=== PATIENT | female | born 1955 | race Caucasian/White ===

== ENCOUNTER 2016-12-29 18:03 | Emergency (ER) | payer OTHER ==
[~2016-12-29] VITALS: Ht 154.9 cm; Wt 70.0 kg
[~2016-12-29 18:03] MED LIST: ATV1 PO; DICL-201 PO; DPKSR500 PO; ENBER15 PO; LAMO100T16 PO; LEVE500T26 PO
[2016-12-29 18:17] VITALS: TEMP 37.2; Ht 154.9 cm; Wt 70.0 kg
--- NOTE | 2016-12-29 18:31 | EMERGENCY ROOM VISIT NOTE ---
History First contact with patient: 18:04 Chief Complaint: FOOT PAIN Stated Complaint: R FOOT PAIN History of Present Illness The patient is a 61 year old female who presents to the Emergency Room via BLS with complaints of right foot pain. The patient reports she was walking up a hill to her house when she developed pain in the right foot. She states she heard a cracking sound in the foot. The pain is worse with weightbearing. She rates the discomfort a 10/10. She does report a history of a foot surgery as a child. She denies any falls. She denies any numbness or weakness. Review of Systems A 6 point review of systems was reviewed with the patient with pertinent positives and negatives as per history of present illness. All else were negative. Social History Smoking Status: Never Smoker Occupation Status: disabled Current/Historical Medications Scheduled Alendronate Sodium (Fosamax), 70 MG PO WK Calcium/Vitamin D (Os-Selwyn 500 Plus D), 1 TAB PO BID Diclofenac (Voltaren), 75 MG PO BID W/FOOD. Divalproex Sodium (Divalproex Sodium ER), 500 MG PO BID Lamotrigine (Lamictal), 100 MG PO BID Levetiracetam (Keppra), 1,500 MG PO BID Lisinopril (Lisinopril), 10 MG PO DAILY Lorazepam (Ativan), 1 MG PO DAILY Metoprolol Succ (Toprol Xl) (Toprol-Xl), 25 MG PO DAILY Oxybutynin Chloride Er (Ditropan Xl), 10 MG PO DAILY Physical Exam Vital Signs Date Time Temp Pulse Resp B/P (MAP) Pulse Ox O2 Delivery O2 Flow Rate FiO2 12/29/16 19:05 57 16 172/98 96 Room Air 12/29/16 18:17 37.2 88 16 160/100 98 Room Air Physical Exam VITALS: Vitals are noted on the nurse's note and reviewed by myself. Vital signs stable. GENERAL: This is a 61-year-old female, pleasant, in no acute distress, well- developed well-nourished. HEART: Regular rate and rhythm without murmurs gallops or rubs. LUNGS: Clear to auscultation bilaterally without wheezes, rales or rhonchi. MUSCULOSKELETAL: Chronic appearing deformity of the right foot. There is mild soft tissue swelling and tenderness to palpation along the lateral aspect of the foot in the area of the fifth metatarsal. Full range of motion of the foot and ankle. Strong dorsalis pedis pulse. NEURO: Patient was alert and oriented to person place and time. Normal sensation to light and sharp touch. Medical Decision & Procedures ER Provider Diagnostic Interpretation: R FOOT MIN 3 VIEWS ROUTINE FINDINGS: Bones are moderately demineralized. Moderate metatarsophalangeal and interphalangeal degenerative changes are redemonstrated. Ill-defined transversely oriented lucency with associated surrounding cortical thickening involves the mid diaphyseal fifth metatarsal. Healing callus formation surrounds a nondisplaced fracture involving the proximal diaphyseal fourth metatarsal. Hallux valgus deformity noted. Mild dorsal forefoot soft tissue swelling. Mild spurring about the calcaneus. Likely dystrophic calcification within the region of the plantar fascia. IMPRESSION: 1. Subacute appearing nondisplaced stress fracture of the fifth metatarsal. 2. Chronic appearing nondisplaced stress fracture of the fourth metatarsal. 3. Mild forefoot soft tissue swelling with hallux valgus deformity. 4. Osteopenia. Medical Decision Differential diagnosis includes fracture, contusion, plantar fasciitis, cellulitis, stress fracture, among others. The patient was evaluated as above. X-ray of the foot was obtained and read by radiology and does show a chronic stress fracture of the fourth metatarsal as well as a subacute fracture of the fifth metatarsal. Patient was informed of these findings. She was placed in a postoperative shoe. She has a walker at home. Conservative measures were discussed. She was given information for orthopedic follow-up. She verbalized understanding was discharged home in good condition. The patient was independently evaluated by Dr. Raymundo, ED attending physician, who agreed with my assessment and treatment plan. Medication Reconcilliation Current Medication List: was personally reviewed by mi Blood Pressure Screening Patient's blood pressure: Elevated blood pressure Blood pressure disposition: Referred to PCP Impression Primary Impression: Stress fracture of foot Departure Information Dispostion Home / Self-Care Condition GOOD Referrals Naresh Fu M.D. (PCP) Fred Giordano D.O. Patient Instructions [facility] Additional Instructions You have been treated in the Emergency Department for a stress fracture of your foot. For pain control, you can use the following [id number] medicines (if >12 yo): - Regular strength (325mg/tab) Tylenol (acetaminophen) 2 tabs every 4-6 hours as needed. Do not exceed 12 tablets in a 24 hour period. Avoid taking more than 4 grams (4000 mg) of Tylenol per day. This includes any other sources of acetaminophen you may take on a regular basis. - Regular strength (200 mg/tab) Advil (ibuprofen) 1-2 tabs every 4-6 hours as needed. Do not exceed a dose of 3200 mg per day. If this is a recent injury (<24 hrs), ice can be applied to the area of pain for the first 3 days to help decrease pain and inflammation. You have been provided the number for an Orthopaedic Surgeon. You should call this number as soon as possible to establish a follow-up visit from today's Emergency Department visit. Wear the boot provided to you and use the walker to aid with walking until follow-up with orthopedics. Return to the Emergency Department if your current symptoms worsen despite treatment course outlined above, or if you develop any of the following symptoms : intractable pain despite aforementioned treatment course or new onset of numbness or tingling of the foot. Problem Qualifiers Primary Impression: Stress fracture of foot Encounter type: initial encounter Laterality: right Qualified Codes: M84.374A - Stress fracture, right foot, initial encounter for fracture
--- NOTE | 2016-12-29 18:45 | DIAGNOSTIC IMAGING REPORT ---
R FOOT MIN 3 VIEWS ROUTINE HISTORY: 61 years-old Female right foot lateral pain, cracking acute lateral right foot pain COMPARISON: Right foot radiographs 07/20/2009 TECHNIQUE: 3 views of the right foot FINDINGS: Bones are moderately demineralized. Moderate metatarsophalangeal and interphalangeal degenerative changes are redemonstrated. Ill-defined transversely oriented lucency with associated surrounding cortical thickening involves the mid diaphyseal fifth metatarsal. Healing callus formation surrounds a nondisplaced fracture involving the proximal diaphyseal fourth metatarsal. Hallux valgus deformity noted. Mild dorsal forefoot soft tissue swelling. Mild spurring about the calcaneus. Likely dystrophic calcification within the region of the plantar fascia. IMPRESSION: 1. Subacute appearing nondisplaced stress fracture of the fifth metatarsal. 2. Chronic appearing nondisplaced stress fracture of the fourth metatarsal. 3. Mild forefoot soft tissue swelling with hallux valgus deformity. 4. Osteopenia. The above report was generated using voice recognition software. It may contain grammatical, syntax or spelling errors. Electronically signed by: Jose Luis Osborne M.D. 12/29/2016 6:44 PM Dictated Date/Time: 12/29/2016 6:42 PM
[2016-12-29] MEDS ORDERED: ALEN70TA4 PO (18:57)
[2016-12-29] MEDS ORDERED: ATV/1 PO (18:57)
[2016-12-29] MEDS ORDERED: LEVE500T13 PO (18:57)
[2016-12-29] MEDS ORDERED: METO25TA3 PO (18:57)
[2016-12-29] MEDS ORDERED: OXYB10TA13 PO (18:57)
[2016-12-29] MEDS ORDERED: DPKSR500 PO (18:57)
[2016-12-29] MEDS ORDERED: LISI-461 PO (18:57)
[2016-12-29] MEDS ORDERED: CALC500C70 PO (18:57)
--- NOTE | 2016-12-29 18:57 | EMERGENCY ROOM VISIT NOTE ---
ED Visit Note First contact with patient: 18:04 HPI: Right foot pain after walking up hill. Plan: Subacute 5th metatarsal stress fx. Post op shoe. ortho f/u. I reviewed the patient's past medical history, medications, and visit nursing notes. I discussed the case with the physician insurance account assistant, examined the patient, and agree with the findings and plan as documented in the physician assistants note.
[2016-12-29 19:05] VITALS: BP 172/98; PULSE 57; O2SAT 96
== END 2016-12-29 19:15 | disposition home or self-care (01) ==
LOC: EDBD 18:03 → C.EDC 18:05
DX: M84.374A Stress fracture, right foot, initial encounter for fracture (principal); X58.XXXA Exposure to other specified factors, initial encounter; Y93.01 Activity, walking, marching and hiking; Y99.8 Other external cause status; Z98.890 Other specified postprocedural states

== ENCOUNTER 2019-06-04 09:07 | Inpatient (IN) ==
--- NOTE | 2019-06-04 10:06 | Emergency Department Note ---
History of Present Illness General Chief complaint: Diarrhea Time Seen by Provider: 06/04/19 09:24 History of Present Illness Maximum Pain Intensity: 0 Patient is a 64-year-old female with past medical history significant for cerebral palsy, seizure disorder, hypertension, among other chronic medical problems who presents to the emergency department via ambulance for evaluation of diarrhea. The patient has had chronic diarrhea for 4 to 5 months, and is currently under the care of her PCP and gastroenterology for this. She has undergone multiple tests including stool studies which were negative, CT of the abdomen and pelvis, and colonoscopy and EGD. Patient continues to note ongoing loose stools. She states that she is moving her bowels "every minute" and is unable to quantify the number of times per day. She states that they are loose and watery. She denies any blood in her stools. She denies any nausea or vomiting and reports that she has a good appetite and is eating normally. She denies any abdominal pain associated with this. No fevers. She denies urinary symptoms. She denies any chest pain or shortness of breath. She states that anything she eats "goes right through me." She is wearing adult diapers. She is complaining of "tailbone pain." She falls frequently at home and thinks that she may have hurt it when she fell. She reports having a power wheelchair and a walker at home. Patient's recent or [facility] medical records were reviewed, specifically her GI note from 04/29/2019. 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 Recommendations were made to the patient including discontinuing her diclofenac, which the patient relates that she is currently unable and unwilling to do. She was taking Imodium, recommendation was for twice daily, she is only been taking it once daily and states that it is not helping. She has not started a probiotic or a FODMAP diet as instructed. Potential other treatments included Lomotil or budesonide. Home Medications Home Medications Medication Instructions Recorded Confirmed Type diclofenac sodium 75 mg PO BID 01/26/18 06/04/19 History divalproex 500 mg PO BID 01/26/18 06/04/19 History lamotrigine 100 mg PO BID 01/26/18 06/04/19 History levetiracetam 1,500 mg PO BID 01/26/18 06/04/19 History lisinopril 20 mg PO DAILY 01/26/18 06/04/19 History aspirin 81 mg PO QAM 05/23/19 06/04/19 History oxybutynin chloride 10 mg PO QPM 05/23/19 06/04/19 History lorazepam 1 mg PO DAILY 06/04/19 06/04/19 History Allergies Allergy/AdvReac Type Severity Reaction Status Date / Time adhesive Allergy Unknown Unknown Verified 06/04/19 09:53 Past Med/Surg History Medical History Anxiety (Chronic) Bowel habit changes (Chronic) Chronic back pain (Chronic) CKD (chronic kidney disease) (Chronic) 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) History of colon polyps Hypertension (Chronic) Incontinence Infantile cerebral palsy (Chronic) Obstructive hydrocephalus (Chronic) has shunt Osteoporosis (Chronic) Weight loss lost 17 lb since august, 61 lb since 01/2018 Surgical History History of brain shunt History of colonoscopy Social History 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 Required: No Current Living Situation Comment: pt is a resident at [facility] Feels Safe at Home: Yes Smoking Status: Never smoker Review of Systems A total of 10 systems reviewed and were otherwise negative Physical Exam Vital Signs Vital Signs - 24 hr 06/04/19 09:21 06/04/19 10:32 06/04/19 11:30 Temperature 36.9 C Temperature Source Oral Pulse Rate 66 Pulse Rate [Apical] 59 L 63 Respiratory Rate 16 16 16 Blood Pressure 110/61 Blood Pressure [Right Arm] 98/69 L 104/75 Blood Pressure Mean 77 Blood Pressure Mean [Right Arm] 78 84 Pulse Oximetry 95 Oxygen Delivery Method Room Air Sepsis Recent Fever Within 48 Hours No Sepsis New/Unexplained Change in Mental Status No Sepsis Action Taken by Nursing No Action Required CONSTITUTIONAL: Patient is a petite, chronically ill-appearing 64-year-old female who is awake and alert and in no acute distress. Vital signs are stable. EYES: Pupils equal, round, reactive to light and accommodation. EOMs intact without nystagmus. Sclera are anicteric. ENT: Tympanic membranes intact, with normal landmarks. External canals are c lear. Oral and nasopharynx are clear. Mucous membranes are moist, no lesions, tongue and gums appear normal. CARDIOVASCULAR: Regular rate and rhythm, with normal S1 and S2, no murmur or gallop or rub is heard. No carotid bruits auscultated. No JVD. Peripheral pulses easily palpable. RESPIRATORY: Breath sounds equal and clear to auscultation without wheezes, rales, or rhonchi heard. Full and equal chest expansion without accessory muscle use or retractions. ABDOMEN: Bowel sounds are present. Abdomen is soft, nondistended, nontender to percussion and palpation throughout. No guarding or rebound. There is no pain in the right lower quadrant over McBurney's point. No pain in the right upper quadrant. Negative Price sign. RECTAL EXAM: Examination of the perirectal area note some generalized erythema. No external hemorrhoids or masses noted. No rectal tenderness. Good rectal tone. There is only scant stool in the rectal vault, which is Hemoccult negative. INTEGUMENTARY: The patient has some erythema of the presacral area, with very minimal superficial breakdown. LYMPH: No lymphadenopathy. MUSCULOSKELETAL: Chronic contractures noted in the right upper extremity. She has several areas of scabbed over abrasions on her arms and her legs. Multiple bruises in various stages of healing noted on the lower extremities. Full range of motion otherwise without pain. Course Course The patient was seen and assessed as above. Old records were reviewed including her recent ED visit from 2 weeks ago, and her last GI visit from 04/29/2019. She presents the emergency department for ongoing diarrhea. She is currently under the care of GI for this. On exam, she is noted to be frail, with dry mucous membranes. She is hypotensive upon presentation to the emergency department. Her abdominal exam is benign. IV lock was initiated and repeat laboratory studies were collected today. She was given a 500 cc bolus of normal saline solution, then 250 cc/h. CBC with differential, CMP, urinalysis were run. Patient history and presentation were reviewed with attending physician, who concurred with the ED work-up. Rectal exam was performed in the emergency department and was Hemoccult negative. Laboratory studies today noted a white count of 15,800, left shift and bandemia noted. Hemoglobin 8.3, hematocrit 27.0. She has dropped her hemoglobin roughly 1 point in the last 2 weeks. Electrolytes are without significant abnormality which require correction. BUN 42, creatinine 1.83, up from 1.5 2 weeks ago. Urine microscopy is without signs of infection. I did discuss the patient with MAYANK Su with GI. She felt that admission/observation was warranted given the ongoing diarrhea, concern for dehydration. There was discussion of starting budesonide. This was discussed with the patient, and she was agreeable. [facility] MAY[facility] Kinney for further care and management. Administered Medications Discontinued Medications Sodium Chloride (Nss) 500 mls @ 999 mls/hr IV .Q31M ANASTASIIA Stop: 07/04/19 09:59 Last Admin: 06/04/19 12:42 Dose: Not Given Documented by: [id number] Admin: 06/04/19 12:42 Dose: Not Given Documented by: [id number] Admin: 06/04/19 12:40 Dose: Not Given Documented by: [id number] Admin: 06/04/19 12:40 Dose: Not Given Documented by: [id number] Admin: 06/04/19 12:37 Dose: Not Given Documented by: [id number] Infusion: 06/04/19 10:35 Dose: 0 mls/hr Documented by: [id number] Admin: 06/04/19 10:09 Dose: 999 mls/hr Documented by: [id number] Sodium Chloride (Nss 1000ml) 1,000 mls @ 250 mls/hr IV .Q4H ANASTASIIA Stop: 07/04/19 11:14 Last Infusion: 06/04/19 12:37 Dose: 0 mls/hr Documented by: [id number] Admin: 06/04/19 11:47 Dose: 250 mls/hr Documented by: [id number] Medical Decision Making Differential Diagnosis Differential diagnoses entertained included infectious colitis/enteritis, inflammatory bowel disease, foodborne illness, dehydration, electrolyte or metabolic abnormality, acute renal failure, acute kidney injury, medication side effect, among others. Medical Records Attestation: I reviewed the patient's medical records. Home Medications Current Medication List: was personally reviewed by me Laboratory Data Attestation: I reviewed the patient's lab results. Result diagrams: 06/04/19 10:00 06/04/19 10:00 Lab Results 06/04/19 06/04/19 06/04/19 Range/Units 09:47 10:00 10:00 WBC 15.82 H (4.8-10.8) K/uL RBC 3.18 L (4.2-5.4) M/uL Hgb 8.3 L (12.0-16.0) g/dL Hct 27.0 L (37-47) % MCV 84.9 (80-100) fL MCH 26.1 (25-34) pg MCHC 30.7 L (32-36) g/dL RDW Std Deviation 47.7 H (36.4-46.3) fL RDW Coeff of Ofelia 15.2 H (11.5-14.5) % Plt Count 435 H (130-400) K/uL MPV 9.0 (7.4-10.4) fL Immature Gran % (Auto) 2.6 % Neut % (Auto) 77.9 % Lymph % (Auto) 10.9 % Wells % (Auto) 7.4 % Eos % (Auto) 1.1 % Baso % (Auto) 0.1 % Immature Gran # (Auto) 0.41 H (0.00-0.02) K/uL Neut # (Auto) 12.31 H (1.4-6.5) K/uL Lymph # (Auto) 1.73 (1.2-3.4) K/uL Wells # (Auto) 1.17 H (0.11-0.59) K/uL Eos # (Auto) 0.18 (0-0.5) K/uL Baso # (Auto) 0.02 (0-0.2) K/uL Sodium 133 L (136-145) mmol/L Potassium 4.3 (3.5-5.1) mmol/L Chloride 101 (98-107) mmol/L Carbon Dioxide 26 (21-32) mmol/L Anion Gap 6.0 (3-11) BUN 42 H (7-18) mg/dl Creatinine 1.83 H (0.6-1.2) mg/dl Est Cr Clr Drug Dosing 25.4 ml/min Est GFR ( Amer) 33.0 Est GFR (Non-Af Amer) 28.5 BUN/Creatinine Ratio 22.8 H (10-20) Glucose 90 (70-99) mg/dl Calcium 8.3 L (8.5-10.1) mg/dl Phosphorus (2.5-4.9) mg/dl Magnesium (1.8-2.4) mg/dl Total Bilirubin 0.3 (0.2-1) mg/dl AST 12 L (15-37) U/L ALT 15 (12-78) U/L Alkaline Phosphatase 111 (45-117) U/L Total Protein 6.3 L (6.4-8.2) gm/dl Albumin 2.6 L (3.4-5.0) gm/dl Globulin 3.7 (2.5-4.0) gm/dl Albumin/Globulin Ratio 0.7 L (0.9-2) Urine Color Urine Appearance (Clear) Urine pH (4.5-7.5) Ur Specific [place] (1.000-1.030) Urine Protein (Negative) Urine Glucose (UA) (Negative) Urine Ketones (Negative) Urine Blood (Negative) Urine Nitrite (Negative) Urine Bilirubin (Negative) Urine Urobilinogen (Negative) Ur Leukocyte Esterase (Negative) Urine WBC (Auto) (0-5) /hpf Urine RBC (Auto) (0-4) /hpf U Hyaline Cast (Auto) (0-5) /lpf U Epithel Cells (Auto) (0-5) /lpf Urine Bacteria (Auto) (Negative) POC Stool Occult Blood Negative (Negative) 06/04/19 06/04/19 Range/Units 10:00 10:25 WBC (4.8-10.8) K/uL RBC (4.2-5.4) M/uL Hgb (12.0-16.0) g/dL Hct (37-47) % MCV (80-100) fL MCH (25-34) pg MCHC (32-36) g/dL RDW Std Deviation (36.4-46.3) fL RDW Coeff of Ofelia (11.5-14.5) % Plt Count (130-400) K/uL MPV (7.4-10.4) fL Immature Gran % (Auto) % Neut % (Auto) % Lymph % (Auto) % Wells % (Auto) % Eos % (Auto) % Baso % (Auto) % Immature Gran # (Auto) (0.00-0.02) K/uL Neut # (Auto) (1.4-6.5) K/uL Lymph # (Auto) (1.2-3.4) K/uL Wells # (Auto) (0.11-0.59) K/uL Eos # (Auto) (0-0.5) K/uL Baso # (Auto) (0-0.2) K/uL Sodium (136-145) mmol/L Potassium (3.5-5.1) mmol/L Chloride (98-107) mmol/L Carbon Dioxide (21-32) mmol/L Anion Gap (3-11) BUN (7-18) mg/dl Creatinine (0.6-1.2) mg/dl Est Cr Clr Drug Dosing ml/min Est GFR ( Amer) Est GFR (Non-Af Amer) BUN/Creatinine Ratio (10-20) Glucose (70-99) mg/dl Calcium (8.5-10.1) mg/dl Phosphorus 3.4 (2.5-4.9) mg/dl Magnesium 3.1 H (1.8-2.4) mg/dl Total Bilirubin (0.2-1) mg/dl AST (15-37) U/L ALT (12-78) U/L Alkaline Phosphatase (45-117) U/L Total Protein (6.4-8.2) gm/dl Albumin (3.4-5.0) gm/dl Globulin (2.5-4.0) gm/dl Albumin/Globulin Ratio (0.9-2) Urine Color Yellow Urine Appearance Clear (Clear) Urine pH 5.0 (4.5-7.5) Ur Specific [place] 1.021 (1.000-1.030) Urine Protein Trace H (Negative) Urine Glucose (UA) Negative (Negative) Urine Ketones Trace H (Negative) Urine Blood Negative (Negative) Urine Nitrite Negative (Negative) Urine Bilirubin Negative (Negative) Urine Urobilinogen Negative (Negative) Ur Leukocyte Esterase Trace H (Negative) Urine WBC (Auto) 1-5 (0-5) /hpf Urine RBC (Auto) 0-4 (0-4) /hpf U Hyaline Cast (Auto) 1-5 (0-5) /lpf U Epithel Cells (Auto) 10-20 H (0-5) /lpf Urine Bacteria (Auto) Negative (Negative) POC Stool Occult Blood (Negative) Blood Pressure Blood Pressure Findings: Low blood pressure Blood Pressure Disposition: further management by hospitalist MDM Narrative See ED Course. Impression & Plan Dehydration, Diarrhea, Hypotension Discharge Plan Visit Data *Final* Discharge Date/Time: 06/04/19 11:52 Chief Complaint: Diarrhea ED Provider: Darshana Sanchez ED Midlevel Provider: Soila Anderson Discharge Problem: Dehydration, Diarrhea, Hypotension Patient Disposition: Admitted As Inpatient Discharge Instructions Interventions: ED Discharge Assessment Last Done: 06/04/19 11:52
[2019-06-04 10:07] LABS: Basophils # (auto) 0.02 K/uL (0-0.2); Basophils % (auto) 0.1 %; Eosinophils # (auto) 0.18 K/uL (0-0.5); Eosinophils % (auto) 1.1 %; Hemoglobin 8.3 g/dL (12.0-16.0); Immature Granulocytes # (auto) 0.41 K/uL (0.00-0.02); Immature Granulocytes % (auto) 2.6 %; Lymphocytes # (auto) 1.73 K/uL (1.2-3.4); Lymphocytes % (auto) 10.9 %; Mean Corpuscular Hemoglobin 26.1 pg (25-34); Mean Corpuscular Hgb Conc 30.7 g/dL (32-36); Mean Corpuscular Volume 84.9 fL (80-100); Monocytes # (auto) 1.17 K/uL (0.11-0.59); Monocytes % (auto) 7.4 %; Neutrophils # (auto) 12.31 K/uL (1.4-6.5); Neutrophils % (auto) 77.9 %; Platelet Count 435 K/uL (130-400); RDW Coefficient of Variation 15.2 % (11.5-14.5); RDW Standard Deviation 47.7 fL (36.4-46.3); Red Blood Count 3.18 M/uL (4.2-5.4); White Blood Count 15.82 K/uL (4.8-10.8)
[2019-06-04] MEDS: SODIUM CHLORIDE 0.9% 500 ML IV SCH ×4 (10:09→12:42)
[2019-06-04 10:27] LABS: Albumin Level 2.6 gm/dl (3.4-5.0); BUN Creatinine Ratio 22.8 (10-20); Calcium 8.3 mg/dl (8.5-10.1); Creatinine Clr Calc Pharmacy 25.4 ml/min; Est GFR (Non-African American) 28.5; Potassium 4.3 mmol/L (3.5-5.1)
[2019-06-04 10:30] LABS: Albumin Globulin Ratio 0.7 (0.9-2); Bilirubin,Total 0.3 mg/dl (0.2-1); Globulin 3.7 gm/dl (2.5-4.0); Total Protein 6.3 gm/dl (6.4-8.2)
[2019-06-04 10:48] LABS: Appearance Urine Clear (Clear); Bacteria Urine Automated Negative (Negative); Bilirubin Urine Negative (Negative); Blood Urine Negative (Negative); Color Urine Yellow; Glucose Urine UA Negative (Negative); Ketones Urine Trace (Negative); Leukocyte Esterase Urine Trace (Negative); Nitrite Urine Negative (Negative); Protein Urine Trace (Negative); RBC Urine Automated 0-4 /hpf (0-4); Specific Gravity Urine 1.021 (1.000-1.030); Urobilinogen Urine Negative (Negative)
[2019-06-04] MEDS ORDERED: SODIUM CHLORIDE 0.9% 1000ML 1,000 ML IV SCH (11:15)
[2019-06-04 11:44] LABS: Magnesium 3.1 mg/dl (1.8-2.4); Phosphorus 3.4 mg/dl (2.5-4.9)
[2019-06-04] MEDS ORDERED: ACETAMINOPHEN 325 MG TAB PO PRN (12:35)
[2019-06-04] MEDS: SODIUM CHLORIDE 0.9% 1000ML 1,000 ML IV SCH (13:21)
[2019-06-04 13:23] LABS: Iron 25 mcg/dl (35-150); Total Iron Binding Capacity 188 mcg/dl (250-450); Transferrin 148 mg/dl (200-360)
--- NOTE | 2019-06-04 13:26 | Gastrointestinal Consultation ---
Date of Consultation June 04, 2019 Assessment & Plan (1) Diarrhea: (2) Lymphocytic colitis: Pt is a 64 y/o who presented w continued diarrhea, stool incontinence, progressive weight loss; labs notable for QUYNH, increased WBC and worsening anemia. Stool occult negative. Last EGD/Colonoscopy 03/24/2019 w duodenum bx negative for sprue, random colon bx showed lymphocytic colitis. She continues to take Diclofenac at home. Previously prescribed Questran, Lomotil - unsure if pt taking these. She may be taking Imodium from OTC prn diarrhea at home. - Anemia workup - iron studies, FA, B12 - Check stool cx, Cdiff, ESR, CRP - If stools negative for infections, start Budesonide 9mg daily to be tapered off over 6 weeks - Avoid NSAIDs - IVF hydration Supervising Physician Co-Signing Physician Notes I performed a history and physical examination of the patient today, including specifically on physical exam - soft abdomen. I have discussed the patient's management with the advanced practitioner. Please refer to the nurse practitioner's note for the documented findings and plan of care. Patient with Lymphocytic colitis. Recommend: Stool studies. Start Budesonide 9mg for 4 weeks then 6 mg for 2 weeks then 3 mg for 2 weeks. PRN Imodium. Stop NSAIDs. Recall GI if needed. History of Present Illness Reason for Consultation: Diarrhea Requesting Physician: Dr. Malena Skinner Attending Physician: Dr. Preeti Fagan History of Present Illness Pt is a 64 y/o female who presented to ED w persistent diarrhea for months and progressive weight loss. She denies any fever, chills, CP, SOB, abd pain, n/v. Bowels move close to 10x a day w stool/urine incontinence at times. She denies dark tarry stools or rectal bleeding, nocturnal awakening. Almost every time she eats, she has to defecate. She had previously been followed by GI (MAYANK Murcia) for lymphocytic colitis dx via random colon bx from EGD/Colonoscopy done 03/24/2019. Duodenum bx then negative for sprue. She had Questran, Lomotil prescribed in the past however she's a poor historian and unsure of name of her meds. She is possibly taking Imodium for the diarrhea. She continues to take Diclofenac at home. Labs reviewed - WBC up 15K, worsening anemia Hgb 9 ->8, Cr up from basline 1.3 - >1.8. Stool occult negative. Allergies Allergy/AdvReac Type Severity Reaction Status Date / Time adhesive Allergy Unknown Unknown Verified 06/04/19 09:53 Home Medications Home Medications Medication Instructions Recorded Confirmed Type diclofenac sodium 75 mg PO BID 01/26/18 06/04/19 History divalproex 500 mg PO BID 01/26/18 06/04/19 History lamotrigine 100 mg PO BID 01/26/18 06/04/19 History levetiracetam 1,500 mg PO BID 01/26/18 06/04/19 History lisinopril 20 mg PO DAILY 01/26/18 06/04/19 History aspirin 81 mg PO QAM 05/23/19 06/04/19 History oxybutynin chloride 10 mg PO QPM 05/23/19 06/04/19 History lorazepam 1 mg PO DAILY 06/04/19 06/04/19 History Patient History Medical History (Updated 06/04/19 @ 13:52 by MAYANK Kinney) Anxiety (Chronic) Chronic kidney disease (CKD), stage III (moderate) 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) History of colon polyps History of CVA (cerebrovascular accident) Hypertension (Chronic) Incontinence Infantile cerebral palsy (Chronic) Obstructive hydrocephalus (Chronic) has shunt Osteoporosis (Chronic) Surgical History H/O tubal ligation History of brain shunt Family History Father Cancer Mother Cancer Social History Preferred Language: French Communication Ability: Effective Assistant To The Vice President Required: No Beliefs That Will Affect Care: None Current Living Situation: Alone Current Living Situation Comment: has caregivers that help Other Information That Helps Us Care for You: No Feels Safe at Home: Yes Safety Concerns: Feels Safe At This Time Smoking Status: Never smoker Hx Alcohol Use: No Hx Substance Use: No Review of Systems Review of Systems: All systems reviewed & are unremarkable except as noted in HPI & below Physical Exam Constitutional: + thin, well groomed, cooperative and comfortable Eyes: PERRL, conjunctivae normal, anicteric sclerae ENMT: external ear and nose normal, oropharynx normal Respiratory: normal respiratory effort, lungs clear to auscultation Cardiovascular: RRR, no murmur, no edema Gastrointestinal (Abdomen): normal bowel sounds, soft, nontender, no hepatosplenomegaly Skin: no rashes, warm and dry no jaundice Psychiatric: A+Ox3, euthymic affect Lymphatic: no lymphedema Results & Data ([facility]) Vital Signs (Past 12 Hours) Vital Signs Temp Pulse Pulse Resp BP BP Pulse Ox 06/04/19 12:42 36.3 C L 65 18 109/74 97 06/04/19 11:30 63 16 104/75 06/04/19 10:32 59 L 16 98/69 L 95 06/04/19 09:21 36.9 C 66 16 110/61 (1) Diarrhea Diarrhea type: unspecified type Qualified Code(s): R19.7 - Diarrhea, unspecified
--- NOTE | 2019-06-04 13:38 | History & Physical Report ---
Date of Service June 04, 2019 Assessment & Plan (1) Diarrhea: (2) Lymphocytic colitis: -Admit to [facility] -Patient presenting from home with reports of persistent diarrhea -Has been ongoing for the past several weeks and has been evaluated by GI as an outpatient. Underwent stool studies, CT ABD/pelvis, EGD, colonoscopy. Biopsy from colonoscopy showed lymphocytic colitis. Patient was advised to stop diclofenac, start probiotic, adhere to a FODMAPs diet. Patient has made note of these changes at this time. -Patient is unwilling to stop her diclofenac -WBC 15 K, continue to monitor -Recheck stool studies -GI consult -start budesonide if stool is negative for infection (3) Anemia: -Downtrending anemia noted, Hgb 8.3 today -No obvious signs of bleeding -Stool negative for Hemoccult -Likely anemia of chronic disease -Check iron studies (4) Acute kidney injury superimposed on CKD: (5) Chronic kidney disease (CKD), stage III (moderate): -Baseline creatinine runs in the low ones, noted to be 1.8 today -Likely prerenal in nature secondary to dehydration from GI losses -Hold lisinopril for now, start IVF -Monitor renal functions (6) Generalized convulsive epilepsy without intractable epilepsy: -Stable, no recent seizures -Continue Depakote and Keppra (7) Hypertension: -BP borderline low at times, holding lisinopril (8) History of CVA (cerebrovascular accident): -Hold aspirin for now due to anemia (9) Ambulatory dysfunction: -Patient has had several falls over the past 1 week -PT/OT evaluations -Patient may benefit from rehab placement (10) DVT prophylaxis: -SCDs due to anemia Admission and Anticipated Discharge Date Admission Date: June 04, 2019 History of Present Illness Chief Complaint: Diarrhea Primary Care Provider: Naresh Fu MD 64-year-old female who presents the ED for evaluation of diarrhea. Patient has been having ongoing diarrhea for the past several weeks. She has been evaluated by GI as an outpatient and has had stool studies, CT ABD/pelvis, colonoscopy, EGD. Work-up has demonstrated microscopic colitis. Patient is on chronic NSAIDs, diclofenac and is unwilling to start the medication at this time. Patient was also advised to start a probiotic which she has not done yet. She was also recommended to start a FODMAPs diet and she has not made any dietary changes at this time. She reports taking an [id number] antidiarrheal which is been ineffective. Patient reports multiple diarrhea episodes per day. She is incontinent at times. She denies bright red bleeding per rectum or dark tarry stools. She reports a poor appetite however denies nausea, vomiting, abdominal pain. She has had multiple falls which she attributes to " losing her balance". Denies any lightheadedness, dizziness, syncopal event. No other recent illnesses, fevers, chills. She denies any urinary symptoms. In the ED, labs show WBC 15 K, Hgb 8.3, creatinine 1.8. Patient was given IVF. Allergies Allergy/AdvReac Type Severity Reaction Status Date / Time adhesive Allergy Unknown Unknown Verified 06/04/19 09:53 Home Medications Home Medications Medication Instructions Recorded Confirmed Type diclofenac sodium 75 mg PO BID 01/26/18 06/04/19 History divalproex 500 mg PO BID 01/26/18 06/04/19 History lamotrigine 100 mg PO BID 01/26/18 06/04/19 History levetiracetam 1,500 mg PO BID 01/26/18 06/04/19 History lisinopril 20 mg PO DAILY 01/26/18 06/04/19 History aspirin 81 mg PO QAM 05/23/19 06/04/19 History oxybutynin chloride 10 mg PO QPM 05/23/19 06/04/19 History lorazepam 1 mg PO DAILY 06/04/19 06/04/19 History Past Med/Surg History Medical History (Updated 06/04/19 @ 13:52 by MAYANK Kinney) Anxiety (Chronic) Chronic kidney disease (CKD), stage III (moderate) 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) History of colon polyps History of CVA (cerebrovascular accident) Hypertension (Chronic) Incontinence Infantile cerebral palsy (Chronic) Obstructive hydrocephalus (Chronic) has shunt Osteoporosis (Chronic) Surgical History H/O tubal ligation History of brain shunt Family History Father Cancer Mother Cancer Social History Preferred Language: Nigerian Communication Ability: Effective Slagger Required: No Beliefs That Will Affect Care: None Current Living Situation: Alone Current Living Situation Comment: has caregivers that help Other Information That Helps Us Care for You: No Feels Safe at Home: Yes Safety Concerns: Feels Safe At This Time Smoking Status: Never smoker Hx Alcohol Use: No Hx Substance Use: No Review of Systems Review of Systems: ROS per HPI, all other systems reviewed and negative Physical Exam Constitutional: WD/WN, vitals as above Eyes: PERRL, conjunctivae normal, anicteric sclerae ENMT: external ear and nose normal, oropharynx normal Respiratory: normal respiratory effort, lungs clear to auscultation Cardiovascular: Rate/Rhythm: regular rate and regular rhythm Vessels: normal peripheral pulses Extremities: no edema Gastrointestinal (Abdomen): normal bowel sounds, soft, nontender, no hepatosplenomegaly Musculoskeletal: no cyanosis or clubbing, extremities motor strength 5/5 Contractures noted Skin: no rashes, warm and dry Scattered ecchymosis in various stages of healing noted over body Neurologic: PERRL, EOMI, accommodation nl, no face palsy, no dysarthria Psychiatric: A+Ox3, euthymic affect Results & Data Results & Data ([facility]) Vital Signs (Past 12 Hours) Vital Signs Temp Pulse Pulse Resp BP BP Pulse Ox 06/04/19 12:42 36.3 C L 65 18 109/74 97 06/04/19 11:30 63 16 104/75 06/04/19 10:32 59 L 16 98/69 L 95 06/04/19 09:21 36.9 C 66 16 110/61 Laboratory Results Short CBC 06/04/19 Range/Units 10:00 WBC 15.82 H (4.8-10.8) K/uL Hgb 8.3 L (12.0-16.0) g/dL Hct 27.0 L (37-47) % Plt Count 435 H (130-400) K/uL BMP 06/04/19 10:00 Sodium 133 L Potassium 4.3 Chloride 101 Carbon Dioxide 26 BUN 42 H Creatinine 1.83 H Glucose 90 Calcium 8.3 L Liver Function 06/04/19 Range/Units 10:00 Total Bilirubin 0.3 (0.2-1) mg/dl AST 12 L (15-37) U/L ALT 15 (12-78) U/L Alkaline Phosphatase 111 (45-117) U/L Albumin 2.6 L (3.4-5.0) gm/dl Urine 06/04/19 Range/Units 10:25 Urine Color Yellow Urine Appearance Clear (Clear) Urine pH 5.0 (4.5-7.5) Ur Specific [place] 1.021 (1.000-1.030) Urine Protein Trace H (Negative) Urine Glucose (UA) Negative (Negative) Code Status & VTE Plan Code Status Patient is a full code as per my discussion with her. VTE Prophylaxis Plan VTE Prophylaxis will be ordered: Yes Supervising Physician Co-Signing Physician Notes I have seen and examined the patient and have discussed the case with the provider above. I agree with the assessment and plan as stated. 64 yo F with CP and h/o epilepsy presents with an uptick in chronic diarrhea output. She reports falls and weakness, and is overall a poor historian who doesn't appear t o have good insight into her disease process, but was reporting going every minute over the last couple of weeks. Obtaining a solid timeline from her is difficult. I focused on her arthritis issues in an attempt to understand her dependence on the Diclofenac, clearly a contributor to this issue. She states that she "hurts all over" and when asked to speak more specifically, reports her neck, back and legs hurt and she requires taking "a medication" for this issue. She was actually open to stopping the diclofenac for a period of time to see if this would help her diarrhea. This apparent change of heart came after explaining multiple times over in simple terms the connection between the Diclofenac and her diarrhea. Additionally, controlling the bowel inflammation may also help her arthritis pain as these may likely be connected. Will plan to give her scheduled APAP in the meantime to offset any new or unbearable pain that may arise as a result of the NSAID discontinuation. For breakthrough would consider stronger agent, even a mild narcotic temporarily to keep her off the NSAIDs so the inflammation can have a chance to improve. Would avoid Tramadol with her h/o seizures. Physical exam reveals a dehydrated appearing female who appears older than her stated age, but not acutely ill. Heart and lung exam was within normal limits. Abdomen was soft and nontender without distension. Appreciate GI intervention and recs here, and will stand by for plans to start a budesonide trial. Leukocytosis may be related to a flare. Agree with stool studies as differential still includes but is not limited to c-diff and other causes of infectious diarrhea. Additionally, of note, her multiple falls at home and reported dysequilibrium may be related to her daily lorazepam and ox ybutinin. This was too much to introduce during this conversation but may be important for PCP to address after discharge. DO Brody (1) Diarrhea Diarrhea type: unspecified type Qualified Code(s): R19.7 - Diarrhea, unspecified
[2019-06-04] MEDS: ACETAMINOPHEN 500 MG TAB PO SCH ×2 (14:41→21:31)
[2019-06-04] MEDS ORDERED: Nursing to Pharmacy Communication ONE (15:20)
[2019-06-04] MEDS: DIVALPROEX EXTENDED RELEASE 500 MG TAB PO SCH (15:32)
[2019-06-04] MEDS: lamoTRIgine 100 MG TAB PO SCH (15:33)
[2019-06-04] MEDS: levETIRAcetam 500 MG TAB PO SCH (15:33)
[2019-06-04] MEDS: BUDESONIDE EC 3 MG CAP PO SCH (15:40)
[2019-06-04] MEDS ORDERED: LOPERAMIDE HCL 2 MG CAP PO STA (18:19)
[2019-06-04] MEDS ORDERED: levETIRAcetam 500 MG TAB PO SCH (21:00)
[2019-06-04] MEDS ORDERED: DIVALPROEX EXTENDED RELEASE 500 MG TAB PO SCH (21:00)
[2019-06-04] MEDS ORDERED: lamoTRIgine 100 MG TAB PO SCH (21:00)
[2019-06-04] MEDS ORDERED: DICLOFENAC SODIUM 75 MG TABCR PO SCH (21:00)
[2019-06-04] MEDS: OXYBUTYNIN CHLORIDE XL 5 MG TABCR PO SCH (21:31)
[2019-06-05] MEDS: SODIUM CHLORIDE 0.9% 1000ML 1,000 ML IV SCH ×2 (00:35→14:45)
[2019-06-05] MEDS: LOPERAMIDE HCL 2 MG CAP PO PRN (00:36)
[2019-06-05] MEDS: ACETAMINOPHEN 500 MG TAB PO SCH ×3 (05:43→21:42)
[2019-06-05 07:45] LABS: Hematocrit (blood only) 23.5 % (37-47); Hemoglobin 7.3 g/dL (12.0-16.0); Mean Corpuscular Hemoglobin 26.7 pg (25-34); Mean Corpuscular Hgb Conc 31.1 g/dL (32-36); Mean Corpuscular Volume 86.1 fL (80-100); Mean Platelet Volume 8.6 fL (7.4-10.4); Platelet Count 444 K/uL (130-400); RDW Coefficient of Variation 15.4 % (11.5-14.5); RDW Standard Deviation 48.8 fL (36.4-46.3); Red Blood Count 2.73 M/uL (4.2-5.4); White Blood Count 12.57 K/uL (4.8-10.8)
[2019-06-05] MEDS: LORazepam 1 MG TAB PO SCH (08:07)
[2019-06-05] MEDS: levETIRAcetam 500 MG TAB PO SCH ×2 (08:08→14:46)
[2019-06-05] MEDS: BUDESONIDE EC 3 MG CAP PO SCH (08:09)
[2019-06-05] MEDS: DIVALPROEX EXTENDED RELEASE 500 MG TAB PO SCH ×2 (08:09→14:46)
[2019-06-05] MEDS: lamoTRIgine 100 MG TAB PO SCH ×2 (08:10→14:47)
[2019-06-05 08:32] LABS: BUN Creatinine Ratio 23.1 (10-20); Calcium 7.7 mg/dl (8.5-10.1); Creatinine Clr Calc Pharmacy 39.3 ml/min; Est GFR (African American) 59.1; Potassium 4.3 mmol/L (3.5-5.1)
--- NOTE | 2019-06-05 08:48 | Gastroenterology Progress Note ---
Date of Service June 05, 2019 Assessment & Plan Admission and Anticipated Discharge Date Admission Date: June 04, 2019 Patient admitted with renal failure and persistent diarrhea as result of lymphocytic colitis. I would recommend discontinuation of all nonsteroidals and retesting the patient for evidence of C. difficile infection. Recommendations Continue with you Budesonide 9 mg/day Discontinue use of all nonsteroidals Test for C. difficile Subjective Patient is somewhat of a difficult historian. She notes that she continues to have diarrhea and is not certain if it is improved from baseline. Review of Systems Constitutional: no sweats and no malaise Eyes: no diplopia Respiratory: no change in sputum and no hemoptysis Cardiovascular: no chest pain with activity Physical Exam Constitutional: well developed; no acute distress and not ill appearing Eyes: PERRL, conjunctivae normal, anicteric sclerae Respiratory: normal respiratory effort; no respiratory distress Cardiovascular: Rate/Rhythm: regular rate Gastrointestinal (Abdomen): normal bowel sounds, soft, nontender, no hepatosplenomegaly Inspection/Auscultation: abdomen not distended and no scaphoid Results & Data ([facility]) Vital Signs (Past 12 Hours) Vital Signs Temp Pulse Resp BP Pulse Ox 06/05/19 07:20 36.8 C 57 L 18 94/63 L 94 06/05/19 03:00 68 21 107/62 97 06/04/19 23:38 62 20 111/66 98 06/04/19 22:54 36.5 C 65 17 96/51 L 94 Laboratory Results Laboratory Results - last 24 hr 06/04/19 06/04/19 06/04/19 09:47 10:00 10:00 WBC 15.82 H RBC 3.18 L Hgb 8.3 L Hct 27.0 L MCV 84.9 MCH 26.1 MCHC 30.7 L RDW Std Deviation 47.7 H RDW Coeff of [place] 15.2 H Plt Count 435 H MPV 9.0 Immature Gran % (Auto) 2.6 Neut % (Auto) 77.9 Lymph % (Auto) 10.9 [place] % (Auto) 7.4 Eos % (Auto) 1.1 Baso % (Auto) 0.1 Immature Gran # (Auto) 0.41 H Neut # (Auto) 12.31 H Lymph # (Auto) 1.73 [place] # (Auto) 1.17 H Eos # (Auto) 0.18 Baso # (Auto) 0.02 ESR Sodium 133 L Potassium 4.3 Chloride 101 Carbon Dioxide 26 Anion Gap 6.0 BUN 42 H Creatinine 1.83 H Est Cr Clr Drug Dosing 25.4 Est GFR ( Amer) 33.0 Est GFR (Non-Af Amer) 28.5 BUN/Creatinine Ratio 22.8 H Glucose 90 Calcium 8.3 L Phosphorus Magnesium Iron TIBC Transferrin Total Bilirubin 0.3 AST 12 L ALT 15 Alkaline Phosphatase 111 C-Reactive Protein Total Protein 6.3 L Albumin 2.6 L Globulin 3.7 Albumin/Globulin Ratio 0.7 L Vitamin B12 Folate Urine Color Urine Appearance Urine pH Ur Specific [place] Urine Protein Urine Glucose (UA) Urine Ketones Urine Blood Urine Nitrite Urine Bilirubin Urine Urobilinogen Ur Leukocyte Esterase Urine WBC (Auto) Urine RBC (Auto) U Hyaline Cast (Auto) U Epithel Cells (Auto) Urine Bacteria (Auto) POC Stool Occult Blood Negative Stl C. diff Tox B Gene 06/04/19 06/04/19 06/04/19 10:00 10:25 12:54 WBC RBC Hgb Hct MCV MCH MCHC RDW Std Deviation RDW Coeff of [place] Plt Count MPV Immature Gran % (Auto) Neut % (Auto) Lymph % (Auto) [place] % (Auto) Eos % (Auto) Baso % (Auto) Immature Gran # (Auto) Neut # (Auto) Lymph # (Auto) [place] # (Auto) Eos # (Auto) Baso # (Auto) ESR Sodium Potassium Chloride Carbon Dioxide Anion Gap BUN Creatinine Est Cr Clr Drug Dosing Est GFR ( Amer) Est GFR (Non-Af Amer) BUN/Creatinine Ratio Glucose Calcium Phosphorus 3.4 Magnesium 3.1 H Iron TIBC Transferrin Total Bilirubin AST ALT Alkaline Phosphatase C-Reactive Protein Total Protein Albumin Globulin Albumin/Globulin Ratio Vitamin B12 Folate 13.86 Urine Color Yellow Urine Appearance Clear Urine pH 5.0 Ur Specific [place] 1.021 Urine Protein Trace H Urine Glucose (UA) Negative Urine Ketones Trace H Urine Blood Negative Urine Nitrite Negative Urine Bilirubin Negative Urine Urobilinogen Negative Ur Leukocyte Esterase Trace H Urine WBC (Auto) 1-5 Urine RBC (Auto) 0-4 U Hyaline Cast (Auto) 1-5 U Epithel Cells (Auto) 10-20 H Urine Bacteria (Auto) Negative POC Stool Occult Blood Stl C. diff Tox B Gene 06/04/19 06/04/19 06/04/19 12:54 12:54 14:17 WBC RBC Hgb Hct MCV MCH MCHC RDW Std Deviation RDW Coeff of [place] Plt Count MPV Immature Gran % (Auto) Neut % (Auto) Lymph % (Auto) [place] % (Auto) Eos % (Auto) Baso % (Auto) Immature Gran # (Auto) Neut # (Auto) Lymph # (Auto) [place] # (Auto) Eos # (Auto) Baso # (Auto) ESR > 90 H Sodium Potassium Chloride Carbon Dioxide Anion Gap BUN Creatinine Est Cr Clr Drug Dosing Est GFR ( Amer) Est GFR (Non-Af Amer) BUN/Creatinine Ratio Glucose Calcium Phosphorus Magnesium Iron 25 L TIBC 188 L Transferrin 148 L Total Bilirubin AST ALT Alkaline Phosphatase C-Reactive Protein Total Protein Albumin Globulin Albumin/Globulin Ratio Vitamin B12 1505 H Folate Urine Color Urine Appearance Urine pH Ur Specific [place] Urine Protein Urine Glucose (UA) Urine Ketones Urine Blood Urine Nitrite Urine Bilirubin Urine Urobilinogen Ur Leukocyte Esterase Urine WBC (Auto) Urine RBC (Auto) U Hyaline Cast (Auto) U Epithel Cells (Auto) Urine Bacteria (Auto) POC Stool Occult Blood Stl C. diff Tox B Gene 06/04/19 06/04/19 06/05/19 14:17 15:50 07:20 WBC 12.57 H RBC 2.73 L Hgb 7.3 L Hct 23.5 L MCV 86.1 MCH 26.7 MCHC 31.1 L RDW Std Deviation 48.8 H RDW Coeff of [place] 15.4 H Plt Count 444 H MPV 8.6 Immature Gran % (Auto) Neut % (Auto) Lymph % (Auto) [place] % (Auto) Eos % (Auto) Baso % (Auto) Immature Gran # (Auto) Neut # (Auto) Lymph # (Auto) [place] # (Auto) Eos # (Auto) Baso # (Auto) ESR Sodium Potassium Chloride Carbon Dioxide Anion Gap BUN Creatinine Est Cr Clr Drug Dosing Est GFR ( Amer) Est GFR (Non-Af Amer) BUN/Creatinine Ratio Glucose Calcium Phosphorus Magnesium Iron TIBC Transferrin Total Bilirubin AST ALT Alkaline Phosphatase C-Reactive Protein 11.50 H Total Protein Albumin Globulin Albumin/Globulin Ratio Vitamin B12 Folate Urine Color Urine Appearance Urine pH Ur Specific [place] Urine Protein Urine Glucose (UA) Urine Ketones Urine Blood Urine Nitrite Urine Bilirubin Urine Urobilinogen Ur Leukocyte Esterase Urine WBC (Auto) Urine RBC (Auto) U Hyaline Cast (Auto) U Epithel Cells (Auto) Urine Bacteria (Auto) POC Stool Occult Blood Stl C. diff Tox B Gene Negative Cdiff Gene 06/05/19 07:20 WBC RBC Hgb Hct MCV MCH MCHC RDW Std Deviation RDW Coeff of [place] Plt Count MPV Immature Gran % (Auto) Neut % (Auto) Lymph % (Auto) [place] % (Auto) Eos % (Auto) Baso % (Auto) Immature Gran # (Auto) Neut # (Auto) Lymph # (Auto) [place] # (Auto) Eos # (Auto) Baso # (Auto) ESR Sodium 136 Potassium 4.3 Chloride 107 Carbon Dioxide 25 Anion Gap 4.0 BUN 26 H Creatinine 1.13 D Est Cr Clr Drug Dosing 39.3 Est GFR ( Amer) 59.1 Est GFR (Non-Af Amer) 51.0 BUN/Creatinine Ratio 23.1 H Glucose 86 Calcium 7.7 L Phosphorus Magnesium Iron TIBC Transferrin Total Bilirubin AST ALT Alkaline Phosphatase C-Reactive Protein Total Protein Albumin Globulin Albumin/Globulin Ratio Vitamin B12 Folate Urine Color Urine Appearance Urine pH Ur Specific [place] Urine Protein Urine Glucose (UA) Urine Ketones Urine Blood Urine Nitrite Urine Bilirubin Urine Urobilinogen Ur Leukocyte Esterase Urine WBC (Auto) Urine RBC (Auto) U Hyaline Cast (Auto) U Epithel Cells (Auto) Urine Bacteria (Auto) POC Stool Occult Blood Stl C. diff Tox B Gene
--- NOTE | 2019-06-05 09:51 | Hospitalist Progress Note ---
Date of Service June 05, 2019 Assessment & Plan (1) Diarrhea: Has been going on for several weeks seems to be inflammatory Stool was negative for any blood Stool for C. difficile was negative and cultures are pending (2) Lymphocytic colitis: Patient presenting from home with reports of persistent diarrhea Has been ongoing for the past several weeks and has been evaluated by GI as an outpatient. Underwent stool studies, CT ABD/pelvis, EGD, colonoscopy. Biopsy from colonoscopy showed lymphocytic colitis. Patient was advised to stop diclofenac, start probiotic, adhere to a FODMAPs diet. Patient has made note of these changes at this time. WBC 15 K, continue to monitor Recheck stool studies Appreciate GI consult and recommendation Has been put on oral budesonide (3) Anemia: Downtrending anemia noted, Hgb 8.3 today No obvious signs of bleeding Stool negative for Hemoccult Likely anemia of chronic disease Iron studies shows low iron and low iron binding capacities and low for a ferritin B12 and folate have been normal Will start iron supplement Hemoglobin went down to 7.3 as of 06/05/2019 Will recheck in the morning and if it is below 7 we will get blood transfusion (4) Acute kidney injury superimposed on CKD: (5) Chronic kidney disease (CKD), stage III (moderate): -Baseline creatinine runs in the low ones, noted to be 1.8 today -Likely prerenal in nature secondary to dehydration from GI losses -Hold lisinopril for now, start IVF -Renal function has been improving (6) Generalized convulsive epilepsy without intractable epilepsy: -Stable, no recent seizures -Continue Depakote and Keppra (7) Hypertension: -BP borderline low at times, holding lisinopril (8) History of CVA (cerebrovascular accident): -Hold aspirin for now due to anemia -We will hold NSAID use as well (9) Ambulatory dysfunction: -Patient has had several falls over the past 1 week -PT/OT evaluations -Patient may benefit from rehab placement (10) DVT prophylaxis: -SCDs due to anemia CODE STATUS Full No family members in chart to update Admission and Anticipated Discharge Date Admission Date: June 04, 2019 Subjective 06/05/2019 Patient was seen and examined in medical floor She complains to have ambulatory dysfunction with frequent falls but denies any significant diarrhea Denies any chest pain, palpitation or shortness of breath Review of Systems Review of Systems: All systems reviewed and are unremarkable except as noted below Gastrointestinal: + diarrhea/loose stools; no blood in stools Physical Exam Physical Exam: Lying in bed comfortably Constitutional: + thin; no acute distress and not ill appearing Eyes: PERRL, conjunctivae normal, anicteric sclerae ENMT: external ear and nose normal, oropharynx normal Neck: trachea midline, no thyromegaly Respiratory: normal respiratory effort; no respiratory distress Auscultation: lungs clear to auscultation bilaterally Cardiovascular: Rate/Rhythm: regular rate and regular rhythm Heart Sounds: no murmur Gastrointestinal (Abdomen): Inspection/Auscultation: abdomen normal to inspection and normal bowel sounds Percussion/Palpation: abdomen soft; abdomen nontender Musculoskeletal: No acute arthritis in any joints Neurologic: moves all extremities; no focal motor deficits Pleasantly confused Results & Data Results & Data ([facility]) Vital Signs (Past 12 Hours) Vital Signs Temp Pulse Resp BP Pulse Ox 06/05/19 07:20 36.8 C 57 L 18 94/63 L 94 06/05/19 03:00 68 21 107/62 97 06/04/19 23:38 62 20 111/66 98 06/04/19 22:54 36.5 C 65 17 96/51 L 94 Laboratory Results Short CBC 06/04/19 06/05/19 Range/Units 10:00 07:20 WBC 15.82 H 12.57 H (4.8-10.8) K/uL Hgb 8.3 L 7.3 L (12.0-16.0) g/dL Hct 27.0 L 23.5 L (37-47) % Plt Count 435 H 444 H (130-400) K/uL BMP 06/04/19 06/05/19 10:00 07:20 Sodium 133 L 136 Potassium 4.3 4.3 Chloride 101 107 Carbon Dioxide 26 25 BUN 42 H 26 H Creatinine 1.83 H 1.13 D Glucose 90 86 Calcium 8.3 L 7.7 L Liver Function 06/04/19 Range/Units 10:00 Total Bilirubin 0.3 (0.2-1) mg/dl AST 12 L (15-37) U/L ALT 15 (12-78) U/L Alkaline Phosphatase 111 (45-117) U/L Albumin 2.6 L (3.4-5.0) gm/dl Urine 06/04/19 Range/Units 10:25 Urine Color Yellow Urine Appearance Clear (Clear) Urine pH 5.0 (4.5-7.5) Ur Specific [place] 1.021 (1.000-1.030) Urine Protein Trace H (Negative) Urine Glucose (UA) Negative (Negative) Medications Administered Current Inpatient Medications Acetaminophen (Tylenol) 1,000 mg PO Q8H [facility] Stop: 07/04/19 13:59 Last Admin: 06/05/19 05:43 Dose: 1,000 mg Documented by: Budesonide (Entocort Ec) 9 mg PO QAM [facility] Stop: 07/04/19 14:59 Last Admin: 06/05/19 08:09 Dose: 9 mg Documented by: Divalproex Sodium (Depakote Extended Release) 500 mg PO 0730,1500 [facility] Stop: 07/04/19 15:29 Last Admin: 06/05/19 08:09 Dose: 500 mg Documented by: Sodium Chloride (Nss 1000ml) 1,000 mls @ 80 mls/hr IV .[id number] [facility] Stop: 07/04/19 12:44 Last Admin: 06/05/19 00:35 Dose: 80 mls/hr Documented by: Lamotrigine (Lamictal) 100 mg PO 0730,1500 [facility] Stop: 07/04/19 14:59 Last Admin: 06/05/19 08:10 Dose: 100 mg Documented by: Levetiracetam (Keppra) 1,500 mg PO 0730,1500 [facility] Stop: 07/04/19 15:29 Last Admin: 06/05/19 08:08 Dose: 1,500 mg Documented by: Loperamide HCl (Imodium) 2 mg PO Q4 PRN PRN Reason: Diarrhea Stop: 07/04/19 14:58 Last Admin: 06/05/19 00:36 Dose: 2 mg Documented by: Lorazepam (Ativan) 1 mg PO DAILY [facility] Stop: 07/05/19 08:59 Last Admin: 06/05/19 08:07 Dose: 1 mg Documented by: Oxybutynin Chloride (Ditropan Xl) 10 mg PO QPM [facility] Stop: 07/04/19 20:59 Last Admin: 06/04/19 21:31 Dose: 10 mg Documented by: (1) Diarrhea Diarrhea type: unspecified type Qualified Code(s): R19.7 - Diarrhea, unspecified
[2019-06-05] MEDS: FERROUS SULFATE 325 MG TAB PO SCH ×2 (12:27→17:00)
[2019-06-05] MEDS: OXYBUTYNIN CHLORIDE XL 5 MG TABCR PO SCH (21:41)
[2019-06-06] MEDS: SODIUM CHLORIDE 0.9% 1000ML 1,000 ML IV SCH ×2 (02:12→14:11)
[2019-06-06] MEDS: ACETAMINOPHEN 500 MG TAB PO SCH ×3 (05:28→20:20)
[2019-06-06 06:06] LABS: Basophils # (auto) 0.02 K/uL (0-0.2); Basophils % (auto) 0.1 %; Eosinophils # (auto) 0.21 K/uL (0-0.5); Eosinophils % (auto) 1.3 %; Hematocrit (blood only) 23.6 % (37-47); Hemoglobin 7.1 g/dL (12.0-16.0); Immature Granulocytes # (auto) 0.32 K/uL (0.00-0.02); Lymphocytes # (auto) 2.57 K/uL (1.2-3.4); Lymphocytes % (auto) 15.7 %; Mean Corpuscular Hgb Conc 30.1 g/dL (32-36); Mean Corpuscular Volume 86.4 fL (80-100); Mean Platelet Volume 8.6 fL (7.4-10.4); Monocytes # (auto) 1.17 K/uL (0.11-0.59); Monocytes % (auto) 7.1 %; Neutrophils % (auto) 73.8 %; Platelet Count 430 K/uL (130-400); RDW Coefficient of Variation 15.6 % (11.5-14.5); RDW Standard Deviation 49.4 fL (36.4-46.3); Red Blood Count 2.73 M/uL (4.2-5.4); White Blood Count 16.39 K/uL (4.8-10.8)
[2019-06-06 06:29] LABS: Basophilic Stippling Occasional
[2019-06-06 06:30] LABS: Polychromasia 1+
[2019-06-06] MEDS: LOPERAMIDE HCL 2 MG CAP PO PRN ×3 (06:32→20:20)
[2019-06-06 06:38] LABS: BUN Creatinine Ratio 17.9 (10-20); Calcium 7.3 mg/dl (8.5-10.1); Creatinine Clr Calc Pharmacy 51.6 ml/min; Est GFR (African American) 82.2; Est GFR (Non-African American) 70.9; Magnesium 2.5 mg/dl (1.8-2.4); Potassium 4.5 mmol/L (3.5-5.1)
[2019-06-06] MEDS: BUDESONIDE EC 3 MG CAP PO SCH (08:34)
[2019-06-06] MEDS: FERROUS SULFATE 325 MG TAB PO SCH ×3 (08:34→16:14)
[2019-06-06] MEDS: lamoTRIgine 100 MG TAB PO SCH ×2 (08:34→14:11)
[2019-06-06] MEDS: LORazepam 1 MG TAB PO SCH (08:34)
[2019-06-06] MEDS: DIVALPROEX EXTENDED RELEASE 500 MG TAB PO SCH ×2 (08:34→14:11)
[2019-06-06] MEDS: levETIRAcetam 500 MG TAB PO SCH ×2 (08:34→14:11)
--- NOTE | 2019-06-06 10:43 | Hospitalist Progress Note ---
Date of Service June 06, 2019 Assessment & Plan (1) Diarrhea: Has been going on for several weeks seems to be inflammatory Stool was negative for any blood Stool for C. difficile was negative and cultures are negative so far No more diarrhea and no more blood in the stool (2) Lymphocytic colitis: Patient presenting from home with reports of persistent diarrhea Has been ongoing for the past several weeks and has been evaluated by GI as an outpatient. Underwent stool studies, CT ABD/pelvis, EGD, colonoscopy. Biopsy from colonoscopy showed lymphocytic colitis. Patient was advised to stop diclofenac, start probiotic, adhere to a FODMAPs diet. Patient has made note of these changes at this time. WBC 15 K, continue to monitor Recheck stool studies Appreciate GI consult and recommendation Has been put on oral budesonide (3) Anemia: Downtrending anemia noted, Hgb 8.3 today No obvious signs of bleeding Stool negative for Hemoccult Likely anemia of chronic disease Iron studies shows low iron and low iron binding capacities and low for a ferritin B12 and folate have been normal Will start iron supplement Hemoglobin went down to 7.3 as of 06/05/2019 Hemoglobin is 7.1 on 06/06/2019 We will recheck in the morning (4) Acute kidney injury superimposed on CKD: (5) Chronic kidney disease (CKD), stage III (moderate): -Baseline creatinine runs in the low ones, noted to be 1.8 today -Likely prerenal in nature secondary to dehydration from GI losses -Hold lisinopril for now, start IVF -Renal function has been improving (6) Generalized convulsive epilepsy without intractable epilepsy: -Stable, no recent seizures -Continue Depakote and Keppra (7) Hypertension: -BP borderline low at times, holding lisinopril (8) History of CVA (cerebrovascular accident): -Hold aspirin for now due to anemia -We will hold NSAID use as well (9) Ambulatory dysfunction: -Patient has had several falls over the past 1 week -PT/OT evaluations -Patient may benefit from rehab placement (10) DVT prophylaxis: -SCDs due to anemia CODE STATUS Full No family members in chart to update Admission and Anticipated Discharge Date Admission Date: June 04, 2019 Subjective 06/05/2019 Patient was seen and examined in medical floor She complains to have ambulatory dysfunction with frequent falls but denies any significant diarrhea Denies any chest pain, palpitation or shortness of breath 06/07/2019 Patient was seen and examined in medical floor She remains stable and denies any symptoms Did not have any more bloody stool Review of Systems Review of Systems: All systems reviewed and are unremarkable except as noted below Gastrointestinal: no abdominal pain, no bloating, no nausea, no vomiting, no diarrhea/loose stools and no blood in stools Physical Exam Physical Exam: Lying in bed comfortably Constitutional: + thin; no acute distress and not ill appearing Eyes: PERRL, conjunctivae normal, anicteric sclerae ENMT: external ear and nose normal, oropharynx normal Neck: trachea midline, no thyromegaly Respiratory: normal respiratory effort; no respiratory distress Auscultation: lungs clear to auscultation bilaterally Cardiovascular: Rate/Rhythm: regular rate and regular rhythm Heart Sounds: no murmur Gastrointestinal (Abdomen): Inspection/Auscultation: abdomen normal to inspection and normal bowel sounds Percussion/Palpation: abdomen soft; abdomen nontender Neurologic: moves all extremities; no focal motor deficits Psychiatric: A+Ox3, euthymic affect Results & Data Results & Data ([facility]) Vital Signs (Past 12 Hours) Vital Signs Temp Pulse Resp BP BP Pulse Ox 06/06/19 07:09 36.8 C 67 18 114/70 97 06/05/19 23:35 36.8 C 59 L 17 131/75 93 Laboratory Results Short CBC 06/06/19 Range/Units 05:35 WBC 16.39 H (4.8-10.8) K/uL Hgb 7.1 L (12.0-16.0) g/dL Hct 23.6 L (37-47) % Plt Count 430 H (130-400) K/uL [facility] 06/06/19 05:35 Sodium 136 Potassium 4.5 Chloride 109 H Carbon Dioxide 23 BUN 16 Creatinine 0.86 Glucose 90 Calcium 7.3 L Medications Administered Current Inpatient Medications Acetaminophen (Tylenol) 1,000 mg PO Q8H [facility] Stop: 07/04/19 13:59 Last Admin: 06/06/19 05:28 Dose: 1,000 mg Documented by: Budesonide (Entocort Ec) 9 mg PO QAM [facility] Stop: 07/04/19 14:59 Last Admin: 06/06/19 08:34 Dose: 9 mg Documented by: Divalproex Sodium (Depakote Extended Release) 500 mg PO 0730,1500 [facility] Stop: 07/04/19 15:29 Last Admin: 06/06/19 08:34 Dose: 500 mg Documented by: Ferrous Sulfate (Feosol) 325 mg PO TIDM [facility] Stop: 07/05/19 11:59 Last Admin: 06/06/19 08:34 Dose: 325 mg Documented by: Sodium Chloride (Nss 1000ml) 1,000 mls @ 80 mls/hr IV .[id number] [facility] Stop: 07/04/19 12:44 Last Admin: 06/06/19 02:12 Dose: 80 mls/hr Documented by: Lamotrigine (Lamictal) 100 mg PO 0730,1500 [facility] Stop: 07/04/19 14:59 Last Admin: 06/06/19 08:34 Dose: 100 mg Documented by: Levetiracetam (Keppra) 1,500 mg PO 0730,1500 [facility] Stop: 07/04/19 15:29 Last Admin: 06/06/19 08:34 Dose: 1,500 mg Documented by: Loperamide HCl (Imodium) 2 mg PO Q4 PRN PRN Reason: Diarrhea Stop: 07/04/19 14:58 Last Admin: 06/06/19 06:32 Dose: 2 mg Documented by: Lorazepam (Ativan) 1 mg PO DAILY [facility] Stop: 07/05/19 08:59 Last Admin: 06/06/19 08:34 Dose: 1 mg Documented by: Oxybutynin Chloride (Ditropan Xl) 10 mg PO QPM [facility] Stop: 07/04/19 20:59 Last Admin: 06/05/19 21:41 Dose: 10 mg Documented by: (1) Diarrhea Diarrhea type: unspecified type Qualified Code(s): R19.7 - Diarrhea, unspecified
[2019-06-06] MEDS ORDERED: CALCIUM CARBONATE 500 MG CHEWABLE TAB PO PRN (17:18)
[2019-06-06] MEDS: OXYBUTYNIN CHLORIDE XL 5 MG TABCR PO SCH (20:20)
[2019-06-07] MEDS: SODIUM CHLORIDE 0.9% 1000ML 1,000 ML IV SCH ×2 (03:00→18:42)
[2019-06-07 05:05] LABS: Basophils # (auto) 0.02 K/uL (0-0.2); Basophils % (auto) 0.2 %; Eosinophils # (auto) 0.21 K/uL (0-0.5); Eosinophils % (auto) 2.2 %; Hematocrit (blood only) 23.3 % (37-47); Immature Granulocytes # (auto) 0.38 K/uL (0.00-0.02); Immature Granulocytes % (auto) 4.1 %; Lymphocytes # (auto) 2.59 K/uL (1.2-3.4); Lymphocytes % (auto) 27.6 %; Mean Corpuscular Hemoglobin 25.9 pg (25-34); Mean Corpuscular Volume 86.3 fL (80-100); Mean Platelet Volume 8.5 fL (7.4-10.4); Monocytes # (auto) 0.64 K/uL (0.11-0.59); Monocytes % (auto) 6.8 %; Neutrophils # (auto) 5.53 K/uL (1.4-6.5); Neutrophils % (auto) 59.1 %; Platelet Count 390 K/uL (130-400); RDW Coefficient of Variation 15.4 % (11.5-14.5); RDW Standard Deviation 48.5 fL (36.4-46.3); White Blood Count 9.37 K/uL (4.8-10.8)
[2019-06-07 05:33] LABS: Hypochromasia Present
[2019-06-07 05:43] LABS: Calcium 7.3 mg/dl (8.5-10.1); Creatinine Clr Calc Pharmacy 67.2 ml/min; Est GFR (African American) 107.4; Est GFR (Non-African American) 92.7; Magnesium 2.1 mg/dl (1.8-2.4); Potassium 4.2 mmol/L (3.5-5.1)
[2019-06-07 06:02] LABS: Phosphorus 1.3 mg/dl (2.5-4.9)
[2019-06-07] MEDS ORDERED: SODIUM PHOSPHATE 3 MMOL/1 ML INFUSION IV STA (06:03)
[2019-06-07] MEDS ORDERED: SODIUM PHOSPHATE 30 MMOL in SODIUM CHLORIDE 0.9% 500 ML IV ONE ×2 (06:45→11:30)
[2019-06-07] MEDS: ACETAMINOPHEN 500 MG TAB PO SCH ×3 (06:47→21:24)
[2019-06-07] MEDS: DIVALPROEX EXTENDED RELEASE 500 MG TAB PO SCH ×2 (08:06→14:26)
[2019-06-07] MEDS: BUDESONIDE EC 3 MG CAP PO SCH (08:07)
[2019-06-07] MEDS: FERROUS SULFATE 325 MG TAB PO SCH ×3 (08:07→17:13)
[2019-06-07] MEDS: lamoTRIgine 100 MG TAB PO SCH ×2 (08:07→14:27)
[2019-06-07] MEDS: LORazepam 1 MG TAB PO SCH (08:07)
[2019-06-07] MEDS: levETIRAcetam 500 MG TAB PO SCH ×2 (08:07→14:27)
[2019-06-07] MEDS ORDERED: SODIUM CHLORIDE 0.9% 250 ML IV PRN (08:36)
--- NOTE | 2019-06-07 11:16 | Hospitalist Progress Note ---
Date of Service June 07, 2019 Assessment & Plan (1) Diarrhea: Has been going on for several weeks seems to be inflammatory Stool was negative for any blood Stool for C. difficile was negative and cultures are negative so far No more diarrhea and no more blood in the stool Hemoglobin is borderline low at 7.0 today 06/07/2019 Will give 1 unit of blood transfusion Likely discharge from the hospital tomorrow (2) Lymphocytic colitis: Patient presenting from home with reports of persistent diarrhea Has been ongoing for the past several weeks and has been evaluated by GI as an outpatient. Underwent stool studies, CT ABD/pelvis, EGD, colonoscopy. Biopsy from colonoscopy showed lymphocytic colitis. Patient was advised to stop diclofenac, start probiotic, adhere to a FODMAPs diet. Patient has made note of these changes at this time. WBC 15 K, continue to monitor Recheck stool studies Appreciate GI consult and recommendation Has been put on oral budesonide Denies any abdominal pain, distention, nausea and or vomiting (3) Anemia: Downtrending anemia noted, Hgb 8.3 today No obvious signs of bleeding Stool negative for Hemoccult Likely anemia of chronic disease Iron studies shows low iron and low iron binding capacities and low for a ferritin B12 and folate have been normal Will start iron supplement Hemoglobin went down to 7.3 as of 06/05/2019 Hemoglobin is 7.1 on 06/06/2019 Hemoglobin dropped to 7.0 03/08/2019 We will give 1 unit of blood transfusion (4) Acute kidney injury superimposed on CKD: (5) Chronic kidney disease (CKD), stage III (moderate): -Baseline creatinine runs in the low ones, noted to be 1.8 today -Likely prerenal in nature secondary to dehydration from GI losses -Hold lisinopril for now, start IVF -Renal function has been improving -Phosphorus remains low at 1.3-we will supplement (6) Generalized convulsive epilepsy without intractable epilepsy: -Stable, no recent seizures -Continue Depakote and Keppra (7) Hypertension: -BP borderline low at times, holding lisinopril (8) History of CVA (cerebrovascular accident): -Hold aspirin for now due to anemia -We will hold NSAID use as well (9) Ambulatory dysfunction: -Patient has had several falls over the past 1 week -PT/OT evaluations -Patient may benefit from rehab placement (10) DVT prophylaxis: -SCDs due to anemia CODE STATUS Full No family members in chart to update Admission and Anticipated Discharge Date Admission Date: June 04, 2019 Subjective 06/05/2019 Patient was seen and examined in medical floor She complains to have ambulatory dysfunction with frequent falls but denies any significant diarrhea Denies any chest pain, palpitation or shortness of breath 06/06/2019 Patient was seen and examined in medical floor She remains stable and denies any symptoms Did not have any more bloody stool 06/07/2019 Patient was seen and examined in medical floor She denies to have any more bloody stool Denies any other symptom Review of Systems Review of Systems: All systems reviewed and are unremarkable except as noted below Physical Exam Physical Exam: Lying in bed comfortably Constitutional: + thin; no acute distress and not ill appearing Eyes: PERRL, conjunctivae normal, anicteric sclerae ENMT: external ear and nose normal, oropharynx normal Neck: trachea midline, no thyromegaly Respiratory: normal respiratory effort; no respiratory distress Auscultation: lungs clear to auscultation bilaterally Cardiovascular: Rate/Rhythm: regular rate and regular rhythm Heart Sounds: no murmur Gastrointestinal (Abdomen): Inspection/Auscultation: abdomen normal to inspection and normal bowel sounds Percussion/Palpation: abdomen soft; abdomen nontender Musculoskeletal: No acute arthritis in any joints Neurologic: moves all extremities; no focal motor deficits Psychiatric: A+Ox3, euthymic affect Lymphatic: no cervical or axillary lymphadenopathy Results & Data Results & Data ([facility]) Vital Signs (Past 12 Hours) Vital Signs Temp Pulse Pulse Resp BP BP Pulse Ox 06/07/19 11:00 36.5 C 66 18 115/71 94 06/07/19 10:45 36.7 C 65 16 101/67 06/07/19 10:35 36.7 C 66 16 106/66 06/07/19 07:03 36.9 C 66 16 133/81 98 06/06/19 23:22 37.0 C 66 16 136/67 95 Laboratory Results Short CBC 06/07/19 Range/Units 04:46 WBC 9.37 (4.8-10.8) K/uL Hgb 7.0 L (12.0-16.0) g/dL Hct 23.3 L (37-47) % Plt Count 390 (130-400) K/uL [facility] 06/07/19 04:46 Sodium 137 Potassium 4.2 Chloride 109 H Carbon Dioxide 24 BUN 6 L D Creatinine 0.66 Glucose 89 Calcium 7.3 L Medications Administered Current Inpatient Medications Acetaminophen (Tylenol) 1,000 mg PO Q8H [facility] Stop: 07/04/19 13:59 Last Admin: 06/07/19 06:47 Dose: Not Given Documented by: Budesonide (Entocort Ec) 9 mg PO QAM [facility] Stop: 07/04/19 14:59 Last Admin: 06/07/19 08:07 Dose: 9 mg Documented by: Calcium Carbonate (Tums) 500 mg PO Q6 PRN PRN Reason: Indigestion Stop: 07/06/19 17:17 Divalproex Sodium (Depakote Extended Release) 500 mg PO 0730,1500 [facility] Stop: 07/04/19 15:29 Last Admin: 06/07/19 08:06 Dose: 500 mg Documented by: Ferrous Sulfate (Feosol) 325 mg PO TIDM [facility] Stop: 07/05/19 11:59 Last Admin: 06/07/19 08:07 Dose: 325 mg Documented by: Sodium Chloride (Nss 1000ml) 1,000 mls @ 80 mls/hr IV .[id number] [facility] Stop: 07/04/19 12:44 Last Infusion: 06/07/19 10:51 Dose: 0 mls/hr Documented by: Sodium Phosphate 30 mmol/ (Sodium Chloride) 510 mls @ 88 mls/hr IV ONE ONE Stop: 06/07/19 12:32 Last Admin: 06/07/19 06:47 Dose: 88 mls/hr Documented by: Sodium Chloride (Nss) 250 mls @ 15 mls/hr IV .[id number] PRN PRN Reason: For Transfusion Stop: 06/07/19 18:37 Lamotrigine (Lamictal) 100 mg PO 0730,1500 [facility] Stop: 07/04/19 14:59 Last Admin: 06/07/19 08:07 Dose: 100 mg Documented by: Levetiracetam (Keppra) 1,500 mg PO 0730,1500 [facility] Stop: 07/04/19 15:29 Last Admin: 06/07/19 08:07 Dose: 1,500 mg Documented by: Loperamide HCl (Imodium) 2 mg PO Q4 PRN PRN Reason: Diarrhea Stop: 07/04/19 14:58 Last Admin: 06/06/19 20:20 Dose: 2 mg Documented by: Lorazepam (Ativan) 1 mg PO DAILY [facility] Stop: 07/05/19 08:59 Last Admin: 06/07/19 08:07 Dose: 1 mg Documented by: Oxybutynin Chloride (Ditropan Xl) 10 mg PO QPM [facility] Stop: 07/04/19 20:59 Last Admin: 06/06/19 20:20 Dose: 10 mg Documented by: (1) Diarrhea Diarrhea type: unspecified type Qualified Code(s): R19.7 - Diarrhea, unspecified
[2019-06-07] MEDS ORDERED: SODIUM PHOSPHATE 3 MMOL/1 ML 5 ML VIAL IV ONE (11:17)
[2019-06-07] MEDS: OXYBUTYNIN CHLORIDE XL 5 MG TABCR PO SCH (21:23)
[2019-06-08 04:58] LABS: Basophils # (auto) 0.02 K/uL (0-0.2); Basophils % (auto) 0.2 %; Eosinophils # (auto) 0.24 K/uL (0-0.5); Eosinophils % (auto) 2.6 %; Hematocrit (blood only) 26.4 % (37-47); Hemoglobin 8.5 g/dL (12.0-16.0); Immature Granulocytes # (auto) 0.27 K/uL (0.00-0.02); Immature Granulocytes % (auto) 2.9 %; Lymphocytes # (auto) 2.72 K/uL (1.2-3.4); Lymphocytes % (auto) 29.1 %; Mean Corpuscular Hemoglobin 27.3 pg (25-34); Mean Corpuscular Hgb Conc 32.2 g/dL (32-36); Mean Corpuscular Volume 84.9 fL (80-100); Mean Platelet Volume 8.3 fL (7.4-10.4); Monocytes % (auto) 6.4 %; Neutrophils # (auto) 5.51 K/uL (1.4-6.5); Neutrophils % (auto) 58.8 %; Nucleated RBC # (auto) 0.02 K/uL (0-0); Nucleated RBC % (auto) 0.2 %; Platelet Count 352 K/uL (130-400); RDW Coefficient of Variation 15.2 % (11.5-14.5); RDW Standard Deviation 47.3 fL (36.4-46.3); Red Blood Count 3.11 M/uL (4.2-5.4); White Blood Count 9.36 K/uL (4.8-10.8)
[2019-06-08] MEDS: SODIUM CHLORIDE 0.9% 1000ML 1,000 ML IV SCH (05:11)
[2019-06-08] MEDS: ACETAMINOPHEN 500 MG TAB PO SCH ×2 (05:12→13:49)
[2019-06-08 05:32] LABS: Calcium 6.9 mg/dl (8.5-10.1); Creatinine Clr Calc Pharmacy 75.2 ml/min; Est GFR (African American) 111.5; Est GFR (Non-African American) 96.2; Magnesium 1.8 mg/dl (1.8-2.4); Potassium 3.9 mmol/L (3.5-5.1)
[2019-06-08 05:58] LABS: Phosphorus 1.4 mg/dl (2.5-4.9)
[2019-06-08] MEDS ORDERED: SODIUM PHOSPHATE 3 MMOL/1 ML INFUSION IV STA (06:04)
[2019-06-08] MEDS ORDERED: SODIUM PHOSPHATE 30 MMOL in SODIUM CHLORIDE 0.9% 500 ML IV ONE (06:30)
[2019-06-08] MEDS: levETIRAcetam 500 MG TAB PO SCH (07:44)
[2019-06-08] MEDS: DIVALPROEX EXTENDED RELEASE 500 MG TAB PO SCH (07:44)
[2019-06-08] MEDS: lamoTRIgine 100 MG TAB PO SCH (07:45)
[2019-06-08] MEDS: FERROUS SULFATE 325 MG TAB PO SCH ×2 (07:45→12:34)
[2019-06-08] MEDS: BUDESONIDE EC 3 MG CAP PO SCH (08:57)
[2019-06-08] MEDS: LORazepam 1 MG TAB PO SCH (08:57)
--- NOTE | 2019-06-08 11:15 | Hospitalist Progress Note ---
Date of Service June 08, 2019 Assessment & Plan (1) Diarrhea: Has been going on for several weeks seems to be inflammatory Stool was negative for any blood Stool for C. difficile was negative and cultures are negative so far No more diarrhea and no more blood in the stool Hemoglobin is borderline low at 7.0 today 06/07/2019 No more bloody diarrhea Denies any abdominal pain, nausea and/or vomiting (2) Lymphocytic colitis: Patient presenting from home with reports of persistent diarrhea Has been ongoing for the past several weeks and has been evaluated by GI as an outpatient. Underwent stool studies, CT ABD/pelvis, EGD, colonoscopy. Biopsy f rom colonoscopy showed lymphocytic colitis. Patient was advised to stop diclofenac, start probiotic, adhere to a FODMAPs diet. Patient has made note of these changes at this time. WBC 15 K, continue to monitor Recheck stool studies Appreciate GI consult and recommendation Has been put on oral budesonide Denies any abdominal pain, distention, nausea and or vomiting Remains stable (3) Anemia: Downtrending anemia noted, Hgb 8.3 today No obvious signs of bleeding Stool negative for Hemoccult Likely anemia of chronic disease Iron studies shows low iron and low iron binding capacities and low for a ferritin B12 and folate have been normal Will start iron supplement Hemoglobin went down to 7.3 as of 06/05/2019 Hemoglobin is 7.1 on 06/06/2019 Hemoglobin dropped to 7.0 03/08/2019 We will give 1 unit of blood transfusion Hemoglobin went up to 8.5 as of 06/08/2019 (4) Acute kidney injury superimposed on CKD: (5) Chronic kidney disease (CKD), stage III (moderate): -Baseline creatinine runs in the low ones, noted to be 1.8 today -Likely prerenal in nature secondary to dehydration from GI losses -Hold lisinopril for now, start IVF -Renal function has been improving -Phosphorus remains low at 1.3-we will supplement -We will give oral phosphorus supplement on discharge (6) Generalized convulsive epilepsy without intractable epilepsy: -Stable, no recent seizures -Continue Depakote and Keppra (7) Hypertension: -BP borderline low at times, holding lisinopril (8) History of CVA (cerebrovascular accident): -Hold aspirin for now due to anemia -We will hold NSAID use as well (9) Ambulatory dysfunction: -Patient has had several falls over the past 1 week -PT/OT evaluations -Patient may benefit from rehab placement (10) DVT prophylaxis: -SCDs due to anemia CODE STATUS Full No family members in chart to update PT and OT have been requested Likely to be transferred to [facility] when accepted Admission and Anticipated Discharge Date Admission Date: June 04, 2019 Subjective 06/05/2019 Patient was seen and examined in medical floor She complains to have ambulatory dysfunction with frequent falls but denies any significant diarrhea Denies any chest pain, palpitation or shortness of breath 06/06/2019 Patient was seen and examined in medical floor She remains stable and denies any symptoms Did not have any more bloody stool 06/07/2019 Patient was seen and examined in medical floor She denies to have any more bloody stool Denies any other symptom 06/08/2019 Patient was seen and examined in medical floor She denies any symptoms today She has had blood transfusion of 1 unit yesterday and feels better this morning Review of Systems Review of Systems: All systems reviewed and are unremarkable except as noted below Physical Exam Physical Exam: Lying in bed comfortably Constitutional: + thin; no acute distress and not ill appearing Eyes: PERRL, conjunctivae normal, anicteric sclerae ENMT: external ear and nose normal, oropharynx normal Neck: trachea midline, no thyromegaly Respiratory: normal respiratory effort; no respiratory distress Auscultation: lungs clear to auscultation bilaterally Cardiovascular: Rate/Rhythm: regular rate and regular rhythm Heart Sounds: no murmur Gastrointestinal (Abdomen): Inspection/Auscultation: abdomen normal to inspection and normal bowel sounds Percussion/Palpation: abdomen soft; abdomen nontender Musculoskeletal: No acute arthritis in any joints Neurologic: moves all extremities; no focal motor deficits Psychiatric: A+Ox3, euthymic affect Lymphatic: no cervical or axillary lymphadenopathy Results & Data Results & Data ([facility]) Vital Signs (Past 12 Hours) Vital Signs Temp Pulse Resp BP Pulse Ox 06/08/19 06:52 36.7 C 50 L 16 148/75 H 96 Laboratory Results Short CBC 06/08/19 Range/Units 04:47 WBC 9.36 (4.8-10.8) K/uL Hgb 8.5 L (12.0-16.0) g/dL Hct 26.4 L (37-47) % Plt Count 352 (130-400) K/uL BMP 06/08/19 04:47 Sodium 136 Potassium 3.9 Chloride 111 H Carbon Dioxide 24 BUN 5 L Creatinine 0.59 L Glucose 90 Calcium 6.9 L Medications Administered Current Inpatient Medications Acetaminophen (Tylenol) 1,000 mg PO Q8H ON LICENSE OF [facility] Stop: 07/04/19 13:59 Last Admin: 06/08/19 05:12 Dose: 1,000 mg Documented by: Budesonide (Entocort Ec) 9 mg PO QAM ON LICENSE OF [facility] Stop: 07/04/19 14:59 Last Admin: 06/08/19 08:57 Dose: 9 mg Documented by: Calcium Carbonate (Tums) 500 mg PO Q6 PRN PRN Reason: Indigestion Stop: 07/06/19 17:17 Divalproex Sodium (Depakote Extended Release) 500 mg PO 0730,1500 ON LICENSE OF [facility] Stop: 07/04/19 15:29 Last Admin: 06/08/19 07:44 Dose: 500 mg Documented by: Ferrous Sulfate (Feosol) 325 mg PO TIDM ON LICENSE OF [facility] Stop: 07/05/19 11:59 Last Admin: 06/08/19 07:45 Dose: 325 mg Documented by: Sodium Chloride (Nss 1000ml) 1,000 mls @ 80 mls/hr IV .[id number] ON LICENSE OF [facility] Stop: 07/04/19 12:44 Last Infusion: 06/08/19 05:45 Dose: 80 mls/hr Documented by: Sodium Phosphate 30 mmol/ (Sodium Chloride) 510 mls @ 100 mls/hr IV ONE ONE Stop: 06/08/19 11:35 Last Admin: 06/08/19 06:41 Dose: 100 mls/hr Documented by: Lamotrigine (Lamictal) 100 mg PO 0730,1500 ON LICENSE OF [facility] Stop: 07/04/19 14:59 Last Admin: 06/08/19 07:45 Dose: 100 mg Documented by: Levetiracetam (Keppra) 1,500 mg PO 0730,1500 ON LICENSE OF [facility] Stop: 07/04/19 15:29 Last Admin: 06/08/19 07:44 Dose: 1,500 mg Documented by: Loperamide HCl (Imodium) 2 mg PO Q4 PRN PRN Reason: Diarrhea Stop: 07/04/19 14:58 Last Admin: 06/06/19 20:20 Dose: 2 mg Documented by: Lorazepam (Ativan) 1 mg PO DAILY ON LICENSE OF [facility] Stop: 07/05/19 08:59 Last Admin: 06/08/19 08:57 Dose: 1 mg Documented by: Oxybutynin Chloride (Ditropan Xl) 10 mg PO QPM ON LICENSE OF [facility] Stop: 07/04/19 20:59 Last Admin: 06/07/19 21:23 Dose: 10 mg Documented by: (1) Diarrhea Diarrhea type: unspecified type Qualified Code(s): R19.7 - Diarrhea, unspecified
[2019-06-08] MEDS ORDERED: POT PHOSPHATE MONOBASIC W/ SOD TAB PO SCH (11:45)
--- NOTE | 2019-06-08 17:19 | Discharge Summary ---
Date of Service June 08, 2019 Admission HPI Per Admitting Provider 64-year-old female who presents the ED for evaluation of diarrhea. Patient has been having ongoing diarrhea for the past several weeks. She has been evaluated by GI as an outpatient and has had stool studies, CT ABD/pelvis, colonoscopy, EGD. Work-up has demonstrated microscopic colitis. Patient is on chronic NSAIDs, diclofenac and is unwilling to start the medication at this time. Patient was also advised to start a probiotic which she has not done yet. She was also recommended to start a FODMAPs diet and she has not made any dietary changes at this time. She reports taking an [id number]-[id number] antidiarrheal which is been ineffective. Patient reports multiple diarrhea episodes per day. She is incontinent at times. She denies bright red bleeding per rectum or dark tarry stools. She reports a poor appetite however denies nausea, vomiting, abdominal pain. She has had multiple falls which she attributes to " losing her balance". Denies any lightheadedness, dizziness, syncopal event. No other rec ent illnesses, fevers, chills. She denies any urinary symptoms. In the ED, labs show WBC 15 K, Hgb 8.3, creatinine 1.8. Patient was given IVF. Admission Exam Per Admitting Provider Constitutional: WD/WN, vitals as above Eyes: PERRL, conjunctivae normal, anicteric sclerae ENMT: external ear and nose normal, oropharynx normal Respiratory: normal respiratory effort, lungs clear to auscultation Cardiovascular: Rate/Rhythm: regular rate and regular rhythm Vessels: normal peripheral pulses Extremities: no edema Gastrointestinal (Abdomen): normal bowel sounds, soft, nontender, no hepatosplenomegaly Musculoskeletal: no cyanosis or clubbing, extremities motor strength 5/5 Contractures noted Skin: no rashes, warm and dry Scattered ecchymosis in various stages of healing noted over body Neurologic: PERRL, EOMI, accommodation nl, no face palsy, no dysarthria Psychiatric: A+Ox3, euthymic affect Principal Diagnosis Acute lymphocytic colitis, diarrhea-controlled, anemia-DEE status post 1 unit of blood transfusion, CKD, history of obstructive hydrocephalus and infantile cerebral palsy Discharge Exam Constitutional + thin; no acute distress and not ill appearing Eyes PERRL, conjunctivae normal, anicteric sclerae ENMT external ear and nose normal, oropharynx normal Neck trachea midline, no thyromegaly Respiratory normal respiratory effort; no respiratory distress Auscultation: lungs clear to auscultation bilaterally Cardiovascular Rate/Rhythm: regular rate and regular rhythm Heart Sounds: no murmur Gastrointestinal (Abdomen) Inspection/Auscultation: abdomen normal to inspection and normal bowel sounds Percussion/Palpation: abdomen soft; abdomen nontender Neurologic moves all extremities; no focal motor deficits Psychiatric A+Ox3, euthymic affect Lymphatic no cervical or axillary lymphadenopathy Discharge Data Allergies Allergy/AdvReac Type Severity Reaction Status Date / Time adhesive Allergy Unknown Unknown Verified 06/04/19 09:53 Consultations 06/04/19 11:27 ED Decision to Admit Stat 06/04/19 12:33 Consult Case Management - Discharge Planning Routine 06/04/19 12:35 Consult Gastroenterology Routine Hospital Course (1) Diarrhea: Has been going on for several weeks seems to be inflammatory Stool was negative for any blood Stool for C. difficile was negative and cultures are negative so far No more diarrhea and no more blood in the stool Hemoglobin is borderline low at 7.0 today 06/07/2019 No more bloody diarrhea Denies any abdominal pain, nausea and/or vomiting (2) Lymphocytic colitis: Patient presenting from home with reports of persistent diarrhea Has been ongoing for the past several weeks and has been evaluated by GI as an outpatient. Underwent stool studies, CT ABD/pelvis, EGD, colonoscopy. Biopsy from colonoscopy showed lymphocytic colitis. Patient was advised to stop diclofenac, start probiotic, adhere to a FODMAPs diet. Patient has made note of these changes at this time. WBC 15 K, continue to monitor Recheck stool studies Appreciate GI consult and recommendation Has been put on oral budesonide Denies any abdominal pain, distention, nausea and or vomiting Remains stable (3) Anemia: Downtrending anemia noted, Hgb 8.3 today No obvious signs of bleeding Stool negative for Hemoccult Likely anemia of chronic disease Iron studies shows low iron and low iron binding capacities and low for a ferritin B12 and folate have been normal Will start iron supplement Hemoglobin went down to 7.3 as of 06/05/2019 Hemoglobin is 7.1 on 06/06/2019 Hemoglobin dropped to 7.0 03/08/2019 We will give 1 unit of blood transfusion Hemoglobin went up to 8.5 as of 06/08/2019 (4) Acute kidney injury superimposed on CKD: (5) Chronic kidney disease (CKD), stage III (moderate): -Baseline creatinine runs in the low ones, noted to be 1.8 today -Likely prerenal in nature secondary to dehydration from GI losses -Hold lisinopril for now, start IVF -Renal function has been improving -Phosphorus remains low at 1.3-we will supplement -We will give oral phosphorus supplement on discharge (6) Generalized convulsive epilepsy without intractable epilepsy: -Stable, no recent seizures -Continue Depakote and Keppra (7) Hypertension: -BP borderline low at times, holding lisinopril (8) History of CVA (cerebrovascular accident): -Hold aspirin for now due to anemia -We will hold NSAID use as well (9) Ambulatory dysfunction: -Patient has had several falls over the past 1 week -PT/OT evaluations -Patient may benefit from rehab placement (10) DVT prophylaxis: -SCDs due to anemia CODE STATUS Full No family members in chart to update PT and OT have been requested Likely to be transferred to [facility] when accepted Total Time Total Time Spent Total Time Spent (In Minutes): 35 minutes Total Time Includes: Examination of the Patient, Discharge Planning, Medication Reconciliation and Communication With Other Providers Discharge Plan Discharge Items Patient Disposition: Transfer Inpatient Rehab Fac Reason For Visit: DIARRHEA,DEHYDRATION Discharge Diagnosis: Acute lymphocytic colitis, diarrhea-controlled, anemia-DEE status post 1 unit of blood transfusion, CKD, history of obstructive hydrocephalus and infantile cerebral palsy Condition on Discharge: Good Activity: Resume your previous activity Non-emergency contact: Primary Care Provider Call non-emergency contact if: you have any medication questions Follow-up/Referrals: Naresh Fu MD [Primary Care Provider] - (Please make an appointment with your primary care provider within 7 days following discharge from the facility) Diet: Lactose Intolerant Addtl Attending Provider Instructions: Please take precaution to avoid falls Continue budesonide as prescribed Pending Studies at Discharge: No Stand-Alone Forms: My [facility] Skilled Items Patient informed of condition?: Yes DNR: No Discharge Level of Care: Skilled Communicable Disease: No Discharge Prognosis: Stable Lines: None Urinary Catheter: No Medications and DC Order Prescriptions: New Phospha 250 Neutral 250 mg Tablet 2 tab PO BID 30 Days Qty: 120 RF: 0 budesonide 3 mg Capsule,Delayed,Extend.Release 3 mg PO QAM Qty: 105 RF: 0 ferrous sulfate 325 mg (65 mg iron) Tablet,Delayed Release (Dr/Ec) 325 mg PO TID 30 Days Qty: 90 RF: 0 Continued levetiracetam 500 mg tablet 1,500 mg PO BID RF: 0 lisinopril 20 mg tablet 20 mg PO DAILY RF: 0 divalproex 500 mg tablet extended release 24 hr 500 mg PO BID RF: 0 lamotrigine 100 mg tablet 100 mg PO BID RF: 0 lorazepam 1 mg tablet 1 mg PO DAILY RF: 0 oxybutynin chloride 10 mg tablet extended release 24hr 10 mg PO QPM RF: 0 aspirin 81 mg Tablet,Delayed Release (Dr/Ec) 81 mg PO QAM RF: 0 Discontinued diclofenac sodium 75 mg tablet,delayed release (DR/EC) 75 mg PO BID RF: 0 Discharge Orders: Discharge Order (Routine); Ordered 06/08/19 Ordered By: Hi Vaz Admission Data Admit Date/Time: 06/04/19 11:33 Attending Provider: Hi Vaz Admit Provider: Malena Skinner Primary Care Provider: Naresh Fu Other Providers: Preeti Fagan ; Malena Skinner ; [facility] ; [facility] ; [facility] Other Interventions: Discharge Summary Assessment (RN) Last Done: 06/08/19 13:25 DC Date/Time DO NOT enter until pt leaves facility: 06/08/19 14:24
== END 2019-06-08 14:24 | DRG 391 ==
LOC: ED 09:07 → SUATTDRO 11:33 → 2N 11:33 → 3E 06-06 22:46

== ENCOUNTER 2020-09-03 22:08 | Observation (INO) ==
--- NOTE | 2020-09-03 22:26 | Emergency Department Note ---
Impression & Plan Chest pain ED Provider Note Provider: Chaitanya Merino MD DATE OF SERVICE: 09/03/2020 CHIEF COMPLAINT: Chest pain HISTORY OF PRESENT ILLNESS: Patient is a 65-year-old female history of cerebral palsy, seizure, CVA, CKD, hypertension presenting here today via ambulance with the onset 45 minutes to an hour prior to arrival of central chest tightness pain in the lower ribs bilaterally in the axilla. States she was watching TV when this started. Reports for EMS about 5-10 pain initially improved after 2 nitro and 324 of aspirin to 4 out of 10 pain. Denies any shortness of breath or diaphoresis peer denies radiation to arms back or jaw. Denies any abdominal pain or nausea or vomiting. Patient denies significant leg swelling recently or any trauma. Patient denies recent fever. States she is received Covid vaccine. Had an episode similar to several weeks ago seen here in the ER and she states she has not had recurrence since then. States her doctor knows her medical history but she has not had additional outpatient testing since that time. She states she did not want to stay in the hospital for further evaluation at that time but she is willing to stay tonight given the recurrence. Patient states she has been on a baby aspirin REVIEW OF SYSTEMS: A total of 10 review of systems was obtained and negative except as stated above in the HPI. PAST MEDICAL HISTORY: As noted above MEDICATIONS:reviewed home medications SOCIAL HISTORY: Non-smoker currently, single but has caregivers/aids PHYSICAL EXAM: GENERAL: alert and oriented in no acute distress on stretcher Head: normocephalic and atraumatic EYES: No injection, discharge or icterus. NECK: Trachea midline. Supple LUNGS: Airway patent. No retractions. Breath sounds clear with good air entry bilaterally. HEART: Regular rate and rhythm. No significant chest wall tenderness ABDOMEN: Soft and non-tender, without guarding or rebound. SKIN: Acyanotic, warm, dry, without rashes EXTREMITIES: Without swelling, tenderness or deformity NEUROLOGICAL: No focal deficits. No aphasia. No facial droop or slurred speech. EK bpm sinus rhythm with rare PVC. No acute ST segment elevation with anterior T wave inversions notable. In comparison to previous from August 02 of this year PVC was new. T wave inversions appear chronic. CONTINUOUS CARDIAC MONITORING: was ordered and showed a heart rate of 60s bpm in normal sinus rhythm 1 view chest x-ray per my interpretation: Patient's laboratory studies and imaging reviewed. Differential includes Cardiac ischemia, aortic dissection, pulmonary embolism, pneumothorax, pneumonia, pericarditis, myocarditis, esophageal rupture, GERD, cholecystitis, pancreatitis, musculoskeletal, as well as other pathologies. IMPRESSION/MEDICAL DECISION MAKING: Patient with reported family history of cardiac disease history of CVA or self believe onset of chest pain while at rest today improved slightly with some nitro earlier. Received aspirin prior to arrival. EKG without STEMI but nonspecific T wave changes. History of similar symptoms several weeks ago. Symptoms still present but diminished compared to earlier. Notes he concerns for acute aortic dissection at this time lower suspicion for PE. Chest x-ray obtained but no evidence of acute pulmonary pathology noted here. Patient not in active distress but some concern given her recurrent symptoms and with a moderate heart score feel that further observation here overnight would be reasonable. Discussed with the patient who is in agreement. The hospitalist was contacted. Evening melatonin ordered. Took her seizure medicines earlier. Do not believe she requires additional pain medicine at this time. DIAGNOSIS: Chest pain DISPOSITION: Hospitalist will evaluate Patient was agreeable with this plan. Past Med/Surg History Medical History Anxiety Chronic kidney disease (CKD), stage III (moderate) Generalized convulsive epilepsy without intractable epilepsy History of colon polyps History of CVA (cerebrovascular accident) Hypertension Incontinence Infantile cerebral palsy Obstructive hydrocephalus has shunt Osteoporosis Surgical History H/O tubal ligation History of brain shunt Family History Father Cancer Mother Cancer Social History Smoking Status: Never smoker Tobacco Type: Cigarettes Hx Alcohol Use: No Hx Substance Use: No Preferred Language: Telugu Communication Ability: Effective Baseball Glove Stuffer Required: No Beliefs That Will Affect Care: None marital status: Single Current Living Situation: Alone Current Living Situation Comment: has caregivers that help Feels Safe at Home: Yes Assistive Devices: Glasses Allergies Allergies Allergy/AdvReac Type Severity Reaction Status Date / Time adhesive Allergy Unknown Unknown Verified 09/03/20 23:56 Home Meds Home Medications Medication Instructions Recorded Confirmed divalproex 500 mg tablet,extended 500 mg PO BID 01/26/18 09/03/20 release 24 hr lamotrigine 100 mg tablet 100 mg PO BID 01/26/18 09/03/20 levetiracetam 500 mg tablet 1,500 mg PO BID 01/26/18 09/03/20 aspirin 81 mg tablet,delayed 81 mg PO QAM 05/23/19 09/03/20 release lorazepam 1 mg tablet 1 mg PO DAILY 06/04/19 09/03/20 acetaminophen 500 mg tablet 500 mg PO Q6H PRN 04/15/20 09/03/20 melatonin 10 mg tablet 20 mg PO HS 04/15/20 09/03/20 oxybutynin chloride 5 mg 5 mg PO QAM 08/02/20 09/03/20 tablet,extended release 24 hr Saccharomyces boulardii 250 mg 250 mg PO QAM 09/03/20 09/03/20 capsule (Florastor) oxybutynin chloride 5 mg 10 mg PO HS 09/03/20 09/03/20 tablet,extended release 24 hr Results & Data (ED) Vital Signs Vital Signs - 24 hr 09/03/20 22:15 Temperature 37.0 C Temperature Source Oral Pulse Rate 64 Pulse Rhythm Regular Pulse Strength Normal Respiratory Rate 18 Respiratory Effort / Characteristics Non-Labored Spontaneous Respiratory Depth Normal Blood Pressure 141/94 H Blood Pressure Mean 109 Blood Pressure Position Sitting Pulse Oximetry 94 Oxygen Delivery Method Room Air Sepsis Recent Fever Within 48 Hours No Sepsis New/Unexplained Change in Mental Status N/A Sepsis Action Taken by Nursing No Action Required Laboratory Data Result diagrams: 09/03/20 21:50 09/03/20 21:50 Lab Results 09/03/20 09/03/20 09/03/20 Range/Units 21:50 21:50 22:30 WBC 7.18 (4.8-10.8) K/uL RBC 4.29 (4.2-5.4) M/uL Hgb 12.8 (12.0-16.0) g/dL Hct 38.5 (37-47) % MCV 89.7 (80-100) fL MCH 29.8 (25-34) pg MCHC 33.2 (32-36) g/dL RDW Std Deviation 45.7 (36.4-46.3) fL RDW Coeff of Ofelia 13.8 (11.5-14.5) % Plt Count 172 (130-400) K/uL MPV 11.1 H (7.4-10.4) fL Immature Gran % (Auto) 0.1 % Neut % (Auto) 37.0 % Lymph % (Auto) 50.1 % Owen % (Auto) 7.8 % Eos % (Auto) 4.6 % Baso % (Auto) 0.4 % Neut # (Auto) 2.65 (1.4-6.5) K/uL Lymph # (Auto) 3.60 H (1.2-3.4) K/uL Owen # (Auto) 0.56 (0.11-0.59) K/uL Eos # (Auto) 0.33 (0-0.5) K/uL Baso # (Auto) 0.03 (0-0.2) K/uL Immature Gran # (Auto) 0.01 (0.00-0.02) K/uL Sodium 139 (136-145) mmol/L Potassium 4.3 (3.5-5.1) mmol/L Chloride 105 (98-107) mmol/L Carbon Dioxide 26 (21-32) mmol/L Anion Gap 8.0 (3-11) BUN 28 H (7-18) mg/dl Creatinine 0.92 (0.6-1.2) mg/dl Est Cr Clr Drug Dosing 60.7 ml/min Est GFR ( Amer) 75.2 ml/min Est GFR (Non-Af Amer) 64.9 ml/min BUN/Creatinine Ratio 30.1 H (10-20) Glucose 94 (70-99) mg/dl Calcium 8.7 (8.5-10.1) mg/dl Total Bilirubin 0.1 L (0.2-1) mg/dl AST 16 (15-37) U/L ALT 21 (12-78) U/L Alkaline Phosphatase 34 L (45-117) U/L Troponin I < 0.015 (0-0.045) ng/ml Total Protein 7.1 (6.4-8.2) gm/dl Albumin 3.8 (3.4-5.0) gm/dl Globulin 3.3 (2.5-4.0) gm/dl Albumin/Globulin Ratio 1.1 (0.9-2) Lipase 167 (73-393) U/L Specimen Hemolysis COVID-19 Eval Order Covid19 at [facility] SARS-CoV-2 (PCR) (Negative) 09/03/20 Range/Units 22:30 WBC (4.8-10.8) K/uL RBC (4.2-5.4) M/uL Hgb (12.0-16.0) g/dL Hct (37-47) % MCV (80-100) fL MCH (25-34) pg MCHC (32-36) g/dL RDW Std Deviation (36.4-46.3) fL RDW Coeff of Ofelia (11.5-14.5) % Plt Count (130-400) K/uL MPV (7.4-10.4) fL Immature Gran % (Auto) % Neut % (Auto) % Lymph % (Auto) % Owen % (Auto) % Eos % (Auto) % Baso % (Auto) % Neut # (Auto) (1.4-6.5) K/uL Lymph # (Auto) (1.2-3.4) K/uL Owen # (Auto) (0.11-0.59) K/uL Eos # (Auto) (0-0.5) K/uL Baso # (Auto) (0-0.2) K/uL Immature Gran # (Auto) (0.00-0.02) K/uL Sodium (136-145) mmol/L Potassium (3.5-5.1) mmol/L Chloride (98-107) mmol/L Carbon Dioxide (21-32) mmol/L Anion Gap (3-11) BUN (7-18) mg/dl Creatinine (0.6-1.2) mg/dl Est Cr Clr Drug Dosing ml/min Est GFR ( Amer) ml/min Est GFR (Non-Af Amer) ml/min BUN/Creatinine Ratio (10-20) Glucose (70-99) mg/dl Calcium (8.5-10.1) mg/dl Total Bilirubin (0.2-1) mg/dl AST (15-37) U/L ALT (12-78) U/L Alkaline Phosphatase (45-117) U/L Troponin I (0-0.045) ng/ml Total Protein (6.4-8.2) gm/dl Albumin (3.4-5.0) gm/dl Globulin (2.5-4.0) gm/dl Albumin/Globulin Ratio (0.9-2) Lipase (73-393) U/L Specimen Hemolysis COVID-19 Eval Order SARS-CoV-2 (PCR) NEGATIVE (Negative) Administered Medications Discontinued Medications Ketorolac Tromethamine (Ketorolac Tromethamine 15 Mg/Ml Vial) 10 mg IV NOW ONE Stop: 09/03/20 23:29 Last Admin: 09/03/20 23:39 Dose: 10 mg Documented by: [id number] Discharge Plan Visit Data Chief Complaint: Cardiac Assessment Stated Complaint: CHEST TIGHTNESS ED Provider: Chaitanya Merino Discharge Problem: Chest pain Forms Stand Alone Forms: [employer] [facility] Prescriptions Prescriptions: No Action levetiracetam 500 mg tablet 1,500 mg PO BID RF: 0 divalproex 500 mg tablet extended release 24 hr 500 mg PO BID RF: 0 lamotrigine 100 mg tablet 100 mg PO BID RF: 0 lorazepam 1 mg tablet 1 mg PO DAILY RF: 0 acetaminophen 500 mg Tablet 500 mg PO Q6H PRN (Reason: Pain) RF: 0 melatonin 10 mg Tablet 20 mg PO HS RF: 0 aspirin 81 mg Tablet,Delayed Release (Dr/Ec) 81 mg PO QAM RF: 0 oxybutynin chloride 5 mg tablet extended release 24hr 10 mg PO HS RF: 0 Saccharomyces boulardii [Florastor] 250 mg Capsule 250 mg PO QAM RF: 0 oxybutynin chloride 5 mg tablet extended release 24hr 5 mg PO QAM RF: 0 Referrals Referrals: Naresh Fu MD [Primary Care Provider] - Discharge Problem: Chest pain Qualifiers: Chest pain type: unspecified Qualified Code(s): R07.9 - Chest pain, unspecified
[2020-09-03 22:32] LABS: Hematocrit (blood only) 38.5 % (37-47); Hemoglobin 12.8 g/dL (12.0-16.0); Mean Corpuscular Hemoglobin 29.8 pg (25-34); Mean Corpuscular Hgb Conc 33.2 g/dL (32-36); Mean Corpuscular Volume 89.7 fL (80-100); Mean Platelet Volume 11.1 fL (7.4-10.4); Platelet Count 172 K/uL (130-400); RDW Coefficient of Variation 13.8 % (11.5-14.5); RDW Standard Deviation 45.7 fL (36.4-46.3); Red Blood Count 4.29 M/uL (4.2-5.4); White Blood Count 7.18 K/uL (4.8-10.8)
[2020-09-03 22:48] LABS: Basophils # (auto) 0.03 K/uL (0-0.2); Basophils % (auto) 0.4 %; Eosinophils # (auto) 0.33 K/uL (0-0.5); Eosinophils % (auto) 4.6 %; Immature Granulocytes # (auto) 0.01 K/uL (0.00-0.02); Immature Granulocytes % (auto) 0.1 %; Lymphocytes % (auto) 50.1 %; Monocytes # (auto) 0.56 K/uL (0.11-0.59); Monocytes % (auto) 7.8 %; Neutrophils # (auto) 2.65 K/uL (1.4-6.5)
[2020-09-03 22:56] LABS: Alanine Aminotransferase 21 U/L (12-78); Albumin Globulin Ratio 1.1 (0.9-2); Albumin Level 3.8 gm/dl (3.4-5.0); Alkaline Phosphatase 34 U/L (45-117); Aspartate Aminotransferase 16 U/L (15-37); BUN Creatinine Ratio 30.1 (10-20); Bilirubin,Total 0.1 mg/dl (0.2-1); Blood Urea Nitrogen 28 mg/dl (7-18); Calcium 8.7 mg/dl (8.5-10.1); Carbon Dioxide 26 mmol/L (21-32); Chloride 105 mmol/L (98-107); Creatinine Clr Calc Pharmacy 60.7 ml/min; Est GFR (African American) 75.2 ml/min; Est GFR (Non-African American) 64.9 ml/min; Globulin 3.3 gm/dl (2.5-4.0); Glucose 94 mg/dl (70-99); Lipase 167 U/L (73-393); Potassium 4.3 mmol/L (3.5-5.1); Sodium 139 mmol/L (136-145); Total Protein 7.1 gm/dl (6.4-8.2); Troponin I < 0.015 ng/ml (0-0.045)
[2020-09-03] MEDS ORDERED: MELATONIN 3 MG TAB PO ONE (23:25)
[2020-09-03] MEDS ORDERED: KETOROLAC TROMETHAMINE 15 MG/ML VIAL IV ONE (23:28)
--- NOTE | 2020-09-04 01:40 | History and Physical Report ---
DATE OF ADMISSION: 09/03/2020. CHIEF COMPLAINT: Chest pain. HISTORY OF PRESENT ILLNESS: This 65-year-old female with a past medical history significant for cerebral palsy, has some weakness and right hemiparesis, history of CVA, history of hypertension, microscopic colitis, protein calorie malnutrition, chronic kidney disease stage III, urinary incontinence, senile osteoporosis, insomnia, ambulatory dysfunction. The patient lives at a shelter. Ambulates with a roller walker.Presents with chest pain. The patient says that around 9:30 p.m., sitting in a chair she noticed central chest pain with 5/10 in severity, tightness kind of feeling, no shortness of breath, no dizziness, no nausea, no cough, no fevers, no blurred visions, no earache, no runny nose, no sore throat, no cough, no abdominal pain, no nausea. Normal bowel and bladder movements. Currently, resting comfortably. Stable after she received nitro and aspirin. Currently, pain is about 3/10 in severity, resting comfortably and hemodynamically stable. The patient was here few weeks ago in the ER for chest pain. At that time, workup was negative and she had outpatient followup with echocardiogram which was unremarkable. ALLERGIES: ADHESIVE TAPE. PAST MEDICAL HISTORY: As mentioned above. PAST SURGICAL HISTORY: Colonoscopy, brain cavity shunt, EGD, ligation of oviducts, cataract. MEDICATIONS: The patient is on Tylenol 500 mg p.o. q. 6 hours p.r.n., aspirin 81 mg p.o. a.m., divalproex 600 mg p.o. b.i.d., Lamictal 100 mg p.o. b.i.d., Keppra 1500 mg p.o. b.i.d., Ativan 1 mg p.o. daily, melatonin 20 mg p.o. at bedtime, oxybutynin 15 mg p.o. at bedtime and 5 mg p.o. a.m., Florastor 250 mg p.o. a.m. FAMILY HISTORY: Significant for mother has breast cancer; father has stroke, alcohol sister had [place] in her 50s, brother has cancer. SOCIAL HISTORY: Single, currently lives at a shelter. No smoking, no alcohol, no drug use. REVIEW OF SYSTEMS: As per HPI. Rest of review of systems is negative. PHYSICAL EXAMINATION: GENERAL: The patient is of moderate build, not in acute distress. VITAL SIGNS: Temperature 37, pulse 64, respiratory rate 18, blood pressure 141/94, oxygen 97% on room air. HEENT: Pupils equal, round and reactive to light. Oral mucosa moist. NECK: No JVD, no neck masses. HEART: S1 and S2 heard. Regular rate and rhythm. No murmur, no gallop. RESPIRATORY SYSTEM: Normal AP diameter. No accessory muscle use. No wheezing, no crackles. ABDOMEN: Soft, bowel sounds present, nontender, no distention. CENTRAL NERVOUS SYSTEM: Cranial nerves II-XII grossly intact. Mild weakness on the right side. EXTREMITIES: No edema, no erythema. LABORATORY DATA: WBC 7.1, hemoglobin 12.8, hematocrit 38.5, platelets 172. Sodium 139, potassium 4.3, chloride 105, bicarbonate 26, BUN 28, creatinine 0.9, serum glucose 94, calcium 8.7, total bilirubin 0.1, AST 16, ALT 21, alkaline phosphatase 34. Troponin I less than 0.015. SARS-CoV-2 PCR negative. IMAGING DATA: Chest x-ray, no acute findings. EKG: Sinus rhythm with occasional PVCs, Q-waves in inferior leads. No significant change from previous EKG. ASSESSMENT AND PLAN: This is a 65-year-old female presents with chest pain. 1. Chest pain, rule out ACS. Initial workup negative. We will follow serial enzymes, echocardiogram, keep n.p.o. and consult cardiology in a.m. for further recommendation. 2. History of cerebral palsy, right side hemiparesis, history of seizure. Continue her home medication of Keppra, Ativan and Lamictal and divalproex. 3. History of urinary incontinence. Continue oxybutynin. 4. History of chronic kidney disease stage III. We will follow the labs, creatinine 0.9 here today. 5. Hypertension, currently not on medication. We will monitor the blood pressure. 6. DVT prophylaxis. Sequential compression devices for now. DISPOSITION: Admit to [facility]. PT/OT prior to discharge. Social service to help with discharge planning. Level 1 full code. Job ID: [id number] [facility]
[2020-09-04] MEDS ORDERED: ONDANSETRON INJ 2 MG/ML 2 ML VIAL IV PRN (02:14)
[2020-09-04] MEDS ORDERED: NITROGLYCERIN SL 0.4 MG/TAB TAB SL PRN (02:14)
[2020-09-04] MEDS ORDERED: ACETAMINOPHEN 325 MG TAB PO PRN (02:14)
[2020-09-04 06:04] LABS: Hematocrit (blood only) 37.5 % (37-47); Hemoglobin 12.2 g/dL (12.0-16.0); Mean Corpuscular Hemoglobin 29.2 pg (25-34); Mean Corpuscular Hgb Conc 32.5 g/dL (32-36); Mean Corpuscular Volume 89.7 fL (80-100); Mean Platelet Volume 10.9 fL (7.4-10.4); Platelet Count 155 K/uL (130-400); RDW Coefficient of Variation 13.6 % (11.5-14.5); Red Blood Count 4.18 M/uL (4.2-5.4); White Blood Count 6.86 K/uL (4.8-10.8)
[2020-09-04 06:27] LABS: Basophils # (auto) 0.02 K/uL (0-0.2); Basophils % (auto) 0.3 %; Eosinophils # (auto) 0.42 K/uL (0-0.5); Eosinophils % (auto) 6.1 %; Lymphocytes # (auto) 3.67 K/uL (1.2-3.4); Lymphocytes % (auto) 53.5 %; Monocytes # (auto) 0.59 K/uL (0.11-0.59); Monocytes % (auto) 8.6 %; Neutrophils # (auto) 2.16 K/uL (1.4-6.5); Neutrophils % (auto) 31.5 %; RBC Morphology Unremarkable
[2020-09-04 06:41] LABS: BUN Creatinine Ratio 31.9 (10-20); Blood Urea Nitrogen 27 mg/dl (7-18); Calcium 8.6 mg/dl (8.5-10.1); Carbon Dioxide 30 mmol/L (21-32); Chloride 107 mmol/L (98-107); Creatinine Clr Calc Pharmacy 64.6 ml/min; Est GFR (African American) 85.2 ml/min; Est GFR (Non-African American) 73.5 ml/min; Glucose 88 mg/dl (70-99); Magnesium 2.3 mg/dl (1.8-2.4); Potassium 4.4 mmol/L (3.5-5.1); Sodium 140 mmol/L (136-145)
[2020-09-04 06:45] LABS: Chol HDL Ratio 3; Cholesterol 160 mg/dl (0-200); HDL Cholesterol 64 mg/dl; LDL Cholesterol Calculated 75 mg/dl; Triglycerides 105 mg/dl (0-150); Troponin I < 0.015 ng/ml (0-0.045); VLDL Cholesterol 21 mg/dl
--- NOTE | 2020-09-04 08:12 | XRay Report ---
XR chest 1V portable CLINICAL HISTORY: Chest Pain COMPARISON STUDY: Chest radiograph August 02, 2020. FINDINGS: Several old right rib fractures are incidentally noted. There is no pneumothorax. There is no pleural effusion. Note is made of cardiomegaly. There is no evidence for pulmonary edema. IMPRESSION: No acute cardiopulmonary findings. No change in appearance of the chest. ACT 112: Negative or not required by law. Electronically signed by: Troy Pa M.D. 09/04/2020 8:10 AM
[2020-09-04] MEDS ORDERED: OXYBUTYNIN CHLORIDE XL 5 MG TABCR PO SCH ×2 (09:00→21:00)
[2020-09-04] MEDS ORDERED: DIVALPROEX EXTENDED RELEASE 500 MG TAB PO SCH (09:00)
[2020-09-04] MEDS ORDERED: LORazepam 1 MG TAB PO SCH (09:00)
[2020-09-04] MEDS ORDERED: levETIRAcetam 500 MG TAB PO SCH (09:00)
[2020-09-04] MEDS ORDERED: lamoTRIgine 100 MG TAB PO SCH (09:00)
[2020-09-04] MEDS ORDERED: SACCHAROMYCES BOULARDII 250 MG CAP PO SCH (09:00)
[2020-09-04] MEDS ORDERED: ASPIRIN 81 MG ECTAB PO SCH (09:00)
[2020-09-04] MEDS ORDERED: MELATONIN 3 MG TAB PO PRN (09:33)
[2020-09-04] MEDS ORDERED: METOPROLOL TARTRATE 1 MG/ML VIAL IV ONE (10:18)
[2020-09-04] MEDS ORDERED: DOBUTamine HCL 12.5 MG/ML 20 ML VIAL IV ONE (10:18)
[2020-09-04] MEDS ORDERED: ATROPINE SULFATE 0.1 MG/ML 10ML SYR IV ONE (10:18)
--- NOTE | 2020-09-04 10:33 | Hospitalist Progress Note ---
Date of Service September 04, 2020 Assessment & Plan (1) Chest pain: Plan: ASSESSMENT AND PLAN: This is a 65-year-old female presents with chest pain. 1. Chest pain, rule out ACS. Initial workup negative. Cards to see, Echo done. 2. History of cerebral palsy, right side hemiparesis, history of seizure. Continue Keppra, Ativan and Lamictal and divalproex. 3. History of urinary incontinence. Continue oxybutynin. 4. History of chronic kidney disease stage III. We will follow the labs, creatinine 0.9 here today. 5. Hypertension, currently not on medication. We will monitor the blood pressure. 6. DVT prophylaxis. Sequential compression devices for now. Labs checked ROS-No Headache, No Visual Changes, No Nausea, No Vomiting, No Fever, No Chills, No Neck Pain or Stiffness, No Chest Pain, No Palpitations, No SOB, No HEMPHILL, No Cough, No Sputum, No Wheezing, No Abdominal Pain, No Diarrhea, No Hematemesis, No Hemoptysis, No Unexpected Weight Loss, No Flank pain, No Melena, No Hematochezia, No Frequency, No Urgency, No Burning, No Hematuria, No Rashes, No Diaphoresis. Appetite is Normal Physical Exam Gen-AAO x 3, NAD, Afebrile Head-NCAT, EOMI, PERRLA, Anicteric Sclera, No Posterior Pharyngeal Erythema Neck-Supple, No JVD, No Thyromegaly, No Masses, No LAD, No Bruits Lungs-Clear to Auscultation Bilaterally, No Rales, No Rhonchi, No Wheezing, No Crepitus Chest-No S4, +S1, +S2, No S3, No Murmurs, No Rubs, No Gallops, No Ectopy Abdomen-Soft, Bowel Sounds Present, Non Tender, Non Distended, No Hepatomegaly, No Splenomegaly, No Palpable Masses, No Rebound, No Rigidity, No Guarding Musculoskeletal-Full Range of Motion Bilaterally, No CVAT Extremities-No Cyanosis, No Clubbing, No Edema Nuero-Cranial Nerves II-XII grossly intact, Motor WNL, DTRs WNL, Strength WNL, Non Focal Psych-Normal Mood Admission and Anticipated Discharge Date Admission Date: September 04, 2020 Results & Data Results & Data ([facility]) Vital Signs (Past 12 Hours) Vital Signs Temp Pulse Pulse Resp BP BP BP 09/04/20 07:52 36.5 C 67 18 155/79 H 09/04/20 03:03 36.7 C 52 L 20 159/89 H 09/04/20 02:51 59 L 09/04/20 01:26 57 L 18 156/87 H 09/04/20 00:28 09/04/20 00:13 71 22 135/78 Pulse Ox 09/04/20 07:52 97 09/04/20 03:03 96 09/04/20 02:51 09/04/20 01:26 96 09/04/20 00:28 97 09/04/20 00:13 97 (1) Chest pain Chest pain type: unspecified Qualified Code(s): R07.9 - Chest pain, unspecified
--- NOTE | 2020-09-04 11:23 | Cardiology Consultation ---
Date of Consultation September 04, 2020 Assessment & Plan (1) Chest pain: Troponin I is undetectable x3 measurements. EKG reveals sinus rhythm with nonspecific repolarization changes in the anterior precordial leads, however per review of historical tracings, this is relatively unchanged. Resting echocardiogram revealed normal resting regional wall motion and normal LVEF. A trace degree of anterior pericardial effusion was present, but her symptoms are not suggestive of pericarditis as they have come and gone. The patient went on to have a dobutamine stress echocardiogram that was negative for ischemia. Her presenting symptoms were not reproduced. Would recommend further risk factor treatment with continued aspirin therapy. Her LDL cholesterol is already well controlled at 75 mg/dL without therapy. (2) Hypertension: Her blood pressure historically is not significantly high. She has had several high readings here, but she also expresses a great deal of anxiety with regards to being in the hospital and with the test she has had. Future considerations include perhaps adding amlodipine 2.5 mg daily, but I think the most prudent for step is to transfer her back to the medical [facility], advance her diet, and allow her vital signs to be reassessed. History of Present Illness Attending Physician: Cruz Bates DO History of Present Illness Cecilia Greer is a 65 year old female seen in cardiology consultation per the request of Dr Douglas for the evaluation of chest pain. The patient has a history of cerebral palsy with right-sided weakness and utilizes both a scooter as well as a wheeled walker in terms of her mobility. Patient presented to the emergency department overnight last night with onset of midline chest pressure at 9:30 PM that she described as being severe. She had some residual discomfort at the time of her assessment by the admitting hospitalist last night but it had improved from a 5/10 intensity down to a 3/10 intensity. She received nitroglycerin and aspirin. She did well overnight without ongoing chest discomfort, or recurrence. At the time my assessment this morning she was feeling well and was chest pain-free. Family History: Father with history of strokes, mother of breast carcinoma, brother of cancer, details unknown to patient. Allergies Allergy/AdvReac Type Severity Reaction Status Date / Time adhesive Allergy Unknown Unknown Verified 09/03/20 23:56 Home Medications Medication Instructions Recorded Confirmed Type divalproex 500 mg tablet,extended 500 mg PO BID 01/26/18 09/03/20 History release 24 hr lamotrigine 100 mg tablet 100 mg PO BID 01/26/18 09/03/20 History levetiracetam 500 mg tablet 1,500 mg PO BID 01/26/18 09/03/20 History aspirin 81 mg tablet,delayed 81 mg PO QAM 05/23/19 09/03/20 History release lorazepam 1 mg tablet 1 mg PO DAILY 06/04/19 09/03/20 History acetaminophen 500 mg tablet 500 mg PO Q6H PRN 04/15/20 09/03/20 History melatonin 10 mg tablet 20 mg PO HS 04/15/20 09/03/20 History oxybutynin chloride 5 mg 5 mg PO QAM 08/02/20 09/03/20 History tablet,extended release 24 hr Saccharomyces boulardii 250 mg 250 mg PO QAM 09/03/20 09/03/20 History capsule (Florastor) oxybutynin chloride 5 mg 10 mg PO HS 09/03/20 09/03/20 History tablet,extended release 24 hr Patient History Medical History Anxiety Chronic kidney disease (CKD), stage III (moderate) Generalized convulsive epilepsy without intractable epilepsy History of colon polyps History of CVA (cerebrovascular accident) Hypertension Incontinence Infantile cerebral palsy Obstructive hydrocephalus has shunt Osteoporosis Surgical History H/O tubal ligation History of brain shunt Family History Father Cancer Mother Cancer Social History Smoking Status: Never smoker Tobacco Type: Cigarettes Hx Alcohol Use: No Hx Substance Use: No Preferred Language: Slovak Communication Ability: Effective [employer] Required: No Beliefs That Will Affect Care: None marital status: Single Current Living Situation: Personal Care Facility Current Living Situation Comment: has 24 hour care Other Information That Helps Us Care for You: No Feels Safe at Home: Yes Safety Concerns: Feels Safe At This Time Assistive Devices: Glasses and Walker Review of Systems Review of Systems: All systems reviewed & are unremarkable except as noted in HPI & below Physical Exam Physical Exam: Temp Pulse Resp BP Pulse Ox 36.5 C 67 18 155/79 H 97 09/04/20 07:52 09/04/20 07:52 09/04/20 07:52 09/04/20 07:52 09/04/20 07:52 Constitutional: WD/WN, vitals as above Respiratory: normal respiratory effort, lungs clear to auscultation Cardiovascular: RRR, no murmur, no edema Neurologic: Right-sided hemiparesis Results & Data ([facility]) Vital Signs (Past 12 Hours) Vital Signs Temp Pulse Pulse Resp BP BP BP 09/04/20 07:52 36.5 C 67 18 155/79 H 09/04/20 03:03 36.7 C 52 L 20 159/89 H 09/04/20 02:51 59 L 09/04/20 01:26 57 L 18 156/87 H 09/04/20 00:28 09/04/20 00:13 71 22 135/78 Pulse Ox 09/04/20 07:52 97 09/04/20 03:03 96 09/04/20 02:51 09/04/20 01:26 96 09/04/20 00:28 97 09/04/20 00:13 97 Laboratory Results Cardiac Enzymes 09/03/20 09/04/20 09/04/20 Range/Units 21:50 05:55 09:00 AST 16 (15-37) U/L Troponin I < 0.015 < 0.015 < 0.015 (0-0.045) ng/ml Lipids 09/04/20 Range/Units 05:55 Triglycerides 105 (0-150) mg/dl Cholesterol 160 (0-200) mg/dl HDL Cholesterol 64 mg/dl Cholesterol/HDL Ratio 3 CBC 09/03/20 09/04/20 Range/Units 21:50 05:55 WBC 7.18 6.86 (4.8-10.8) K/uL RBC 4.29 4.18 L (4.2-5.4) M/uL Hgb 12.8 12.2 (12.0-16.0) g/dL Hct 38.5 37.5 (37-47) % Plt Count 172 155 (130-400) K/uL Neut # (Auto) 2.65 2.16 (1.4-6.5) K/uL Lymph # (Auto) 3.60 H 3.67 H (1.2-3.4) K/uL [place] # (Auto) 0.56 0.59 (0.11-0.59) K/uL Eos # (Auto) 0.33 0.42 (0-0.5) K/uL Baso # (Auto) 0.03 0.02 (0-0.2) K/uL Comprehensive Metabolic Panel 09/03/20 09/04/20 Range/Units 21:50 05:55 Sodium 139 140 (136-145) mmol/L Potassium 4.3 4.4 (3.5-5.1) mmol/L Chloride 105 107 (98-107) mmol/L Carbon Dioxide 26 30 (21-32) mmol/L BUN 28 H 27 H (7-18) mg/dl Creatinine 0.92 0.83 (0.6-1.2) mg/dl Glucose 94 88 (70-99) mg/dl Calcium 8.7 8.6 (8.5-10.1) mg/dl AST 16 (15-37) U/L ALT 21 (12-78) U/L Alkaline Phosphatase 34 L (45-117) U/L Total Protein 7.1 (6.4-8.2) gm/dl Albumin 3.8 (3.4-5.0) gm/dl Intake and Output 09/03/20 09/04/20 09/04/20 22:59 06:59 14:59 Intake Total 120 / 120 Balance 120 / 120 Intake: Oral 120 / 120 Other: # Unmeasured Voids 2 Weight 75.4 kg 71.271 kg Weight Measurement Method Built in Bedscale Standing Scale (1) Chest pain Chest pain type: unspecified Qualified Code(s): R07.9 - Chest pain, unspecified
--- NOTE | 2020-09-04 11:32 | Discharge Summary ---
Date of Service September 04, 2020 Admission HPI Per Admitting Provider This 65-year-old female with a past medical history significant for cerebral palsy, has some weakness and right hemiparesis, history of CVA, history of hypertension, microscopic colitis, protein calorie malnutrition, chronic kidney disease stage III, urinary incontinence, senile osteoporosis, insomnia, ambulatory dysfunction. The patient [facility] at a [facility]. Ambulates with a roller walker.Presents with chest pain. The patient says that around 9:30 p.m., sitting in a chair she noticed central chest pain with 5/10 in severity, tightness kind of feeling, no shortness of breath, no dizziness, no nausea, no cough, no fevers, no blurred visions, no earache, no runny nose, no sore throat, no cough, no abdominal pain, no nausea. Normal bowel and bladder movements. Currently, resting comfortably. Stable after she received nitro and aspirin. Currently, pain is about 3/10 in severity, resting comfortably and hemodynamically stable. The patient was here few weeks ago in the ER for chest pain. At that time, workup was negative and she had outpatient followup with echocardiogram which was unremarkable. Admission Exam Per Admitting Provider GENERAL: The patient is of moderate build, not in acute distress. VITAL SIGNS: Temperature 37, pulse 64, respiratory rate 18, blood pressure 141/94, oxygen 97% on room air. HEENT: Pupils equal, round and reactive to light. Oral mucosa moist. NECK: No JVD, no neck masses. HEART: S1 and S2 heard. Regular rate and rhythm. No murmur, no gallop. RESPIRATORY SYSTEM: Normal AP diameter. No accessory muscle use. No wheezing, no crackles. ABDOMEN: Soft, bowel sounds present, nontender, no distention. CENTRAL NERVOUS SYSTEM: Cranial nerves II-XII grossly intact. Mild weakness on the right side. EXTREMITIES: No edema, no erythema. Principal Diagnosis 1. Chest pain 2. History of infantile cerbral Palsy, right side hemiparesis, history of seizure. 3. History of urinary incontinence. 4. History of chronic kidney disease stage III. 5. Hypertension Discharge Exam ROS-No Headache, No Visual Changes, No Nausea, No Vomiting, No Fever, No Chills, No Neck Pain or Stiffness, No Chest Pain, No Palpitations, No SOB, No HEMPHILL, No Cough, No Sputum, No Wheezing, No Abdominal Pain, No Diarrhea, No Hematemesis, No Hemoptysis, No Unexpected Weight Loss, No Flank pain, No Melena, No Hematochezia, No Frequency, No Urgency, No Burning, No Hematuria, No Rashes, No Diaphoresis. Appetite is Normal Physical Exam Gen-AAO x 3, NAD, Afebrile Head-NCAT, EOMI, PERRLA, Anicteric Sclera, No Posterior Pharyngeal Erythema Neck-Supple, No JVD, No Thyromegaly, No Masses, No LAD, No Bruits Lungs-Clear to Auscultation Bilaterally, No Rales, No Rhonchi, No Wheezing, No Crepitus Chest-No S4, +S1, +S2, No S3, No Murmurs, No Rubs, No Gallops, No Ectopy Abdomen-Soft, Bowel Sounds Present, Non Tender, Non Distended, No Hepatomegaly, No Splenomegaly, No Palpable Masses, No Rebound, No Rigidity, No Guarding Musculoskeletal-Full Range of Motion Bilaterally, No CVAT Extremities-No Cyanosis, No Clubbing, No Edema Nuero-Cranial Nerves II-XII grossly intact, Motor WNL, DTRs WNL, Strength WNL, Non Focal Psych-Normal Mood Discharge Data Allergies Allergy/AdvReac Type Severity Reaction Status Date / Time adhesive Allergy Unknown Unknown Verified 09/03/20 23:56 Consultations 09/03/20 23:25 ED Decision to Admit Stat 09/04/20 08:00 Consult Cardiology Routine Current Diagnoses Essential (primary) hypertension (09/04/20) Chest pain, unspecified (09/04/20) Allergies adhesive Allergy (Unknown, Verified 09/03/20 23:56) Unknown Height/Weight/Isolation Height 5 ft 4 in Weight 71.271 kg Chemistry 09/03/20 09/04/20 21:50 05:55 Sodium 139 140 Potassium 4.3 4.4 Chloride 105 107 Carbon Dioxide 26 30 Anion Gap 8.0 3.0 BUN 28 H 27 H Creatinine 0.92 0.83 Glucose 94 88 Hospital Course (1) Chest pain: ASSESSMENT AND PLAN: This is a 65-year-old female presents with chest pain. 1. Chest pain, no ACS. Cards on case and patient states it was neg, await final result, Echo done EF 50-55%. 2. History of CVA, right side hemiparesis, history of seizure. Continue Keppra, Ativan and Lamictal and divalproex. 3. History of urinary incontinence. Continue oxybutynin. 4. History of chronic kidney disease stage III. We will follow the labs, creatinine 0.9 here today. 5. Hypertension, currently not on medication. We will monitor the blood pressure. 6. DVT prophylaxis. Sequential compression devices for now. Labs checked DC home today Total Time Total Time Spent Total Time Spent (In Minutes): 45 mins Total Time Includes: Examination of the Patient, Discharge Planning, Medication Reconciliation, Communication With Other Providers and Other Discharge Plan Discharge Items Patient Disposition: Home - Self-Care Reason For Visit: CHEST PAIN Discharge Diagnosis: 1. Chest pain 2. History of infantile CP, right side hemiparesis, history of seizure. 3. History of urinary incontinence. 4. History of chronic kidney disease stage III. 5. Hypertension Condition on Discharge: Good Health Concerns: none Activity: Resume your previous activity Lifting: None Bathing: No limitations Sexual Activity: When tolerated Exercise/Sports: None and Gradually increase as tolerated Driving/Machine Use: No limitations Weightbearing: Full weightbearing Non-emergency contact: Primary Care Provider Call non-emergency contact if: you have any medication questions Follow-up/Referrals: Naresh Fu MD [Primary Care Provider] - (Date & Time 09/11/2020 3:00 PM Provider Naresh Fu MD [facility] ) Diet: Heart Healthy Addtl Attending Provider Instructions: None Pending Studies at Discharge: No Stand-Alone Forms: My [facility] [employer], Smoking Cessation Medications and DC Order Prescriptions: New amlodipine 2.5 mg tablet 2.5 mg PO DAILY Qty: 30 RF: 0 Continued levetiracetam 500 mg tablet 1,500 mg PO BID RF: 0 divalproex 500 mg tablet extended release 24 hr 500 mg PO BID RF: 0 lamotrigine 100 mg tablet 100 mg PO BID RF: 0 lorazepam 1 mg tablet 1 mg PO DAILY RF: 0 acetaminophen 500 mg Tablet 500 mg PO Q6H PRN (Reason: Pain) RF: 0 melatonin 10 mg Tablet 20 mg PO HS RF: 0 aspirin 81 mg Tablet,Delayed Release (Dr/Ec) 81 mg PO QAM RF: 0 oxybutynin chloride 5 mg tablet extended release 24hr 10 mg PO HS RF: 0 Saccharomyces boulardii [Florastor] 250 mg Capsule 250 mg PO QAM RF: 0 oxybutynin chloride 5 mg tablet extended release 24hr 5 mg PO QAM RF: 0 Discharge Orders: Discharge Order (Routine); Ordered 09/04/20 Ordered By: Cruz Bates Admission Data Admit Date/Time: 09/04/20 00:18 Attending Provider: Cruz Bates Admit Provider: Robbi Douglas Primary Care Provider: Naresh Fu Other Providers: Robbi Douglas ; Jeovany Velasquez ; Corey Yañez ; Rajiv Gerard ; Sanjeev Bay ; Hunter Doran ; Naresh Scales ; Kirsten Jacobsen ; Annabelle Jarrell ; Chloe Whaley ; Marcos Roblero
--- NOTE | 2020-09-04 13:24 | Electrocardiogram Report ---
Test Reason : Blood Pressure : / mmHG Vent. Rate : 061 BPM Atrial Rate : 061 BPM P-R Int : 186 ms QRS Dur : 090 ms QT Int : 430 ms P-R-T Axes : 031 -14 060 degrees QTc Int : 432 ms Sinus rhythm with occasional Premature ventricular complexes Inferior infarct , age undetermined Abnormal ECG When compared with ECG of 02-AUG-2020 09:00, Premature ventricular complexes are now Present Confirmed by Karthik Sanchez ([id number]) on 09/04/2020 1:24:11 PM Referred By: REFERRED SELF Confirmed By:Karthik Sanchez
--- NOTE | 2020-09-04 13:47 | Electrocardiogram Report ---
Test Reason : Blood Pressure : / mmHG Vent. Rate : 055 BPM Atrial Rate : 055 BPM P-R Int : 206 ms QRS Dur : 092 ms QT Int : 462 ms P-R-T Axes : 058 006 072 degrees QTc Int : 441 ms Sinus bradycardia T wave abnormality, consider anterolateral ischemia Abnormal ECG When compared with ECG of 03-SEP-2020 22:14, (unconfirmed) Premature ventricular complexes are no longer Present Questionable change in initial forces of Inferior leads Inverted T waves have replaced nonspecific T wave abnormality in Lateral leads Confirmed by Karthik Sanchez ([id number]) on 09/04/2020 1:47:07 PM Referred By: REFERRED SELF Confirmed By:Karthik Sanchez
== END 2020-09-04 16:14 | disposition home or self-care (01) ==
LOC: 2N 22:08 → ED 22:08 → 2N 09-04 01:39

== ENCOUNTER 2022-07-21 10:00 | Inpatient (IN) ==
[~2022-07-21 10:00] MED LIST changes: -ATV1 PO; -DICL-201 PO; -DPKSR500 PO; -ENBER15 PO; -LAMO100T16 PO; -LEVE500T26 PO; +LIDOCAINE 5% 1 PATCH TD PRN
--- NOTE | 2022-07-21 10:16 | Emergency Department Note ---
History of Present Illness General Chief complaint: Fall Time Seen by Provider: 07/21/22 10:05 Source: patient, RN notes reviewed and old records reviewed Mode of arrival: ambulatory Limitations: no limitations History of Present Illness This patient is a 67-year-old female who comes in after and frequent falls. She was seen here the other day after falling she is following up several times recently she has a history of cerebral palsy and has baseline right-sided weakness no new numbness or weakness she fell on her left side today has a skin tear to the left mid arm. Did not hit her head no syncope no neck or back pain at present denies chest pain shortness of breath or abdominal pain or trauma she does have some chronic dyspnea on exertion. She has no urinary symptoms but does get urinary tract infections. No seizures Home Medications Medication Instructions Recorded Confirmed Type divalproex 500 mg tablet,extended 500 mg PO BID 01/26/18 07/21/22 History release 24 hr lamotrigine 100 mg tablet 100 mg PO BID 01/26/18 07/21/22 History levetiracetam 500 mg tablet 1,500 mg PO BID 01/26/18 07/21/22 History lorazepam 1 mg tablet 1 mg PO DAILY 06/04/19 07/21/22 History acetaminophen 500 mg tablet 1,000 mg PO AMHS 04/15/20 07/21/22 History Saccharomyces boulardii 250 mg 250 mg PO QAM 09/03/20 07/21/22 History capsule (Florastor) oxybutynin chloride 5 mg See Rx Instructions .Route .COMPLEX 09/03/20 07/21/22 History tablet,extended release 24 hr aspirin 81 mg chewable tablet 81 mg PO DAILY 09/11/21 07/21/22 History multivitamin (One Daily 1 tab PO DAILY 09/11/21 07/21/22 History Multivitamin tablet) lidocaine 4 % topical patch 2 patch topical DAILY PRN pain #10 02/27/22 07/21/22 Rx ea acetaminophen 500 mg tablet 1,000 mg PO DIRECTED PRN Pain 07/17/22 07/21/22 History (Tylenol Extra Strength) cholecalciferol (vitamin D3) 25 25 mcg PO DAILY 07/17/22 07/21/22 History mcg (1,000 unit) tablet (Vitamin D3) losartan 25 mg tablet 25 mg PO QAM 07/17/22 07/21/22 History omeprazole 20 mg capsule,delayed 20 mg PO DAILY 07/17/22 07/21/22 History release amlodipine 5 mg tablet 5 mg PO QAM 07/20/22 07/21/22 History loperamide 2 mg capsule 2 mg PO DIRECTED PRN Diarrhea 07/20/22 07/21/22 History Allergies Allergy/AdvReac Type Severity Reaction Status Date / Time adhesive Allergy Unknown HAPPENED Verified 07/20/22 00:20 A CHILD-"INSTRUCTED NOT TO USE ADHESIVES". Past Med/Surg History Medical History (Updated 07/22/22 @ 10:24 by Valdez Galicia MD) Anxiety Cerebral palsy Chronic kidney disease (CKD), stage III (moderate) Generalized convulsive epilepsy without intractable epilepsy Hemiparesis of right dominant side History of colon polyps History of CVA (cerebrovascular accident) Hx of chest pain Hypertension Idiopathic mild intellectual disability Incontinence Infantile cerebral palsy Major depressive disorder Obstructive hydrocephalus has shunt Osteoporosis Surgical History H/O tubal ligation History of brain shunt History of colonoscopy last 03/24/19 @ [facility] History of esophagogastroduodenoscopy (EGD) last 03/24/19 @ [facility] Family History Father Cancer Mother Cancer Social History Smoking Status: Never smoker Tobacco Type: Cigarettes Hx Alcohol Use: No Hx Substance Use: No Preferred Language: Frisian Communication Ability: Effective Communication Ability Comment: ARC stated pt is of sound mind to sign own con sents Police Patrol Officer Required: No Beliefs That Will Affect Care: None marital status: Single Current Living Situation: Personal Care Facility Current Living Situation Comment: has 24 hour care Feels Safe at Home: Yes Assistive Devices: Walker Review of Systems A total of 10 systems reviewed and were otherwise negative Physical Exam Vital Signs Vital Signs - 24 hr 07/21/22 10:23 07/21/22 10:24 07/21/22 10:24 Temperature 36.7 C Temperature Source Oral Pulse Rate 58 L 58 L Pulse Rate from SpO2 Sensor Respiratory Rate 18 Blood Pressure 118/63 Blood Pressure Mean 81 Pulse Oximetry 94 96 Oxygen Delivery Method Room Air Room Air Sepsis Recent Fever Within 48 Hours No Sepsis New/Unexplained Change in Mental Status No Sepsis Action Taken by Nursing No Action Required 07/21/22 10:30 07/21/22 11:00 07/21/22 11:01 Temperature Temperature Source Pulse Rate 60 63 66 Pulse Rate from SpO2 Sensor 60 62 61 Respiratory Rate 19 15 14 Blood Pressure 118/63 Blood Pressure Mean 81 Pulse Oximetry 97 96 94 Oxygen Delivery Method Sepsis Recent Fever Within 48 Hours Sepsis New/Unexplained Change in Mental Status Sepsis Action Taken by Nursing 07/21/22 11:01 07/21/22 11:25 07/21/22 11:25 Temperature Temperature Source Pulse Rate 69 Pulse Rate from SpO2 Sensor Respiratory Rate 19 Blood Pressure 150/91 H Blood Pressure Mean 95 128 Pulse Oximetry Oxygen Delivery Method Sepsis Recent Fever Within 48 Hours Sepsis New/Unexplained Change in Mental Status Sepsis Action Taken by Nursing 07/21/22 11:30 Temperature Temperature Source Pulse Rate 60 Pulse Rate from SpO2 Sensor Respiratory Rate 18 Blood Pressure Blood Pressure Mean Pulse Oximetry Oxygen Delivery Method Sepsis Recent Fever Within 48 Hours Sepsis New/Unexplained Change in Mental Status Sepsis Action Taken by Nursing General: Well developed well nourished middle-age female who appears in no acute distress, breathing comfortably on room air. Normal speech, at baseline HEENT: Normal cephalic atraumatic. Pupils are equal round and reactive to light. Extraocular movements are intact. Oropharynx is pink with moist mucous membranes. No swelling of the mouth lips or tongue. Neck: Supple with a midline trachea. No meningeal signs or stiffness, no JVD or bruits. No Stridor. Chest: Clear to auscultation bilaterally. No wheezes or rhonchi. No increased work of breathing. Heart: Regular rate and rhythm without murmurs or gallops. Abdomen: Soft nontender, nondistended without rebound guarding or rigidity. Extremities: No cyanosis clubbing or edema. No calf tenderness or assymetry Spine/Back. Non tender to palpation. No CVA tenderness Skin: Good turgor without rashes. Neurologic exam: Cranial nerves two through 12 are intact. Baseline weakness of right side due to CP but no definite new deficit Course Administered Medications Acetaminophen (Acetaminophen 325 Mg Tab) 650 mg PO Q4H PRN PRN Reason: Pain or Fever Stop: 08/20/22 11:37 Last Admin: 07/22/22 08:57 Dose: 650 mg Documented By: Admin: 07/21/22 17:56 Dose: 650 mg Documented By: SHAJI Amlodipine Besylate (Amlodipine Besylate 5 Mg Tab) [facility] [place] [facility] [place] Stop: 08/21/22 08:59 Last Admin: 07/22/22 08:57 Dose: 5 mg Documented By: FIDELINA Aspirin (Aspirin 81 Mg Chew) 81 mg PO DAILY [facility] Stop: 08/21/22 08:59 Last Admin: 07/22/22 08:57 Dose: 81 mg Documented By: FIDELINA Divalproex Sodium (Divalproex Extended Release 500 Mg Tab) 500 mg PO BID@0800,1500 [facility] Stop: 08/21/22 07:59 Last Admin: 07/22/22 09:31 Dose: 500 mg Documented By: FIDELINA Enoxaparin Sodium (Enoxaparin Inj 40 Mg/0.4 Ml Syr) 40 mg SQ [facility] Stop: 08/21/22 08:59 Last Admin: 07/22/22 09:31 Dose: 40 mg Documented By: FIDELINA Lamotrigine (Lamotrigine 100 Mg Tab) 100 mg PO BID@0800,1500 [facility] Stop: 08/21/22 07:59 Last Admin: 07/22/22 09:31 Dose: 100 mg Documented By: FIDELINA Levetiracetam (Levetiracetam 500 Mg Tab) 1,500 mg PO BID [facility] Stop: 08/20/22 20:59 Last Admin: 07/22/22 08:57 Dose: 1,500 mg Documented By: Admin: 07/21/22 20:47 Dose: 1,500 mg Documented By: LUKASZ Losartan Potassium (Losartan Potassium 25 Mg Tab) 25 mg PO [facility] Stop: 08/21/22 08:59 Last Admin: 07/22/22 08:57 Dose: 25 mg Documented By: FIDELINA Oxybutynin Chloride (Oxybutynin Chloride Xl 5 Mg Tabcr) [facility] [place] [facility] [place] Stop: 08/21/22 08:59 Last Admin: 07/22/22 08:57 Dose: 5 mg Documented By: FIDELINA Oxybutynin Chloride (Oxybutynin Chloride Xl 5 Mg Tabcr) [address] [facility] Stop: 08/20/22 20:59 Last Admin: 07/21/22 20:47 Dose: 10 mg Documented By: LUKASZ Pantoprazole Sodium (Pantoprazole 40 Mg Tab) 40 mg PO DAILY [facility] Stop: 08/21/22 08:59 Last Admin: 07/22/22 08:57 Dose: 40 mg Documented By: FIDELINA Saccharomyces Boulardii (Saccharomyces Boulardii 250 Mg Cap) 250 mg PO QAM [facility] Stop: 08/21/22 08:59 Last Admin: 07/22/22 08:57 Dose: 250 mg Documented By: FIDELINA Vitamin D (Cholecalciferol 1,000 Units 25 Mcg Tab) 1,000 units PO DAILY [facility] Stop: 08/21/22 08:59 Last Admin: 07/22/22 08:57 Dose: 1,000 units Documented By: FIDELINA Discontinued Medications Gadoxetate Disodium (Gadoxetate Disodium) 6.7 ml IV ONCE ONE Stop: 07/21/22 15:47 Last Admin: 07/21/22 15:47 Dose: 6.7 ml Documented By: JEFERSON Medical Decision Making Differential Diagnosis Weakness, infection, falls, traumatic injury, anemia, electrolyte or metabolic abnormality Medical Records Attestation: I reviewed the patient's medical records. Home Medications Current Medication List: was personally reviewed by me Laboratory Data Attestation: I reviewed the patient's lab results. 07/21/22 10:23 07/21/22 10:23 Lab Results 07/21/22 07/21/22 07/21/22 Range/Units 10:23 10:23 10:23 WBC 5.67 (4.8-10.8) K/ul RBC 4.21 (4.20-5.40) M/uL Hgb 12.9 (12.0-16.0) g/dl Hct 38.6 (37.0-47.0) % MCV 91.7 (80.0-100.0) fL MCH 30.6 (25.0-34.0) pg MCHC 33.4 (32.0-36.0) g/dL RDW Std Deviation 42.9 (36.4-46.3) fL RDW Coeff of Ofelia 12.9 (11.5-14.5) % Plt Count 173 (130-400) K/uL MPV 10.3 (9.4-12.4) fL Immature Gran % (Auto) 0.4 % Neut % (Auto) 43.2 % Lymph % (Auto) 42.9 % Trigg % (Auto) 10.2 % Eos % (Auto) 2.8 % Baso % (Auto) 0.5 % Neut # (Auto) 2.45 (1.40-6.50) K/uL Lymph # (Auto) 2.43 (1.2-3.4) K/uL Trigg # (Auto) 0.58 (0.11-0.59) K/uL Eos # (Auto) 0.16 (0-0.50) K/uL Baso # (Auto) 0.03 (0-0.2) K/uL Immature Gran # (Auto) 0.02 (0.01-0.20) K/uL PT 10.6 (9.0-12.0) Seconds INR 1.0 (0.9-1.1) APTT 26.5 (21.0-31.0) Seconds PTT Ratio 0.9 Sodium 140 (136-145) mmol/L Potassium 3.7 (3.5-5.1) mmol/L Chloride 106 (98-107) mmol/L Carbon Dioxide 25 (21-32) mmol/L Anion Gap 9 (3-11) BUN 19 (6-23) mg/dl Creatinine 0.81 (0.6-1.2) mg/dl Est Cr Clr Drug Dosing 55.3 ml/min Est GFR ( Amer) 86.5 ml/min Est GFR (Non-Af Amer) 74.6 ml/min BUN/Creatinine Ratio 23.5 H (10-20) Glucose 67 L (70-99(Fasting)) mg/dl Calcium 9.5 (8.6-10.3) mg/dl Magnesium 2.3 (1.7-2.4) mg/dl Total Bilirubin 0.5 (0.2-1.0) mg/dl AST 19 (13-39) U/L ALT 13 (7-52) U/L Alkaline Phosphatase 32 L (34-104) U/L Troponin I High Sens 2.7 (0-14) pg/ml Total Protein 7.6 (6.0-8.3) gm/dl Albumin 4.7 (3.4-5.0) gm/dl Globulin 2.9 (2.5-4.0) gm/dl Albumin/Globulin Ratio 1.6 (0.9-2) TSH (0.300-4.500) uIu/ml Valproic Acid (50-100) mcg/ml SARS-CoV-2, RNA, NAAT (NEGATIVE) 07/21/22 07/21/22 07/21/22 Range/Units 10:23 10:23 10:23 WBC (4.8-10.8) K/ul RBC (4.20-5.40) M/uL Hgb (12.0-16.0) g/dl Hct (37.0-47.0) % MCV (80.0-100.0) fL MCH (25.0-34.0) pg MCHC (32.0-36.0) g/dL RDW Std Deviation (36.4-46.3) fL RDW Coeff of Ofelia (11.5-14.5) % Plt Count (130-400) K/uL MPV (9.4-12.4) fL Immature Gran % (Auto) % Neut % (Auto) % Lymph % (Auto) % Trigg % (Auto) % Eos % (Auto) % Baso % (Auto) % Neut # (Auto) (1.40-6.50) K/uL Lymph # (Auto) (1.2-3.4) K/uL Trigg # (Auto) (0.11-0.59) K/uL Eos # (Auto) (0-0.50) K/uL Baso # (Auto) (0-0.2) K/uL Immature Gran # (Auto) (0.01-0.20) K/uL PT (9.0-12.0) Seconds INR (0.9-1.1) APTT (21.0-31.0) Seconds PTT Ratio Sodium (136-145) mmol/L Potassium (3.5-5.1) mmol/L Chloride (98-107) mmol/L Carbon Dioxide (21-32) mmol/L Anion Gap (3-11) BUN (6-23) mg/dl Creatinine (0.6-1.2) mg/dl Est Cr Clr Drug Dosing ml/min Est GFR ( Amer) ml/min Est GFR (Non-Af Amer) ml/min BUN/Creatinine Ratio (10-20) Glucose (70-99(Fasting)) mg/dl Calcium (8.6-10.3) mg/dl Magnesium (1.7-2.4) mg/dl Total Bilirubin (0.2-1.0) mg/dl AST (13-39) U/L ALT (7-52) U/L Alkaline Phosphatase (34-104) U/L Troponin I High Sens (0-14) pg/ml Total Protein (6.0-8.3) gm/dl Albumin (3.4-5.0) gm/dl Globulin (2.5-4.0) gm/dl Albumin/Globulin Ratio (0.9-2) TSH 1.824 (0.300-4.500) uIu/ml Valproic Acid 75 (50-100) mcg/ml SARS-CoV-2, RNA, NAAT NEGATIVE (NEGATIVE) Imaging Data Attestation: I personally reviewed and interpreted this imaging study as follows: My Impression: Chest x-rayno acute infiltrate, failure, pneumothorax seen. There are old rig ht-sided rib fractures seen Radiologist's Impression: Chest X-Ray 07/21/22 10:12 XR chest 1V portable HISTORY: 67 years-old Female weakness acute weakness COMPARISON: 07/19/2022 TECHNIQUE: AP view of the chest FINDINGS: Cardiac silhouette is enlarged. No pneumothorax, large pleural effusion or overt pulmonary edema. Minimal subsegmental bibasilar atelectasis. Degenerative changes of the shoulders and spine. Subacute to chronic appearing right-sided rib fractures. Left shoulder rotator cuff calcific tendinosis. IMPRESSION: 1. Cardiomegaly without acute process of the chest. 2. Subacute to chronic appearing right-sided rib fractures. 3. No pneumothorax. ACT 112: Negative or not required by law. The above report was generated using voice recognition software. It may contain grammatical, syntax or spelling errors. Electronically signed by: Braulio Osborne M.D. 07/21/2022 10:38 AM ECG Data Attestation: I personally reviewed and interpreted this ECG as follows: Indication: + weakness Rate (beats per minute): 63 Rhythm: + normal sinus ECG Intervals/blocks: + Normal QRS and + Normal QT ECG [place]: + Normal ECG ST segments: + Nonspecific ST abnormalities ECG Findings: + Other (There are T wave and ST abnormalities anteriorly and inferiorly) Comparison ECG Date: from (09/10/21) Change: the following changes noted (T wave abnormalities are now present inferiorly, anterior T wave abnormalities are old) MDM Narrative This patient comes in as described above she has had frequent falls she has a history of CP with baseline right-sided weakness. She denies any injury from most recent fall. I have reviewed her old records. IV access was established, m ultiple blood testing was obtained. The patient has remained stable. Her EKG does show some T wave inversions which were present laterally but now also inferiorly which may be new compared to old she has had no chest pain or syncope and her troponin is negative. The rest of her work-up was unremarkable with exception of blood sugar being low at 67 she does not feel symptomatic with this but I did give her 2 orange juices to drink. Chest x-ray does show some likely subacute rib fractures no pneumothorax. I am concerned that she is fallen several times. She has no acute neurologic deficits. Additionally she does have a seizure disorder and reports no recent seizures. I do think needs to be admitted/observed for further inpatient treatment evaluations to ensure that she is safe to go back home I have consulted and discussed this at length with the [facility] who saw her in the ER for these measures Impression & Plan Frequent falls, Generalized convulsive epilepsy without intractable epilepsy, Infantile cerebral palsy, Lab test negative for COVID-19 virus, Acute electrocardiogram changes Discharge Plan Visit Data Chief Complaint: Fall ED Provider: Valdez Galicia Discharge Problem: Frequent falls, Generalized convulsive epilepsy without intractable epilepsy, Infantile cerebral palsy, Lab test negative for COVID-19 virus, Acute electrocardiogram changes Patient Disposition: Admitted As Inpatient Discharge Instructions Interventions: ED Discharge Assessment Last Done: 07/21/22 16:11
--- NOTE | 2022-07-21 10:39 | XRay Report ---
XR chest 1V portable HISTORY: 67 years-old Female weakness acute weakness COMPARISON: 07/19/2022 TECHNIQUE: AP view of the chest FINDINGS: Cardiac silhouette is enlarged. No pneumothorax, large pleural effusion or overt pulmonary edema. Min imal subsegmental bibasilar atelectasis. Degenerative changes of the shoulders and spine. Subacute to chronic appearing right-sided rib fractures. Left shoulder rotator cuff calcific tendinosis. IMPRESSION: 1. Cardiomegaly without acute process of the chest. 2. Subacute to chronic appearing right-sided rib fractures. 3. No pneumothorax. ACT 112: Negative or not required by law. The above report was generated using voice recognition software. It may contain grammatical, syntax o r spelling errors. Electronically signed by: Braulio Osborne M.D. 07/21/2022 10:38 AM
[2022-07-21 10:43] LABS: Basophils # (auto) 0.03 K/uL (0-0.2); Basophils % (auto) 0.5 %; Eosinophils # (auto) 0.16 K/uL (0-0.50); Eosinophils % (auto) 2.8 %; Hematocrit (blood only) 38.6 % (37.0-47.0); Hemoglobin 12.9 g/dl (12.0-16.0); Immature Granulocytes # (auto) 0.02 K/uL (0.01-0.20); Immature Granulocytes % (auto) 0.4 %; Lymphocytes # (auto) 2.43 K/uL (1.2-3.4); Lymphocytes % (auto) 42.9 %; Mean Corpuscular Hemoglobin 30.6 pg (25.0-34.0); Mean Corpuscular Hgb Conc 33.4 g/dL (32.0-36.0); Mean Corpuscular Volume 91.7 fL (80.0-100.0); Mean Platelet Volume 10.3 fL (9.4-12.4); Monocytes # (auto) 0.58 K/uL (0.11-0.59); Monocytes % (auto) 10.2 %; Neutrophils # (auto) 2.45 K/uL (1.40-6.50); Neutrophils % (auto) 43.2 %; Platelet Count 173 K/uL (130-400); RDW Coefficient of Variation 12.9 % (11.5-14.5); RDW Standard Deviation 42.9 fL (36.4-46.3); Red Blood Count 4.21 M/uL (4.20-5.40); White Blood Count 5.67 K/ul (4.8-10.8)
[2022-07-21 11:01] LABS: Albumin Globulin Ratio 1.6 (0.9-2); Albumin Level 4.7 gm/dl (3.4-5.0); BUN Creatinine Ratio 23.5 (10-20); Bilirubin,Total 0.5 mg/dl (0.2-1.0); Calcium 9.5 mg/dl (8.6-10.3); Creatinine Clr Calc Pharmacy 55.3 ml/min; Est GFR (African American) 86.5 ml/min; Est GFR (Non-African American) 74.6 ml/min; Globulin 2.9 gm/dl (2.5-4.0); Magnesium 2.3 mg/dl (1.7-2.4); Potassium 3.7 mmol/L (3.5-5.1); Total Protein 7.6 gm/dl (6.0-8.3)
[2022-07-21 11:08] LABS: Troponin I High Sensitivity 2.7 pg/ml (0-14)
[2022-07-21 11:13] LABS: Partial Thromboplastin Ratio 0.9; Partial Thromboplastin Time 26.5 Seconds (21.0-31.0); Prothrombin Time 10.6 Seconds (9.0-12.0)
[2022-07-21] MEDS ORDERED: ONDANSETRON INJ 2 MG/ML 2 ML VIAL IV PRN (11:38)
[2022-07-21] MEDS ORDERED: POLYETHYLENE (MIRALAX) 17 GM PACK PO PRN (11:38)
[2022-07-21] MEDS ORDERED: MAGNESIUM HYDROXIDE SUSP 30 ML UDC PO PRN (11:38)
[2022-07-21] MEDS ORDERED: ALUMINUM/MAGNESIUM SUSP 30 ML UDC PO PRN (11:38)
--- NOTE | 2022-07-21 11:45 | History & Physical Report ---
Date of Service July 21, 2022 Assessment & Plan (1) Cerebral palsy: (2) Ambulatory dysfunction: (3) Multiple fractures of ribs of right side: (4) Hypertension: (5) History of CVA (cerebrovascular accident): (6) Anxiety: (7) Generalized convulsive epilepsy without intractable epilepsy: (8) Urinary urgency: (9) Hemiparesis of right dominant side: Plan 67 year old presents with increasing falls over past few days. Pt with H/O CP and right sided weakness. H/O TIA/CVA with residual R hemiparesis, intellect delay but quite reliable with discussion. Some T wave inversion changes on inferior leads (no chest pain and normal trop); obtain ECHO and compare. H/O seizure disorder; check seizure medication levels to r/o contribution. Check urine for UTI. Cerebral palsy: Ambulatory dysfunction: Multiple fractures of right ribs on right side: Uses a wheeled walker indoors and motorized scooter outdoors / head CT negative for acute ICH, SDH or midline shift 07/[address] done: No acute injuries / Pelvic CT: No acute findings in the right hip. If there is consistent concern for occult fracture Will get lumbar and hip MRI; creatinine 0.81 See below for cardiac contribution Check A1c; glucose was 67 on arrival. Did not eat this morning. Will rule out UTI for cause PT/OT pending results Ortho consult consideration depending on MRI results HTN: Takes Losartan and Amlodipine;continue Takes a baby ASA;continue Last ECHO: Left ventricular cavity size normal, left ventricular wall thickness mildly increased; concentric. LV wall motion is normal. EF 55 to 59%, G1DDxX, mild MR, mild TR Troponin negative EKG with T wave inversion and further progressing in inferior leads; no chest pain Check EKG in AM. Obtain ECHO History of generalized convulsive epilepsy without intractable epilepsy: Takes Keppra, Lamictal, and Depakote Check Lamictal and Depakote levels to determine if any contribution to falls Check EEG to r/o seizure activity History of CVA: Hemiparesis of right dominant side: Uses a wheeled walker indoors and motorized scooter outdoors PT/OT Depression and anxiety: Takes Lorazepam 1 mg PO daily; will hold for now to determine if contributing to falls Urinary urgency: Frequent UTIs Check UA; urine culture Takes Ditropan; continue Disposition: PCP: Dr. Fu CODE STATUS: Full code VTE prophylaxis: Lovenox SQ I spent a total of 88 minutes coordinating, documenting, and providing care for this patient excluding time spent in the performance of separately billed services. All of the aforementioned completed while collaborating with the assigned attending physician for a full treatment plan. Please see their addendum for further details. History of Present Illness Chief Complaint: syncope/hypoglycemia Primary Care Provider: Naresh Fu MD Ms. Greer is a 67-year-old female that resides at the [facility] and presents with increased falls over the past few days. Hard to say how long she has felt 'harder to get around'. She does have a tendency to have difficulty with ambulation. She uses a walker to get around the house and a motorized scooter. Has had recent urinary tract infections. CXR today shows multiple right rib fractures along with cardiomegaly without any active acute chest disease. Patient was noted to by hypoglycemic on arrival glucose level 67; without eating this morning. Patient has been to the ER 2 times preceding today status post fall. Lumbar spine CT done 07/19 with no acute injury. pelvic CT indicated no acute fracture; but suggested MRI in case symptoms progression. She has complaints of right hip discomfort without neuropathy. She also has a circumferential lateral ecchymotic area on her right femur. She does not take anticoagulation, but does take a daily baby aspirin. 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 Patient follows with Annabelle Lewis takes Keppra 1500 mg BID, Lamictal and Depakote. No recent seizures documented for more than a few years. No leukocytosis, will rule out UTI as she reports frequent UTIs. Hypoglycemia on arrival, likely incidental; will trend. No recent seizures noted. Will obtain EEG to complete neuro work up. Last ECHO: 2020: Left ventricular cavity size normal, left ventricular wall thickness mildly increased; concentric. LV wall motion is normal. EF 55 to 59%, G1DDxX, mild MR, mild TR Pt sitting upright in her hospital bed in no apparent distress. Despite her intellectual disability, able to answer questions quite appropriately. She denies VINCENT, dizziness, SOB, abdominal pain, N/V/D. She does report increased urinary frequency. Denies fever and chills. Reports medication compliance. Patient will be admitted for further evaluation and management. Please see A/P for further details. Allergies Allergy/AdvReac Type Severity Reaction Status Date / Time adhesive Allergy Unknown HAPPENED Verified 07/20/22 00:20 A CHILD-"INSTRUCTED NOT TO USE ADHESIVES". Home Medications Medication Instructions Recorded Confirmed Type divalproex 500 mg tablet,extended 500 mg PO BID 01/26/18 07/21/22 History release 24 hr lamotrigine 100 mg tablet 100 mg PO BID 01/26/18 07/21/22 History levetiracetam 500 mg tablet 1,500 mg PO BID 01/26/18 07/21/22 History lorazepam 1 mg tablet 1 mg PO DAILY 06/04/19 07/21/22 History acetaminophen 500 mg tablet 1,000 mg PO AMHS 04/15/20 07/21/22 History Saccharomyces boulardii 250 mg 250 mg PO QAM 09/03/20 07/21/22 History capsule (Florastor) oxybutynin chloride 5 mg See Rx Instructions .Route .COMPLEX 09/03/20 07/21/22 History tablet,extended release 24 hr aspirin 81 mg chewable tablet 81 mg PO DAILY 09/11/21 07/21/22 History multivitamin (One Daily 1 tab PO DAILY 09/11/21 07/21/22 History Multivitamin tablet) lidocaine 4 % topical patch 2 patch topical DAILY PRN pain #10 02/27/22 07/21/22 Rx ea acetaminophen 500 mg tablet 1,000 mg PO DIRECTED PRN Pain 07/17/22 07/21/22 History (Tylenol Extra Strength) cholecalciferol (vitamin D3) 25 25 mcg PO DAILY 07/17/22 07/21/22 History mcg (1,000 unit) tablet (Vitamin D3) losartan 25 mg tablet 25 mg PO QAM 07/17/22 07/21/22 History omeprazole 20 mg capsule,delayed 20 mg PO DAILY 07/17/22 07/21/22 History release amlodipine 5 mg tablet 5 mg PO QAM 07/20/22 07/21/22 History loperamide 2 mg capsule 2 mg PO DIRECTED PRN Diarrhea 07/20/22 07/21/22 History Past Med/Surg History Medical History (Updated 07/22/22 @ 00:04 by Ebonie Boyce) Anxiety Cerebral palsy Chronic kidney disease (CKD), stage III (moderate) Generalized convulsive epilepsy without intractable epilepsy Hemiparesis of right dominant side History of colon polyps History of CVA (cerebrovascular accident) Hx of chest pain Hypertension Idiopathic mild intellectual disability Incontinence Infantile cerebral palsy Major depressive disorder Obstructive hydrocephalus has shunt Osteoporosis Surgical History H/O tubal ligation History of brain shunt History of colonoscopy last 03/24/19 @ [facility] History of esophagogastroduodenoscopy (EGD) last 03/24/19 @ [facility] Family History Father Cancer Mother Cancer Social History Smoking Status: Never smoker Tobacco Type: Cigarettes Hx Alcohol Use: No Hx Substance Use: No Preferred Language: Urdu Communication Ability: Effective Communication Ability Comment: ARC stated pt is of sound mind to sign own consents Public Accountant Required: No Beliefs That Will Affect Care: None marital status: Single Current Living Situation: Personal Care Facility Current Living Situation Comment: has 24 hour care Feels Safe at Home: Yes Assistive Devices: Walker Review of Systems Review of Systems: Neuro: (+) Falls, trauma, slurred speech HEENT: (-) VINCENT, dizziness, dysphagia, visual or auditory changes CV: (-) CP, palpitations, swelling Resp: (-) SOB GI: (-) appetite changes, N/V/D, bowel changes : (-) urinary changes; has frequent UTIs Skin: (-) rashes (+) ecchymosis on right femur Psych: (-) anxiety, depression Physical Exam Physical Exam: Neuro: AAOx4, PERRLA, no aphagia, memory changes, CNII-XII grossly intact HEENT: head normocephalic, moist mucus membranes CV: S1/S2, (-) M/G/R, (-) edema, cap refill < 3 seconds Resp: Lungs CTA in all [place]. On RA GI: Abdomen S/NT/ND, Ax4 bowel sounds, (-) CVA tenderness Musculoskeletal: 5/5 B/L UE strength, 5/5 B/L LE strength. No gait disturbance Skin: (-) rashes , (-) erythema. (+) ecchymosis r lateral femur Psych: euthymic mood Results & Data Results & Data Vital Signs (Past 12 Hours) Vital Signs Temp Pulse Resp BP Pulse Ox O2 Del Method 07/21/22 10:30 60 19 118/63 97 07/21/22 10:13 64 16 95 07/21/22 10:24 96 Room Air 07/21/22 10:24 36.7 C 58 L 18 118/63 94 Room Air 07/21/22 10:23 58 L Laboratory Results Short CBC 07/21/22 Range/Units 10:23 WBC 5.67 (4.8-10.8) K/ul Hgb 12.9 (12.0-16.0) g/dl Hct 38.6 (37.0-47.0) % Plt Count 173 (130-400) K/uL BMP 07/21/22 10:23 Sodium 140 Potassium 3.7 Chloride 106 Carbon Dioxide 25 BUN 19 Creatinine 0.81 Glucose 67 L Calcium 9.5 Liver Function 07/21/22 Range/Units 10:23 Total Bilirubin 0.5 (0.2-1.0) mg/dl AST 19 (13-39) U/L ALT 13 (7-52) U/L Alkaline Phosphatase 32 L (34-104) U/L Albumin 4.7 (3.4-5.0) gm/dl Diagnostic Findings Chest X-Ray 07/21/22 10:12 XR chest 1V portable HISTORY: 67 years-old Female weakness acute weakness COMPARISON: 07/19/2022 TECHNIQUE: AP view of the chest FINDINGS: Cardiac silhouette is enlarged. No pneumothorax, large pleural effusion or overt pulmonary edema. Minimal subsegmental bibasilar atelectasis. Degenerative changes of the shoulders and spine. Subacute to chronic appearing right-sided rib fractures. Left shoulder rotator cuff calcific tendinosis. IMPRESSION: 1. Cardiomegaly without acute process of the chest. 2. Subacute to chronic appearing right-sided rib fractures. 3. No pneumothorax. ACT 112: Negative or not required by law. The above report was generated using voice recognition software. It may contain grammatical, syntax or spelling errors. Electronically signed by: Braulio Osborne M.D. 07/21/2022 10:38 AM Code Status & VTE Plan Code Status Full code in the event of cardiac or respiratory arrest VTE Prophylaxis Plan VTE Prophylaxis will be ordered: Yes Supervising Physician Co-Signing Physician Notes Pt seen and examined by myself, Kellie Mooney MD on the day of service. Care was coordinated with MAYANK Zavaleta. Please refer to her note for additional information. 67yo with Hx significant for CP with frequent falls. MRI brain, UA, EEG. PT/OT Otherwise as above (3) Multiple fractures of ribs of right side Encounter type: initial encounter Fracture type: closed Qualified Code(s): S22.41XA - Multiple fractures of ribs, right side, initial encounter for closed fracture
[2022-07-21] MEDS ORDERED: GADOXETATE DISODIUM IV ONE (15:46)
--- NOTE | 2022-07-21 17:19 | Magnetic Resonance Report ---
MR hip RT wo con CLINICAL HISTORY: 67 years-old Female with fall. Acute right hip pain with recent fall COMPARISON: CT right hip and CT pelvis study 07/19/2022, radiographs of the right femur 07/17/2022 TECHNIQUE: Multiplanar, multi sequence MRI of the right hip was performed without intravenous contras t. FINDINGS: Motion degraded exam. No acute intrapelvic abnormality identified. Mild distention of the urinary memo dder. Unremarkable appearance of the musculature. LABRUM: To the extent that it is visualized, no acute labral tear identified. There is irregularity of the labrum with degeneration and probable chronic tearing. No paralabral cyst. BONE MARROW: No acute displaced fracture, dislocation, avascular necrosis or large joint effusion. T here is moderate endosteal, medullary and periosteal edema of the proximal right femoral diaphysis, m ost pronounced laterally. There is associated cortical thickening with mildly increased T2 signal the posterior cortex. No discrete fracture line identified. Findings are partially imaged on the axial s eries. Lower lumbar spine vertebral body hemangiomata. BURSAE: There is no evidence for iliopsoas or trochanteric bursitis. HIP JOINT: Moderate osteoarthritis of the hips. There is no evidence for femoral-acetabular or ischi ofemoral impingement syndrome. There is no joint effusion. No intraarticular loose body is evident. MUSCLES: Muscular signal and morphology is within normal limits. SCIATIC NERVE: The morphology and signal characteristics of the sciatic nerve appear normal. IMPRESSION: 1. Grade III versus grade IV stress response without discrete fracture line identified involving the right proximal femoral diaphysis. 2. Moderate osteoarthritis of the hips. ACT 112: Negative or not required by law. The above report was generated using voice recognition software. It may contain grammatical, syntax o r spelling errors. Electronically signed by: Braulio Osborne M.D. 07/21/2022 5:16 PM
[2022-07-21] MEDS: ACETAMINOPHEN 325 MG TAB PO PRN (17:56)
--- NOTE | 2022-07-21 18:16 | Magnetic Resonance Report ---
MR brain wo/w con HISTORY: 67 years-old Female falls and CP acute head trauma COMPARISON: Head CT 07/19/2022 TECHNIQUE: Multiplanar multisequence MRI of the brain was obtained both with and without the use of I V contrast FINDINGS: Midline structures are unremarkable with degenerative changes of the cervical spine. Encephalomalacia in gliosis related to large chronic MCA infarct. No acute or subacute infarct. No acute intracranial hemorrhage, midline shift, abnormal extra axial collection, hydrocephalus or intracranial mass. No p athologic blooming artifact. Involutional changes with mild to moderate FLAIR hyperintense foci throu ghout the white matter. Mesial temporal lobes are within normal limits. Motion degraded exam. Cerebral venous sinuses and major arterial flow voids are patent. Prior bilateral lens are clear. [place] air cells and middle ear cavities are clear. No abnormal enhancement. IMPRESSION: 1. No acute intracranial abnormality. No acute or subacute infarct. 2. Involutional changes with chronic microvascular ischemic disease. 3. Chronic left MCA infarct. 4. No abnormal enhancement. ACT 112: Negative or not required by law. The above report was generated using voice recognition software. It may contain grammatical, syntax o r spelling errors. Electronically signed by: Braulio Osborne M.D. 07/21/2022 6:14 PM
[2022-07-21 18:41] LABS: Appearance Urine Clear (Clear); Bilirubin Urine Negative (Negative); Blood Urine Negative (Negative); Color Urine Yellow; Glucose Urine UA Negative (Negative); Ketones Urine Trace (Negative); Leukocyte Esterase Urine Negative (Negative); Nitrite Urine Negative (Negative); Protein Urine Negative (Negative); Specific Gravity Urine 1.013 (1.000-1.030); Urobilinogen Urine Negative (Negative)
[2022-07-21] MEDS: OXYBUTYNIN CHLORIDE XL 5 MG TABCR PO SCH (20:47)
[2022-07-21] MEDS: levETIRAcetam 500 MG TAB PO SCH (20:47)
[2022-07-21] MEDS ORDERED: lamoTRIgine 100 MG TAB PO SCH (21:00)
[2022-07-21] MEDS ORDERED: DIVALPROEX EXTENDED RELEASE 500 MG TAB PO SCH (21:00)
[2022-07-22 07:34] LABS: Hematocrit (blood only) 37.8 % (37.0-47.0); Hemoglobin 12.6 g/dl (12.0-16.0); Mean Corpuscular Hemoglobin 30.2 pg (25.0-34.0); Mean Corpuscular Hgb Conc 33.3 g/dL (32.0-36.0); Mean Corpuscular Volume 90.6 fL (80.0-100.0); Mean Platelet Volume 10.5 fL (9.4-12.4); Platelet Count 178 K/uL (130-400); RDW Coefficient of Variation 12.6 % (11.5-14.5); RDW Standard Deviation 41.4 fL (36.4-46.3); Red Blood Count 4.17 M/uL (4.20-5.40); White Blood Count 6.98 K/ul (4.8-10.8)
[2022-07-22 07:52] LABS: Albumin Globulin Ratio 1.9 (0.9-2); Albumin Level 4.3 gm/dl (3.4-5.0); BUN Creatinine Ratio 27.1 (10-20); Bilirubin,Total 0.5 mg/dl (0.2-1.0); Calcium 9.3 mg/dl (8.6-10.3); Creatinine Clr Calc Pharmacy 72.4 ml/min; Est GFR (African American) 103.2 ml/min; Globulin 2.3 gm/dl (2.5-4.0); Magnesium 2.2 mg/dl (1.7-2.4); Potassium 4.3 mmol/L (3.5-5.1); Total Protein 6.6 gm/dl (6.0-8.3)
[2022-07-22] MEDS: CHOLECALCIFEROL 1,000 UNITS 25 MCG TAB PO SCH (08:57)
[2022-07-22] MEDS: ACETAMINOPHEN 325 MG TAB PO PRN (08:57)
[2022-07-22] MEDS: SACCHAROMYCES BOULARDII 250 MG CAP PO SCH (08:57)
[2022-07-22] MEDS: PANTOprazole 40 MG TAB PO SCH (08:57)
[2022-07-22] MEDS: levETIRAcetam 500 MG TAB PO SCH ×2 (08:57→21:51)
[2022-07-22] MEDS: ASPIRIN 81 MG CHEW PO SCH (08:57)
[2022-07-22] MEDS: OXYBUTYNIN CHLORIDE XL 5 MG TABCR PO SCH ×3 (08:57→21:53)
[2022-07-22] MEDS: amLODIPine BESYLATE 5 MG TAB PO SCH (08:57)
[2022-07-22] MEDS: LOSARTAN POTASSIUM 25 MG TAB PO SCH (08:57)
[2022-07-22] MEDS: ENOXAPARIN INJ 40 MG/0.4 ML SYR SQ SCH (09:31)
[2022-07-22] MEDS: DIVALPROEX EXTENDED RELEASE 500 MG TAB PO SCH ×2 (09:31→15:27)
[2022-07-22] MEDS: lamoTRIgine 100 MG TAB PO SCH ×2 (09:31→15:27)
--- NOTE | 2022-07-22 11:07 | Electroencephalogram ---
EEG Procedure Note Date of Service July 22, 2022 Start / End Times Start Time: 634 End Time: 654 Referring Physician MAYANK Zavaleta History 67-year-old with history of seizures and increased falling Home Medication List Medication Instructions Recorded Confirmed Type divalproex 500 mg tablet,extended 500 mg PO BID 01/26/18 07/21/22 History release 24 hr lamotrigine 100 mg tablet 100 mg PO BID 01/26/18 07/21/22 History levetiracetam 500 mg tablet 1,500 mg PO BID 01/26/18 07/21/22 History lorazepam 1 mg tablet 1 mg PO DAILY 06/04/19 07/21/22 History acetaminophen 500 mg tablet 1,000 mg PO AMHS 04/15/20 07/21/22 History Saccharomyces boulardii 250 mg 250 mg PO QAM 09/03/20 07/21/22 History capsule (Florastor) oxybutynin chloride 5 mg See Rx Instructions .Route .COMPLEX 09/03/20 07/21/22 History tablet,extended release 24 hr aspirin 81 mg chewable tablet 81 mg PO DAILY 09/11/21 07/21/22 History multivitamin (One Daily 1 tab PO DAILY 09/11/21 07/21/22 History Multivitamin tablet) lidocaine 4 % topical patch 2 patch topical DAILY PRN pain #10 02/27/22 07/21/22 Rx ea acetaminophen 500 mg tablet 1,000 mg PO DIRECTED PRN Pain 07/17/22 07/21/22 History (Tylenol Extra Strength) cholecalciferol (vitamin D3) 25 25 mcg PO DAILY 07/17/22 07/21/22 History mcg (1,000 unit) tablet (Vitamin D3) losartan 25 mg tablet 25 mg PO QAM 07/17/22 07/21/22 History omeprazole 20 mg capsule,delayed 20 mg PO DAILY 07/17/22 07/21/22 History release amlodipine 5 mg tablet 5 mg PO QAM 07/20/22 07/21/22 History loperamide 2 mg capsule 2 mg PO DIRECTED PRN Diarrhea 07/20/22 07/21/22 History Inpatient Medication List Acetaminophen (Acetaminophen 325 Mg Tab) 650 mg PO Q4H PRN PRN Reason: Pain or Fever Stop: 08/20/22 11:37 Last Admin: 07/22/22 08:57 Dose: 650 mg Documented By: Admin: 07/21/22 17:56 Dose: 650 mg Documented By: SHAJI Amlodipine Besylate (Amlodipine Besylate 5 Mg Tab) [facility] Stop: 08/21/22 08:59 Last Admin: 07/22/22 08:57 Dose: 5 mg Documented By: FIDELINA Aspirin (Aspirin 81 Mg Chew) 81 mg PO DAILY [facility] Stop: 08/21/22 08:59 Last Admin: 07/22/22 08:57 Dose: 81 mg Documented By: FIDELINA Divalproex Sodium (Divalproex Extended Release 500 Mg Tab) 500 mg PO BID@0800,1500 [facility] Stop: 08/21/22 07:59 Last Admin: 07/22/22 09:31 Dose: 500 mg Documented By: FIDELINA Enoxaparin Sodium (Enoxaparin Inj 40 Mg/0.4 Ml Syr) 40 mg SQ [facility] Stop: 08/21/22 08:59 Last Admin: 07/22/22 09:31 Dose: 40 mg Documented By: FIDELINA Lamotrigine (Lamotrigine 100 Mg Tab) 100 mg PO BID@0800,1500 [facility] Stop: 08/21/22 07:59 Last Admin: 07/22/22 09:31 Dose: 100 mg Documented By: FIDELINA Levetiracetam (Levetiracetam 500 Mg Tab) 1,500 mg PO BID [facility] Stop: 08/20/22 20:59 Last Admin: 07/22/22 08:57 Dose: 1,500 mg Documented By: Admin: 07/21/22 20:47 Dose: 1,500 mg Documented By: LUKASZ Losartan Potassium (Losartan Potassium 25 Mg Tab) 25 mg PO [facility] Stop: 08/21/22 08:59 Last Admin: 07/22/22 08:57 Dose: 25 mg Documented By: FIDELINA Oxybutynin Chloride (Oxybutynin Chloride Xl 5 Mg Tabcr) [facility] [place] Stop: 08/21/22 08:59 Last Admin: 07/22/22 08:57 Dose: 5 mg Documented By: FIDELINA Oxybutynin Chloride (Oxybutynin Chloride Xl 5 Mg Tabcr) 10 mg PO [facility] Stop: 08/20/22 20:59 Last Admin: 07/21/22 20:47 Dose: 10 mg Documented By: LUKASZ Pantoprazole Sodium (Pantoprazole 40 Mg Tab) 40 mg PO DAILY [facility] Stop: 08/21/22 08:59 Last Admin: 07/22/22 08:57 Dose: 40 mg Documented By: FIDELINA Saccharomyces Boulardii (Saccharomyces Boulardii 250 Mg Cap) 250 mg PO QAM [facility] Stop: 08/21/22 08:59 Last Admin: 07/22/22 08:57 Dose: 250 mg Documented By: FIDELINA Vitamin D (Cholecalciferol 1,000 Units 25 Mcg Tab) 1,000 units PO DAILY [facility] Stop: 08/21/22 08:59 Last Admin: 07/22/22 08:57 Dose: 1,000 units Documented By: FIDELINA Discontinued Medications Gadoxetate Disodium (Gadoxetate Disodium) 6.7 ml IV ONCE ONE Stop: 07/21/22 15:47 Last Admin: 07/21/22 15:47 Dose: 6.7 ml Documented By: JEFERSON Description This is a 21 electrode EEG with a single channel dedicated to limited EKG. The electrodes were placed in accordance with the International 10-20 system. Interpretation The predominant background activity consists of a very well modulated 8-9 Hz activity, of up to 40 mV in amplitude,seen symmetrically distributed over the posterior head regions bilaterally. This activity attenuates some with eye- opening and other alerting procedures. Photic stimulation was performed and elicited no change in the background activity and no abnormal responses were seen. Hyperventilation was not performed. A mild amount of muscle and movement artifact activity contaminated the recording, including some occasional A1 electrode artifact, yet did not hinder interpretation to any significant degree. Throughout the waking portion of the recording, no focal abnormalities, abnormal slow activity, or potentially epileptogenic discharges are seen. The patient entered the drowsy state with no further activation. In summary, this EEG was normal during wakefulness and drowsiness. No focal abnormalities, potentially epileptogenic discharges, or abnormal slow activity was seen. Clinical Correlation The abscence of potentially epileptogenic activity does not exclude a seizure disorder, since interictally, EEGs can be normal. Clinical correlation is required. [facility] EEG Procedure Codes Indication for Procedure (1) Seizure disorder: Neurology Neurology: 62577 EEG include record awake & drowsy
--- NOTE | 2022-07-22 13:42 | Hospitalist Progress Note ---
Date of Service July 22, 2022 Assessment & Plan (1) Cerebral palsy: (2) Ambulatory dysfunction: (3) Multiple fractures of ribs of right side: (4) Hypertension: (5) History of CVA (cerebrovascular accident): (6) Anxiety: (7) Generalized convulsive epilepsy without intractable epilepsy: (8) Urinary urgency: (9) Hemiparesis of right dominant side: Plan 67 year old presents with increasing falls over past few days. Pt with H/O cerebral palsy and right sided weakness. H/O TIA/CVA with residual R hemiparesis , intellect delay but quite reliable with discussion. Some T wave inversion changes on inferior leads (no chest pain and normal trop). H/O seizure disorder; valproic acid level and EEG normal, lamotrigine level pending. UA negative for UTI. She is being managed for the following: History of cerebral palsy: Ambulatory dysfunction: Recurrent falls Residual right hemiparesis Multiple fractures of right ribs on right side: Uses a wheeled walker indoors and motorized scooter outdoors Comes in with fall. Ortho vitals negative. Reports getting tripped on the "stuff" at floor and falling. Recent and admitting imagings: 07/[address] negative for acute ICH, SDH or midline shift 07/[address] done: No acute injuries 07/[address]: No acute findings in the right hip. 07/21 CXR: Cardiomegaly, no acute process, subacute to chronic appearing right- sided rib fractures. No pneumothorax. 07/21 MRI hip: Stress response without discrete fracture line identified involving the right proximal femoral diaphysis. Moderate osteoarthritis of the hips. 07/21 MRI brain: No acute findings. Chronic left MCA infarct. Ortho vitals negative, patient reports feeling fine. Labs and electrolytes fairly WNL. I will get vitamin D level, modify vitamin D supplementation based on the result. Continue with PT/OT, will likely need rehab initially. Ortho consult for hip pain and abn mri hip HTN: Continue home losartan/amlodipine/baby aspirin. Last ECHO: Left ventricular cavity size normal, left ventricular wall thickness mildly increased; concentric. LV wall motion is normal. EF 55 to 59%, [id number], mild MR, mild TR. Echo this admissionEF 50 to 55%, grade 1 diastolic dysfunction. Not suggestive of pulmonary hypertension. History of generalized convulsive epilepsy without intractable epilepsy: Continue with home Keppra, Lamictal, Depakote. Depakote level WNL, EEG WNL, antitrypsin level pending. Patient reports compliance with medication. History of CVA/Hemiparesis of right dominant side: Uses a wheeled walker indoors and motorized scooter outdoors . PT/OT Depression and anxiety: Takes Lorazepam 1 mg PO daily; can hold this, rather use hydroxyzine as needed. Urinary urgency: UA negative for UTI. Takes Ditropan, continue. Disposition: PCP: Dr. Fu CODE STATUS: Full code VTE prophylaxis: Lovenox SQ Given phone call to at [phone] [upon medical case manager's request] who is caregiver/group teacher for the patient. I left a voicemail to call us back. Admission and Anticipated Discharge Date Admission Date: July 21, 2022 Subjective Patient seen and examined at bedside as a follow-up of ambulatory dysfunction and multiple falls. Of note patient has history of cerebral palsy. Patient was lying in bed, oriented, NAD, reports pain under control, denies any new acute event overnight, reports eating okay and moving bowels okay, denies any fever/chills/cough/sore throat/chest pain/palpitation/headache or dizziness. Physical Exam Physical Exam: GENERAL: Alert and oriented x3. NAD, on RA. HEENT: No pallor, no icterus. Pupils equal, round and reactive to light. Oral mucosa moist. NECK: No JVD, no neck masses. HEART: S1 and S2 heard. Regular rate and rhythm. No murmur, no gallop. RESPIRATORY SYSTEM: Normal AP diameter. No accessory muscle use. No wheezing, no crackles. ABDOMEN: Soft, bowel sounds present, nontender, no distention. CENTRAL NERVOUS SYSTEM: No facial droop. Speech is clear. Obeys simple commands. Moves extremities. EXTREMITIES: No ble edema. Rt arm and Rt knee bruise noted. Left lower lat chest and left hip bruise noted. Results & Data Results & Data Vital Signs (Past 12 Hours) Vital Signs Temp Pulse Pulse Resp BP Pulse Ox O2 Del Method 07/22/22 11:09 36.8 C 64 18 135/84 95 Room Air 07/22/22 07:10 36.7 C 68 18 130/88 93 Room Air 07/22/22 05:59 70 07/22/22 03:39 36.5 C 60 18 105/60 94 Room Air (3) Multiple fractures of ribs of right side Encounter type: initial encounter Fracture type: closed Qualified Code(s): S22.41XA - Multiple fractures of ribs, right side, initial encounter for closed fracture
[2022-07-22] MEDS ORDERED: hydrOXYzine HCl 10 MG TAB PO PRN (14:06)
--- NOTE | 2022-07-22 22:38 | Electrocardiogram Report ---
Test Reason : Blood Pressure : / mmHG Vent. Rate : 063 BPM Atrial Rate : 063 BPM P-R Int : 198 ms QRS Dur : 088 ms QT Int : 422 ms P-R-T Axes : 020 046 -25 degrees QTc Int : 431 ms Normal sinus rhythm Abnormal ECG When compared with ECG of 10-SEP-2021 23:36, Criteria for Inferior infarct are no longer Present T wave inversion now evident in Inferior leads Confirmed by Thierno Luis ([id number]) on 07/22/2022 10:37:52 PM Referred By: Confirmed By:Thierno Luis
[2022-07-23] MEDS: ACETAMINOPHEN 325 MG TAB PO PRN ×2 (04:19→20:31)
[2022-07-23] MEDS: OXYBUTYNIN CHLORIDE XL 5 MG TABCR PO SCH ×3 (08:02→20:31)
[2022-07-23] MEDS: levETIRAcetam 500 MG TAB PO SCH ×2 (08:02→20:31)
[2022-07-23] MEDS: PANTOprazole 40 MG TAB PO SCH (08:03)
[2022-07-23] MEDS: amLODIPine BESYLATE 5 MG TAB PO SCH (08:03)
[2022-07-23] MEDS: lamoTRIgine 100 MG TAB PO SCH ×2 (08:03→13:54)
[2022-07-23] MEDS: LOSARTAN POTASSIUM 25 MG TAB PO SCH (08:03)
[2022-07-23] MEDS: DIVALPROEX EXTENDED RELEASE 500 MG TAB PO SCH ×2 (08:03→13:53)
[2022-07-23] MEDS: ENOXAPARIN INJ 40 MG/0.4 ML SYR SQ SCH (08:04)
[2022-07-23] MEDS: CHOLECALCIFEROL 1,000 UNITS 25 MCG TAB PO SCH (08:04)
[2022-07-23] MEDS: ASPIRIN 81 MG CHEW PO SCH (08:04)
[2022-07-23] MEDS: SACCHAROMYCES BOULARDII 250 MG CAP PO SCH (08:04)
--- NOTE | 2022-07-23 10:32 | Orthopedic Consultation ---
Date of Consultation July 23, 2022 Assessment & Plan (1) Contusion of right hip: Right hip pain. X-rays reviewed by myself and Dr. Braulio Rich. Patient appears to have had a stress reaction ( grade 3/4 on MRI per radiology) status post multiple falls in the recent past. No obvious fractures are identified through plain films, CT scan, MRI scan. No lytic lesions identified. At this time, we will keep the patient with partial weightbearing. We will start her on PT/OT protocols with a walker. Patient states that she needs a certain type of walker of hopefully that can be arranged to help with her ambulation. If it is found that she is having moderate to severe pain with weightbearing status or unable to manage with her walker, Dr. Rich feels that a intramedullary rodding would be reasonable for prophylaxis. We will see how the patient tolerates her PT. If she is ambulating well, we will have her plan to follow-up in the office in 2 weeks for further films. However if her physical therapy is going poorly and having increasing pain with her weightbearing status, we would likely recommend intramedullary nailing of the right femur. History of Present Illness Reason for Consultation: Right hip pain Attending Physician: Breann Lopez MD History of Present Illness Patient is a 67-year-old female who resides at the [facility] living [place]. Patient has a history of multiple falls recently. She had been in the ER for s/p fall several times prior to admission. Patient has a Past medical hi story includes cerebral palsy with right-sided weakness, history of CVA with right hemiparesis, intellectual delay related to CP, MDD plus anxiety, history of seizures (on Keppra, Lamictal and Depakote), CKD stage III, and hypertension. Patient states that she uses a certain type of walker at home when ambulating indoors. She does have a motorized scooter whenever she goes outside. With her recent falls, she was admitted for ambulation dysfunction. She was noted to be hypoglycemic upon admission. Plain films of the right hip were showing no fractures or dislocations. A CT scan was also performed which again showed no fractures or dislocations. These were done on 07/19/22. An MRI scan was then performed as noted below and showed a stress reaction that was in the proximal femur in the subtrochanteric region. Patient states that she does have some pain with weightbearing but is not overtly excruciating. Currently she is comfortable and having no pain at rest. We have been asked to see her for her Right hip pain. Allergies Allergy/AdvReac Type Severity Reaction Status Date / Time adhesive Allergy Unknown HAPPENED Verified 07/20/22 00:20 A CHILD-"INSTRUCTED NOT TO USE ADHESIVES". Home Medications Medication Instructions Recorded Confirmed Type divalproex 500 mg tablet,extended 500 mg PO BID 01/26/18 07/21/22 History release 24 hr lamotrigine 100 mg tablet 100 mg PO BID 01/26/18 07/21/22 History levetiracetam 500 mg tablet 1,500 mg PO BID 01/26/18 07/21/22 History lorazepam 1 mg tablet 1 mg PO DAILY 06/04/19 07/21/22 History acetaminophen 500 mg tablet 1,000 mg PO AMHS 04/15/20 07/21/22 History Saccharomyces boulardii 250 mg 250 mg PO QAM 09/03/20 07/21/22 History capsule (Florastor) oxybutynin chloride 5 mg See Rx Instructions .Route .COMPLEX 09/03/20 07/21/22 History tablet,extended release 24 hr aspirin 81 mg chewable tablet 81 mg PO DAILY 09/11/21 07/21/22 History multivitamin (One Daily 1 tab PO DAILY 09/11/21 07/21/22 History Multivitamin tablet) lidocaine 4 % topical patch 2 patch topical DAILY PRN pain #10 02/27/22 07/21/22 Rx ea acetaminophen 500 mg tablet 1,000 mg PO DIRECTED PRN Pain 07/17/22 07/21/22 History (Tylenol Extra Strength) cholecalciferol (vitamin D3) 25 25 mcg PO DAILY 07/17/22 07/21/22 History mcg (1,000 unit) tablet (Vitamin D3) losartan 25 mg tablet 25 mg PO QAM 07/17/22 07/21/22 History omeprazole 20 mg capsule,delayed 20 mg PO DAILY 07/17/22 07/21/22 History release amlodipine 5 mg tablet 5 mg PO QAM 07/20/22 07/21/22 History loperamide 2 mg capsule 2 mg PO DIRECTED PRN Diarrhea 07/20/22 07/21/22 History Patient History Medical History Anxiety Cerebral palsy Chronic kidney disease (CKD), stage III (moderate) Generalized convulsive epilepsy without intractable epilepsy Hemiparesis of right dominant side History of colon polyps History of CVA (cerebrovascular accident) Hx of chest pain Hypertension Idiopathic mild intellectual disability Incontinence Infantile cerebral palsy Major depressive disorder Obstructive hydrocephalus has shunt Osteoporosis Surgical History H/O tubal ligation History of brain shunt History of colonoscopy last 03/24/[address] [facility] History of esophagogastroduodenoscopy (EGD) last 03/24/[address] [facility] Family History Father Cancer Mother Cancer Social History Smoking Status: Never smoker Tobacco Type: Cigarettes Hx Alcohol Use: No Hx Substance Use: No Preferred Language: Occitan Communication Ability: Effective Communication Ability Comment: ARC stated pt is of sound mind to sign own consents Commercial Cleaner Required: No Beliefs That Will Affect Care: None marital status: Single Current Living Situation: Personal Care Facility Current Living Situation Comment: has 24 hour care Feels Safe at Home: Yes Assistive Devices: Scooter/Electric Scooter and Walker Review of Systems Review of Systems: Patient is a 67-year-old white female who appears her stated age. She is pleasant and cooperative. She is alert and oriented to person and place. She is in no acute distress. On examination of her right lower extremity, she has a fairly large area of ecchymosis over the posterior lateral hip. She has some mild tenderness that is close to the ecchymosis near the greater trochanter however as I continue to palpate the femur anteriorly and laterally, she has not much in the way of discomfort. Patient is currently able to do straight leg raise on her own. She is able to go through active and passive range of motion of the right hip and knee without discomfort at this time. She has no pain with flexion, extension, internal or external rotation. Abduction or adduction. She has good range of motion of her right ankle however states that she has had limited range of motion of her toes for quite some time related to previous CVA/TIA. She does have a noted right hemiparesis. Results & Data Vital Signs (Past 12 Hours) Vital Signs Temp Pulse Pulse Resp BP Pulse Ox O2 Del Method 07/23/22 10:19 Room Air 07/23/22 10:18 63 07/23/22 07:17 36.9 C 64 18 108/67 95 Room Air 07/23/22 04:00 36.8 C 69 18 120/60 93 Room Air 07/22/22 23:00 36.6 C 55 L 18 163/82 H 96 Room Air Laboratory Results Laboratory Results WBC 6.98 K/ul (4.8-10.8) 07/22/22 07:12 RBC 4.17 M/uL (4.20-5.40) L 07/22/22 07:12 Hgb 12.6 g/dl (12.0-16.0) 07/22/22 07:12 Hct 37.8 % (37.0-47.0) 07/22/22 07:12 MCV 90.6 fL (80.0-100.0) 07/22/22 07:12 MCH 30.2 pg (25.0-34.0) 07/22/22 07:12 MCHC 33.3 g/dL (32.0-36.0) 07/22/22 07:12 RDW Std Deviation 41.4 fL (36.4-46.3) 07/22/22 07:12 RDW Coeff of Ofelia 12.6 % (11.5-14.5) 07/22/22 07:12 Plt Count 178 K/uL (130-400) 07/22/22 07:12 MPV 10.5 fL (9.4-12.4) 07/22/22 07:12 Immature Gran % (Auto) 0.4 % 07/21/22 10:23 Neut % (Auto) 43.2 % 07/21/22 10:23 Lymph % (Auto) 42.9 % 07/21/22 10:23 [place] % (Auto) 10.2 % 07/21/22 10:23 Eos % (Auto) 2.8 % 07/21/22 10:23 Baso % (Auto) 0.5 % 07/21/22 10:23 Neut # (Auto) 2.45 K/uL (1.40-6.50) 07/21/22 10:23 Lymph # (Auto) 2.43 K/uL (1.2-3.4) 07/21/22 10:23 [place] # (Auto) 0.58 K/uL (0.11-0.59) 07/21/22 10:23 Eos # (Auto) 0.16 K/uL (0-0.50) 07/21/22 10:23 Baso # (Auto) 0.03 K/uL (0-0.2) 07/21/22 10:23 Immature Gran # (Auto) 0.02 K/uL (0.01-0.20) 07/21/22 10: PT 10.6 Seconds (9.0-12.0) 07/21/22 10: INR 1.0 (0.9-1.1) 07/21/22 10: APTT 26.5 Seconds (21.0-31.0) 07/21/22 10: PTT Ratio 0.9 07/21/22 10:23 Sodium 138 mmol/L (136-145) 07/22/22 07:12 Potassium 4.3 mmol/L (3.5-5.1) 07/22/22 07:12 Chloride 106 mmol/L (98-107) 07/22/22 07:12 Carbon Dioxide 25 mmol/L (21-32) 07/22/22 07:12 Anion Gap 7 (3-11) 07/22/22 07:12 BUN 19 mg/dl (6-23) 07/22/22 07:12 Creatinine 0.70 mg/dl (0.6-1.2) 07/22/22 07:12 Est Cr Clr Drug Dosing 72.4 ml/min 07/22/22 07:12 Est GFR ( Amer) 103.2 ml/min 07/22/22 07:12 Est GFR (Non-Af Amer) 89.0 ml/min 07/22/22 07:12 BUN/Creatinine Ratio 27.1 (10-20) H 07/22/22 07:12 Glucose 87 mg/dl (70-99(Fasting)) 07/22/22 07:12 Calcium 9.3 mg/dl (8.6-10.3) 07/22/22 07:12 Magnesium 2.2 mg/dl (1.7-2.4) 07/22/22 07:12 Total Bilirubin 0.5 mg/dl (0.2-1.0) 07/22/22 07:12 AST 16 U/L (13-39) 07/22/22 07:12 ALT 11 U/L (7-52) 07/22/22 07:12 Alkaline Phosphatase 28 U/L (34-104) L 07/22/22 07:12 Troponin I High Sens 2.7 pg/ml (0-14) 07/21/22 10:23 Total Protein 6.6 gm/dl (6.0-8.3) 07/22/22 07:12 Albumin 4.3 gm/dl (3.4-5.0) 07/22/22 07:12 Globulin 2.3 gm/dl (2.5-4.0) L 07/22/22 07:12 Albumin/Globulin Ratio 1.9 (0.9-2) 07/22/22 07:12 25-OH Vitamin D Total 30.0 ng/ml (30-100) 07/22/22 12:32 TSH 1.824 uIu/ml (0.300-4.500) 07/21/22 10:23 Urine Color Yellow 07/21/22 16:32 Urine Appearance Clear (Clear) 07/21/22 16:32 Urine pH 8.0 (4.5-7.5) H 07/21/22 16:32 Ur Specific [place] 1.013 (1.000-1.030) 07/21/22 16:32 Urine Protein Negative (Negative) 07/21/22 16:32 Urine Glucose (UA) Negative (Negative) 07/21/22 16:32 Urine Ketones Trace (Negative) H 07/21/22 16:32 Urine Blood Negative (Negative) 07/21/22 16:32 Urine Nitrite Negative (Negative) 07/21/22 16:32 Urine Bilirubin Negative (Negative) 07/21/22 16:32 Urine Urobilinogen Negative (Negative) 07/21/22 16:32 Ur Leukocyte Esterase Negative (Negative) 07/21/22 16:32 Nasal Screen MRSA (PCR) Negative (Negative) 07/22/22 01:40 Valproic Acid 75 mcg/ml (50-100) 07/21/22 10:23 SARS-CoV-2, RNA, NAAT NEGATIVE (NEGATIVE) 07/21/22 10:23 Impressions 07/19/22 Films EXAM: CT Right Lower Extremity Without Intravenous Contrast, Hip CLINICAL HISTORY: Reason for exam: fall, right hip pain. TECHNIQUE: Axial computed tomography images of the right hip without intravenous contrast. CTDI is 35.51 mGy and DLP is 624.41 mGy-cm. Automated exposure control was utilized for the study. A dose lowering technique was utilized adhering to the principles of ALARA. COMPARISON: No relevant prior studies available. FINDINGS: Bones/joints: There are degenerative changes of the right hip including joint space narrowing and subchondral cystic change. No acute fracture. No dislocation. Soft tissues: Unremarkable. IMPRESSION: No acute findings in the right hip. If there is consistent concern for occult fracture, MRI would be more sensitive. Electronically signed by: Zeke Seymour MD 07/19/22 23:53 PM RIGHT HIP 2 VIEWS; RIGHT FEMUR 3 VIEWS CLINICAL HISTORY: Atraumatic right leg pain. FINDINGS: AP and frog-leg views of the right hip with AP, frog-leg, and crosstable lateral views of the right femur are obtained. Correlation is made to pelvic x-ray dated 12/31/2020. The skeletal structures are osteopenic. There is no radiographic evidence of acute fracture involving the right hip or the visualized right hemipelvis. There is no radiographic evidence of right femoral fracture. Moderate osteoarthritic change and joint space narrowing seen at the right hip. There is degenerative sclerosis of the right sacroiliac joint. The right knee joint is grossly preserved. The overlying soft tissues are within normal limits. IMPRESSION: 1. There is no radiographic evidence of acute fracture involving the right hip. 2. There is no radiographic evidence of right femoral fracture. Chest X-Ray 07/21/22 10:12 XR chest 1V portable HISTORY: 67 years-old Female weakness acute weakness COMPARISON: 07/19/2022 TECHNIQUE: AP view of the chest FINDINGS: Cardiac silhouette is enlarged. No pneumothorax, large pleural effusion or overt pulmonary edema. Minimal subsegmental bibasilar atelectasis. Degenerative changes of the shoulders and spine. Subacute to chronic appearing right-sided rib fractures. Left shoulder rotator cuff calcific tendinosis. IMPRESSION: 1. Cardiomegaly without acute process of the chest. 2. Subacute to chronic appearing right-sided rib fractures. 3. No pneumothorax. ACT 112: Negative or not required by law. The above report was generated using voice recognition software. It may contain grammatical, syntax or spelling errors. Electronically signed by: Braulio Osborne M.D. 07/21/2022 10:38 AM Hip MRI 07/21/22 12:07 MR hip RT wo con CLINICAL HISTORY: 67 years-old Female with fall. Acute right hip pain with recent fall COMPARISON: CT right hip and CT pelvis study 07/19/2022, radiographs of the right femur 07/17/2022 TECHNIQUE: Multiplanar, multi sequence MRI of the right hip was performed without intravenous contrast. FINDINGS: Motion degraded exam. No acute intrapelvic abnormality identified. Mild distention of the urinary bladder. Unremarkable appearance of the musculature. LABRUM: To the extent that it is visualized, no acute labral tear identified. There is irregularity of the labrum with degeneration and probable chronic tearing. No paralabral cyst. BONE MARROW: No acute displaced fracture, dislocation, avascular necrosis or large joint effusion. There is moderate endosteal, medullary and periosteal edema of the proximal right femoral diaphysis, most pronounced laterally. There is associated cortical thickening with mildly increased T2 signal the posterior cortex. No discrete fracture line identified. Findings are partially imaged on the axial series. Lower lumbar spine vertebral body hemangiomata. BURSAE: There is no evidence for iliopsoas or trochanteric bursitis. HIP JOINT: Moderate osteoarthritis of the hips. There is no evidence for femoral-acetabular or ischiofemoral impingement syndrome. There is no joint e ffusion. No intraarticular loose body is evident. MUSCLES: Muscular signal and morphology is within normal limits. SCIATIC NERVE: The morphology and signal characteristics of the sciatic nerve appear normal. IMPRESSION: 1. Grade III versus grade IV stress response without discrete fracture line identified involving the right proximal femoral diaphysis. 2. Moderate osteoarthritis of the hips. ACT 112: Negative or not required by law. The above report was generated using voice recognition software. It may contain grammatical, syntax or spelling errors. Electronically signed by: Braulio Osborne M.D. 07/21/2022 5:16 PM Brain MRI 07/21/22 13:47 MR brain wo/w con HISTORY: 67 years-old Female falls and CP acute head trauma COMPARISON: Head CT 07/19/2022 TECHNIQUE: Multiplanar multisequence MRI of the brain was obtained both with and without the use of IV contrast FINDINGS: Midline structures are unremarkable with degenerative changes of the cervical spine. Encephalomalacia in gliosis related to large chronic MCA infarct. No acute or subacute infarct. No acute intracranial hemorrhage, midline shift, abnormal extra axial collection, hydrocephalus or intracranial mass. No pathologic blooming artifact. Involutional changes with mild to moderate FLAIR hyperintense foci throughout the white matter. Mesial temporal lobes are within normal limits. Motion degraded exam. Cerebral venous sinuses and major arterial flow voids are patent. Prior bilateral lens are clear. [place] air cells and middle ear cavities are clear. No abnormal enhancement. IMPRESSION: 1. No acute intracranial abnormality. No acute or subacute infarct. 2. Involutional changes with chronic microvascular ischemic disease. 3. Chronic left MCA infarct. 4. No abnormal enhancement. ACT 112: Negative or not required by law. The above report was generated using voice recognition software. It may contain grammatical, syntax or spelling errors. Electronically signed by: Braulio Osborne M.D. 07/21/2022 6:14 PM (1) Contusion of right hip Encounter type: initial encounter Qualified Code(s): S70.01XA - Contusion of right hip, initial encounter
[2022-07-23 13:19] LABS: Hematocrit (blood only) 37.3 % (37.0-47.0); Hemoglobin 12.7 g/dl (12.0-16.0); Mean Corpuscular Hemoglobin 31.3 pg (25.0-34.0); Mean Corpuscular Volume 91.9 fL (80.0-100.0); Mean Platelet Volume 10.6 fL (9.4-12.4); Platelet Count 184 K/uL (130-400); RDW Coefficient of Variation 12.7 % (11.5-14.5); RDW Standard Deviation 42.4 fL (36.4-46.3); Red Blood Count 4.06 M/uL (4.20-5.40); White Blood Count 6.14 K/ul (4.8-10.8)
[2022-07-23 13:37] LABS: BUN Creatinine Ratio 28.9 (10-20); Calcium 9.2 mg/dl (8.6-10.3); Creatinine Clr Calc Pharmacy 66.7 ml/min; Est GFR (African American) 93.4 ml/min; Est GFR (Non-African American) 80.6 ml/min; Magnesium 2.1 mg/dl (1.7-2.4); Phosphorus 3.9 mg/dl (2.5-4.9)
--- NOTE | 2022-07-23 15:01 | Hospitalist Progress Note ---
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 Pt with H/O cerebral palsy and right sided weakness. H/O TIA/CVA with residual R hemiparesis , intellect delay but quite reliable with discussion. Some T wave inversion changes on inferior leads (no chest pain and normal trop). H/O seizure disorder; valproic acid level and EEG normal, lamotrigine level pending. UA negative for UTI. She is being managed for the following: History of cerebral palsy: Ambulatory dysfunction: Recurrent falls Residual right hemiparesis Multiple fractures of right ribs on right side: Uses a wheeled walker indoors and motorized scooter outdoors Comes in with fall. Ortho vitals negative. Reports getting tripped on the "stuff" at floor and falling. Recent and admitting imagings: 07/[address] negative for acute ICH, SDH or midline shift 07/[address] done: No acute injuries 07/[address]: No acute findings in the right hip. 07/21 CXR: Cardiomegaly, no acute process, subacute to chronic appearing right- sided rib fractures. No pneumothorax. 07/21 MRI hip: Stress response without discrete fracture line identified involving the right proximal femoral diaphysis. Moderate osteoarthritis of the hips. 07/21 MRI brain: No acute findings. Chronic left MCA infarct. Ortho vitals negative, patient reports feeling fine. Labs and electrolytes fairly WNL. Vit D level nl. Continue with PT/OT, will likely need rehab initially. Ortho consult for hip pain and abn mri hip, likely prophylactic nailing, under consideration, will follow. HTN: Continue home losartan/amlodipine/baby aspirin. Last ECHO: Left ventricular cavity size normal, left ventricular wall thickness mildly increased; concentric. LV wall motion is normal. EF 55 to 59%, G1DDxX, mild MR, mild TR. Echo this admissionEF 50 to 55%, grade 1 diastolic dysfunction. Not suggestive of pulmonary hypertension. History of generalized convulsive epilepsy without intractable epilepsy: Continue with home Keppra, Lamictal, Depakote. Depakote level WNL, EEG WNL, antitrypsin level pending. Patient reports compliance with medication. History of CVA/Hemiparesis of right dominant side: Uses a wheeled walker indoors and motorized scooter outdoors . PT/OT Depression and anxiety: Takes Lorazepam 1 mg PO daily; can hold this, rather use hydroxyzine as needed. Urinary urgency: UA negative for UTI. Takes Ditropan, continue. Disposition: PCP: Dr. Fu CODE STATUS: Full code VTE prophylaxis: Lovenox SQ Given phone call to at [phone] [upon supportive employment case manager's request] who is caregiver/senior insight manager for the patient. I left a voicemail to call us back. Called on dates 07/22 and 07/23. Admission and Anticipated Discharge Date Admission Date: July 21, 2022 Subjective Patient seen and examined at bedside as a follow-up of ambulatory dysfunction and multiple falls. Of note patient has history of cerebral palsy. Patient was lying in bed, oriented, NAD, reports pain under control, denies any new acute event overnight, reports eating okay and moving bowels okay, denies any fever/chills/cough/sore throat/chest pain/palpitation/headache or dizziness. d/w ortho, they are inclining towards prophylactic nailing for her abn mri rt hip. Will follow. Physical Exam Physical Exam: GENERAL: Alert and oriented x3. NAD, on RA. HEENT: No pallor, no icterus. Pupils equal, round and reactive to light. Oral mucosa moist. NECK: No JVD, no neck masses. HEART: S1 and S2 heard. Regular rate and rhythm. No murmur, no gallop. RESPIRATORY SYSTEM: Normal AP diameter. No accessory muscle use. No wheezing, no crackles. ABDOMEN: Soft, bowel sounds present, nontender, no distention. CENTRAL NERVOUS SYSTEM: No facial droop. Speech is clear. Obeys simple commands. Moves extremities. EXTREMITIES: No ble edema. Rt arm and Rt knee bruise noted. Left lower lat chest and left hip bruise noted. Results & Data Results & Data Vital Signs (Past 12 Hours) Vital Signs Temp Pulse Pulse Resp BP Pulse Ox O2 Del Method 06/06/23 14:43 36.6 C 66 18 117/73 93 Room Air 07/23/22 11:41 36.6 C 64 20 127/78 96 Room Air 07/23/22 10:19 Room Air 07/23/22 10:18 63 07/23/22 07:17 36.9 C 64 18 108/67 95 Room Air 07/23/22 04:00 36.8 C 69 18 120/60 93 Room Air (3) Multiple fractures of ribs of right side Encounter type: initial encounter Fracture type: closed Qualified Code(s): S22.41XA - Multiple fractures of ribs, right side, initial encounter for closed fracture
--- NOTE | 2022-07-24 05:15 | Electrocardiogram Report ---
Test Reason : Blood Pressure : / mmHG Vent. Rate : 064 BPM Atrial Rate : 064 BPM P-R Int : 204 ms QRS Dur : 092 ms QT Int : 466 ms P-R-T Axes : 064 069 071 degrees QTc Int : 480 ms Normal sinus rhythm Prolonged QT Abnormal ECG When compared with ECG of 21-JUL-2022 10:13, T wave inversion no longer evident in Inferior leads Confirmed by Thierno Luis ([id number]) on 07/24/2022 5:14:39 AM Referred By: REFERRED SELF Confirmed By:Thierno Luis
[2022-07-24 08:05] LABS: Hematocrit (blood only) 37.9 % (37.0-47.0); Hemoglobin 12.7 g/dl (12.0-16.0); Mean Corpuscular Hemoglobin 30.4 pg (25.0-34.0); Mean Corpuscular Hgb Conc 33.5 g/dL (32.0-36.0); Mean Corpuscular Volume 90.7 fL (80.0-100.0); Mean Platelet Volume 10.3 fL (9.4-12.4); Platelet Count 193 K/uL (130-400); RDW Coefficient of Variation 12.6 % (11.5-14.5); RDW Standard Deviation 41.6 fL (36.4-46.3); Red Blood Count 4.18 M/uL (4.20-5.40); White Blood Count 5.24 K/ul (4.8-10.8)
[2022-07-24] MEDS: SACCHAROMYCES BOULARDII 250 MG CAP PO SCH (08:32)
[2022-07-24] MEDS: lamoTRIgine 100 MG TAB PO SCH ×2 (08:32→15:00)
[2022-07-24] MEDS: amLODIPine BESYLATE 5 MG TAB PO SCH (08:32)
[2022-07-24] MEDS: OXYBUTYNIN CHLORIDE XL 5 MG TABCR PO SCH ×2 (08:32→20:31)
[2022-07-24] MEDS: LOSARTAN POTASSIUM 25 MG TAB PO SCH (08:32)
[2022-07-24] MEDS: CHOLECALCIFEROL 1,000 UNITS 25 MCG TAB PO SCH (08:32)
[2022-07-24] MEDS: ASPIRIN 81 MG CHEW PO SCH (08:32)
[2022-07-24 08:33] LABS: BUN Creatinine Ratio 28.8 (10-20); Calcium 9.1 mg/dl (8.6-10.3); Creatinine Clr Calc Pharmacy 65.4 ml/min; Est GFR (African American) 98.1 ml/min; Est GFR (Non-African American) 84.6 ml/min
[2022-07-24] MEDS: PANTOprazole 40 MG TAB PO SCH (08:33)
[2022-07-24] MEDS: DIVALPROEX EXTENDED RELEASE 500 MG TAB PO SCH ×2 (08:33→15:00)
[2022-07-24] MEDS: levETIRAcetam 500 MG TAB PO SCH ×2 (08:33→20:31)
[2022-07-24] MEDS: ENOXAPARIN INJ 40 MG/0.4 ML SYR SQ SCH (08:33)
[2022-07-24] MEDS: ACETAMINOPHEN 325 MG TAB PO PRN ×2 (08:35→15:25)
--- NOTE | 2022-07-24 10:09 | Hospitalist Progress Note ---
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 Pt with H/O cerebral palsy and right sided weakness. H/O TIA/CVA with residual R hemiparesis, intellect delay but quite reliable with discussion. Some T wave inversion changes on inferior leads (no chest pain and normal trop). H/O seizure disorder; valproic acid level and EEG normal, lamotrigine level pending. UA negative for UTI. She is being managed for the following: History of cerebral palsy: Ambulatory dysfunction: Recurrent falls Residual right hemiparesis Multiple fractures of right ribs on right side: Uses a wheeled walker indoors and motorized scooter outdoors Comes in with fall. Ortho vitals negative. Reported getting tripped on the "stuff" at floor and falling. Recent and admitting imagin/[address] negative for acute ICH, SDH or midline shift 07/[address] done: No acute injuries 07/[address]: No acute findings in the right hip. 07/21 CXR: Cardiomegaly, no acute process, subacute to chronic appearing right- sided rib fractures. No pneumothorax. 07/21 MRI hip: Stress response without discrete fracture line identified involving the right proximal femoral diaphysis. Moderate osteoarthritis of the hips. 07/21 MRI brain: No acute findings. Chronic left MCA infarct. Ortho vitals negative Labs and electrolytes fairly WNL. Vit D level nl. Ortho consult for hip pain and had a stress reaction on mri hip per radiology Ortho recommending seeing how patient does with PT to determine if she needs nailing now or not. Patient reported she is not able to use the walker but able to use hers with 4 wheels. Communicated this to RN who is working on getting patient's walker from facility Will follow up PT/OT eval Partial weight bearing per ortho Hypertension: Continue home losartan/amlodipine/baby aspirin. Last ECHO: Left ventricular cavity size normal, left ventricular wall thickness mildly increased; concentric. LV wall motion is normal. EF 55 to 59%, G1DDxX, mild MR, mild TR. Echo this admissionEF 50 to 55%, grade 1 diastolic dysfunction. Not suggestive of pulmonary hypertension. History of generalized convulsive epilepsy without intractable epilepsy: Continue with home Keppra, Lamictal, Depakote. Depakote level WNL, EEG WNL, lamotrigine pending. Patient reports compliance with medication. History of CVA/Hemiparesis of right dominant side: Uses a wheeled walker indoors and motorized scooter outdoors . PT/OT Depression and anxiety: Takes Lorazepam 1 mg PO which is currently on hold per previous Provider Continue hydroxyzine as needed. Urinary urgency: UA negative for UTI. Continue Ditropan Disposition: PCP: Dr. Fu CODE STATUS: Full code VTE prophylaxis: Lovenox SQ at [phone] who is caregiver/engineering group manager for the patient. Admission and Anticipated Discharge Date Admission Date: July 21, 2022 Subjective Patient seen and examined Reports left hip soreness Reports some bruise on right leg. Reports chronic intermittent bruising. Reports chronic mild right sided weakness Denied any chest pain, cough, SOB at rest Reports chronic HEMPHILL Denied nausea,vomiting, abd pain, diarrhea Reports pain on trying to walk. Physical Exam Constitutional: + well hydrated; no acute distress Eyes: PERRL, conjunctivae normal, anicteric sclerae ENMT: external ear and nose normal, oropharynx normal Respiratory: normal respiratory effort, lungs clear to auscultation Cardiovascular: Rate/Rhythm: regular rate and regular rhythm S1 S2 Gastrointestinal (Abdomen): normal bowel sounds, soft, nontender, no hepatosplenomegaly Musculoskeletal: Ecchymoses on right thigh. Moves extremities No pedal edema Neurologic: PERRL, EOMI, accommodation nl, no face palsy, no dysarthria Psychiatric: A+Ox3, euthymic affect Results & Data Results & Data Vital Signs (Past 12 Hours) Vital Signs Temp Pulse Pulse Resp BP Pulse Ox O2 Del Method 07/24/22 08:57 Room Air 07/24/22 07:48 65 07/24/22 07:20 36.7 C 66 20 146/82 H 93 Room Air 07/24/22 03:17 36.8 C 65 16 115/69 95 Room Air 07/23/22 23:00 58 L 07/23/22 23:07 36.5 C 60 16 135/68 95 Room Air Laboratory Results Abnormal lab results 07/23/22 07/23/22 07/24/22 Range/Units 12:57 12:57 07:47 RBC 4.06 L 4.18 L (4.20-5.40) M/uL BUN/Creatinine Ratio 28.9 H (10-20) 07/24/22 Range/Units 07:47 RBC (4.20-5.40) M/uL BUN/Creatinine Ratio 28.8 H (10-20) (3) Multiple fractures of ribs of right side Encounter type: initial encounter Fracture type: closed Qualified Code(s): S22.41XA - Multiple fractures of ribs, right side, initial encounter for closed fracture
--- NOTE | 2022-07-25 05:46 | Electrocardiogram Report ---
Test Reason : Blood Pressure : / mmHG Vent. Rate : 064 BPM Atrial Rate : 064 BPM P-R Int : 202 ms QRS Dur : 084 ms QT Int : 418 ms P-R-T Axes : 036 -10 089 degrees QTc Int : 431 ms Normal sinus rhythm Low voltage QRS Inferior infarct , age undetermined Abnormal ECG When compared with ECG of 22-JUL-2022 05:15, Inferior infarct is now Present T wave inversion more evident in Lateral leads Confirmed by Thierno Luis ([id number]) on 07/25/2022 5:45:37 AM Referred By: REFERRED SELF Confirmed By:Thierno Luis
[2022-07-25 08:00] LABS: Hematocrit (blood only) 38.6 % (37.0-47.0); Hemoglobin 12.9 g/dl (12.0-16.0); Mean Corpuscular Hemoglobin 30.5 pg (25.0-34.0); Mean Corpuscular Hgb Conc 33.4 g/dL (32.0-36.0); Mean Corpuscular Volume 91.3 fL (80.0-100.0); Mean Platelet Volume 10.3 fL (9.4-12.4); Platelet Count 193 K/uL (130-400); RDW Coefficient of Variation 12.7 % (11.5-14.5); RDW Standard Deviation 42.2 fL (36.4-46.3); Red Blood Count 4.23 M/uL (4.20-5.40); White Blood Count 5.97 K/ul (4.8-10.8)
[2022-07-25] MEDS: LOSARTAN POTASSIUM 25 MG TAB PO SCH (08:39)
[2022-07-25] MEDS: levETIRAcetam 500 MG TAB PO SCH (08:39)
[2022-07-25] MEDS: lamoTRIgine 100 MG TAB PO SCH ×2 (08:40→15:16)
[2022-07-25] MEDS: DIVALPROEX EXTENDED RELEASE 500 MG TAB PO SCH ×2 (08:42→15:15)
[2022-07-25] MEDS: SACCHAROMYCES BOULARDII 250 MG CAP PO SCH (08:43)
[2022-07-25] MEDS: ASPIRIN 81 MG CHEW PO SCH (08:43)
[2022-07-25] MEDS: CHOLECALCIFEROL 1,000 UNITS 25 MCG TAB PO SCH (08:43)
[2022-07-25] MEDS: amLODIPine BESYLATE 5 MG TAB PO SCH (08:43)
[2022-07-25] MEDS: PANTOprazole 40 MG TAB PO SCH (08:44)
[2022-07-25 09:15] LABS: Calcium 9.2 mg/dl (8.6-10.3)
[2022-07-25 09:21] LABS: BUN Creatinine Ratio 33.8 (10-20); Creatinine Clr Calc Pharmacy 70.6 ml/min; Est GFR (African American) 101.4 ml/min; Est GFR (Non-African American) 87.5 ml/min
--- NOTE | 2022-07-25 09:38 | Anesthesiology Consultation ---
Date of Service July 25, 2022 Assessment & Plan (1) Encounter for pre-operative examination: Chart Review Chart Review: Acceptable Risk for Surgery History Surgery Operation Date: 07/25/22 09:20 Proposed Procedures p Right Trochanteric Femoral Nail - Braulio Rich DO Height/Weight Height: 5 ft 2 in Weight: 72.2 kg Allergies Allergy/AdvReac Type Severity Reaction Status Date / Time adhesive Allergy Unknown HAPPENED Verified 07/20/22 00:20 A CHILD-"INSTRUCTED NOT TO USE ADHESIVES". Medications Home Medications Medication Instructions Recorded Confirmed Last Taken divalproex 500 mg tablet,extended 500 mg PO BID 01/26/18 07/21/22 09/10/21 release 24 hr lamotrigine 100 mg tablet 100 mg PO BID 01/26/18 07/21/22 09/10/21 levetiracetam 500 mg tablet 1,500 mg PO BID 01/26/18 07/21/22 09/10/21 lorazepam 1 mg tablet 1 mg PO DAILY 06/04/19 07/21/22 09/10/21 acetaminophen 500 mg tablet 1,000 mg PO AMHS 04/15/20 07/21/22 04/04/21 Saccharomyces boulardii 250 mg 250 mg PO QAM 09/03/20 07/21/22 09/10/21 capsule (Florastor) oxybutynin chloride 5 mg See Rx Instructions .Route .COMPLEX 09/03/20 07/21/22 09/10/21 tablet,extended release 24 hr aspirin 81 mg chewable tablet 81 mg PO DAILY 09/11/21 07/21/22 09/10/21 multivitamin (One Daily 1 tab PO DAILY 09/11/21 07/21/22 09/10/21 Multivitamin tablet) lidocaine 4 % topical patch 2 patch topical DAILY PRN pain #10 02/27/22 07/21/22 Unknown ea acetaminophen 500 mg tablet 1,000 mg PO DIRECTED PRN Pain 07/17/22 07/21/22 Unknown (Tylenol Extra Strength) cholecalciferol (vitamin D3) 25 25 mcg PO DAILY 07/17/22 07/21/22 Unknown mcg (1,000 unit) tablet (Vitamin D3) losartan 25 mg tablet 25 mg PO QAM 07/17/22 07/21/22 Unknown omeprazole 20 mg capsule,delayed 20 mg PO DAILY 07/17/22 07/21/22 Unknown release amlodipine 5 mg tablet 5 mg PO QAM 07/20/22 07/21/22 Unknown loperamide 2 mg capsule 2 mg PO DIRECTED PRN Diarrhea 07/20/22 07/21/22 Unknown Active Medications Generic Name Dose Route Start Last Admin Trade Name Saulq PRN Reason Stop Dose Admin Acetaminophen 650 mg 07/21/22 11:38 07/24/22 15:25 Acetaminophen 325 Mg Tab PO 08/20/22 11:37 650 mg Q4H PRN Administration Pain or Fever Amlodipine Besylate 5 mg 07/22/22 09:00 07/25/22 08:43 Amlodipine Besylate 5 Mg Tab PO 08/21/22 08:59 5 mg QAM ANASTASIIA Administration Aspirin 81 mg 07/22/22 09:00 07/25/22 08:43 Aspirin 81 Mg Chew PO 08/21/22 08:59 81 mg DAILY ANASTASIIA Administration Divalproex Sodium 500 mg 07/22/22 08:00 07/25/22 08:42 Divalproex Extended Release 500 Mg Tab PO 08/21/22 07:59 500 mg BID@0800,1500 ANASTASIIA Administration Enoxaparin Sodium 40 mg 07/22/22 09:00 07/24/22 08:33 Enoxaparin Inj 40 Mg/0.4 Ml Syr SQ 08/21/22 08:59 40 mg QAM ANASTASIIA Administration Hydroxyzine HCl 10 mg 07/22/22 14:06 07/24/22 08:33 Hydroxyzine Hcl 10 Mg Tab PO 08/21/22 14:05 10 mg BID PRN Administration Anxiety Lamotrigine 100 mg 07/22/22 08:00 07/25/22 08:40 Lamotrigine 100 Mg Tab PO 08/21/22 07:59 100 mg BID@0800,1500 ANASTASIIA Administration Levetiracetam 1,500 mg 07/21/22 21:00 07/25/22 08:39 Levetiracetam 500 Mg Tab PO 08/20/22 20:59 1,500 mg BID ANASTASIIA Administration Losartan Potassium 25 mg 07/22/22 09:00 07/25/22 08:39 Losartan Potassium 25 Mg Tab PO 08/21/22 08:59 25 mg QAM ANASTASIIA Administration Oxybutynin Chloride 5 mg 07/22/22 09:00 07/24/22 08:32 Oxybutynin Chloride Xl 5 Mg Tabcr PO 08/21/22 08:59 5 mg QAM ANASTASIIA Administration Oxybutynin Chloride 10 mg 07/21/22 21:00 07/24/22 20:31 Oxybutynin Chloride Xl 5 Mg Tabcr PO 08/20/22 20:59 10 mg HS ANASTASIIA Administration Pantoprazole Sodium 40 mg 07/22/22 09:00 07/25/22 08:44 Pantoprazole 40 Mg Tab PO 08/21/22 08:59 40 mg DAILY ANASTASIIA Administration Saccharomyces Boulardii 250 mg 07/22/22 09:00 07/25/22 08:43 Saccharomyces Boulardii 250 Mg Cap PO 08/21/22 08:59 250 mg QAM ANASTASIIA Administration Vitamin D 1,000 units 07/22/22 09:00 07/25/22 08:43 Cholecalciferol 1,000 Units 25 Mcg Tab PO 08/21/22 08:59 1,000 units DAILY ANASTASIIA Administration Past Medical History Medical History Anxiety Cerebral palsy Chronic kidney disease (CKD), stage III (moderate) Generalized convulsive epilepsy without intractable epilepsy Hemiparesis of right dominant side History of colon polyps History of CVA (cerebrovascular accident) Hx of chest pain Hypertension Idiopathic mild intellectual disability Incontinence Infantile cerebral palsy Major depressive disorder Obstructive hydrocephalus has shunt Osteoporosis Past Family History Family History Father Cancer Mother Cancer Past Surgical History Surgical History H/O tubal ligation History of brain shunt History of colonoscopy last 03/24/19 @ [facility] History of esophagogastroduodenoscopy (EGD) last 03/24/19 @ [facility] Social History Smoking Status: Never smoker Hx Alcohol Use: No Hx Substance Use: No substance use type: does not use Physical Exam Vital Signs Last Vital Signs Temp 36.6 C 07/25/22 08:24 Pulse 62 07/25/22 08:24 Resp 16 07/25/22 08:24 BP 150/83 H 07/25/22 08:24 Pulse Ox 91 07/25/22 08:24 O2 Del Method Room Air 07/25/22 08:24 O2 Flow Rate 2 07/21/22 23:00 Testing Laboratory Results 07/25/22 07:43 07/25/22 07:43 PT 10.6 Seconds (9.0-12.0) 07/21/22 10:23 INR 1.0 (0.9-1.1) 07/21/22 10:23 APTT 26.5 Seconds (21.0-31.0) 07/21/22 10:23 Urine Color Yellow 07/21/22 16:32 Urine Appearance Clear (Clear) 07/21/22 16:32 Urine pH 8.0 (4.5-7.5) H 07/21/22 16:32 Ur Specific [place] 1.013 (1.000-1.030) 07/21/22 16:32 Urine Protein Negative (Negative) 07/21/22 16:32 Urine Glucose (UA) Negative (Negative) 07/21/22 16:32 Urine Ketones Trace (Negative) H 07/21/22 16:32 Urine Nitrite Negative (Negative) 07/21/22 16:32 Ur Leukocyte Esterase Negative (Negative) 07/21/22 16:32 Electrocardiogram Date: 07/23/22 Findings: + NSR @ (64), + NSST changes and + NC (inferior) Echocardiogram Date: 07/22/22 EF: 50-55% LV Function: normal Other Findings: + LVH and + diastolic dysfunction
--- NOTE | 2022-07-25 10:20 | Discharge Summary ---
Date of Service July 25, 2022 Admission HPI Per Admitting Provider Ms. Greer is a 67-year-old female that resides at the [facility] independent living and presents with increased falls over the past few days. Hard to say how long she has felt 'harder to get around'. She does have a tendency to have difficulty with ambulation. She uses a walker to get around the house and a motorized scooter. Has had recent urinary tract infections. CXR today shows multiple right rib fractures along with cardiomegaly without any active acute chest disease. Patient was noted to by hypoglycemic on arrival glucose level 67; without eating this morning. Patient has been to the ER 2 times preceding today status post fall. Lumbar spine CT done 07/19 with no acute injury. pelvic CT indicated no acute fracture; but suggested MRI in case symptoms progression. She has complaints of right hip discomfort without neuropathy. She also has a circumferential lateral ecchymotic area on her right femur. She does not take anticoagulation, but does take a daily baby aspirin. 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 Patient follows with Annabelle Lewis takes Keppra 1500 mg BID, Lamictal and Depakote. No recent seizures documented for more than a few years. No leukocytosis, will rule out UTI as she reports frequent UTIs. Hypoglycemia on arrival, likely incidental; will trend. No recent seizures noted. Will obtain EEG to complete neuro work up. Last ECHO: 2020: Left ventricular cavity size normal, left ventricular wall thickness mildly increased; concentric. LV wall motion is normal. EF 55 to 59%, G1DDxX, mild MR, mild TR Pt sitting upright in her hospital bed in no apparent distress. Despite her intellectual disability, able to answer questions quite appropriately. She denies VINCENT, dizziness, SOB, abdominal pain, N/V/D. She does report increased urinary frequency. Denies fever and chills. Reports medication compliance. Patient will be admitted for further evaluation and management. Please see A/P for further details. Admission Exam Per Admitting Provider Neuro: AAOx4, PERRLA, no aphagia, memory changes, CNII-XII grossly intact HEENT: head normocephalic, moist mucus membranes CV: S1/S2, (-) M/G/R, (-) edema, cap refill < 3 seconds Resp: Lungs CTA in all pollock. On RA GI: Abdomen S/NT/ND, Ax4 bowel sounds, (-) CVA tenderness Musculoskeletal: 5/5 B/L UE strength, 5/5 B/L LE strength. No gait disturbance Skin: (-) rashes , (-) erythema. (+) ecchymosis r lateral femur Psych: euthymic mood Principal Diagnosis Ambulatory dysfunction Falls Right rib fractures Discharge Exam Constitutional + well hydrated; no acute distress Eyes PERRL, conjunctivae normal, anicteric sclerae ENMT external ear and nose normal, oropharynx normal Respiratory normal respiratory effort, lungs clear to auscultation Cardiovascular Rate/Rhythm: regular rate and regular rhythm S1 S2 Gastrointestinal (Abdomen) normal bowel sounds, soft, nontender, no hepatosplenomegaly Musculoskeletal Ecchymoses on right thigh. No pedal edema Neurologic PERRL, EOMI, accommodation nl, no face palsy, no dysarthria Psychiatric A+Ox3, euthymic affect Discharge Data Allergies Allergy/AdvReac Type Severity Reaction Status Date / Time adhesive Allergy Unknown HAPPENED Verified 07/20/22 00:20 A CHILD-"INSTRUCTED NOT TO USE ADHESIVES". Consultations 07/21/22 11:33 ED Decision to Admit Stat 07/22/22 15:12 Consult Orthopedic Surgery Routine Procedures Performed Operation Date: 07/25/22 09:20 <No data on this case meets the specified criteria> Ordered Studies 07/21/22 12:07 MR hip RT wo con Routine 07/21/22 13:47 MRI Brain [MR brain wo/w con] Routine 07/25/22 16:00 FL hip RT 2-3V Routine Hospital Course (1) Cerebral palsy: (2) Ambulatory dysfunction: (3) Multiple fractures of ribs of right side: (4) Hypertension: (5) History of CVA (cerebrovascular accident): (6) Anxiety: (7) Generalized convulsive epilepsy without intractable epilepsy: (8) Urinary urgency: (9) Hemiparesis of right dominant side: Plan 67 year old presented with increasing falls over past few days. Pt with H/O cerebral palsy and right sided weakness. H/O TIA/CVA with residual R hemiparesis, intellect delay but quite reliable with discussion. Some T wave inversion changes on inferior leads (no chest pain and normal trop). H/O seizure disorder; valproic acid level and EEG normal, lamotrigine level pending. UA neg ative for UTI. She is being managed for the following: History of cerebral palsy: Ambulatory dysfunction: Recurrent falls Residual right hemiparesis Multiple fractures of right ribs on right side: Uses a wheeled walker indoors and motorized scooter outdoors Comes in with fall. Orthostatic vitals negative. Reported getting tripped on the "stuff" at floor and falling. Recent and admitting imagin/[address] negative for acute ICH, SDH or midline shift 07/[address] done: No acute injuries 07/[address]: No acute findings in the right hip. 07/21 CXR: Cardiomegaly, no acute process, subacute to chronic appearing right- sided rib fractures. No pneumothorax. 07/21 MRI hip: Stress response without discrete fracture line identified involving the right proximal femoral diaphysis. Moderate osteoarthritis of the hips. 07/21 MRI brain: No acute findings. Chronic left MCA infarct. Labs and electrolytes fairly within normal limits Vit D level nl. Ortho consult for hip pain and had a stress reaction on mri hip per radiology Patient was evaluated by PT/OT Partial weight bearing RLE and to follow up with Ortho in 2 weeks Continue PT at facility Hypertension: Continue home losartan/amlodipine/baby aspirin. Last ECHO fro 08/2020: Left ventricular cavity size normal, left ventricular wall thickness mildly increased; concentric. LV wall motion is normal. EF 55 to 59%, G1DDxX, mild MR, mild TR. Echo this admissionEF 50 to 55%, grade 1 diastolic dysfunction. Not suggestive of pulmonary hypertension. History of generalized convulsive epilepsy without intractable epilepsy: Continue with home Keppra, Lamictal, Depakote. Depakote level WNL, EEG WNL, lamotrigine pending. Patient reports compliance with medication. History of CVA/Hemiparesis of right dominant side: Uses a wheeled walker indoors and motorized scooter outdoors . Depression and anxiety: Takes Lorazepam 1 mg PO which is currently on hold per previous Provider Continue hydroxyzine as needed. Urinary urgency: UA negative for UTI. Continue Ditropan Discharged back to facility Total Time Total Time Spent Total Time Spent (In Minutes): 45 Total Time Includes: Examination of the Patient, Discharge Planning and Medication Reconciliation Discharge Plan Discharge Items Patient Disposition: Personal Shelter Reason For Visit: FALLS/HYPOGLYCEMIA Discharge Diagnosis: Ambulatory dysfunction Falls Right rib fractures Activity: As commented below Activity Comment: As recommended by PT Weightbearing: Right partial Weightbearing Comment: Partial Weight bearing on the right lower extremity with walker Non-emergency contact: Primary Care Provider Call non-emergency contact if: you have any medication questions Follow-up/Referrals: Naresh Fu MD [Primary Care Provider] - (Date & Time 07/31/2022 3:00 PM Provider Naresh Fu MD [facility] ) Braulio Rich DO [Surgeon] - (follow up in [address] Rich to recheck your right lower leg.) Diet: Heart Healthy Addtl Attending Provider Instructions: Mrs Greer. You were brought to the hospital after fall and was extensively evaluated.You were found to have subactue to chronic right rib fractures. MRI of your hip did not show fracture but did show stress response and moderate osteoarthritis. You were evaluated by Orthopedic surgeon. You were also evaluated by physical therapist. You are being discharged back to facility. Please follow instructions provided by the therapist. Continue therapy at your facility with partial weight bearing of Right lower extremity which can be advanced as you improve. Please use the assistive aide/walker for ambulation to mitigate falls. Please follow up with Orthopedic surgeon in the office in 2 weeks. Please follow up with your Primary Doctor. It was a pleasure taking care of you. Pending Studies at Discharge: No Stand-Alone Forms: My [employer], Smoking Cessation Skilled Items Patient informed of condition?: Yes DNR: No Discharge Level of Care: Other Communicable Disease: No Discharge Prognosis: Stable Lines: None Urinary Catheter: No Medications and DC Order Prescriptions: Continued levetiracetam 500 mg tablet 1,500 mg PO BID divalproex 500 mg tablet extended release 24 hr 500 mg PO BID lamotrigine 100 mg tablet 100 mg PO BID lorazepam 1 mg tablet 1 mg PO DAILY acetaminophen 500 mg Tablet 1,000 mg PO AMHS oxybutynin chloride 5 mg tablet extended release 24hr See Rx Instructions .ROUTE .COMPLEX Rx Instructions: 5 mg orally; TAKES 5 MG QAM, THEN 10 MG QHS. Saccharomyces boulardii [Florastor] 250 mg Capsule 250 mg PO QAM multivitamin [One Daily Multivitamin] Tablet 1 tab PO DAILY aspirin 81 mg Tablet,Chewable 81 mg PO DAILY loperamide 2 mg Capsule 2 mg PO DIRECTED PRN (Reason: Diarrhea) Rx Instructions: administer after each loose stool until symptoms controlled; do not exceed 8 mg per 24 hrs amlodipine 5 mg tablet 5 mg PO QAM lidocaine 4 % adhesive patch,medicated 2 patch topical DAILY PRN (Reason: pain) Qty: 10 0RF Rx Instructions: May leave on for 12 hours in a 24 hour window losartan 25 mg tablet 25 mg PO QAM omeprazole 20 mg capsule,delayed release(DR/EC) 20 mg PO DAILY acetaminophen [Tylenol Extra Strength] 500 mg Tablet 1,000 mg PO DIRECTED PRN (Reason: Pain) Rx Instructions: has to be atleast 4 hrs after prior dosing and 4 hrs before next dosing PRN cholecalciferol (vitamin D3) [Vitamin D3] 25 mcg (1,000 unit) Tablet 25 mcg PO DAILY Discharge Orders: Discharge Order (Routine); Ordered 07/25/22 Ordered By: Zee Gay Admission Data Admit Date/Time: 07/21/22 11:38 Attending Provider: Zee Gay I. Admit Provider: Kellie Mooney Primary Care Provider: Naresh Fu Other Providers: Kellie Mooney ; [facility] ; Eliud Gray ; Breann Lopez Other Interventions: Discharge Summary Assessment (RN) Last Done: 07/25/22 10:52
== END 2022-07-25 16:00 | disposition home health service (06) | DRG 92 ==
LOC: ED 10:00 → 2N 11:38 → SUATTDRO 11:38 → 2N 16:11

== ENCOUNTER 2023-03-10 21:40 | Inpatient (IN) ==
[2023-03-10] MEDS ORDERED: fentaNYL citrate PF 100 MCG/2 ML VIAL IV STA (22:20)
[2023-03-10 22:37] LABS: Hematocrit (blood only) 40.1 % (37.0-47.0); Mean Corpuscular Hemoglobin 30.2 pg (25.0-34.0); Mean Corpuscular Hgb Conc 32.4 g/dL (32.0-36.0); Mean Platelet Volume 10.9 fL (9.4-12.4); Platelet Count 214 K/uL (130-400); RDW Coefficient of Variation 12.9 % (11.5-14.5); RDW Standard Deviation 44.5 fL (36.4-46.3); Red Blood Count 4.31 M/uL (4.20-5.40); White Blood Count 9.42 K/ul (4.8-10.8)
[2023-03-10 22:54] LABS: Albumin Globulin Ratio 1.9 (0.9-2); Albumin Level 4.7 gm/dl (3.4-5.0); BUN Creatinine Ratio 34.2 (10-20); Bilirubin,Total 0.2 mg/dl (0.2-1.0); Calcium 9.4 mg/dl (8.6-10.3); Creatinine Clr Calc Pharmacy 59.6 ml/min; Est GFR (African American) 88.5 ml/min; Est GFR (Non-African American) 76.4 ml/min; Globulin 2.5 gm/dl (2.5-4.0); Potassium 3.4 mmol/L (3.5-5.1); Total Protein 7.2 gm/dl (6.0-8.3)
--- NOTE | 2023-03-10 23:00 | Emergency Department Note ---
Impression & Plan Fall from standing, Closed fracture of proximal end of right femur ED Provider Note HISTORY OF PRESENT ILLNESS: Patient is a 58-year-old female presenting with a right hip pain. Patient reportedly was putting a glass in her sink when her walker with wheels rolled away and she lost her footing, falling directly onto her right hip. Denies striking her head or loss of consciousness. She denies any chest pain, shortness of breath or lightheadedness prior to the fall. She is on a baby aspirin daily. She is currently complaining of significant pain in her right hip. Currently complaining of right foot numbness. ROS: as above PHYSICAL EXAM: Constitutional: Patient appears in no acute distress. HENT: Head: Normocephalic and atraumatic. Eyes: EOMI, PERRL Mouth/Throat: Mucous membranes moist. Neck: Trachea midline. Neck supple. Cardiovascular: RRR, No murmurs, rubs or gallops. Intact distal pulses. Pulmonary/Chest: No respiratory distress. Breath sounds clear and equal bilaterally. No wheezes or rales. No chest wall tenderness to palpation. Abdominal: Abdomen soft, no tenderness, rebound or guarding. Musculoskeletal: - RLE: Obvious deformity at the proximal femur. No obvious open wounds. Leg is internally rotated and shortened. Patient has diffuse tenderness overlying the proximal femur. Able to dorsiflex and plantarflex at the ankle and wiggle toes. Sensation intact to light touch about the nerve distributions of the leg. Intact DP and PT pulses. Skin: Warm and dry. No rash, erythema, pallor or cyanosis Psychiatric: Appropriate mood and affect for situation. Neurological: Alert and keenly responsive. CN II-XII grossly intact MDM: - Vitals signs stable. - History obtained via patient. Patient presents with right hip pain. Patient had a mechanical fall from standing earlier this evening and fell directly onto her right hip. Denies striking her head or loss of consciousness. She is on aspirin daily. - Chronic conditions affecting care: cerebral palsy; CVA; CKD - Differential diagnoses include, but are not limited to: Pelvic fracture; femur fracture; hip dislocation; dysrhythmia - Order placed for continuous cardiac monitoring. At this time, monitor showed rate of 83 bpm with normal sinus rhythm, per my interpretation. - External medical records reviewed. EMS run sheet was reviewed. No medications were given prehospital. - EKG interpreted by myself showed normal sinus rhythm. Rate 75 bpm. QT 496. No acute ischemic changes. However, noted to have some PVCs. - Laboratory workup interpreted by myself showed normal WBC; slight hypokalemia (K 3.4) - Femur xray showed a proximal right femur fracture with significant angulation, displacement and rotation of distal femur piece. - Patient initially given 50 mcg IV fentanyl in ER for pain control. Given 4 mg IV morphine for continued pain management. - Discussed case with orthopedist pole frame construction worker, Dr. Kim. Requested patient be placed in a Benites's traction splint and kept n.p.o. Requested admission to hospitalist service with plan for operative interventions potentially later this morning or tomorrow. - Benites's traction order placed. - Discussion was had with direct care supervisor about patient's case and need for admission - Hospitalist consulted for admission - Patient admitted to [facility] hospitalist service for further evaluation and management. ASSESSMENT AND PLAN: Diagnosis: Fall from standing; right proximal femur fracture Plan: Admit Past Med/Surg History Medical History Anxiety Cerebral palsy Chronic kidney disease (CKD), stage III (moderate) Generalized convulsive epilepsy without intractable epilepsy Hemiparesis of right dominant side History of colon polyps History of CVA (cerebrovascular accident) Hx of chest pain Hypertension Idiopathic mild intellectual disability Incontinence Infantile cerebral palsy Major depressive disorder Obstructive hydrocephalus has shunt Osteoporosis Surgical History H/O tubal ligation History of brain shunt History of colonoscopy last 03/24/[address] [facility] History of esophagogastroduodenoscopy (EGD) last 03/24/[address] [facility] Family History Father Cancer Mother Cancer Social History Smoking Status: Never smoker Tobacco Type: Cigarettes Hx Alcohol Use: No Hx Substance Use: No Preferred Language: Egyptian Communication Ability: Effective Communication Ability Comment: ARC stated pt is of sound mind to sign own consents Lighting Equipment Operator Required: No Beliefs That Will Affect Care: None marital status: Single Current Living Situation: Personal Care Facility Current Living Situation Comment: has 24 hour care Feels Safe at Home: Yes Assistive Devices: Scooter/Electric Scooter and Walker Allergies Allergies Allergy/AdvReac Type Severity Reaction Status Date / Time adhesive Allergy Unknown HAPPENED Verified 03/10/23 23:00 A CHILD-"INSTRUCTED NOT TO USE ADHESIVES". Home Meds Home Medications Medication Instructions Recorded Confirmed divalproex 500 mg tablet,extended 500 mg PO BID 01/26/18 03/10/23 release 24 hr lamotrigine 100 mg tablet 100 mg PO BID 01/26/18 03/10/23 levetiracetam 500 mg tablet 1,500 mg PO BID 01/26/18 03/10/23 Saccharomyces boulardii 250 mg 250 mg PO QAM 09/03/20 03/10/23 capsule (Florastor) oxybutynin chloride 5 mg See Rx Instructions .Route .COMPLEX 09/03/20 03/10/23 tablet,extended release 24 hr aspirin 81 mg chewable tablet 81 mg PO DAILY 09/11/21 03/10/23 multivitamin (One Daily 1 tab PO DAILY 09/11/21 03/10/23 Multivitamin tablet) acetaminophen 500 mg tablet 1,000 mg PO AMHS Pain 07/17/22 03/10/23 (Tylenol Extra Strength) cholecalciferol (vitamin D3) 25 25 mcg PO DAILY 07/17/22 03/10/23 mcg (1,000 unit) tablet (Vitamin D3) losartan 25 mg tablet 25 mg PO QAM 07/17/22 03/10/23 omeprazole 20 mg capsule,delayed 20 mg PO DAILY 07/17/22 03/10/23 release amlodipine 5 mg tablet 5 mg PO QAM 07/20/22 03/10/23 sennosides 8.6 mg tablet (Senokot) 8.6 mg PO HS 01/19/23 03/10/23 trazodone 50 mg tablet 50 mg PO HS 01/19/23 03/10/23 acetaminophen 500 mg tablet 1,000 mg PO DIRECTED PRN Pain 03/10/23 03/10/23 (Tylenol Extra Strength) famotidine 20 mg tablet 20 mg PO DAILY PRN Heartburn 03/10/23 03/10/23 omeprazole 20 mg capsule,delayed 20 mg PO .TAPER DIRECTED 03/10/23 03/10/23 release Results & Data (ED) Vital Signs Vital Signs - 24 hr 03/10/23 21:34 03/10/23 21:34 03/10/23 21:48 Temperature 36.6 C 36.6 C Temperature Source Oral Oral Pulse Rate 75 68 Pulse Rate [Apical] 75 Pulse Rhythm Regular Pulse Rhythm [Apical] Regular Pulse Strength Normal Pulse Strength [Apical] Normal Respiratory Rate 16 16 Respiratory Effort / Characteristics Non-Labored Spontaneous Non-Labored Spontaneous Respiratory Depth Normal Normal Respiratory Pattern Regular Regular Blood Pressure 113/60 Blood Pressure [Right Arm] 113/60 Blood Pressure Mean 77 Blood Pressure Mean [Right Arm] 77 Blood Pressure Position Lying Blood Pressure Position [Right Arm] Lying Pulse Oximetry 96 96 Oxygen Delivery Method Room Air Room Air Sepsis Recent Fever Within 48 Hours No Sepsis New/Unexplained Change in Mental Status N/A Sepsis Action Taken by Nursing No Action Required 03/10/23 23:34 Temperature Temperature Source Pulse Rate Pulse Rate [Apical] 83 Pulse Rhythm Pulse Rhythm [Apical] Regular Pulse Strength Pulse Strength [Apical] Normal Respiratory Rate 18 Respiratory Effort / Characteristics Non-Labored Spontaneous Respiratory Depth Normal Respiratory Pattern Regular Blood Pressure Blood Pressure [Right Arm] 115/63 Blood Pressure Mean Blood Pressure Mean [Right Arm] 80 Blood Pressure Position Blood Pressure Position [Right Arm] Lying Pulse Oximetry 96 Oxygen Delivery Method Room Air Sepsis Recent Fever Within 48 Hours Sepsis New/Unexplained Change in Mental Status Sepsis Action Taken by Nursing Laboratory Data 03/10/23 22:04 03/10/23 22:04 Lab Results 03/10/23 Range/Units 22:04 WBC 9.42 (4.8-10.8) K/ul RBC 4.31 (4.20-5.40) M/uL Hgb 13.0 (12.0-16.0) g/dl Hct 40.1 (37.0-47.0) % MCV 93.0 (80.0-100.0) fL MCH 30.2 (25.0-34.0) pg MCHC 32.4 (32.0-36.0) g/dL RDW Std Deviation 44.5 (36.4-46.3) fL RDW Coeff of [place] 12.9 (11.5-14.5) % Plt Count 214 (130-400) K/uL MPV 10.9 (9.4-12.4) fL Immature Gran % (Auto) 0.2 % Neut % (Auto) 33.6 % Lymph % (Auto) 56.6 % [place] % (Auto) 6.8 % Eos % (Auto) 2.4 % Baso % (Auto) 0.4 % Neut # (Auto) 3.16 (1.40-6.50) K/uL Lymph # (Auto) 5.33 H (1.20-3.40) K/uL [place] # (Auto) 0.64 H (0.11-0.59) K/uL Eos # (Auto) 0.23 (0.00-0.50) K/uL Baso # (Auto) 0.04 (0.00-0.20) K/uL Immature Gran # (Auto) 0.02 (0.01-0.20) K/uL Sodium 137 (136-145) mmol/L Potassium 3.4 L (3.5-5.1) mmol/L Chloride 102 (98-107) mmol/L Carbon Dioxide 23 (21-32) mmol/L Anion Gap 12 H (3-11) BUN 27 H (6-23) mg/dl Creatinine 0.79 (0.6-1.2) mg/dl Est Cr Clr Drug Dosing 59.6 ml/min Est GFR ( Amer) 88.5 ml/min Est GFR (Non-Af Amer) 76.4 ml/min BUN/Creatinine Ratio 34.2 H (10-20) Glucose 107 H (70-99(Fasting)) mg/dl Calcium 9.4 (8.6-10.3) mg/dl Total Bilirubin 0.2 (0.2-1.0) mg/dl AST 17 (13-39) U/L ALT 11 (7-52) U/L Alkaline Phosphatase 28 L (34-104) U/L Total Protein 7.2 (6.0-8.3) gm/dl Albumin 4.7 (3.4-5.0) gm/dl Globulin 2.5 (2.5-4.0) gm/dl Albumin/Globulin Ratio 1.9 (0.9-2) Administered Medications Discontinued Medications Fentanyl Citrate (Fentanyl Citrate Pf 100 Mcg/2 Ml Vial) 50 mcg IV NOW STA Stop: 03/10/23 22:21 Last Admin: 03/10/23 22:34 Dose: 50 mcg Documented By: IDD Morphine Sulfate (Morphine Sulfate 4 Mg/Ml 1 Ml Carp\\Vial) 4 mg IV NOW STA Stop: 03/10/23 23:32 Last Admin: 03/10/23 23:53 Dose: 4 mg Documented By: ROMERO Discharge Plan Visit Data Chief Complaint: Hip Pain Stated Complaint: R HIP INJURY ED Provider: Lakia Polanco Discharge Problem: Fall from standing, Closed fracture of proximal end of right femur Forms Stand Alone Forms: My [facility] Prescriptions Prescriptions: No Action levetiracetam 500 mg tablet 1,500 mg PO BID divalproex 500 mg tablet extended release 24 hr 500 mg PO BID lamotrigine 100 mg tablet 100 mg PO BID oxybutynin chloride 5 mg tablet extended release 24hr See Rx Instructions .ROUTE .COMPLEX Rx Instructions: 5 mg orally; TAKES 5 MG QAM, THEN 10 MG QHS. Saccharomyces boulardii [Florastor] 250 mg Capsule 250 mg PO QAM multivitamin [One Daily Multivitamin] Tablet 1 tab PO DAILY aspirin 81 mg Tablet,Chewable 81 mg PO DAILY amlodipine 5 mg tablet 5 mg PO QAM losartan 25 mg tablet 25 mg PO QAM omeprazole 20 mg capsule,delayed release(DR/EC) 20 mg PO DAILY acetaminophen [Tylenol Extra Strength] 500 mg Tablet 1,000 mg PO AMHS Rx Instructions: has to be atleast 4 hrs after prior dosing and 4 hrs before next dosing PRN cholecalciferol (vitamin D3) [Vitamin D3] 25 mcg (1,000 unit) Tablet 25 mcg PO DAILY trazodone 50 mg tablet 50 mg PO HS sennosides [Senokot] 8.6 mg Tablet 8.6 mg PO HS famotidine 20 mg tablet 20 mg PO DAILY PRN (Reason: Heartburn) omeprazole 20 mg capsule,delayed release(DR/EC) 20 mg PO .TAPER DIRECTED Rx Instructions: Just started 1 cap 2 days a [id number] (take on & fri), then stop. acetaminophen [Tylenol Extra Strength] 500 mg Tablet 1,000 mg PO DIRECTED PRN (Reason: Pain) Rx Instructions: Take atleast 4 hrs after prior dosing & 4 hours before next dosing PRN. max 3 grams per day. Referrals Referrals: Naresh Fu MD [Primary Care Provider] -
[2023-03-10 23:25] LABS: Basophils # (auto) 0.04 K/uL (0.00-0.20); Basophils % (auto) 0.4 %; Eosinophils # (auto) 0.23 K/uL (0.00-0.50); Eosinophils % (auto) 2.4 %; Immature Granulocytes # (auto) 0.02 K/uL (0.01-0.20); Immature Granulocytes % (auto) 0.2 %; Lymphocytes # (auto) 5.33 K/uL (1.20-3.40); Lymphocytes % (auto) 56.6 %; Monocytes # (auto) 0.64 K/uL (0.11-0.59); Monocytes % (auto) 6.8 %; Neutrophils # (auto) 3.16 K/uL (1.40-6.50); Neutrophils % (auto) 33.6 %
[2023-03-10] MEDS ORDERED: MoRPHine SULFATE 4 MG/ML 1 ML CARP\\VIAL IV STA (23:31)
[2023-03-11] MEDS ORDERED: fentaNYL citrate PF 100 MCG/2 ML VIAL IV STA (01:22)
[2023-03-11 01:55] LABS: Troponin I High Sensitivity 3.8 pg/ml (0-14)
[2023-03-11] MEDS ORDERED: NITROGLYCERIN SL 0.4 MG/TAB TAB SL PRN (02:42)
[2023-03-11] MEDS ORDERED: POLYETHYLENE (MIRALAX) 17 GM PACK PO PRN (02:42)
[2023-03-11] MEDS ORDERED: FAMOTIDINE 20 MG TAB PO PRN (02:42)
--- NOTE | 2023-03-11 02:42 | History & Physical Report ---
Date of Service March 11, 2023 Assessment & Plan (1) Closed right femoral fracture: Plan: 68-year-old female with past med history significant for hypertension, ascending aorta dilatation, vitamin D deficiency, microscopic colitis, urinary incontinence, osteoporosis, history of generalized convulsive epilepsy, cerebral palsy, learning disorder, history of stroke, ambulatory dysfunction ambulates with a walker at home and when she is outside uses the scooter currently living at halfway was brought in because of fall and found to have right hip fracture. Patient was trying to put glass in the sink when the walker wheels rolled away and and fell onto her right hip. Did not strike her head. No loss of consciousness. Denies any chest pain. States lately she is get short of breath on exertion. Denies any headache. No runny nose. No sore throat. No cough. No fever. Appetite is okay. No difficulty swallowing. Currently no abdominal pain. Currently normal bowel and bladder movements. Caregiver in the room. As per caregiver she is falling frequently. She was in the ER on First Week of February with a Fall and and Hit Her Head but Imaging Studies Were Okay. She Also Had Compression Fracture Right Hip. Caregiver States Yesterday When She Checked Her Pulse Rate Was in 30s and Blood Pressure Was 100s and 90s but by the Evening It Recovered. S/p fall Seems mechanical Close right femoral fracture N.p.o. IV fluids IV Dilaudid as needed Ortho consult Questionable bradycardia as per caregiver pulse was in 30s yesterday EKG showing bigeminy Follow repeat EKG and echo Will consult cardiology Prolonged QTc Avoid QT prolonging drugs Follow repeat EKG Hypertension On amlodipine and losartan Will monitor History of epilepsy On Keppra and Lamictal History of cerebral palsy Learning difficulty Ambulatory dysfunction Ambulates with walker at home and uses scooter when outside DVT prophylaxis Will place on SCDs on the left leg Further anticoagulants per orthopedics Disposition Med/telemetry Full code History of Present Illness Chief Complaint: Right hip fracture Primary Care Provider: Naresh Fu MD 68-year-old female with past med history significant for hypertension, ascending aorta dilatation, vitamin D deficiency, microscopic colitis, urinary inc ontinence, osteoporosis, history of generalized convulsive epilepsy, cerebral palsy, learning disorder, history of stroke, ambulatory dysfunction ambulates with a walker at home and when she is outside uses the scooter currently living at halfway was brought in because of fall and found to have right hip fracture. Patient was trying to put glass in the sink when the walker wheels rolled away and and fell onto her right hip. Did not strike her head. No loss of consciousness. Denies any chest pain. States lately she is get short of breath on exertion. Denies any headache. No runny nose. No sore throat. No cough. No fever. Appetite is okay. No difficulty swallowing. Currently no abdominal pain. Currently normal bowel and bladder movements. Caregiver in the room. As per caregiver she is falling frequently. She was in the ER on First Week of February with a Fall and and Hit Her Head but Imaging Studies Were Okay. She Also Had Compression Fracture Right Hip. Caregiver States Yesterday When She Checked Her Pulse Rate Was in 30s and Blood Pressure Was 100s and 90s but by the Evening It Recovered. Past medical history. As mentioned above Past surgical history. Colonoscopy. EGD. Brain cavity shunt. Ligation of oviducts. Bilateral cataract Social history. No smoking. No alcohol use. No drug use. Currently living at halfway. Family history. Father alcohol abuse, stroke, cancer. Mother had breast cancer. Brother had cancer. Sister had NM. Allergies Allergy/AdvReac Type Severity Reaction Status Date / Time adhesive Allergy Unknown HAPPENED Verified 03/10/23 23:00 A CHILD-"INSTRUCTED NOT TO USE ADHESIVES". Home Medications Medication Instructions Recorded Confirmed Type divalproex 500 mg tablet,extended 500 mg PO BID 01/26/18 03/10/23 History release 24 hr lamotrigine 100 mg tablet 100 mg PO BID 01/26/18 03/10/23 History levetiracetam 500 mg tablet 1,500 mg PO BID 01/26/18 03/10/23 History Saccharomyces boulardii 250 mg 250 mg PO QAM 09/03/20 03/10/23 History capsule (Florastor) oxybutynin chloride 5 mg See Rx Instructions .Route .COMPLEX 09/03/20 03/10/23 History tablet,extended release 24 hr aspirin 81 mg chewable tablet 81 mg PO DAILY 09/11/21 03/10/23 History multivitamin (One Daily 1 tab PO DAILY 09/11/21 03/10/23 History Multivitamin tablet) acetaminophen 500 mg tablet 1,000 mg PO AMHS Pain 07/17/22 03/10/23 History (Tylenol Extra Strength) cholecalciferol (vitamin D3) 25 25 mcg PO DAILY 07/17/22 03/10/23 History mcg (1,000 unit) tablet (Vitamin D3) losartan 25 mg tablet 25 mg PO QAM 07/17/22 03/10/23 History omeprazole 20 mg capsule,delayed 20 mg PO DAILY 07/17/22 03/10/23 History release amlodipine 5 mg tablet 5 mg PO QAM 07/20/22 03/10/23 History sennosides 8.6 mg tablet (Senokot) 8.6 mg PO HS 01/19/23 03/10/23 History trazodone 50 mg tablet 50 mg PO HS 01/19/23 03/10/23 History acetaminophen 500 mg tablet 1,000 mg PO DIRECTED PRN Pain 03/10/23 03/10/23 History (Tylenol Extra Strength) famotidine 20 mg tablet 20 mg PO DAILY PRN Heartburn 03/10/23 03/10/23 History omeprazole 20 mg capsule,delayed 20 mg PO .TAPER DIRECTED 03/10/23 03/10/23 History release Past Med/Surg History Medical History Anxiety Cerebral palsy Chronic kidney disease (CKD), stage III (moderate) Generalized convulsive epilepsy without intractable epilepsy Hemiparesis of right dominant side History of colon polyps History of CVA (cerebrovascular accident) Hx of chest pain Hypertension Idiopathic mild intellectual disability Incontinence Infantile cerebral palsy Major depressive disorder Obstructive hydrocephalus has shunt Osteoporosis Surgical History H/O tubal ligation History of brain shunt History of colonoscopy last 03/24/19 @ [facility] History of esophagogastroduodenoscopy (EGD) last 03/24/19 @ [facility] Family History Father Cancer Mother Cancer Social History Smoking Status: Never smoker Tobacco Type: Cigarettes Hx Alcohol Use: No Hx Substance Use: No Preferred Language: Maltese Communication Ability: Effective Communication Ability Comment: [facility] stated pt is of sound mind to sign own consents Professor Of Special 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 ENT- oropharynx clear Neck- supple, no JVD. Lungs- clear to auscultation no wheezing or crackles. Heart- regular rate and rhythm; no murmur, no gallop. Abdomen- normal bowel sounds, soft, nontender, no distension. Extremities- right lower extremity in bucks traction. Neuro- alert, oriented x 3; PERRL, no facial palsy; no dysarthria; obeys simple commands Skin- warm & dry Results & Data Results & Data Vital Signs (Past 12 Hours) Vital Signs Temp Pulse Pulse Resp BP BP Pulse Ox 03/11/23 01:30 77 03/11/23 01:00 79 13 106/81 95 03/10/23 23:34 83 18 115/63 96 03/10/23 21:48 68 03/10/23 21:34 36.6 C 75 16 113/60 96 03/10/23 21:34 36.6 C 75 16 113/60 96 O2 Del Method 03/11/23 01:30 03/11/23 01:00 Room Air 03/10/23 23:34 Room Air 03/10/23 21:48 03/10/23 21:34 Room Air 03/10/23 21:34 Room Air Diagnostic Findings Laboratory Results WBC 9.42 K/ul (4.8-10.8) 03/10/23 22:04 RBC 4.31 M/uL (4.20-5.40) 03/10/23 22:04 Hgb 13.0 g/dl (12.0-16.0) 03/10/23 22:04 Hct 40.1 % (37.0-47.0) 03/10/23 22:04 MCV 93.0 fL (80.0-100.0) 03/10/23 22:04 MCH 30.2 pg (25.0-34.0) 03/10/23 22:04 MCHC 32.4 g/dL (32.0-36.0) 03/10/23 22:04 RDW Std Deviation 44.5 fL (36.4-46.3) 03/10/23 22:04 RDW Coeff of Ofelia 12.9 % (11.5-14.5) 03/10/23 22:04 Plt Count 214 K/uL (130-400) 03/10/23 22:04 MPV 10.9 fL (9.4-12.4) 03/10/23 22:04 Immature Gran % (Auto) 0.2 % 03/10/23 22:04 Neut % (Auto) 33.6 % 03/10/23 22:04 Lymph % (Auto) 56.6 % 03/10/23 22:04 Summers % (Auto) 6.8 % 03/10/23 22:04 Eos % (Auto) 2.4 % 03/10/23 22:04 Baso % (Auto) 0.4 % 03/10/23 22:04 Neut # (Auto) 3.16 K/uL (1.40-6.50) 03/10/23 22:04 Lymph # (Auto) 5.33 K/uL (1.20-3.40) H 03/10/23 22:04 Summers # (Auto) 0.64 K/uL (0.11-0.59) H 03/10/23 22:04 Eos # (Auto) 0.23 K/uL (0.00-0.50) 03/10/23 22:04 Baso # (Auto) 0.04 K/uL (0.00-0.20) 03/10/23 22:04 Immature Gran # (Auto) 0.02 K/uL (0.01-0.20) 03/10/23 22:04 Sodium 137 mmol/L (136-145) 03/10/23 22:04 Potassium 3.4 mmol/L (3.5-5.1) L 03/10/23 22:04 Chloride 102 mmol/L (98-107) 03/10/23 22:04 Carbon Dioxide 23 mmol/L (21-32) 03/10/23 22:04 Anion Gap 12 (3-11) H 03/10/23 22:04 BUN 27 mg/dl (6-23) H 03/10/23 22:04 Creatinine 0.79 mg/dl (0.6-1.2) 03/10/23 22:04 Est Cr Clr Drug Dosing 59.6 ml/min 03/10/23 22:04 Est GFR ( Amer) 88.5 ml/min 03/10/23 22:04 Est GFR (Non-Af Amer) 76.4 ml/min 03/10/23 22:04 BUN/Creatinine Ratio 34.2 (10-20) H 03/10/23 22:04 Glucose 107 mg/dl (70-99(Fasting)) H 03/10/23 22:04 Calcium 9.4 mg/dl (8.6-10.3) 03/10/23 22:04 Total Bilirubin 0.2 mg/dl (0.2-1.0) 03/10/23 22:04 AST 17 U/L (13-39) 03/10/23 22:04 ALT 11 U/L (7-52) 03/10/23 22:04 Alkaline Phosphatase 28 U/L (34-104) L 03/10/23 22:04 Troponin I High Sens 3.8 pg/ml (0-14) 03/10/23 22:04 Total Protein 7.2 gm/dl (6.0-8.3) 03/10/23 22:04 Albumin 4.7 gm/dl (3.4-5.0) 03/10/23 22:04 Globulin 2.5 gm/dl (2.5-4.0) 03/10/23 22:04 Albumin/Globulin Ratio 1.9 (0.9-2) 03/10/23 22:04 ECG Additional Comments: ECG. Sinus rhythm with frequent PVCs in the pattern of bigeminy rate of 75. Nonspecific T waves. QTc 553. Code Status & VTE Plan VTE Prophylaxis Plan VTE Prophylaxis will be ordered: Yes
[2023-03-11] MEDS ORDERED: POTASSIUM CHLORIDE CRTAB 20 MEQ TABCR PO STA ×2 (02:52→08:35)
[2023-03-11] MEDS ORDERED: MoRPHine SULFATE 4 MG/ML 1 ML CARP\\VIAL IV PRN (02:52)
[2023-03-11] MEDS: SODIUM CHLORIDE 0.9% 1,000 ML IV SCH ×3 (03:04→23:35)
[2023-03-11] MEDS: ACETAMINOPHEN 325 MG TAB PO PRN ×2 (06:18→14:25)
--- NOTE | 2023-03-11 06:36 | XRay Report ---
XR chest 1V portable CLINICAL HISTORY: Preoperative evaluation. COMPARISON STUDY: Chest radiograph February 22, 2023. FINDINGS: Patient is rotated. No pneumothorax or pleural effusion is present. No evidence for pulmona ry edema. Mild cardiomegaly is unchanged. There is no consolidation to suggest pneumonia. There has b een no significant change in appearance of the chest. IMPRESSION: No acute cardiopulmonary findings. ACT 112: Negative or not required by law. Electronically signed by: Troy Pa M.D. 03/11/2023 6:35 AM
--- NOTE | 2023-03-11 06:47 | XRay Report ---
XR hip RT 2V w pelvis CLINICAL HISTORY: right hip pain s/p fall COMPARISON: Pelvis and right femur radiographs February 22, 2023. FINDINGS: Sacroiliac joints and symphysis pubis are intact. No proximal left femoral fracture is pre sent. There are no pelvic fractures. Note is made of an acute angulated displaced fracture within the proximal shaft of the right femur. IMPRESSION: Acute displaced angulated fracture within the proximal shaft of the right femur. ACT 112: Negative or not required by law. Electronically signed by: Troy Pa M.D. 03/11/2023 6:45 AM
--- NOTE | 2023-03-11 06:48 | XRay Report ---
XR femur RT 2V routine CLINICAL HISTORY: right hip pain s/p fall COMPARISON: Right femur radiographs February 22, 2023. FINDINGS: Note is made of an acute displaced angulated fracture within the proximal shaft of the rig ht femur. Fracture is at site of stress fracture shown on radiographs of February 22, 2023. No distal r ight femoral fracture is noted. There is moderate right hip osteoarthritis. IMPRESSION: Acute displaced angulated fracture within the proximal shaft of the right femur. ACT 112: Negative or not required by law. Electronically signed by: Troy Pa M.D. 03/11/2023 6:46 AM
--- OUTSIDE RECORDS SUMMARY | 2023-03-11 06:57 | External Medical Summary | Summary of Care ---
Author Name Unknown Organization [facility] Address [address] [place] [address] Phone [phone] Care Team Providers Care Flux Plant Operator Name Role Phone Tequila Fu MD Primary Care Provider [phone] Reason for Visit * Reason Comments eRx-Medication Refill Encounter Details Date Type Department Care Team (Late st Contact Info) Description 02/26/2023 Refill [facility] [address] [place] [address] Tequila Fu MD [address] [place] [address] Other insomnia Allergies Active Allergy Reactions Criticality Noted Date Comments Adhesive Tape Rash 03/16/2004 documented as of this encounter (statuses as of 02/26/2023) Medications Medication Sig Dispensed Refills Start Date End Date Status Diapers & Supplies MISCIndications:Mi xed incontinence Use when out of the home for bladder leakage 60 Each 5 05/21/2016 Active Losartan Potassium 25 MG Oral Tablet (Cozaar)Indication s:HTN, goal below 130/80 Take 1 Tablet by mouth in the morning. 90 Tablet 3 06/12/2022 Active Divalproex Sodium ER 500 MG Oral Tablet Extended Release 24 Hour (Depakote ER) Take 1 tab in the morning and 1 tab at 3 pm 60 Tablet 4 07/02/2022 Active Loperamide HCl 2 MG Oral Capsule (Imodium) Take 1 Capsule by mouth 4 times a day as needed for Diarrhea. Administer after each loose stool until symptoms controlled; do not exceed 8 mg per 24 hours. 0 Active One Daily Essential Oral Tablet TAKE 1 TABLET BY MOUTH EVERY DAY 31 Tablet 4 10/28/2022 Active Aspirin 81 MG Oral Tablet Chewable (Aspirin Low Dose)Indications:S troke, small vessel (HCC) Chew 1 tablet by mouth daily With food. 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 MAXIMUM DAILY DOSE OF 3 GRAMS 124 Tablet 5 11/26/2022 Active Florastor 250 MG Oral Capsule (Saccharomyces boulardii) TAKE 1 CAPSULE BY MOUTH ONCE DAILY 31 Capsule 5 11/26/2022 Active Vitamin D3 25 MCG (1000 UT) Oral Tablet (Vitamin D3) TALE 1 CAPSULE BY MOUTH ONCE DAILY IN THE MORNING 31 Tablet 5 11/26/2022 Active MEDICAL INSTRUCTIONSIndica tions:Need for COVID-19 vaccine Okay for pt to receive Covid vaccine 1 Each 1 11/27/2022 Active Carbamide Peroxide 6.5 % Otic Solution (Debrox)Indication s:Bilateral impacted cerumen Instill 5 Drops into both ears as needed (ear wax). 15 mL 1 01/17/2023 Active Omeprazole 20 MG Oral Capsule Delayed Release (PriLOSEC)Indicati ons:Gastroesophage al reflux disease, unspecified whether esophagitis present Take 1 Capsule by mouth in the morning. 1 cap 5 days per week x 3 weeks (do not take Mon and Fri) then 1 cap 4 days per week x 3 weeks(do not take Mon, Wed, Fri) then 1 cap 3 days per week x 3 weeks (take on Mon, Wed, Fri) then 1 cap 2 days per week x 3 weeks (Take on Mon, Fri) then stop. 90 Capsule 1 01/24/2023 Active Famotidine 20 MG Oral Tablet (Pepcid)Indication s:Gastroesophageal reflux disease, unspecified whether esophagitis present Take 1 Tablet by mouth daily as needed for Heartburn. 30 Tablet 11 01/24/2023 Active amLODIPine Besylate 5 MG Oral Tablet (Norvasc) Take 1 Tablet by mouth in the morning. 93 Tablet 3 02/26/2023 Active COVID-19 mRNA Vaccine 12 years and above Projjix 30 MCG/0.3 ML IM SUSPIndications:Im munization due Inject 0.3 mL into a large muscle once for 1 dose. 0.3 mL 0 02/26/2023 02/26/19 24 Active traZODone HCl 50 MG Oral Tablet (Desyrel)Indicatio ns:Other insomnia TAKE 1 TABLET BY MOUTH AT BEDTIME 93 Tablet 3 02/26/2023 Active amLODIPine Besylate 5 MG Oral Tablet (Norvasc) Take 1 Tablet by mouth in the morning. 90 Tablet 2 06/13/2022 02/26/19 24 Discontinued traZODone HCl 50 MG Oral Tablet (Desyrel)Indicatio ns:Other insomnia 1 tab by mouth every other day at bedtime x 30 days (this should be taken on opposite day of Lorazepam). After 30 days, increase to one at bedtime every evening 30 Tablet 5 08/22/2022 02/26/19 24 Discontinued documented as of this encounter (statuses as of 02/26/2023) Active Problems Problem Noted Date Diagnosed Date Ascending aorta dilatation 02/26/2023 Osteoporosis 12/13/2021 Ambulatory dysfunction 11/30/2019 Gait disturbance 07/07/2019 Microscopic colitis 07/07/2019 Senile osteoporosis 12/22/2018 History of stroke 05/13/2018 HTN, goal below 130/80 08/01/2017 Vitamin D deficiency 03/25/2013 Insomnia 03/18/2012 Urinary incontinence 06/08/2009 Overview: ICD-10 update of inactive term BRUIT, ABDOMINAL 04/14/2003 Learning disorder 10/29/2001 GENERALIZED CONVULSIVE EPILE PSY; WITHOUT MENTION OF INTRACTABLE EPILEPSY Cerebral palsy documented as of this encounter (statuses as of 02/26/2023) Resolved Problems Problem Noted Date Diagnosed Date Resolved Date Severe protein-calorie malnutrition 09/01/2020 01/02/2023 Stroke, small vessel 09/20/2019 023 Obstructive hydrocephalus 10/22/2018 Kidney disease, chronic, sta ge III (GFR 30-59 ml/min) 04/27/2018 01/02/2023 Overview: Per CKD protocol #1 Bronchitis, complicated 05/03/201510/18 Viral URI with cough 05/03/2015 017 Acute costochondritis 05/03/20152016 Elevated blood pressure, situational 05/03/2015 08/01/2017 METATARSALGIA, RIGHT 5TH 06/11/201006/2016 Bunion 06/11/2010 11/21/2016 Special screening for malign ant neoplasms, colon 06/11/2010 05/03/2015 Lump or mass in breast 04/09/200605/02 ADVANCE DIRECTIVE INFORMATION 03/19/2005 05/03/2015 Overview: No, Advance Directive brochure given to patient. 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 Urge incontinence 01/26/2002 05/03/2015 Rosacea 11/21/2016 documented as of this encounter (statuses as of 02/26/2023) Immunizations Name Administration Dates Next Due COVID-19 mRNA, LNP-s, No Pre serve, 2-Dose Series (Moderna) 04/14/2020,03/10/2020 COVID-19, mRNA, LNP-s, PF, B ooster, 100mcg/0.5mg (Moderna) 12/15/2020 Covid-19, Mrna, Lnp-s, Pf, B ivalent, 50 Mcg, IM, 12 yrs and above (Moderna) 11/23/2021 Hepatitis B, 20+ yrs 09/11/2021,04/17/2021,03/14 PPD 07/10/2015, 4,06/26/2011,05/19,05/10/2009,04/15/2007,03/19/19 06 Pneumococcal Conjugate Vacc, 13 Valent (Prevnar) 09/02/2019 Pneumococcal Polysaccharide PPV23 (Pneumovax) 09/01/2020,03/18/2013 Season Influenza, Quad, PF, Adjuvanted, 65+ Yrs, IM (FLUAD) 11/27/2021,11/30/2019 Seasonal Influenza, PF, 6 M & above, IM , (FluLaval or Fluzone) 10/22/2018,11/04/2017,11/28/2016 Seasonal Influenza, Quadriva lent Hd (Fluzone Hd) 11/06/2022 Seasonal Influenza, Quadriva lent, No Preserve, IM 11/04/2020,12/12/2015,11/14/2014 Seasonal Influenza, Split, I IV3, With Preserve, Inj 11/08/2013,11/12/2012,11/25/2011,12/18,11/15/2009,12/08/2008,12/28/19 08,12/24/2006,03/19/2005 TD, Preservative Free 01/05/2020 TDAP (age 11 and older)(Adacel) 05/16/2010 05/16/2020 Varicella Zoster Vaccine (Adult) 09/21/2020,02/18 Zoster Vaccine Recombinant (Shingrix) 02/06/2021 ,10/11/2020 documented as of this encounter Social History Tobacco Use Types Packs/Day Years Used Date Smoking Tobacco: Never Passive Smoke Exposure: Current Smokeless Tobacco: Never Alcohol Use Standard Drinks/Week Comments No 0 (1 standard drink = 0.6 oz pur e alcohol) PHQ-2 Answer Date Recorded PHQ Adult Total Score 0 01/10/2023 Hunger Vital Sign Answer Date Recorded Within the past 12 months, y ou worried that your food would run out before you got the money to buy more. Never true 01/11/20 23 Within the past 12 months, t he food you bought just didn't last and you didn't have money to get more. Never true 01/10/2023 Sex and Gender Information Value Date Recorded Sex Assigned at Female 07/31/2022 3:07 PM EDT Gender Identity Female 07/31/2022 3:07 PM EDT Sexual Orientation Straight 03/30/2020 10 :20 AM EST Job Start Date Occupation Industry Not on file Not on file Not on file documented as of this encounter Miscellaneous Notes * Telephone Encounter - Vipul Fraias [facility] - 02/26/2023 9:48 PM EST Signed Prescriptions: Disp Refills amLODIPine Besylate 5 MG Oral Tablet (Norv*93 Tab*3 Sig: Take 1 Tablet by mouth in the morning.Authorizing Provider: TEQUILA FU User: COOPER FARIAS traZODone HCl 50 MG Oral Tablet (Desyrel) 93 Tab*3 Sig: TAKE 1 TABLET BY MOUTH AT BEDTIMEAuthorizing Provider: TEQUILA FU User: VIPUL FARIAS documented in this encounter Plan of Treatment Upcoming Encounters Date Type Department Care Team (Late st Contact Info) Description 03/12/2023 4:20 PM EST Office Visit [facility] [address] [place] [address] Tequila Fu MD [address] [place] [phone] 03/13/2023 11:30 AM EST Office Visit Orthopaedics [address] [place] [address] Sourav Parry PA-C [address] [place] [address] 04/02/2023 1:00 PM EST Office Visit Orthopaedics [facility] [address] [place] [address] Juan No PA-C [address] [place] [address] 05/16/2023 9:00 AM EDT Office Visit Rheumatology [facility] [address] [facility] [place] [address] Hussain Agudelo CRNP [address] [facility] [place] [address] 10/29/2023 10:00 AM EDT Office Visit Neurology [facility] [address] [place] [address] Annabelle Lewis PA-C [address] [place] [address] 01/19/2024 1:00 PM EST [facility] [place] [address] [facility] [phone] Kody Wright MD [address] [place] [facility] [place] [address] 02/06/2024 12:00 PM EST Cardiac Studies Cardiac Studies, [place] [address] [place] [facility] [place] [address] Scheduled Procedures Name Priority Associated Diagnoses Date/Ti me COLONOSCOPY FLEXIBLE PROXIMAL DIAGNOSTIC Recall History of colon polyps Health Maintenance Due Date Last Done Comments COVID-19 Vaccine ( season) 2022 11/23/2021, 12/15/2020, 04/14/2020, Additional history exists Mammogram 04/02/2023 04/02/2022, 030 04/2021, 03/30/2021, Additional history exists GFR 12/07/2023 12/06/2022, 050 09/2022, 09/24/2021, Additional history exists Depression Screening 01/11/2024 01/10/2023 DXA Scan 05/27/2024 05/27/2022, 0 08/2020, 09/02/2017, Additional history exists Albumin/Creatinine Ratio 03/11/2025 03/11/2022, 01/17 Diabetes Screening 12/06/2025 12/06/2022, 0 06/24/2022, 09/24/2021, Additional history exists COLONOSCOPY-EVERY 5 YRS AGES 18-100 04/05/2026 04/05/2021, 03/24/2019, 05/01/2018, Additional history exists Lipid Panel 12/07/2027 12/06/2022, 12/19, 02/01/2021, Additional history exists DTaP,Tdap,and Td Vaccines (3 - Td or Tdap) 01/04/2030 01/05/2020, 05/16/2010, 06/24/2000 Pneumococcal Vaccine: 65+ Years Completed 09/01/2020, 09/02/2019, 03/18/2013 Zoster Vaccines Completed 02/06/2021, 09/18, 09/21/2020, Additional history exists COLONOSCOPY-ANNUAL AGES 18-100 Discontinued 04/05/2021, 03/24/2019, 05/01/2018, Additional history exists Hepatitis B Completed 09/11/2021, 0302/2021, 03/14/2021 VITAMIN D LEVEL ONCE IN A LIFETIME-USE SMARTSET# 20555 Completed 03/15/2022, 01/07/2022, 11/15/2021, Additional history exists Influenza Vaccine (FLU shot) Completed 11/06/2022, 11/27/2021, 11/04/2020, Additional history exists GARDASIL-HPV IMMUNIZATION SERIES Aged Out No longer eligible based on patient's age to complete this topic MENINGOCOCCAL (MENACTRA/MENVEO) Aged Out No longer eligible based on patient's age to complete this topic documented as of this encounter Medical Devices Implanted Type Area Core Cleaner Device Identifier Shelf Expiration Date Model / Serial / Lot Lens Intraoc 16.0 - [id number] - [id number] Implanted:Qty: 1 on 05/30/2020 by Hoang Kyle MD at OR [facility] Right: Eye [employer] 12/17/2024 [id number] / [id number] / Lens Intraoc 16.5 - [id number] - [id number] Implanted:Qty: 1 on 06/13/2020 by Hoang Kyle MD at OR [facility] Left: Eye [employer]OM[employer] 06/16/2024 [id number] / [id number] / [id number] documented as of this encounter Visit Diagnoses Diagnosis Other insomnia documented in this encounter Care Teams Flux Plant Operator Relationship Specialty Start Date End Date Tequila Fu MD [address] [place] [address] PCP - General 06/08/02 documented as of this encounter
--- OUTSIDE RECORDS SUMMARY | 2023-03-11 06:58 | External Medical Summary | Summary of Care ---
Author Name Unknown Organization [facility] Address [address] [place] [address] Phone [phone] Care Team Providers Care Fbi Field Agent Name Role Phone Naresh Fu MD Primary Care Provider [phone] Encounter Details Date Type Department Care Team (Latest Contact Info) Description 02/22/2023 8:40 AM EST - 02/22/2023 11:59 PM EST Hospital Encounter Radiology Film File [address], [place] [phone] Arrived Discharge Disposition: Home - Self Care Allergies Active Allergy Reactions Criticality Noted Date Comments Adhesive Tape Rash 03/16/2004 documented as of this encounter (statuses as of 02/25/2023) Medications Medication Sig Dispensed Refills Start Date End Date Status Diapers & Supplies MISCIndications:Mixe d incontinence Use when out of the home for bladder leakage 60 Each 5 05/21/2016 Active Losartan Potassium 25 MG Oral Tablet (Cozaar)Indications: HTN, goal below 130/80 Take 1 Tablet by mouth in the morning. 90 Tablet 3 06/12/2022 Active amLODIPine Besylate 5 MG Oral Tablet (Norvasc) Take 1 Tablet by mouth in the morning. 90 Tablet 2 06/13/2022 Active Divalproex Sodium ER 500 MG Oral [...] 8 mg per 24 hours. 0 Active traZODone HCl 50 MG Oral Tablet (Desyrel)Indications :Other insomnia 1 tab by mouth every other day at bedtime x 30 days (this should be taken on opposite day of Lorazepam). After 30 days, increase to one at bedtime every evening 30 Tablet 5 08/22/2022 Active One Daily Essential Oral Tablet TAKE 1 TABLET BY MOUTH EVERY DAY 31 Tablet 4 10/28/2022 Active Aspirin 81 MG Oral Tablet Chewable (Aspirin Low Dose)Indications:Str keyona, small vessel (HCC) Chew 1 tablet by mouth daily With food. 31 Tablet 5 11/26/2022 Active lamoTRIgine 100 MG Oral Tablet (LaMICtal)Indication s:Convulsions, unspecified convulsion type (HCC),Generalized convulsive epilepsy without intractable epilepsy (HCC) TAKE 1 TABLET BY MOUTH TWICE DAILY 62 Tablet 5 11/27/2022 Active oxyBUTYnin Chloride ER 5 MG Oral Tablet Extended Release 24 Hour (Ditropan XL) TAKE 1 TABLET BY MOUTH IN THE MORNING AND 2 TABLETS AT BEDTIME FOR BLADDER 93 Tablet 5 11/26/2022 Active levETIRAcetam 500 MG Oral Tablet (Keppra)Indications: Convulsions, unspecified convulsion type (HCC),Generalized nonconvulsive epilepsy without [...] MORNING 31 Tablet 5 11/26/2022 Active MEDICAL INSTRUCTIONSIndicati ons:Need for COVID-19 vaccine Okay for pt to receive Covid vaccine 1 Each 1 11/27/2022 Active Carbamide Peroxide 6.5 % Otic Solution (Debrox)Indications: Bilateral impacted cerumen Instill 5 Drops into both ears as needed (ear wax). 15 mL 1 01/17/2023 Active Cefdinir 300 MG Oral Capsule (Omnicef) Take 1 Capsule by mouth in the morning and 1 Capsule before bedtime. 0 Active Omeprazole 20 MG Oral Capsule Delayed Release (PriLOSEC)Indication s:Gastroesophageal reflux disease, unspecified whether esophagitis present Take 1 Capsule by mouth in the morning. 1 cap 5 days per week x 3 weeks (do not take Mon and Fri) then 1 cap 4 days per week x 3 weeks(do not take Mon, Wed, Fri) then 1 cap 3 days per week x 3 weeks (take on Mon, Fri, Fri) then 1 cap 2 days per week x 3 weeks (Take on Fri, Fri) then stop. 90 Capsule 1 01/24/2023 Active Famotidine 20 MG Oral Tablet (Pepcid)Indications: Gastroesophageal reflux disease, unspecified whether esophagitis present Take 1 Tablet by mouth daily as needed for Heartburn. 30 Tablet 11 01/24/2023 Active documented as of this encounter (statuses as of 02/25/2023) Active Problems Problem Noted Date Diagnosed Date Osteoporosis 12/13/2021 Ambulatory dysfunction 11/30/2019 Gait disturbance 07/07/2019 Microscopic colitis 07/07/2019 Senile osteoporosis 12/22/2018 History of stroke 05/13/2018 HTN, goal below 130/80 08/01/2017 Vitamin D deficiency 03/25/2013 Insomnia 03/18/2012 Urinary incontinence 06/08/2009 Overview: ICD-10 update of inactive term BRUIT, ABDOMINAL 04/14/2003 Learning disorder 10/29/2001 GENERALIZED CONVULSIVE EPILE PSY; WITHOUT MENTION OF INTRACTABLE EPILEPSY Cerebral palsy documented as of this encounter (statuses as of 02/25/2023) Resolved Problems Problem Noted Date Diagnosed Date [...] as of this encounter (statuses as of 02/25/2023) Immunizations Name Administration Dates Next Due COVID-19 [...] on file documented as of this encounter Plan of Treatment Upcoming Encounters Date Type Department Care Team (Late st Contact Info) Description 02/26/2023 12:40 PM EST Office Visit [place] [address] [place] [facility] [place] [phone] Kody Wright MD [address] [place] [address] 03/12/2023 4:20 PM EST Office Visit [place] [address] [place] [facility] [phone] Naresh Fu MD [address] [place] [address] 03/13/2023 11:30 AM EST Office Visit Orthopaedics [facility] [address] [facility] [place] [address] Sourav Parry PA-C [address] [place] [address] 04/02/2023 1:00 PM EST Office Visit [facility] [address] [facility] [place] [address] Juan No [facility]-C [address] [facility] [place] [address] 05/16/2023 9:00 AM EDT Office Visit Rheumatology [place] [address] [facility] [place] [address] Hussain Agudelo CRNP [facility] [place] [address] 10/29/2023 10:00 AM EDT Office Visit Neurology [facility] [address] [place] [address] Annabelle Lewis PA-C [address] [place] [address] 01/19/2024 1:00 PM EST [facility] [place] [address] [facility] [place] [phone] JuneKody MD [address] [facility] [place], [place] [phone] 02/06/2024 12:00 PM EST Cardiac Studies Cardiac Studies, [place] [address] [place] [address] Scheduled Procedures Name Priority Associated Diagnoses Date/Ti me COLONOSCOPY FLEXIBLE PROXIMAL DIAGNOSTIC Recall History of colon polyps Health Maintenance Due Date Last Done Comments COVID-19 Vaccine ( season) 2022 11/23/2021, 12/15/2020, 04/14/2020, Additional history exists Mammogram 04/02/2023 04/02/2022, 0304/2021, 03/30/2021, Additional history exists GFR 12/07/2023 12/06/2022, 0 09/2022, 09/24/2021, Additional history exists Depression Screening 01/11/2024 01/10/2023 DXA Scan 05/27/2024 05/27/2022, 040 08/2020, 09/02/2017, Additional history exists Albumin/Creatinine Ratio [...] D LEVEL ONCE IN A LIFETIME-USE SMARTSET# [id number] Completed 03/15/2022, 01/07/2022, 11/15/2021, Additional history exists Influenza Vaccine (FLU shot) Completed 11/06/2022, 11/27/2021, 11/04/2020, Additional history exists GARDASIL-HPV IMMUNIZATION SERIES Aged Out No longer eligible based on patient's age to complete this topic MENINGOCOCCAL (MENACTRA/MENVEO) Aged Out No longer eligible based on patient's age to complete this topic documented as of this encounter Medical Devices Implanted Type Area Application Software Engineer Device Identifier Shelf Expiration Date Model / Serial / Lot Lens Intraoc 16.0 - [id number] - [id number] Implanted:Qty: 1 on 05/30/2020 by Hoang Kyle MD at OR [facility] Right: Eye [employer] 12/17/2024 [id number] / [id number] / Lens Intraoc 16.5 - [id number] - [id number] Implanted:Qty: 1 on 06/13/2020 by Hoang Kyle MD at OR [facility] Left: Eye [employer] 06/16/2024 [id number] / [id number] / [id number] documented as of this encounter Procedures Procedure Name Priority Date/Time Associated Diagnosis Comments RADIOLOGY EXAM - GENERAL RAD (IMAGES ONLY,NO REPORT) Routine 02/22/2023 8:40 AM EST documented in this encounter Results * RADIOLOGY EXAM - GENERAL RAD (IMAGES ONLY,NO REPORT) (02/22/2023 8:40 AM EST) 02/22/2023 8:34 AM EST Narrative Scheduling, Silent - 02/24/2023 6:59 PM EST This is an imaging study not interpreted or resulted by a [facility] or [facility] contracted radiologist. Naomie Anne MD RADIOLOGY ([facility]) documented in this encounter Care Teams Fbi Field Agent Relationship Specialty Start Date End Date Naresh Fu MD [address] [facility] [place] [phone] PCP - General 06/08/02 documented as of this encounter
--- OUTSIDE RECORDS SUMMARY | 2023-03-11 06:58 | External Medical Summary | Summary of Care ---
Author Name Unknown Organization [facility] Address [address] [facility] [address] Phone [phone] Care Team Providers Care Inserting Machine Operator Name Role Phone Naresh Fu MD Primary Care Provider [phone] Encounter Details Date Type Department Care Team (Late st Contact Info) Description 02/22/2023 Orders Only Orthopaedics [facility] [address] [place] [address] Naomie Anne MD [address] [place] [address] Allergies Active Allergy Reactions Criticality Noted Date Comments Adhesive Tape Rash 03/16/2004 documented as of this encounter (statuses as of 02/24/2023) Medications Medication Sig Dispensed Refills Start Date [...] week x 3 weeks(do not take Mon, Fri, Fri) then 1 cap 3 days per [...] as of this encounter (statuses as of 02/24/2023) Active Problems Problem Noted Date Diagnosed Date [...] as of this encounter (statuses as of 02/24/2023) Resolved Problems Problem Noted Date Diagnosed Date [...] as of this encounter (statuses as of 02/24/2023) Immunizations Name Administration Dates Next Due COVID-19 [...] Description 02/26/2023 12:40 PM EST Office Visit [facility] [address] [place] [facility] [place] [address] Kody Wright MD [address] [place] [address] 03/12/2023 4:20 PM EST Office Visit [facility] [place] [address] [place] [facility] [place] [address] Naresh Fu MD [address] [place] [address] 03/13/2023 11:30 AM EST Office Visit Orthopaedics [facility] [address] [facility] [place] [address] Sourav Parry PA-C [address] [place] [address] 04/02/2023 1:00 PM EST [facility] [address] [facility] [place] [address] Juan No PA-C [address] [facility] [place] [address] 05/16/2023 9:00 AM EDT Office Visit Rheumatology [facility] [address] [facility] [place] [address] Hussain Agudelo CRNP [address] [facility] [place] [address] 10/29/2023 10:00 AM EDT Office Visit Neurology [facility] [address] [place] [address] Annabelle Lewis PAAlvinC [address] [place] [address] 01/19/2024 1:00 PM EST Office Visit Family [facility] [place] [address] [facility] [place] [address] JuneKody MD [address] [facility] [place] [id number] 02/06/2024 12:00 PM EST Cardiac Studies [facility] [place] [address] [facility] [place] [address] Scheduled Procedures Name Priority Associated Diagnoses Date/Ti me COLONOSCOPY FLEXIBLE PROXIMAL DIAGNOSTIC Recall History of colon polyps Health Maintenance Due Date Last Done Comments COVID-19 Vaccine ( season) 2022 11/23/2021, 12/15/2020, 04/14/2020, Additional history exists Mammogram 04/02/2023 04/02/2022, 030 04/2021, 03/30/2021, Additional history exists GFR 12/07/2023 12/06/2022, 05/0 09/2022, 09/24/2021, Additional history exists Depression Screening 01/11/2024 01/10/2023 DXA Scan 05/27/2024 05/27/2022, 04/0 08/2020, 09/02/2017, Additional history exists Albumin/Creatinine Ratio [...] Additional history exists Hepatitis B Completed 09/11/2021, 02/2021, 03/14/2021 VITAMIN D LEVEL ONCE IN A LIFETIME-USE SMARTSET# 56360 Completed 03/15/2022, 01/07/2022, 11/15/2021, Additional history exists Influenza Vaccine (FLU shot) Completed 11/06/2022, 11/27/2021, 11/04/2020, Additional history exists GARDASIL-HPV IMMUNIZATION SERIES Aged Out No longer eligible based on patient's age to complete this topic MENINGOCOCCAL (MENACTRA/MENVEO) Aged Out No longer eligible based on patient's age to complete this topic documented as of this encounter Medical Devices Implanted Type Area Guest Relations Receptionist Device Identifier Shelf Expiration Date Model / Serial / Lot Lens Intraoc 16.0 - [id number] - [id number] Implanted:Qty: 1 on 05/30/2020 by Hoang Kyle MD at OR [facility] Right: Eye [employer] 12/17/2024 [id number] / [id number] / Lens Intraoc 16.5 - [id number] - [id number] Implanted:Qty: 1 on 06/13/2020 by Hoang Kyle MD at OR [facility] Left: Eye [employer]OM[employer] 06/16/2024 [id number] / [id number] / [id number] documented as of this encounter Procedures Procedure Name Priority Date/Time Associated Diagnosis Comments RADIOLOGY EXAM - GENERAL RAD (IMAGES ONLY,NO REPORT) Routine 02/22/2023 8:35 AM EST documented in this encounter Results * RADIOLOGY EXAM - GENERAL RAD (IMAGES ONLY,NO REPORT) (02/22/2023 8:35 AM EST) 02/22/2023 8:34 AM EST Narrative Scheduling, Silent - 02/24/2023 6:57 PM EST This is an imaging study not interpreted or resulted by a [facility] or [facility] contracted radiologist. Naomie Anne MD RADIOLOGY ([facility]) documented in this encounter Care Teams Inserting Machine Operator Relationship Specialty Start Date End Date Naresh Fu MD [address] [place] [address] PCP - General 06/08/02 documented as of this encounter
--- OUTSIDE RECORDS SUMMARY | 2023-03-11 06:58 | External Medical Summary | Summary of Care ---
Author Name Unknown Organization [facility] Address [address] [place] [address] Phone [phone] Care Team Providers Care Assistant Center Director Name Role Phone Naresh Fu MD Primary Care Provider Reason for Visit * Reason Comments Emergency Department Follow-Up Encounter Details Date Type Department Care Team (Late st Contact Info) Description 02/26/2023 12:40 PM EST Office Visit [facility] [address] [place] [address] JuneKody MD [address] [place], [place] [phone] Cerebral palsy, unspecified type (HCC)*; Personal history of fall; Generalized convulsive epilepsy without intractable epilepsy (HCC); Ascending aorta dilatation (HCC); Other osteoporosis, unspecified pathological fracture presence; Stress fracture of right femur, sequela; Immunization due Allergies Active Allergy Reactions Criticality Noted Date [...] for Heartburn. 30 Tablet 11 01/24/2023 Active COVID-19 mRNA Vaccine 12 years and above [employer] 30 MCG/0.3 ML IM SUSPIndications:Im munization due Inject 0.3 mL into a large muscle once for 1 dose. 0.3 mL 0 02/26/2023 02/26/19 24 Active Cefdinir 300 MG Oral Capsule (Omnicef) Take 1 Capsule by mouth in the morning and 1 Capsule before bedtime. 0 02/26/19 24 Discontinued documented as of this [...] on file documented as of this encounter Last Filed Vital Signs Vital Sign Reading Time Taken Comments Blood Pressure 100/60 02/26/2023 12:49 PM EST Pulse 76 02/26/2023 12:49 PM EST Temperature 36.5 C (97.7 F) 02/26/2023 12:[address] Respiratory Rate 16 02/26/2023 12:49 PM EST Oxygen Saturation - - Inhaled Oxygen Concentration - - Weight - - Height - - Body Mass Index - - documented in this encounter Progress Notes * Kody Wright MD - 02/26/2023 12:56 PM EST Images from the original note were not included. Assessment and Plan 1. Personal history of fall Negative imaging in ED. Continue tylenol, heat/ice for pain control. Working on getting silent bed/chair alarms to reduce risk of future falls. Will benefit from PT once next steps in stress fracturehave resolved. 2. Cerebral palsy, unspecified type (HCC) 3. Generalized convulsive epilepsy without intractable epilepsy (HCC) Continue lamictal and keppra. 4. Ascending aorta dilatation (HCC) 5. Other osteoporosis, unspecified pathological fracture presence 6. Stress fracture of right femur, sequela Following with orthopedics. Next appointment 03/13/2023. 7. Immunization due - COVID-19 mRNA Vaccine 12 years and above Pfizer 30 MCG/0.3 ML IM SUSP; Inject 0.3 mL into a largemuscle once for 1 dose. Dispense: 0.3 mL; Refill: 0 Wrap-Up Follow up as needed. History of Present Illness The patient is a 68-year-old female with past medical history of cerebral palsy, hypertension, osteoporosis, frequent falls who presents for ED follow up. Patient was seen in the ED on 02/22/2023. Patient presented to the ED after a fall during transfer. No infectious signs, change in mental status. At the time she was complaining of right-sided headache, neck pain, hip pain. CT of the head and cervical spine were completed and were unremarkable. X-ray of the chest was unremarkable. She doeshave a known stress fracture of the right proximal femur noted on the pelvic and femur x-ray. She was given Tylenol for pain control and was discharged to home. She does not take any anticoagulants. Patient has recently followed with orthopedics for the known stress fracture of the right femur. Awaiting evaluation by Orthopedic surgery scheduled for 03/13/2023. Today patient reports she overall feels well. She has some soreness on the right side of the body where she took the brunt of the fall. She was eating and drinking normally. No headache. No neurologic changes. She was COVID recovered and is now 90 days post infection. Order for COVID booster was sent to pharmacy. Physical Exam Vitals: 02/26/23 1249 Temp: 36.5 C (97.7 F) Pulse: 76 Resp: 16 BP: 100/60 Physical Exam Physical Exam Vitals reviewed. Constitutional: General: She is not in acute distress. Comments: Using wheelchair for mobility. Cardiovascular: Rate and Rhythm: Normal rate and regular rhythm. Heart sounds: No murmur heard. Pulmonary: Effort: Pulmonary effort is normal. No respiratory distress. Breath sounds: Normal breath sounds. No wheezing. Musculoskeletal: Comments: Bruising just inferior to the right knee. No bruising noted at the right hip or right chest wall. Neurological: Mental Status: She is alert. Comments: Chronic right-sided deficits. documented in this encounter Nursing Notes * Prabha Gonzáles LPN - 02/26/2023 12:48 PM EST The patient has been properly identified by confirmation of name and date of . Chief Complaint Patient presents with Emergency Department Follow-Up documented in this encounter Plan of Treatment Upcoming Encounters Date Type Department Care Team (Late st Contact Info) Description 03/12/2023 4:20 PM EST Office Visit [facility] [address] [place] [address] Naresh Fu MD [address] [place] [facility] [place] [address] 03/13/2023 11:30 AM EST Office Visit Orthopaedics [facility] [address] [facility] [place] [address] Sourav Parry PA-C [address] [place] [address] 04/02/2023 1:00 PM EST Office Visit Orthopaedics [facility] [address] [facility] [place] [address] Juan No PA-C [address] [facility] [place] [address] 05/16/2023 9:00 AM EDT Office Visit Rheumatology [facility] [address] [facility] [place] [address] Hussain Agudelo CRNP [address] [facility] [place] [address] 10/29/2023 10:00 AM EDT Office Visit Neurology [facility] [address] [facility] [place] [address] Annabelle Lewis PALeanne [address] [facility] [place] [address] 01/19/2024 1:00 PM EST Office Visit [facility] [address] [facility], [place] [address] Kody Wright MD [address] [facility] [address] 02/06/2024 12:00 PM EST Cardiac Studies [facility] [place] [address] [place] [address] Scheduled Procedures Name Priority Associated Diagnoses Date/Ti me COLONOSCOPY FLEXIBLE PROXIMAL DIAGNOSTIC Recall History of colon polyps Health Maintenance Due Date Last Done Comments COVID-19 Vaccine ( season) 2022 11/23/2021, 12/15/2020, 04/14/2020, Additional history exists Mammogram 04/02/2023 04/02/2022, 0 04/2021, 03/30/2021, Additional history exists GFR 12/07/2023 [...] Additional history exists Hepatitis B Completed 09/11/2021, 03/0 02/2021, 03/14/2021 VITAMIN D LEVEL ONCE IN A LIFETIME-USE SMARTSET# [id number] Completed 03/15/2022, 01/07/2022, 11/15/2021, Additional history exists Influenza Vaccine (FLU shot) Completed 11/06/2022, 11/27/2021, 11/04/2020, Additional history exists GARDASIL-HPV IMMUNIZATION SERIES Aged Out No longer eligible based on patient's age to complete this topic MENINGOCOCCAL (MENACTRA/MENVEO) Aged Out No longer eligible based on patient's age to complete this topic documented as of this encounter Medical Devices Implanted Type Area Vault Clerk Device Identifier Shelf Expiration Date Model / Serial / Lot Lens Intraoc 16.0 - [id number] - [id number] Implanted:Qty: 1 on 05/30/2020 by Hoang Kyle MD at OR [facility] Right: Eye [employer] 12/17/2024 [id number] / [id number] / Lens Intraoc 16.5 - [id number] - [id number] Implanted:Qty: 1 on 06/13/2020 by Hoang Kyle MD at OR [facility] Left: Eye [employer]OM[employer] 06/16/2024 [id number] / [id number] / [id number] documented as of this encounter Visit Diagnoses Diagnosis Cerebral palsy, unspecified type (HCC)- Primary Personal history of fall Generalized convulsive epilepsy without intractable epilepsy (HCC) Generalized convulsive epilepsy without mention of intractable epilepsy Ascending aorta dilatation (HCC) Thoracic aortic ectasia Other osteoporosis, unspecified pathological fracture presence Stress fracture of right femur, sequela Immunization due Need for prophylactic vaccination and inoculation against unspecified single disease documented in this encounter Care Teams Assistant Center Director Relationship Specialty Start Date End Date Naresh Fu MD [address] [place] [address] PCP - General 06/08/02 documented as of this encounter
--- OUTSIDE RECORDS SUMMARY | 2023-03-11 06:58 | External Medical Summary | Summary of Care ---
Author Name Unknown Organization [facility] Address [address] [place] [address] Phone [phone] Care Team Providers Care Home Connect Lpn Name Role Phone Naresh Fu MD Primary Care Provider [phone] Encounter Details Date Type Department Care Team (Latest Contact Info) Description 02/22/2023 8:35 AM EST - 02/22/2023 8:39 AM EST Hospital Encounter Radiology Film File [address] [place], [place] [id number] Arrived Discharge Disposition: Home - Self Care [...] Description 02/26/2023 12:40 PM EST Office Visit [place] [address] [facility] [place] [phone] Kody Wright MD [address] [place] [address] 03/12/2023 4:20 PM EST Office Visit [place] [address] [facility] [place] [address] Naresh Fu MD [address] [place] [address] 03/13/2023 11:30 AM EST Office Visit Orthopaedics [facility] [address] [facility] [place] [address] Sourav Parry PA-C [address] [place] [address] 04/02/2023 1:00 PM EST Office Visit [facility] [place] [address] Juan No PA-C [address] [facility] [place] [address] 05/16/2023 9:00 AM EDT Office Visit Rheumatology [place] [address] [facility] [place] [address] Hussain Agudelo CRNP [facility] [place] [address] 10/29/2023 10:00 AM EDT Office Visit Neurology [facility] [address] [place] [address] Annabelle Lewis PA-C [address] [place] [address] 01/19/2024 1:00 PM EST [facility] [place] [address] [facility] [place] [phone] JuneKody MD [address] [facility] [place], [place] [phone] 02/06/2024 12:00 PM EST Cardiac Studies [facility], [place] [address] [place] [address] Scheduled Procedures Name Priority Associated Diagnoses Date/Ti [...] D LEVEL ONCE IN A LIFETIME-USE SMARTSET# [id number] Completed 03/15/2022, 01/07/2022, 11/15/2021, Additional history exists Influenza Vaccine (FLU shot) Completed 11/06/2022, 11/27/2021, 11/04/2020, Additional history exists GARDASIL-HPV IMMUNIZATION SERIES Aged Out No longer eligible based on patient's age to complete this topic MENINGOCOCCAL (MENACTRA/MENVEO) Aged Out No longer eligible based on patient's age to complete this topic documented as of this encounter Medical Devices Implanted Type Area Television Announcer Device Identifier Shelf Expiration Date Model / Serial / Lot Lens Intraoc 16.0 - [id number] - [id number] Implanted:Qty: 1 on 05/30/2020 by Hoang Kyle MD at OR [facility] Right: Eye [employer] 12/17/2024 [id number] / [id number] / Lens Intraoc 16.5 - [id number] - [id number] Implanted:Qty: 1 on 06/13/2020 by Hoang Kyle MD at OR [facility] Left: Eye [employer] 06/16/2024 [id number] / [id number] / [id number] documented as of this encounter Procedures Procedure [...] interpreted or resulted by a [facility] or [facility]ologist. Naomie Anne MD RADIOLOGY ([facility]) documented in this encounter Care Teams Home Connect Lpn Relationship Specialty Start Date End Date Naresh Fu MD [address] [facility] [place] [phone] PCP - General 06/08/02 documented as of this encounter
--- OUTSIDE RECORDS SUMMARY | 2023-03-11 06:58 | External Medical Summary | Summary of Care ---
Author Name Unknown Organization [facility] Address [address] [facility] [address] Phone [phone] Care Team Providers Care Rfid Developer Name Role Phone Naresh Fu MD Primary Care Provider [phone] Encounter Details Date Type Department Care Team (Late st Contact Info) Description 02/22/2023 Orders Only Orthopaedics [facility] [address] [place] [address] Naomie Anne MD [address] [place] [address] Allergies Active Allergy Reactions Criticality Noted Date [...] Description 02/26/2023 12:40 PM EST Office Visit [facility] [address] [place] [facility] [address] Kody Wright MD [address] [place] [address] 03/12/2023 4:20 PM EST Office Visit [facility] [place] [address] [place] [facility] [address] Naresh Fu MD [address] [place] [address] 03/13/2023 11:30 AM EST Office Visit Orthopaedics [facility] 132 [facility] [place] [address] Sourav Parry PA-C [address] [place] [address] 04/02/2023 1:00 PM EST [facility] [address] [facility] [place] [address] Juan No PA-C 132 [facility] [place] [address] 05/16/2023 9:00 AM EDT Office Visit Rheumatology [facility] [address] [facility] [place] [address] Hussain Agudelo CRNP [address] [facility] [place] [address] 10/29/2023 10:00 AM EDT Office Visit Neurology [facility] [address] [place] [address] Annabelle Lewis PAAlvinC [address] [place] [address] 01/19/2024 1:00 PM EST Office Visit Family [facility] [place] [address] [place] [facility] [place] [address] JuneKody MD [address] [facility] [place] [phone] 02/06/2024 12:00 PM EST Cardiac Studies [facility], [place] [address] [place] [facility] [place] [address] Scheduled Procedures Name Priority Associated Diagnoses [...] D LEVEL ONCE IN A LIFETIME-USE SMARTSET# [id number] Completed 03/15/2022, 01/07/2022, 11/15/2021, Additional history exists Influenza Vaccine (FLU shot) Completed 11/06/2022, 11/27/2021, 11/04/2020, Additional history exists GARDASIL-HPV IMMUNIZATION SERIES Aged Out No longer eligible based on patient's age to complete this topic MENINGOCOCCAL (MENACTRA/MENVEO) Aged Out No longer eligible based on patient's age to complete this topic documented as of this encounter Medical Devices Implanted Type Area Accountant Assistant Device Identifier Shelf Expiration Date Model / Serial / Lot Lens Intraoc 16.0 - [id number] - [id number] Implanted:Qty: 1 on 05/30/2020 by Hoang Kyle MD at OR [facility] Right: Eye [employer] 12/17/2024 [id number] / [id number] / Lens Intraoc 16.5 - [id number] - [id number] Implanted:Qty: 1 on 06/13/2020 by Hoang Kyle MD at OR [facility] Left: Eye [employer] 06/16/2024 [id number] / [id number] / [id number] documented as of this encounter Procedures Procedure [...] [facility]. Naomie Anne MD RADIOLOGY ([facility]) documented in this encounter Care Teams Rfid Developer Relationship Specialty Start Date End Date Naresh Fu MD [address] [place] [address] PCP - General 06/08/02 documented as of this encounter
--- OUTSIDE RECORDS SUMMARY | 2023-03-11 06:59 | External Medical Summary | Summary of Care ---
Author Name Unknown Organization [facility] Address [address] [place] [place] [address] Phone [phone] Care Team Providers Care Agricultural Equipment Test Engineer Name Role Phone Naresh Fu MD Primary Care Provider [phone] Reason for Referral * Evaluate & Treat - Unlimited Visits (Within 10 days (routine)) - Authorized Specialty Diagnoses / Procedures Referred By Trent norris Referred To Contact Orthopaedic Surgery / Orthopedics Diagnoses Stress fracture of right femur, initial encounter Naomie Anne MD [address] [place] [address] Referral ID Status Reason Start Date Expiration Date Visits Requested Visits Authorized [id number] Authorized Specialty Services Required 02/24/2023 999 999 Question Answer Referral Priority Within 10 days (routine) Where should this appointment be scheduled? [facility] What body part is the patient being seen for? Thigh/Knee What condition is the patient being seen for? Fracture including related infection Reason for Visit * Reason Comments Follow Up Right hip Encounter Details Date Type Department Care Team (Late st Contact Info) Description 02/24/2023 12:30 PM EST Office Visit Orthopaedics [facility] [address] [address] Naomie Anne MD [address] [place] [id number] Stress fracture of right femur, initial encounter* Allergies Active Allergy Reactions Criticality Noted Date [...] money to buy more. Never true 01/11/20 Within the past 12 months, t he [...] on file documented as of this encounter Progress Notes * Naomie Anne MD - 02/24/2023 1:13 PM EST Cecilia Greer is a 68 year old female who presents for follow up hip pain/injury to [facility] Sports Medicine. Cecilia Greer is here unaccompanied History: Chief Complaint Patient presents with Follow Up Right hip Nursing Notes: Isabell Hackett, MED ASSIST 02/24/23 1245 Signed Pt presents today for MRI follow up on right knee, completed 02/18/22. Pt states she fell on the right side 02/22/22 Patient presents today for follow up of right hip MRI. Has had right hip pain ongoing for over 6 months but recently worsening. Has a series of falls in the past 6 months. Most recent falls in December and January. X-ray showed evidence of hip arthritis and incomplete stress reaction of the proximal femoral diaphysis. Her pain was more located in the proximal thigh. MRI ordered to stage possible stress reaction. Lives in a custodial. History of CP with right-sided weakness. Ambulates with a walker and a scooter. Review of systems: All others negative except those noted above in HPI. Physical Exam There were no vitals filed for this visit. Estimated body mass index is 27.59 kg/m as calculated from the following: Height as of 12/8/23: 1.549 m (5' 1"). Weight as of 01/17/23: 66.2 kg (146 lb). General: generally well-nourished and in no acute distress seated in a motorized wheelchair HEENT: normocephalic, atraumatic, sclera anicteric. Psych: mood and affect normal , cooperative Card: Peripheral pulses: normal in affected extremity (s) Resp: equal chest rise, non-tachypneic, non-labored breathing Skin: no rash, normal Neuro: Sensation: normal on affected extremity (s) Radiology (I have personally reviewed the following films): EXAM MRI HIP RIGHT WO CONTRAST-RT 02/18/2023 1:23 pm HISTORY Provided clinical history: "Hip pain; Fracture, known or r/o, or trauma; No fracture f/u or historyof osteoarthritis; No hip x-ray result available" COMPARISON Radiographs dated January 19, 2023 (obtained at an outside institution). TECHNIQUE Multi-planar, multi-sequence MRI of the right hip and pelvis was obtained without IV contrast. FINDINGS There is focal cortical beaking in the lateral subtrochanteric region of the right proximal femur, corresponding to findings on the comparison radiographs. The transverse fracture line itself is better visualized on the prior radiographs, and there is also edema in the adjacent bone marrow and overlying soft tissues. Appearance is consistent with an incomplete stress fracture, and the location ischaracteristic of a fracture associated with chronic bisphosphonate therapy. There is no fracture identified in the left proximal femur. Moderate osteoarthritis of both hips. Multilevel intervertebral disc degeneration and facet osteoarthritis in the visualized lumbar spine. IMPRESSION IMPRESSION Incomplete stress fracture in the lateral subtrochanteric region of the right proximal femur. The location and appearance are characteristic of a fracture related to chronic bisphosphonate therapy. Assessment and Plan: ICD-10-CM 1. Stress fracture of right femur, initial encounter M84.351A Cecilia is a pleasant 68-year-old female who is seen today for MRI review of right hip for chronic right hip pain. MRI confirmed incomplete stress fracture of the right femur subtrochanteric. Discussed findings with the patient and recommendation to meet with 1 of our orthopedic surgeons to discusspossible prophylactic arun placement especially in light of her frequent falls which place her at risk for completing the fracture. In addition, I have reached out to her rheumatology team as the stress fracture is consistent with long-term bisphosphonate use to see if they would want to change her medication treatment plan. She will follow up with primary care sports medicine as needed. The above assessment and plan were discussed at length. All questions were answered, and the patient expressed understanding. Naomie Anne MD Primary Care Sports Medicine [facility] Orthopaedics [facility] [address] [facility] [place] [id number] documented in this encounter Nursing Notes * Isabell Hackett MED ASSIST - 02/24/2023 12:44 PM EST Pt presents today for MRI follow up on right knee, completed 02/18/22. Pt states she fell on the right side 02/22/22 documented in this encounter Plan of Treatment Upcoming Encounters Date Type Department Care Team (Late st Contact Info) Description 03/12/2023 4:20 PM EST Office Visit [facility] [address] [place] [address] Naresh Fu MD [address] [place] [address] 03/13/2023 11:30 AM EST Office Visit [facility] [address] [facility] [place] [address] Sourav Parry PA-C [address] [place] [address] [place] [address] 04/02/2023 1:00 PM EST Office Visit [facility] [address] [facility] [place] [address] Juan No PA-C [address] [facility] [place] [address] 05/16/2023 9:00 AM EDT Office Visit Rheumatology [facility] [address] [facility] [place], [place] [address] Hussain Agudelo CRNP [address] [facility] [place] [address] 10/29/2023 10:00 AM EDT Office Visit Neurology [facility] [address] [facility] [place] [address] Annabelle Lewis PA-C [address] [facility] [place] [address] 01/19/2024 1:00 PM EST Office Visit [facility] [address] [place] [id number] Kody Wright MD [address] [place] [address] 02/06/2024 12:00 PM EST Cardiac Studies [facility] [place] [address], [place] [id number] Scheduled Procedures Name Priority Associated Diagnoses Date/Ti me COLONOSCOPY FLEXIBLE PROXIMAL DIAGNOSTIC Recall History of colon polyps Scheduled Referrals Name Type Priority Associated Diagnoses Order Schedule ORTHOPAEDICS REFERRAL OP Referral Within 10 days (routine) Stress fracture of right femur, initial encounter Ordered: 02/24/2023 Health Maintenance Due Date Last Done Comments COVID-19 Vaccine ( season) 2022 11/23/2021, 12/15/2020, 04/14/2020, Additional history exists Mammogram 04/02/2023 04/02/2022, 0 04/2021, 03/30/2021, Additional history exists GFR 12/07/2023 12/06/2022, 050 09/2022, 09/24/2021, Additional history exists Depression Screening 01/11/2024 01/10/2023 DXA Scan 05/27/2024 05/27/2022, 0408/2020, 09/02/2017, Additional history exists Albumin/Creatinine Ratio 03/11/2025 [...] D LEVEL ONCE IN A LIFETIME-USE SMARTSET# [id number] Completed 03/15/2022, 01/07/2022, 11/15/2021, Additional history exists Influenza Vaccine (FLU shot) Completed 11/06/2022, 11/27/2021, 11/04/2020, Additional history exists GARDASIL-HPV IMMUNIZATION SERIES Aged Out No longer eligible based on patient's age to complete this topic MENINGOCOCCAL (MENACTRA/MENVEO) Aged Out No longer eligible based on patient's age to complete this topic documented as of this encounter Medical Devices Implanted Type Area Senior Advisor Device Identifier Shelf Expiration Date Model / Serial / Lot Lens Intraoc 16.0 - [id number] - [id number] Implanted:Qty: 1 on 05/30/2020 by Hoang Kyle MD at OR [facility] Right: Eye [employer] 12/17/2024 [id number] / [id number] / Lens Intraoc 16.5 - [id number] - [id number] Implanted:Qty: 1 on 06/13/2020 by Hoang Kyle MD at [facility] Left: Eye [employer] 06/16/2024 [id number] / [id number] / [id number] documented as of this encounter Visit Diagnoses Diagnosis Stress fracture of right femur, initial encounter- Primary documented in this encounter Care Teams Agricultural Equipment Test Engineer Relationship Specialty Start Date End Date Naresh Fu MD [address] [place] [address] PCP - General 06/08/02 documented as of this encounter
[2023-03-11 07:41] LABS: Basophils # (auto) 0.01 K/uL (0.00-0.20); Basophils % (auto) 0.1 %; Hematocrit (blood only) 35.8 % (37.0-47.0); Hemoglobin 11.9 g/dl (12.0-16.0); Immature Granulocytes # (auto) 0.03 K/uL (0.01-0.20); Immature Granulocytes % (auto) 0.3 %; Lymphocytes # (auto) 1.09 K/uL (1.20-3.40); Lymphocytes % (auto) 11.6 %; Mean Corpuscular Hemoglobin 30.2 pg (25.0-34.0); Mean Corpuscular Hgb Conc 33.2 g/dL (32.0-36.0); Mean Corpuscular Volume 90.9 fL (80.0-100.0); Mean Platelet Volume 10.7 fL (9.4-12.4); Monocytes # (auto) 0.48 K/uL (0.11-0.59); Monocytes % (auto) 5.1 %; Neutrophils # (auto) 7.77 K/uL (1.40-6.50); Neutrophils % (auto) 82.9 %; Platelet Count 182 K/uL (130-400); RDW Coefficient of Variation 12.7 % (11.5-14.5); RDW Standard Deviation 42.5 fL (36.4-46.3); Red Blood Count 3.94 M/uL (4.20-5.40); White Blood Count 9.38 K/ul (4.8-10.8)
[2023-03-11 07:53] LABS: BUN Creatinine Ratio 43.4 (10-20); Calcium 8.5 mg/dl (8.6-10.3); Creatinine Clr Calc Pharmacy 88.8 ml/min; Est GFR (African American) 112.3 ml/min; Est GFR (Non-African American) 96.9 ml/min; Magnesium 1.8 mg/dl (1.7-2.4); Potassium 3.8 mmol/L (3.5-5.1)
[2023-03-11 08:00] LABS: Troponin I High Sensitivity 5.8 pg/ml (0-14)
--- NOTE | 2023-03-11 08:13 | Cardiology Consultation ---
Date of Consultation March 11, 2023 Assessment & Plan (1) Closed right femoral fracture: (2) Frequent falls: (3) Ventricular bigeminy: (4) PVC (premature ventricular contraction): (5) Prolonged QT interval: Plan IMPRESSION: Medically complex 68 year old female who presented after a mechanical fall at home-- now with a right femur fracture. Cardiology consulted due to questionable bradycardia and frequent PVCs. PLAN: Frequent PVCs: -PVCs in a bigeminy pattern, average heart rates in the 70-80s. Patient asymptomatic. -Low heart rate at home likely inaccurate due to frequent PVCs, Tele has not shown any bradycardia or pauses. -PVCs possibly increased due to pain and fatigue. -Maintain goal potassium of 4.0 and mag of 2.0-- additional supplementation to be given this am. -Future considerations for adding low dose metoprolol should frequent PVCs persist, however, hesitant to add beta osiel if patient is to have surgery for her femur fracture -Continue to monitor on telemetry while inpatient. -Echo pending to rule out structural heart disease. Prolonged QTC: >500 ms on prior EKG, possibly overestimated due to frequent PVCs. Will repeat this am. -Caution the use of QT prolonging medications Right femur fracture: -Increased pain, currently in traction. Will defer care to primary service/orthopedics. -Patient is compensated from a cardiology standpoint to proceed with surgical intervention to correct right femur fracture. Patient considered a moderate, but acceptable risk. Echo and repeat EKG pending-- further recommendations pending results. Case discussed with Dr. Yañez. I spent a total of 40 minutes on the date of service in preparation, delivery, and documentation of the care provided to the patient excluding any time spent in the performance of separately billed services. MAYANK Bob Department of Cardiology, [facility] This chart was completed in part utilizing Speech Voice Recognition Software. Grammatical errors, random word insertions, pronoun errors, and incomplete sentences are an occasional consequence of this system due to software limitations, ambient noise, and hardware issues. Any formal questions or concerns about the content, text, or information contained within the body of this dictation should be directly addressed to the provider for clarification. Supervising Physician Co-Signing Physician Notes Supervising Physician Attestation: I have personally performed a history and physical examination on the patient. I agree with the physician buyer assistant's findings and plan as documented with the following additions. Subjective: Patient seen and examined. Denies cardiac complaint. Describes having had a mechanical fall. Denies subjective palpitations. Describes chronic shortness of breath with exertion that has not changed recently. Exam: Cardiovascular: Regular rhythm, no murmurs, no edema Data: EKG performed at 03/11/2023 at 1:05 AM and interpreted independently: Sinus rhythm at 75 bpm with frequent PVCs in a pattern of ventricular bigeminy. -Significant repolarization abnormalities on the sinus beats. I believe that the computer calculated QT interval is overestimated due to the presence of the PVCs with quite QRS complexes. Repeat EKG currently pending. X-ray revealed displaced angulated fracture within the proximal shaft of the right femur per radiology report, film reviewed independently Chest x-ray without any acute cardiopulmonary abnormality as per radiology report Echocardiogram performed today and reviewed independently: Mild concentric left ventricular perjury, normal LV wall motion, LVEF in the range of 55 to 60%, mild tricuspid regurgitation, the pulmonary artery systolic pressure is estimated to be 35 to 41 mmHg (mildly elevated). Assessment and Plan: Preoperative cardiac assessment Asymptomatic PVCs -The patient's heart rate was likely falsely low as palpated on pulse due to the presence of frequent PVCs. At present, telemetry reveals sinus rhythm in the 60s to 70s with occasional PVCs, much less frequent than that which was noted at the time of the initial EKG. As noted, the prolonged QT interval is likely overestimated due to the presence of the frequent PVCs. Repeat EKG has been requested. Echocardiogram is reassuring with normal LV systolic function. Patient's kidney function electrolytes are within normal limits. Blood pressure stable. Patient stable from a cardiac perspective to proceed with orthopedic surgery with an estimated low risk of perioperative cardiac complication. DVT prophylaxis: As per the Orthopedic service I spent a total of 20 minutes on the date of service in preparation, delivery, and documentation of the care provided to this patient, excluding any time spent in the performance of separately billed services. Corey Yañez DO History of Present Illness Reason for Consultation: Preop Bradycardia and frequent PVCs Requesting Physician: Tulio xie Attending Physician: Lucian Corral MD History of Present Illness 68-year-old medically complex female who presented to [facility] emergency department this morning due to a mechanical fall onto her right hip. Patient is known to have frequent falls and as a known prior stress fracture of the right femur from a previous fall at the beginning of February. She was planning to see orthopedic surgery on 03/13. Caregiver was present for the fall and checked her pulse were rates were noted to be in the 30s and blood pressure was soft at 90-100 systolic. EKG on admit in the emergency department showed sinus rhythm with frequent PVCs in a bigeminy pattern, 75 bpm. QTc noted to be prolonged at 553 ms. Repeat EKG PENDING Blood work showed initially low potassium level 3.4, now 3.8 (supplemented). Mild hyponatremia with a sodium level of 135. Mag 1.8. High-sensitivity troponins negative x 2. Telemetry: SR with frequent PVCs in a bigeminy pattern, rates 70-80s-- seems to have lessened this am. No pauses or bradycardia. Upon entrance into the room patient resting in bed. Notes to be in a great deal of pain. Currently has the right leg in traction. Has not been sleeping well. She denies any history of chest pain. Has chronic dyspnea- unchanged over the last 6 months. No palptiations, lightheadedness or dizziness. No syncope. No orthopnea or PND. No lower extremity edema. Past medical history: Cerebral palsy Epilepsy Hypertension Ascending aorta dilation History of CVA Frequent falls Allergies Allergy/AdvReac Type Severity Reaction Status Date / Time adhesive Allergy Unknown HAPPENED Verified 03/10/23 23:00 A CHILD-"INSTRUCTED NOT TO USE ADHESIVES". Home Medications Medication Instructions Recorded Confirmed Type divalproex 500 mg tablet,extended 500 mg PO BID 01/26/18 03/10/23 History release 24 hr lamotrigine 100 mg tablet 100 mg PO BID 01/26/18 03/10/23 History levetiracetam 500 mg tablet 1,500 mg PO BID 01/26/18 03/10/23 History Saccharomyces boulardii 250 mg 250 mg PO QAM 09/03/20 03/10/23 History capsule (Florastor) oxybutynin chloride 5 mg See Rx Instructions .Route .COMPLEX 09/03/20 03/10/23 History tablet,extended release 24 hr aspirin 81 mg chewable tablet 81 mg PO DAILY 09/11/21 03/10/23 History multivitamin (One Daily 1 tab PO DAILY 09/11/21 03/10/23 History Multivitamin tablet) acetaminophen 500 mg tablet 1,000 mg PO AMHS Pain 07/17/22 03/10/23 History (Tylenol Extra Strength) cholecalciferol (vitamin D3) 25 25 mcg PO DAILY 07/17/22 03/10/23 History mcg (1,000 unit) tablet (Vitamin D3) losartan 25 mg tablet 25 mg PO QAM 07/17/22 03/10/23 History omeprazole 20 mg capsule,delayed 20 mg PO DAILY 07/17/22 03/10/23 History release amlodipine 5 mg tablet 5 mg PO QAM 07/20/22 03/10/23 History sennosides 8.6 mg tablet (Senokot) 8.6 mg PO HS 01/19/23 03/10/23 History trazodone 50 mg tablet 50 mg PO HS 01/19/23 03/10/23 History acetaminophen 500 mg tablet 1,000 mg PO DIRECTED PRN Pain 03/10/23 03/10/23 History (Tylenol Extra Strength) famotidine 20 mg tablet 20 mg PO DAILY PRN Heartburn 03/10/23 03/10/23 History omeprazole 20 mg capsule,delayed 20 mg PO .TAPER DIRECTED 03/10/23 03/10/23 History release Patient History Medical History Anxiety Cerebral palsy Chronic kidney disease (CKD), stage III (moderate) Generalized convulsive epilepsy without intractable epilepsy Hemiparesis of right dominant side History of colon polyps History of CVA (cerebrovascular accident) Hx of chest pain Hypertension Idiopathic mild intellectual disability Incontinence Infantile cerebral palsy Major depressive disorder Obstructive hydrocephalus has shunt Osteoporosis Surgical History H/O tubal ligation History of brain shunt History of colonoscopy last 03/24/19 @ [facility] History of esophagogastroduodenoscopy (EGD) last 03/24/19 @ [facility] Family History Father Cancer Mother Cancer Social History Smoking Status: Never smoker Tobacco Type: Cigarettes Hx Alcohol Use: No Hx Substance Use: No Preferred Language: Georgian Communication Ability: Effective Communication Ability Comment: [facility] stated pt is of sound mind to sign own consents Post Commander Required: No Beliefs That Will Affect Care: None marital status: Single Current Living Situation: Personal Care Facility Current Living Situation Comment: [facility] Other Information That Helps Us Care for You: No Feels Safe at Home: Yes Safety Concerns: Feels Safe At This Time Assistive Devices: Glasses Review of Systems 2 Review of Systems: All systems reviewed & are unremarkable except as noted in HPI & below Physical Exam Constitutional: well developed and well nourished; no acute distress Neck: normal visual inspection and trachea midline Respiratory: normal respiratory effort, lungs clear to auscultation no cough Cardiovascular: Rate/Rhythm: regular rate and regular rhythm (occasional ectopic beat auscultated) Heart Sounds: normal S1, normal S2 and + murmur (+soft systolic murmur) Vessels: no JVD Extremities: no edema Gastrointestinal (Abdomen): Inspection/Auscultation: abdomen normal to inspection and normal bowel sounds; abdomen not distended Musculoskeletal: Extremities: + limited ROM of lower extremity (in traction ) Right Skin: no rashes, warm and dry Neurologic: PERRL, EOMI, accommodation nl, no face palsy, no dysarthria Psychiatric: Orientation: alert and oriented x 3 Results & Data Vital Signs (Past 12 Hours) Vital Signs Temp Pulse Pulse Resp BP BP Pulse Ox 03/11/23 07:57 77 16 129/93 94 03/11/23 07:14 73 03/11/23 04:32 36.5 C 70 14 144/85 H 96 03/11/23 02:42 69 16 122/86 96 03/11/23 02:42 69 16 122/86 96 03/11/23 02:42 03/11/23 01:30 77 03/11/23 01:00 79 13 106/81 95 03/10/23 23:34 83 18 115/63 96 03/10/23 21:48 68 03/10/23 21:34 36.6 C 75 16 113/60 96 03/10/23 21:34 36.6 C 75 16 113/60 96 Pulse Ox O2 Del Method O2 Del Method 03/11/23 07:57 Room Air 03/11/23 07:14 03/11/23 04:32 Room Air 03/11/23 02:42 Room Air 03/11/23 02:42 Room Air 03/11/23 02:42 96 Room Air 03/11/23 01:30 03/11/23 01:00 Room Air 03/10/23 23:34 Room Air 03/10/23 21:48 03/10/23 21:34 Room Air 03/10/23 21:34 Room Air Laboratory Results Cardiac Enzymes 03/10/23 03/11/23 Range/Units 22:04 07:23 AST 17 (13-39) U/L Troponin I High Sens 3.8 5.8 (0-14) pg/ml CBC 03/10/23 03/11/23 Range/Units 22:04 07:23 WBC 9.42 9.38 (4.8-10.8) K/ul RBC 4.31 3.94 L (4.20-5.40) M/uL Hgb 13.0 11.9 L (12.0-16.0) g/dl Hct 40.1 35.8 L (37.0-47.0) % Plt Count 214 182 (130-400) K/uL Neut # (Auto) 3.16 7.77 H (1.40-6.50) K/uL Lymph # (Auto) 5.33 H 1.09 L (1.20-3.40) K/uL [place] # (Auto) 0.64 H 0.48 (0.11-0.59) K/uL Eos # (Auto) 0.23 0.00 (0.00-0.50) K/uL Baso # (Auto) 0.04 0.01 (0.00-0.20) K/uL Comprehensive Metabolic Panel 03/10/23 03/11/23 Range/Units 22:04 07:23 Sodium 137 135 L (136-145) mmol/L Potassium 3.4 L 3.8 (3.5-5.1) mmol/L Chloride 102 104 (98-107) mmol/L Carbon Dioxide 23 22 (21-32) mmol/L BUN 27 H 23 (6-23) mg/dl Creatinine 0.79 0.53 L (0.6-1.2) mg/dl Glucose 107 H 149 H (70-99(Fasting)) mg/dl Calcium 9.4 8.5 L (8.6-10.3) mg/dl AST 17 (13-39) U/L ALT 11 (7-52) U/L Alkaline Phosphatase 28 L (34-104) U/L Total Protein 7.2 (6.0-8.3) gm/dl Albumin 4.7 (3.4-5.0) gm/dl Intake and Output 03/10/23 03/11/23 03/11/23 22:59 06:59 14:59 Other: Weight 65.3 kg 65.3 kg Weight Measurement Method [facility] (1) Closed right femoral fracture Encounter type: initial encounter Femur location: unspecified portion of femur
[2023-03-11] MEDS ORDERED: MAGNESIUM OXIDE 400 MG TAB PO ONE (08:36)
[2023-03-11] MEDS ORDERED: ASPIRIN 81 MG CHEW PO SCH (09:00)
[2023-03-11] MEDS ORDERED: PNEUMOCOCCAL VACCINE (PCV20) 20-VAL CONJ-DIP CRM/PF 0.5 ML SYR IM ONE (09:00)
[2023-03-11] MEDS: MULTIVITAMIN TAB PO SCH (09:07)
[2023-03-11] MEDS: lamoTRIgine 100 MG TAB PO SCH ×2 (09:07→22:06)
[2023-03-11] MEDS: SACCHAROMYCES BOULARDII 250 MG CAP PO SCH (09:08)
[2023-03-11] MEDS: OXYBUTYNIN CHLORIDE XL 5 MG TABCR PO SCH ×2 (09:08→22:07)
[2023-03-11] MEDS: DIVALPROEX EXTENDED RELEASE 500 MG TAB PO SCH ×2 (09:08→22:06)
[2023-03-11] MEDS: amLODIPine BESYLATE 5 MG TAB PO SCH (09:08)
[2023-03-11] MEDS: CHOLECALCIFEROL 25 MCG (1000 UNITS) TAB PO SCH (09:08)
[2023-03-11] MEDS: LOSARTAN POTASSIUM 25 MG TAB PO SCH (09:09)
[2023-03-11] MEDS: PANTOprazole 40 MG TAB PO SCH (09:09)
[2023-03-11] MEDS: ACETAMINOPHEN 500 MG TAB PO SCH ×2 (09:09→22:04)
[2023-03-11] MEDS: levETIRAcetam 500 MG TAB PO SCH (09:09)
[2023-03-11] MEDS ORDERED: PANTOprazole 40 MG in SYRINGE 0 ML IV ONE (09:45)
[2023-03-11] MEDS: FAMOTIDINE 20 MG in SYRINGE 3 ML IV SCH ×2 (09:53→22:05)
[2023-03-11] MEDS: levETIRAcetam IV 1,500 MG in 0.9 % SODIUM CHLORIDE 100 ML IV SCH ×2 (10:11→22:05)
--- NOTE | 2023-03-11 11:33 | Orthopedic Consultation ---
Date of Service March 11, 2023 Assessment & Plan (1) Closed fracture of proximal end of right femur: I had a long and detailed discussion today with the patient about her right hip pathology. She had ample amount of time to ask any questions or state any concerns. All questions and concerns were answered to the patient's satisfaction. At this point, I did discuss with her that her proximal femur fracture will require surgical intervention to allow her to get back to her normal functional state. I went into great detail the risk, benefits, alternatives to trochanteric fixation with long nail with ample amount of time for her to ask any questions or state any concerns. All questions and concerns were answered to the patient's satisfaction and she wishes to proceed with surgical intervention. We will proceed this afternoon with surgical intervention with Dr. Kim. She should remain n.p.o. at this point. Postoperative expectations were discussed with the patient to her understanding. Medical management per primary. Will proceed with surgical intervention this afternoon unless halted by primary service. We will follow. Patient was seen and examined by myself Corey Kim, agree with above plan. She got some troches fracture that needs fixed. That we will plan IM nailing. She does have a weakness and dysfunction of her small over toes on her left foot Rhoda does not have motor function distally preoperatively. This is a chronic problem nothing acute from this injury. There is cements of IM nailing were explained. She understands and desires to proceed. Informed consent was obtained History of Present Illness Reason for Consultation: . Right subtrochanteric femur fracture Requesting Physician: . Attending Physician: Lucian Corral MD . Cecilia is a 68-year-old female who we are asked to see on consultation for a subtrochanteric/proximal femur fracture. She notes that yesterday evening, she was ambulating with a wheeled walker to the sink to put a glass in it when her walker wheel got stuck which made her trip and fall and landed directly on her right side. She had immediate onset of pain and was unable to ambulate. She was transferred to [facility] where an x-ray was completed and found to have a subtrochanteric/proximal femur fracture. She notes that her pain is well-controlled if she does not move her right lower extremity. She is currently in Benites's traction to right lower extremity. She notes that most of her pain is right at the right hip joint. She denies any other issues today. She does take a baby aspirin but no other anticoagulation noted. Allergies Allergy/AdvReac Type Severity Reaction Status Date / Time adhesive Allergy Unknown HAPPENED Verified 03/10/23 23:00 A CHILD-"INSTRUCTED NOT TO USE ADHESIVES". Home Medications Medication Instructions Recorded Confirmed Type divalproex 500 mg tablet,extended 500 mg PO BID 01/26/18 03/10/23 History release 24 hr lamotrigine 100 mg tablet 100 mg PO BID 01/26/18 03/10/23 History levetiracetam 500 mg tablet 1,500 mg PO BID 01/26/18 03/10/23 History Saccharomyces boulardii 250 mg 250 mg PO QAM 09/03/20 03/10/23 History capsule (Florastor) oxybutynin chloride 5 mg See Rx Instructions .Route .COMPLEX 09/03/20 03/10/23 History tablet,extended release 24 hr aspirin 81 mg chewable tablet 81 mg PO DAILY 09/11/21 03/10/23 History multivitamin (One Daily 1 tab PO DAILY 09/11/21 03/10/23 History Multivitamin tablet) acetaminophen 500 mg tablet 1,000 mg PO AMHS Pain 07/17/22 03/10/23 History (Tylenol Extra Strength) cholecalciferol (vitamin D3) 25 25 mcg PO DAILY 07/17/22 03/10/23 History mcg (1,000 unit) tablet (Vitamin D3) losartan 25 mg tablet 25 mg PO QAM 07/17/22 03/10/23 History omeprazole 20 mg capsule,delayed 20 mg PO DAILY 07/17/22 03/10/23 History release amlodipine 5 mg tablet 5 mg PO QAM 07/20/22 03/10/23 History sennosides 8.6 mg tablet (Senokot) 8.6 mg PO HS 01/19/23 03/10/23 History trazodone 50 mg tablet 50 mg PO HS 01/19/23 03/10/23 History acetaminophen 500 mg tablet 1,000 mg PO DIRECTED PRN Pain 03/10/23 03/10/23 History (Tylenol Extra Strength) famotidine 20 mg tablet 20 mg PO DAILY PRN Heartburn 03/10/23 03/10/23 History omeprazole 20 mg capsule,delayed 20 mg PO .TAPER DIRECTED 03/10/23 03/10/23 History release Past Med/Surg History Medical History Cerebral palsy Hx of chest pain Hemiparesis of right dominant side Major depressive disorder Idiopathic mild intellectual disability History of CVA (cerebrovascular accident) Chronic kidney disease (CKD), stage III (moderate) History of colon polyps Infantile cerebral palsy Obstructive hydrocephalus has shunt Generalized convulsive epilepsy without intractable epilepsy Osteoporosis Incontinence Anxiety Hypertension Surgical History History of esophagogastroduodenoscopy (EGD) last 03/24/[address] [facility] History of colonoscopy last 03/24/[address] 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 Physical Exam . General- Not in distress Head- atraumatic Eyes- PERRL. ENT- oropharynx clear Neck- supple, no JVD. Lungs- clear to auscultation no wheezing or crackles. Heart- regular rate and rhythm; no murmur, no gallop. Abdomen- normal bowel sounds, soft, nontender, no distension. Neuro- alert, oriented x 3; PERRL, no facial palsy; no dysarthria; obeys simple commands Skin- warm & dry Musculoskeletal On physical examination right lower extremity, her right leg is currently in Benites's traction. She notes slight discomfort diffusely throughout the right hip. Able to wiggle all 5 toes. +2 DP and PT pulse. Less than 2-second capillary refill. Normal sensation. Neurovascular intact. Results & Data Results & Data Laboratory Results . Abnormal lab results 03/10/23 03/11/23 Range/Units 22:04 07:23 RBC 3.94 L (4.20-5.40) M/uL Hgb 11.9 L (12.0-16.0) g/dl Hct 35.8 L (37.0-47.0) % Neut # (Auto) 7.77 H (1.40-6.50) K/uL Lymph # (Auto) 5.33 H 1.09 L (1.20-3.40) K/uL Ransom # (Auto) 0.64 H (0.11-0.59) K/uL Sodium 135 L (136-145) mmol/L Potassium 3.4 L (3.5-5.1) mmol/L Anion Gap 12 H (3-11) BUN 27 H (6-23) mg/dl Creatinine 0.53 L (0.6-1.2) mg/dl BUN/Creatinine Ratio 34.2 H 43.4 H (10-20) Glucose 107 H 149 H (70-99(Fasting)) mg/dl Calcium 8.5 L (8.6-10.3) mg/dl Alkaline Phosphatase 28 L (34-104) U/L Diagnostic Findings . Femur X-Ray 03/10/23 22:20 XR femur RT 2V routine CLINICAL HISTORY: right hip pain s/p fall COMPARISON: Right femur radiographs February 22, 2023. FINDINGS: Note is made of an acute displaced angulated fracture within the proximal shaft of the right femur. Fracture is at site of stress fracture shown on radiographs of February 22, 2023. No distal right femoral fracture is noted. There is moderate right hip osteoarthritis. IMPRESSION: Acute displaced angulated fracture within the proximal shaft of the right femur. ACT 112: Negative or not required by law. Electronically signed by: Troy Pa M.D. 03/11/2023 6:46 AM Hip/Pelvis X-Ray 03/10/23 22:20 XR hip RT 2V w pelvis CLINICAL HISTORY: right hip pain s/p fall COMPARISON: Pelvis and right femur radiographs February 22, 2023. FINDINGS: Sacroiliac joints and symphysis pubis are intact. No proximal left femoral fracture is present. There are no pelvic fractures. Note is made of an acute angulated displaced fracture within the proximal shaft of the right femur. IMPRESSION: Acute displaced angulated fracture within the proximal shaft of the right femur. ACT 112: Negative or not required by law. Electronically signed by: Troy Pa M.D. 03/11/2023 6:45 AM Chest X-Ray 03/11/23 00:50 XR chest 1V portable CLINICAL HISTORY: Preoperative evaluation. COMPARISON STUDY: Chest radiograph February 22, 2023. FINDINGS: Patient is rotated. No pneumothorax or pleural effusion is present. No evidence for pulmonary edema. Mild cardiomegaly is unchanged. There is no consolidation to suggest pneumonia. There has been no significant change in appearance of the chest. IMPRESSION: No acute cardiopulmonary findings. ACT 112: Negative or not required by law. Electronically signed by: Troy Pa M.D. 03/11/2023 6:35 AM PG Care Time/CCT Total # of Minutes Spent Total Time Spent with Patient: Total time spent is greater than 50% in coordination of care (as documented) at patient's floor/unit and/or counseling patient: Coding Level of Care Code 53029 IN/OBS CONSULT LVL 3,45M Diagnoses Closed fracture of proximal end of right femur, initial encounter S72.001A Encounter type: initial encounter Additional Codes Fx Hip/Femur - Trochanteric inter-/aldo-/sub-: Trochanteric inter-/aldo-/sub- ( [id number]) (1) Closed fracture of proximal end of right femur Encounter type: initial encounter Qualified Code(s): S72.001A - Fracture of unspecified part of neck of right femur, initial encounter for closed fracture
--- NOTE | 2023-03-11 12:20 | Electrocardiogram Report ---
Test Reason : Blood Pressure : / mmHG Vent. Rate : 075 BPM Atrial Rate : 075 BPM P-R Int : 192 ms QRS Dur : 088 ms QT Int : 496 ms P-R-T Axes : 033 012 095 degrees QTc Int : 553 ms Sinus rhythm with frequent Premature ventricular complexes in a pattern of bigeminy Low voltage QRS possible Inferior-posterior infarct (cited on or before 23-JUL-2022) Abnormal ECG When compared with ECG of 23-JUL-2022 09:48, Premature ventricular complexes are now Present Nonspecific T wave abnormality has replaced inverted T waves in Anterior leads QT has lengthened Confirmed by Sriram Caballero ([id number]) on 03/11/2023 12:20:12 PM Referred By: REFERRED SELF Confirmed By:Andrew Caballero
--- NOTE | 2023-03-11 12:28 | Electrocardiogram Report ---
Test Reason : Blood Pressure : / mmHG Vent. Rate : 078 BPM Atrial Rate : 078 BPM P-R Int : 214 ms QRS Dur : 090 ms QT Int : 402 ms P-R-T Axes : 052 025 -18 degrees QTc Int : 458 ms Sinus rhythm with 1st degree A-V block with frequent Premature ventricular complexes Possible Inferior infarct (cited on or before 23-JUL-2022) Abnormal ECG When compared with ECG of 11-MAR-2023 01:05, (unconfirmed) Nonspecific T wave abnormality now evident in Inferior leads QT has shortened Confirmed by Sriram Caballero ([id number]) on 03/11/2023 12:25:56 PM Referred By: REFERRED SELF Confirmed By:Andrew Caballero
[2023-03-11] MEDS ORDERED: MIDAZOLAM HCL 1 MG/ML 2ML VIAL ONE (15:46)
[2023-03-11] MEDS ORDERED: ROCURONIUM BROMIDE 10 MG/ML 5 ML VIAL IV ONE (15:46)
[2023-03-11] MEDS ORDERED: PROPOFOL IV EMULSION 10 MG/ML 20 ML VIAL IV ONE (15:46)
[2023-03-11] MEDS ORDERED: LIDOCAINE 2% 2 ML VIAL/AMP(20MG/ML) INFIL ONE (15:46)
[2023-03-11] MEDS ORDERED: fentaNYL citrate PF 100 MCG/2 ML VIAL ONE (15:46)
[2023-03-11] MEDS ORDERED: ONDANSETRON INJ 2 MG/ML 2 ML VIAL ONE (15:46)
[2023-03-11] MEDS ORDERED: DEXAMETHASONE SOD INJ 4 MG/ML VIAL ONE (15:46)
[2023-03-11] MEDS ORDERED: SUGAMMADEX SODIUM 200 MG/2 ML VIAL IV ONE (15:47)
--- NOTE | 2023-03-11 15:56 | Anesthesiology Consultation ---
Date of Service March 11, 2023 Assessment & Plan Chart Review Chart Review: Acceptable Risk for Surgery and Patient NOT seen in Pre Admission Testing Consults Requested none ASA ASA4 Proposed Anesthesia Anesthesia Type: General History Surgery Operation Date: 03/11/23 11:05 Proposed Procedures p Right Long Troch Nail - Corey Kim MD Height/Weight Height: 5 ft 2 in Weight: 65.3 kg Allergies Allergy/AdvReac Type Severity Reaction Status Date / Time adhesive Allergy Unknown HAPPENED Verified 03/10/23 23:00 A CHILD-"INSTRUCTED NOT TO USE ADHESIVES". Medications Home Medications Medication Instructions Recorded Confirmed Last Taken divalproex 500 mg tablet,extended 500 mg PO BID 01/26/18 03/10/23 09/10/21 release 24 hr lamotrigine 100 mg tablet 100 mg PO BID 01/26/18 03/10/23 09/10/21 levetiracetam 500 mg tablet 1,500 mg PO BID 01/26/18 03/10/23 09/10/21 Saccharomyces boulardii 250 mg 250 mg PO QAM 09/03/20 03/10/23 09/10/21 capsule (Florastor) oxybutynin chloride 5 mg See Rx Instructions .Route .COMPLEX 09/03/20 03/10/23 09/10/21 tablet,extended release 24 hr aspirin 81 mg chewable tablet 81 mg PO DAILY 09/11/21 03/10/23 09/10/21 multivitamin (One Daily 1 tab PO DAILY 09/11/21 03/10/23 09/10/21 Multivitamin tablet) acetaminophen 500 mg tablet 1,000 mg PO AMHS Pain 07/17/22 03/10/23 Unknown (Tylenol Extra Strength) cholecalciferol (vitamin D3) 25 25 mcg PO DAILY 07/17/22 03/10/23 Unknown mcg (1,000 unit) tablet (Vitamin D3) losartan 25 mg tablet 25 mg PO QAM 07/17/22 03/10/23 Unknown omeprazole 20 mg capsule,delayed 20 mg PO DAILY 07/17/22 03/10/23 Unknown release amlodipine 5 mg tablet 5 mg PO QAM 07/20/22 03/10/23 Unknown sennosides 8.6 mg tablet (Senokot) 8.6 mg PO HS 01/19/23 03/10/23 Unknown trazodone 50 mg tablet 50 mg PO HS 01/19/23 03/10/23 Unknown acetaminophen 500 mg tablet 1,000 mg PO DIRECTED PRN Pain 03/10/23 03/10/23 Unknown (Tylenol Extra Strength) famotidine 20 mg tablet 20 mg PO DAILY PRN Heartburn 03/10/23 03/10/23 Unknown omeprazole 20 mg capsule,delayed 20 mg PO .TAPER DIRECTED 03/10/23 03/10/23 Unknown release Active Medications Generic Name Dose Route Start Last Admin Trade Name Jeffry PRN Reason Stop Dose Admin Acetaminophen 650 mg 03/11/23 02:42 03/11/23 14:25 Acetaminophen 325 Mg Tab PO 04/10/23 02:41 650 mg Q4H PRN Administration Pain or Fever Acetaminophen 1,000 mg 03/11/23 09:00 03/11/23 09:09 Acetaminophen 500 Mg Tab PO 04/10/23 08:59 1,000 mg AMHS ANASTASIIA Administration Amlodipine Besylate 5 mg 03/11/23 09:00 03/11/23 09:08 Amlodipine Besylate 5 Mg Tab PO 04/10/23 08:59 5 mg QAM ANASTASIIA Administration Aspirin 81 mg 03/11/23 09:00 03/11/23 09:09 Aspirin 81 Mg Chew PO 04/10/23 08:59 81 mg DAILY ANASTASIIA Administration Divalproex Sodium 500 mg 03/11/23 09:00 03/11/23 09:08 Divalproex Extended Release 500 Mg Tab PO 04/10/23 08:59 500 mg BID ANASTASIIA Administration Sodium Chloride 1,000 mls @ 100 mls/hr 03/11/23 02:42 03/11/23 14:04 Nss IV 04/10/23 02:41 100 mls/hr .Q10H ANASTASIIA Administration Famotidine 20 mg/ Syringe 5 mls @ 2.5 mls/min 03/11/23 09:30 03/11/23 09:53 IV 04/10/23 09:29 2.5 mls/min BID ANASTASIIA Administration Levetiracetam 1,500 mg/ Sodium 115 mls @ 440 mls/hr 03/11/23 09:45 03/11/23 11:28 Chloride IV 04/10/23 09:44 Infused BID ANASTASIIA Infusion Lamotrigine 100 mg 03/11/23 09:00 03/11/23 09:07 Lamotrigine 100 Mg Tab PO 04/10/23 08:59 100 mg BID ANASTASIIA Administration Protocol Levetiracetam 1,500 mg 03/11/23 09:00 03/11/23 09:09 Levetiracetam 500 Mg Tab PO 04/10/23 08:59 1,500 mg BID ANASTASIIA Administration Losartan Potassium 25 mg 03/11/23 09:00 03/11/23 09:09 Losartan Potassium 25 Mg Tab PO 04/10/23 08:59 25 mg QAM ANASTASIIA Administration Multivitamins 1 tab 03/11/23 09:00 03/11/23 09:07 Multivitamin Tab PO 04/10/23 08:59 1 tab DAILY ANASTASIIA Administration Oxybutynin Chloride 5 mg 03/11/23 09:00 03/11/23 09:08 Oxybutynin Chloride Xl 5 Mg Tabcr PO 04/10/23 08:59 5 mg QAM ANASTASIIA Administration Pantoprazole Sodium 40 mg 03/11/23 09:00 03/11/23 09:09 Pantoprazole 40 Mg Tab PO 04/10/23 08:59 40 mg DAILY ANASTASIIA Administration Saccharomyces Boulardii 250 mg 03/11/23 09:00 03/11/23 09:08 Saccharomyces Boulardii 250 Mg Cap PO 04/10/23 08:59 250 mg QAM ANASTASIIA Administration Vitamin D 1,000 units 03/11/23 09:00 03/11/23 09:08 Cholecalciferol 1,000 Units 25 Mcg Tab PO 04/10/23 08:59 1,000 units DAILY ANASTASIIA Administration Past Medical History Medical History Cerebral palsy Hx of chest pain Hemiparesis of right dominant side Major depressive disorder Idiopathic mild intellectual disability History of CVA (cerebrovascular accident) Chronic kidney disease (CKD), stage III (moderate) History of colon polyps Infantile cerebral palsy Obstructive hydrocephalus has shunt Generalized convulsive epilepsy without intractable epilepsy Osteoporosis Incontinence Anxiety Hypertension Exercise / Class Metabolic Activity III < 4 Walking/Shop/Light housework Past Family History Family History Father Cancer Mother Cancer Past Surgical History Surgical History History of esophagogastroduodenoscopy (EGD) last 03/24/19 @ [facility] History of colonoscopy last 03/24/19 @ [facility] H/O tubal ligation History of brain shunt Past Anesthesia History No Hx of Anesthesia Complications and No Family Hx of Anesthesia Complications History of PONV No Hx of PONV and No Hx of Motion Sickness Social History Smoking Status: Never smoker Hx Alcohol Use: No Hx Substance Use: No substance use type: does not use Physical Exam Vital Signs Last Vital Signs Temp 37 C 03/11/23 15:17 Pulse 80 03/11/23 15:17 Resp 18 03/11/23 15:17 BP 149/98 H 03/11/23 15:17 Pulse Ox 96 03/11/23 15:17 O2 Del Method Room Air 03/11/23 15:17 Testing Laboratory Results 03/11/23 07:23 03/11/23 07:23 Electrocardiogram Date: 03/11/23 Findings: + pertinent finding (SR @ 77 w/ 1st degree AVB,w/ frequent PVC's;? infer. infarct,age ?;Non specific T wave abnormalitiesin inferior leads;QT has shortened) Chest X-Ray Date: 03/11/23 Findings: + NAD and + cardiomegaly (mild) Echocardiogram Date: 03/11/23 EF: 55% LV Function: normal RWMA: + none Other Findings: + LVH (mild) Valvular Disease: + no significant valvular disease TR-mild PA Sys pressure 35-41 Torr
[2023-03-11] MEDS ORDERED: NALOXONE HCL 0.4 MG/1 ML VIAL/CARP IV PRN (16:16)
[2023-03-11] MEDS ORDERED: PROMETHAZINE HCL 12.5 MG in SODIUM CHLORIDE 0.9% 50 ML IV PRN (16:16)
[2023-03-11] MEDS ORDERED: ATROPINE SULFATE 0.1 MG/ML 10ML SYR IV PRN (16:16)
[2023-03-11] MEDS ORDERED: fentaNYL citrate PF 100 MCG/2 ML VIAL IV PRN (16:16)
[2023-03-11] MEDS ORDERED: LABETALOL HCL IV 5 MG/ML 20ML IV PRN (16:16)
[2023-03-11] MEDS ORDERED: ePHEDrine sulfate 50 MG/ML AMP IV PRN (16:16)
[2023-03-11] MEDS ORDERED: FLUMAZENIL 0.1 MG/1 ML 10 ML VIAL IV PRN (16:16)
[2023-03-11] MEDS ORDERED: HYDROmorphone INJ 1 MG/ML SYRINGE IV PRN (16:16)
[2023-03-11] MEDS ORDERED: ceFAZolin 2000MG 2,000 MG/15 ML SYR IV ONE (16:26)
[2023-03-11] MEDS ORDERED: ceFAZolin 2,000 MG/15 ML IV PUSH IV ONE (16:28)
[2023-03-11] MEDS ORDERED: BUPIVACAINE/EPINEPHRINE 0.5% MPF 1:200,000 30 ML VIAL ONE (16:39)
--- NOTE | 2023-03-11 16:41 | History & Physical Bridge Note ---
Date of Service March 11, 2023 History & Physical Bridge Note I have examined the patient, reviewed the History & Physical and in the interval since the performance of the History & Physical I have noted the following changes of clinical significance: no changes noted
[2023-03-11] MEDS ORDERED: TRANEXAMIC ACID / 0.7% NACL 1000MG/100ML BAG IV ONE (17:04)
--- NOTE | 2023-03-11 18:28 | Operative Report ---
PG Post Operative Report Pre & Post Diagnosis Operation Date: 03/11/23 11:05 Pre-Op Diagnosis: Closed fracture of proximal end of right femur/subtrochanteric femur fracture Post-Op Diagnosis: Closed fracture of proximal end of right femur/subtrochanteric femur fracture I identified the patient and participated in the time-out.: Yes Procedure Operation Date: 03/11/23 11:05 Actual Procedures p Right Long Troch Nail(Right) - Corey Kim MD Surgeon Corey Kim MD Dry Man Tonny Black PA-C Estimated Blood Loss 100 Findings Consistent with Post-Op Diagnosis Specimens None Anesthesia Type General Complications none Disposition Accompanied Patient To Recovery: No Indications Patient is a 68-year-old female who sustained a fall yesterday. She had cute onset of pain in the unable to ambulate. She brought to emergency room where x- rays a right displaced subtrochanteric femur fracture. The patient is admitted by the medicine service, medically optimized indicated for surgical repair. Description of Procedure Operative implants consist of: 1 Synthes right 360 mm x 10 mm long trochanteric nail. 2. 80 mm helical blade. 3. 38 mm x 5 mm distal interlocking screw. The patient was taken the op room, identified, placed on the operating table in the supine position. All contact areas were properly padded. IV antibiotics tried by anesthesia team. A general anesthetic was implemented. The patient then placed on the fracture table. The right leg was placed in boot traction the left leg was placed in a well-leg gunn. I applied some longitudinal traction of the right foot and thigh and internally rotated foot so the knee Pointed to the ceiling. We brought x-ray again and the fracture was markedly displaced with the proximal segment flexed. We elected to proceed with open reduction. The right hip was then prepped with Hibiclens and then prepped with ChloraPrep and then draped in usual sterile fashion. A direct lateral approach to the fracture site was then performed to longitudinal incision. Sharp dissection Through subcutaneous tissue directly down the IT band. The IT band was incised longitudinally. The vastus lateralis was retracted anteriorly. I then identified both pieces. It was markedly displaced in the anterior posterior plane. I took a reduction clamp to reduce the fracture and held it reduced. We got a nice reduction. I then proceeded with IM nailing. A curvilinear incision was made just proximal to the tip of the trochanter. Sharp dissection was carried through subcutaneous tissue down to level the IT band gluteal fascia the IT band gluteal fascia incised longitudinally in line with skin incision. A guidewire was placed just lateral to the tip of the trochanter both the AP and lateral planes. This was advanced down the IM canal under fluoroscopic guidance. This was overreamed with a 17 mm reamer. This guidewire was exchanged for the ball-tipped guidewire and we passed this across the fracture site. We measured for nail length and a 360 mm nail was selected. I then reamed beginning with a size 10 and progressing up to 11. We got good chatter even at 10. A 10 mm x 360 mm right long trochanteric nail was placed across the fracture site. We tapped this into position. Made some minor adjustments. A stab incision was made in the lateral aiming arm was advanced to the lateral aspect the femur. A guidewire was placed in the femoral neck and head. We really tried to get the center portion but it directed this only to the posterior aspect of the nail was extremely tight. It was within the confines of the neck and head and we excepted this as it was posterior and inferior and the stronger bone. This was then measured. A 85 mm helical blade was then placed. Some final x-rays were obtained. The setscrew was tightened. The lateral aiming arm was removed. Attention then directed distal interlocking. Using the perfect [place] technique distal interlocking screw was placed in a dynamic fashion. Some final x-rays were obtained. Attention drawn toward closing. All wounds were irrigated coconuts of normal saline. I injected locally with 30 cc of half percent Marcaine with epinephrine. The deep fascia and IT band were then closed with #1 Vicryl suture running fashion through the subcutaneous tissues then closed with 2 layers the deep layer #1 Vicryl suture and subcutan eous tissue with 2 Dexon suture in a buried interrupted fashion. Skin was closed skin jessy. Leg was then cleaned and dried and sterile dressing composed Xeroform, 4 x 4's, ABD pad and foam tape was applied. The patient was then taken off the fracture table. She is brought out of general anesthesia and transferred to the recovery room in stable condition. Patient tolerated procedure well and there were no complications. Tonny Black, my physician social human services assistants, was present for the entire procedure. His assistance was required for proper patient positioning, prepping and draping, surgical exposure, retraction, reduction of the fracture, placement of hardware, closure of the incision site and placement of sterile bandages. I attest to the content of the Intraoperative Record and any orders documented therein. Any exceptions are noted below.
--- NOTE | 2023-03-11 18:28 | Fluoroscopy Report ---
FL femur RT 2V CLINICAL HISTORY: LONG TROCHNAIL RIGHT AFTER 1500acute fracture of the proximal right femur COMPARISON STUDY: 03/10/2023 FLUOROSCOPY TIME: 124.3 seconds FLUOROSCOPY IMAGES: 6 EXPOSURE DOSE: 28.31 mGy FINDINGS: Status post placement of an intratrochanteric male with medullary arun fixating the acute ri ght proximal femoral fracture deformity. There is improved near anatomic alignment. Expected postoper ative soft tissue swelling with deep tissue air. IMPRESSION: Fluoroscopic assistance as above. ACT 112: Negative or not required by law. Electronically signed by: Braulio Osborne M.D. 03/11/2023 6:26 PM
[2023-03-11] MEDS ORDERED: MEPERIDINE HCL 25 MG/ML CARP/VIAL ONE (19:05)
[2023-03-11] MEDS: MEPERIDINE HCL 25 MG/ML CARP/VIAL IV PRN ×2 (19:08→19:20)
--- NOTE | 2023-03-11 19:31 | Anesthesiology Progress Note ---
Date of Service March 11, 2023 Anesthesia Post Procedure Vital Signs Vital Signs: Temp Pulse Pulse Resp BP BP BP 03/11/23 19:25 70 13 124/65 03/11/23 19:15 78 20 138/60 03/11/23 19:05 77 17 149/71 H 03/11/23 18:55 89 17 149/77 H 03/11/23 18:45 81 17 103/59 L 03/11/23 18:39 36.7 C 88 16 85/60 L 03/11/23 15:35 37.1 C 77 24 174/94 H 03/11/23 15:17 37 C 80 18 149/98 H 03/11/23 14:42 68 18 129/94 03/11/23 07:57 77 16 129/93 03/11/23 07:14 73 03/11/23 04:32 36.5 C 70 14 144/85 H 03/11/23 02:42 69 16 122/86 03/11/23 02:42 69 16 122/86 03/11/23 02:42 03/11/23 01:30 77 03/11/23 01:00 79 13 106/81 03/10/23 23:34 83 18 115/63 03/10/23 21:48 68 03/10/23 21:34 36.6 C 75 16 113/60 03/10/23 21:34 36.6 C 75 16 113/60 Pulse Ox Pulse Ox O2 Del Method O2 Del Method O2 Flow Rate 03/11/23 19:25 90 Room Air 03/11/23 19:15 94 Room Air 03/11/23 19:05 96 Room Air 03/11/23 18:55 95 Room Air 03/11/23 18:45 93 Room Air 03/11/23 18:39 96 Oxymask 5 03/11/23 15:35 93 Room Air 03/11/23 15:17 96 Room Air 03/11/23 14:42 93 Room Air 03/11/23 07:57 94 Room Air 03/11/23 07:14 03/11/23 04:32 96 Room Air 03/11/23 02:42 96 Room Air 03/11/23 02:42 96 Room Air 03/11/23 02:42 96 Room Air 03/11/23 01:30 03/11/23 01:00 95 Room Air 03/10/23 23:34 96 Room Air 03/10/23 21:48 03/10/23 21:34 96 Room Air 03/10/23 21:34 96 Room Air Pain Intensity Right Hip: Pain Intensity: 6 Transfer of Care Handoff Completed per policy Notes Mental Status: alert / awake / arousable and participated in evaluation Patient Amnestic to Procedure: Yes Nausea / Vomiting: adequately controlled Pain: adequately controlled Airway Patency, RR, SpO2: stable & adequate BP & HR: stable & adequate Hydration State: stable & adequate Anesthetic Complications: no major complications apparent and Pt Satisfied with anesthetic care
[2023-03-11] MEDS ORDERED: SODIUM CHLORIDE 0.9% 1,000 ML IV SCH (21:42)
[2023-03-11] MEDS ORDERED: NON-FORMULARY MEDICATION (Omeprazole 20 mg capsule,delayed release(DR/EC)) PO SCH (21:42)
[2023-03-11] MEDS: ceFAZolin 1000MG 1,000 MG/7.5 ML SYR IV SCH (22:06)
[2023-03-11] MEDS: traZODone HCL 50 MG TAB PO SCH (22:07)
[2023-03-11] MEDS: SENNA 8.6 MG TAB PO SCH (22:07)
[2023-03-11] MEDS: ASPIRIN 81 MG ECTAB PO SCH (22:08)
[2023-03-12] MEDS: ACETAMINOPHEN 325 MG TAB PO PRN ×3 (06:08→20:22)
[2023-03-12] MEDS: amLODIPine BESYLATE 5 MG TAB PO SCH (08:13)
[2023-03-12] MEDS: CHOLECALCIFEROL 25 MCG (1000 UNITS) TAB PO SCH (08:14)
[2023-03-12] MEDS: FAMOTIDINE 20 MG in SYRINGE 3 ML IV SCH ×2 (08:14→20:22)
[2023-03-12] MEDS: DIVALPROEX EXTENDED RELEASE 500 MG TAB PO SCH ×2 (08:14→20:17)
[2023-03-12] MEDS: MULTIVITAMIN TAB PO SCH (08:15)
[2023-03-12] MEDS: lamoTRIgine 100 MG TAB PO SCH ×2 (08:15→20:18)
[2023-03-12] MEDS: LOSARTAN POTASSIUM 25 MG TAB PO SCH (08:15)
[2023-03-12] MEDS: SACCHAROMYCES BOULARDII 250 MG CAP PO SCH (08:17)
[2023-03-12] MEDS: ASPIRIN 81 MG ECTAB PO SCH ×2 (08:17→20:17)
[2023-03-12] MEDS: PANTOprazole 40 MG TAB PO SCH (08:17)
[2023-03-12] MEDS: OXYBUTYNIN CHLORIDE XL 5 MG TABCR PO SCH ×2 (08:18→20:18)
[2023-03-12] MEDS: levETIRAcetam 500 MG TAB PO SCH ×2 (08:18→20:18)
[2023-03-12] MEDS: ceFAZolin 1000MG 1,000 MG/7.5 ML SYR IV SCH (08:19)
[2023-03-12] MEDS: levETIRAcetam IV 1,500 MG in 0.9 % SODIUM CHLORIDE 100 ML IV SCH ×2 (08:20→08:32)
[2023-03-12 08:52] LABS: Basophils # (auto) 0.01 K/uL (0.00-0.20); Basophils % (auto) 0.1 %; Hematocrit (blood only) 26.2 % (37.0-47.0); Hemoglobin 8.5 g/dl (12.0-16.0); Immature Granulocytes # (auto) 0.03 K/uL (0.01-0.20); Immature Granulocytes % (auto) 0.3 %; Lymphocytes # (auto) 1.42 K/uL (1.20-3.40); Lymphocytes % (auto) 15.5 %; Mean Corpuscular Hemoglobin 29.7 pg (25.0-34.0); Mean Corpuscular Hgb Conc 32.4 g/dL (32.0-36.0); Mean Corpuscular Volume 91.6 fL (80.0-100.0); Mean Platelet Volume 11.2 fL (9.4-12.4); Monocytes # (auto) 0.91 K/uL (0.11-0.59); Neutrophils # (auto) 6.77 K/uL (1.40-6.50); Neutrophils % (auto) 74.1 %; Platelet Count 150 K/uL (130-400); RDW Coefficient of Variation 13.6 % (11.5-14.5); RDW Standard Deviation 45.5 fL (36.4-46.3); Red Blood Count 2.86 M/uL (4.20-5.40); White Blood Count 9.14 K/ul (4.8-10.8)
[2023-03-12 08:53] LABS: Calcium 7.6 mg/dl (8.6-10.3); Potassium 4.2 mmol/L (3.5-5.1)
[2023-03-12 08:59] LABS: BUN Creatinine Ratio 19.3 (10-20); Creatinine Clr Calc Pharmacy 82.6 ml/min; Est GFR (African American) 109.6 ml/min; Est GFR (Non-African American) 94.6 ml/min; Phosphorus 2.6 mg/dl (2.5-4.9)
[2023-03-12] MEDS ORDERED: ERGOCALCIFEROL 1250 MCG (50,000 UNITS) CAP PO SCH (10:30)
--- NOTE | 2023-03-12 13:02 | Orthopedic Progress Note ---
Date of Service March 12, 2023 Assessment & Plan (1) Closed fracture of proximal end of right femur: Overall, she is doing quite well today with good pain control to the right leg. She should continue working with physical therapy to continue working on ambulation and range of motion exercises. She can continue to be weightbearing as tolerated. She is on aspirin for DVT prophylaxis. Medical management per primary. She will follow-up with Dr. Kim in 2 weeks for postoperative care. Will continue to follow. Subjective . Patient was seen and evaluated this morning resting comfortably in no apparent distress. She has worked with physical therapy this morning but was only really able to stand at bedside. She denies any other concerns today. Review of Systems All systems reviewed & are unremarkable except as noted in HPI & below. Physical Exam . Physical examination of the right hip, dressings are clean, dry, intact. Her leg is out in full extension. She has active plantarflexion dorsiflexion to the right ankle. +2 DP and PT pulses. Less than 2-second capillary refill. Normal sensation. Neurovascular intact. Results & Data Results & Data Laboratory Results . Diagnostic Findings . Postoperative x-rays of the right femur show intramedullary raun in place with well aligned subtrochanteric fracture with no signs of hardware failure or screw backout. PG Care Time/CCT Total # of Minutes Spent Total Time Spent with Patient: Total time spent is greater than 50% in coordination of care (as documented) at patient's floor/unit and/or counseling patient: Coding Level of Care Code 33936 Post Operative Follow-Up Diagnoses Closed fracture of proximal end of right femur, initial encounter S72.001A Encounter type: initial encounter (1) Closed fracture of proximal end of right femur Encounter type: initial encounter Qualified Code(s): S72.001A - Fracture of unspecified part of neck of right femur, initial encounter for closed fracture
--- NOTE | 2023-03-12 13:15 | Hospitalist Progress Note ---
Date of Service March 12, 2023 Assessment & Plan (1) Closed right femoral fracture: Plan: Pt is a 68yoF with PMHx significant for hypertension, ascending aorta dilatation, vitamin D deficiency, microscopic colitis, urinary incontinence, osteoporosis, history of generalized convulsive epilepsy, cerebral palsy, learning disorder, history of stroke and ambulatory dysfunction [facility] a [facility] and was found to have a right hip fracture. R femoral fracture Fall Ambulatory Dysfunction S/p fall prior to arrival Likely mechanical, UA pending to rule out as a possible cause, no other signs of infection Hip/pelvis xray and femur xray noting acute displaced angulated fracture within the proximal shaft of the right femur. Orthopedics consulted, appreciate recs -Pt is s/p right Long Trochanteric Nail on 03/11 -recommending post-op PT, weightbearing as tolerated, aspirin for DVT prophylaxis, follow up with Dr. Kim in 2 weeks for postop care Pain control Continue aspirin 81mg BID for DVT prophylaxis PT/OT- recommending acute rehab before return to the prison/[facility] Acute Blood Loss anemia Acute on Chronic Anemia Hgb decreased at 11. 9 on admission Further decrease post-op to 8.5 on 03/12 Significant decrease likely due to acute blood loss anemia Anemia workup for chronic cause (Fe panel, B12, folate) Continue to monitor with AM labs Possible bradycardia Prolonged qtc As per caregiver, pulse was in 30s yesterday EKG showing bigeminy on admission, HR of 75, qtc of 553 Repeat EKG with first degree AV Block, frequent PVCs, qtc of 458 Echo noting EF 55-60%, mild LVH, mild tricuspid regurg and mildly elevated pulm artery pressure Pt currently asymptomatic Avoid QT prolonging drugs Cardiology previously consulted, appreciate recs Hyperglycemia Glucose level of 149 on admission AM [id number] pending Hyponatremia Sodium mildly decreased on admission at 135 Currently wnl Continue to monitor Vitamin D deficiency Vit D level of 13.7 Supplemented with D2 50,000U q7d x 6-8 weeks then daily PCP followup after discharge Hypertension On amlodipine and losartan Currently controlled, continue Closely monitor in setting of acute blood loss anemia History of epilepsy On Keppra and Lamictal, continue History of cerebral palsy Learning difficulty Ambulatory dysfunction Ambulates with walker at home and uses scooter when outside Diet: Regular CODE STATUS: Full code DVT prophylaxis: Per ortho, aspirin 81mg BID Dispo: PT recommending acute rehab before return to the prison/[facility] (2) Prolonged QT interval: (3) Ventricular bigeminy: (4) Fall from standing: (5) Seizure disorder: (6) Frequent falls: (7) Cerebral palsy: Admission and Anticipated Discharge Date Admission Date: March 11, 2023 Subjective Seen in the PM. States that her pain is well controlled. Passing gas, no BM yet. Tolerating food well. Denies other acute concerns. Review of Systems Review of Systems: All systems reviewed & are unremarkable except as noted in Subjective Physical Exam Physical Exam: General: Alert, oriented. No acute distress, resting comfortably Psych: Appropriate mood and affect Neuro: Difficulty with movements in the bed HEENT: NC/AT CV: RRR Resp: Breath sounds clear bilaterally, no increased effort of breathing. Abdomen: Soft, nontender, nondistended. Extremities: + edema in lower extremities bilaterally. Results & Data Results & Data Vital Signs (Past 12 Hours) Vital Signs Temp Pulse Pulse Resp BP Pulse Ox O2 Del Method 03/12/23 11:31 36.6 C 76 18 121/76 95 Room Air 03/12/23 11:16 95 03/12/23 08:09 36.8 C 76 17 109/70 93 Room Air 03/12/23 06:26 75 03/12/23 03:13 36.7 C 78 18 104/62 92 Room Air 03/12/23 02:42 O2 Del Method 03/12/23 11:31 03/12/23 11:16 03/12/23 08:09 03/12/23 06:26 03/12/23 03:13 03/12/23 02:42 Room Air Diagnostic Findings Femur X-Ray 03/10/23 22:20 XR femur RT 2V routine CLINICAL HISTORY: right hip pain s/p fall COMPARISON: Right femur radiographs February 22, 2023. FINDINGS: Note is made of an acute displaced angulated fracture within the proximal shaft of the right femur. Fracture is at site of stress fracture shown on radiographs of February 22, 2023. No distal right femoral fracture is noted. There is moderate right hip osteoarthritis. IMPRESSION: Acute displaced angulated fracture within the proximal shaft of the right femur. ACT 112: Negative or not required by law. Electronically signed by: Troy Pa M.D. 03/11/2023 6:46 AM Hip/Pelvis X-Ray 03/10/23 22:20 XR hip RT 2V w pelvis CLINICAL HISTORY: right hip pain s/p fall COMPARISON: Pelvis and right femur radiographs February 22, 2023. FINDINGS: Sacroiliac joints and symphysis pubis are intact. No proximal left femoral fracture is present. There are no pelvic fractures. Note is made of an acute angulated displaced fracture within the proximal shaft of the right femur. IMPRESSION: Acute displaced angulated fracture within the proximal shaft of the right femur. ACT 112: Negative or not required by law. Electronically signed by: Troy Pa M.D. 03/11/2023 6:45 AM Chest X-Ray 03/11/23 00:50 XR chest 1V portable CLINICAL HISTORY: Preoperative evaluation. COMPARISON STUDY: Chest radiograph February 22, 2023. FINDINGS: Patient is rotated. No pneumothorax or pleural effusion is present. No evidence for pulmonary edema. Mild cardiomegaly is unchanged. There is no consolidation to suggest pneumonia. There has been no significant change in appearance of the chest. IMPRESSION: No acute cardiopulmonary findings. ACT 112: Negative or not required by law. Electronically signed by: Troy Pa M.D. 03/11/2023 6:35 AM Femur X-Ray 03/11/23 15:00 FL femur RT 2V CLINICAL HISTORY: LONG TROCHNAIL RIGHT AFTER 1500acute fracture of the proximal right femur COMPARISON STUDY: 03/10/2023 FLUOROSCOPY TIME: 124.3 seconds FLUOROSCOPY IMAGES: 6 EXPOSURE DOSE: 28.31 mGy FINDINGS: Status post placement of an intratrochanteric male with medullary arun fixating the acute right proximal femoral fracture deformity. There is improved near anatomic alignment. Expected postoperative soft tissue swelling with deep tissue air. IMPRESSION: Fluoroscopic assistance as above. ACT 112: Negative or not required by law. Electronically signed by: Braulio Osborne M.D. 03/11/2023 6:26 PM (1) Closed right femoral fracture Encounter type: initial encounter Femur location: unspecified portion of femur
--- NOTE | 2023-03-12 15:14 | Cardiology Progress Note ---
Date of Service March 12, 2023 Assessment & Plan (1) Closed right femoral fracture: (2) Frequent falls: (3) Ventricular bigeminy: (4) PVC (premature ventricular contraction): (5) Prolonged QT interval: Plan IMPRESSION: Medically complex 68 year old female who presented after a mechanical fall at home-- now with a right femur fracture. Patient tolerated surgery on 03/11/23 without issues. Cardiology consulted in preop setting due to questionable bradycardia and frequent PVCs. PLAN: Frequent PVCs: -PVCs in a bigeminy pattern, average heart rates in the 70-80s. Patient asymptomatic. -PVC's improved 03/12/23 -Magnesium level improved and potassium level improved -HR currently 60-70's. Will not initiate beta osiel at this time given improved ectopy -echo with normal LVEF Prolonged QTC: >500 ms on prior EKG, possibly overestimated due to frequent PVCs. Will repeat this am. -improved on repeat Right femur fracture: -tolerated procedure -post op anemia noted - Monitor Stable cardiac symptoms. No further cardiac testing warranted. will sign off. Please notify senior java web application developer cardiology provider if there are additional questions or concerns. Case discussed with Dr. Sarabjit Mckoy spent a total of 35 minutes on the date of service in preparation, delivery, and documentation of the care provided to this patient, excluding any time spent in the performance of separately billed services. Kirsten Jacobsen PA-C Department of Cardiology, [facility] This chart was completed in part utilizing Speech Voice Recognition Software. Grammatical errors, random word insertions, pronoun errors, and incomplete sentences are an occasional consequence of this system due to software limitations, ambient noise, and hardware issues. Any formal questions or concerns about the content, text, or information contained within the body of this dictation should be directly addressed to the provider for clarification. Admission and Anticipated Discharge Date Admission Date: March 11, 2023 Supervising Physician Co-Signing Physician Notes Patient seen and personally examined in addition to above Anxious to begin mobilizing. No acute cardiac complaints. Tolerated surgical procedure well No evidence of significant bradycardia arrhythmias or pauses on telemetry Ventricular ectopy actually improved in hospital Recontact with further questions Subjective Patient resting in bed comfortably. POD 1 ORIF of the right femur. tolerated procedure. Pain controlled. No chest pain or dyspnea reported. BP controlled. No bradycardia on telemetry. PVC's also improved Review of Systems Review of Systems: All systems reviewed & are unremarkable except as noted in HPI & below Physical Exam Constitutional: well developed and well nourished; no acute distress Neck: normal visual inspection and trachea midline Respiratory: normal respiratory effort, lungs clear to auscultation no cough Cardiovascular: Rate/Rhythm: regular rate and regular rhythm (occasional e ctopic beat auscultated) Heart Sounds: normal S1, normal S2 and + murmur (+soft systolic murmur) Vessels: no JVD Extremities: no edema Gastrointestinal (Abdomen): Inspection/Auscultation: abdomen normal to inspection and normal bowel sounds; abdomen not distended Skin: no rashes, warm and dry Neurologic: PERRL, EOMI, accommodation nl, no face palsy, no dysarthria Psychiatric: Orientation: alert and oriented x 3 Results & Data Vital Signs (Past 12 Hours) Vital Signs Temp Pulse Pulse Resp BP Pulse Ox O2 Del Method 03/12/23 11:31 36.6 C 76 18 121/76 95 Room Air 03/12/23 11:16 95 03/12/23 08:09 36.8 C 76 17 109/70 93 Room Air 03/12/23 06:26 75 03/12/23 03:13 36.7 C 78 18 104/62 92 Room Air Laboratory Results CBC 03/12/23 Range/Units 07:22 WBC 9.14 (4.8-10.8) K/ul RBC 2.86 L (4.20-5.40) M/uL Hgb 8.5 L D (12.0-16.0) g/dl Hct 26.2 L (37.0-47.0) % Plt Count 150 (130-400) K/uL Neut # (Auto) 6.77 H (1.40-6.50) K/uL Lymph # (Auto) 1.42 (1.20-3.40) K/uL [place] # (Auto) 0.91 H (0.11-0.59) K/uL Eos # (Auto) 0.00 (0.00-0.50) K/uL Baso # (Auto) 0.01 (0.00-0.20) K/uL Comprehensive Metabolic Panel 03/12/23 Range/Units 07:22 Sodium 137 (136-145) mmol/L Potassium 4.2 (3.5-5.1) mmol/L Chloride 108 H (98-107) mmol/L Carbon Dioxide 21 (21-32) mmol/L BUN 11 (6-23) mg/dl Creatinine 0.57 L (0.6-1.2) mg/dl Glucose 122 H (70-99(Fasting)) mg/dl Calcium 7.6 L (8.6-10.3) mg/dl Intake and Output 03/12/23 03/12/23 03/12/23 06:59 14:59 22:59 Intake Total 934.667 / 934.667 Output Total 200 / 925 750 / 750 Balance -200 / 2605 184.667 / 184.667 Intake: IV 934.667 / 934.667 Sodium Chloride 0.9% 1,000 ml @ 934.667 / 934.667 80 mls/hr IV .[id number] [facility] Rx#: [id number] Output: Urine Amount (Catheter) 200 / 825 750 / 750 Pearson/Indwelling 200 / 825 750 / 750 Other: Other Intake Source Sips Diagnostic Findings Telemetry reviewed: NSR in the 60-70's. No arrhythmias. No significant PVC burden. No bradycardia Echo reviewed from 03/11/23: Normal LVEF at 55-60% LV wall motion is normal. Mild TR Medications Administered Current Inpatient Medications Acetaminophen (Acetaminophen 325 Mg Tab) 650 mg PO Q6H PRN PRN Reason: Pain or Fever Stop: 04/10/23 23:29 Last Admin: 03/12/23 06:08 Dose: 650 mg Amlodipine Besylate (Amlodipine Besylate 5 Mg Tab) 5 mg PO QAM [facility] Stop: 04/10/23 08:59 Last Admin: 03/12/23 08:13 Dose: 5 mg Aspirin (Aspirin 81 Mg Ectab) 81 mg PO BID [facility] Stop: 04/10/23 21:41 Last Admin: 03/12/23 08:17 Dose: 81 mg Divalproex Sodium (Divalproex Extended Release 500 Mg Tab) 500 mg PO BID [facility] Stop: 04/10/23 08:59 Last Admin: 03/12/23 08:14 Dose: 500 mg Ergocalciferol (Ergocalciferol 50,000 Units 1250 Mcg Cap) 50,000 units PO Q7D@0900 [facility] Stop: 04/11/23 10:29 Last Admin: 03/12/23 12:23 Dose: 50,000 units Famotidine (Famotidine 20 Mg Tab) 20 mg PO DAILY PRN PRN Reason: Heartburn Stop: 04/10/23 02:41 Famotidine 20 mg/ Syringe 5 mls @ 2.5 mls/min IV BID [facility] Stop: 04/10/23 09:29 Last Admin: 03/12/23 08:14 Dose: 2.5 mls/min Lamotrigine (Lamotrigine 100 Mg Tab) 100 mg PO BID [facility]; Protocol Stop: 04/10/23 08:59 Last Admin: 03/12/23 08:15 Dose: 100 mg Levetiracetam (Levetiracetam 500 Mg Tab) 1,500 mg PO BID [facility] Stop: 04/10/23 08:59 Last Admin: 03/12/23 08:18 Dose: 1,500 mg Losartan Potassium (Losartan Potassium 25 Mg Tab) 25 mg PO QAM [facility] Stop: 04/10/23 08:59 Last Admin: 03/12/23 08:15 Dose: 25 mg Morphine Sulfate (Morphine Sulfate 4 Mg/Ml 1 Ml Carp\Vial) 3 mg IV Q3H PRN PRN Reason: Pain Stop: 03/25/23 02:51 Multivitamins (Multivitamin Tab) 1 tab PO DAILY [facility] Stop: 04/10/23 08:59 Last Admin: 03/12/23 08:15 Dose: 1 tab Nitroglycerin (Nitroglycerin Sl 0.4 Mg/Tab Tab) 0.4 mg SL Q5M PRN PRN Reason: Chest Pain Stop: 04/10/23 02:41 Oxybutynin Chloride (Oxybutynin Chloride Xl 5 Mg Tabcr) 5 mg PO QAM [facility] Stop: 04/10/23 08:59 Last Admin: 03/12/23 08:18 Dose: 5 mg Oxybutynin Chloride (Oxybutynin Chloride Xl 5 Mg Tabcr) 10 mg PO HS [facility] Stop: 04/10/23 20:59 Last Admin: 03/11/23 22:07 Dose: 10 mg Pantoprazole Sodium (Pantoprazole 40 Mg Tab) 40 mg PO DAILY [facility] Stop: 04/10/23 08:59 Last Admin: 03/12/23 08:17 Dose: 40 mg Polyethylene Glycol (Polyethylene (Miralax) 17 Gm Pack) 17 gm PO DAILY PRN PRN Reason: Constipation Stop: 04/10/23 02:41 Saccharomyces Boulardii (Saccharomyces Boulardii 250 Mg Cap) 250 mg PO QAM [facility] Stop: 04/10/23 08:59 Last Admin: 03/12/23 08:17 Dose: 250 mg Sennosides (Senna 8.6 Mg Tab) 8.6 mg PO HS [facility] Stop: 04/10/23 20:59 Last Admin: 03/11/23 22:07 Dose: 8.6 mg Trazodone HCl (Trazodone Hcl 50 Mg Tab) 50 mg PO HS [facility] Stop: 04/10/23 20:59 Last Admin: 03/11/23 22:07 Dose: 50 mg Vitamin D (Cholecalciferol 1,000 Units 25 Mcg Tab) 1,000 units PO DAILY [facility] Stop: 04/10/23 08:59 Last Admin: 03/12/23 08:14 Dose: 1,000 units (1) Closed right femoral fracture Encounter type: initial encounter Femur location: unspecified portion of femur
[2023-03-12] MEDS: SENNA 8.6 MG TAB PO SCH (20:18)
[2023-03-12] MEDS: traZODone HCL 50 MG TAB PO SCH (20:22)
[2023-03-13] MEDS: ACETAMINOPHEN 325 MG TAB PO PRN (03:51)
[2023-03-13 07:26] LABS: Hemoglobin 7.6 g/dl (12.0-16.0); Mean Corpuscular Hemoglobin 29.8 pg (25.0-34.0); Mean Corpuscular Hgb Conc 31.7 g/dL (32.0-36.0); Mean Corpuscular Volume 94.1 fL (80.0-100.0); Mean Platelet Volume 10.8 fL (9.4-12.4); Platelet Count 117 K/uL (130-400); RDW Coefficient of Variation 13.3 % (11.5-14.5); RDW Standard Deviation 46.3 fL (36.4-46.3); Red Blood Count 2.55 M/uL (4.20-5.40); White Blood Count 8.08 K/ul (4.8-10.8)
[2023-03-13 08:00] LABS: Folate (Folic Acid),Ser orPlas > 22.30 ng/ml (>5.38)
[2023-03-13 08:01] LABS: Vitamin B12 481 pg/ml (180-914)
[2023-03-13 08:15] LABS: Estimated Average Glucose 111 mg/dl; Hemoglobin A1C 5.5 % (4.5-5.6)
[2023-03-13 08:18] LABS: BUN Creatinine Ratio 15.1 (10-20); Creatinine Clr Calc Pharmacy 88.8 ml/min; Est GFR (African American) 112.3 ml/min; Est GFR (Non-African American) 96.9 ml/min; Magnesium 2.2 mg/dl (1.7-2.4); Phosphorus 2.3 mg/dl (2.5-4.9); Potassium 3.8 mmol/L (3.5-5.1)
[2023-03-13 08:38] LABS: Ferritin 130.2 ng/ml (8-388)
[2023-03-13] MEDS: DIVALPROEX EXTENDED RELEASE 500 MG TAB PO SCH ×2 (08:47→21:29)
[2023-03-13] MEDS: levETIRAcetam 500 MG TAB PO SCH ×2 (08:47→21:29)
[2023-03-13] MEDS: PANTOprazole 40 MG TAB PO SCH (08:47)
[2023-03-13] MEDS: SACCHAROMYCES BOULARDII 250 MG CAP PO SCH (08:47)
[2023-03-13] MEDS: lamoTRIgine 100 MG TAB PO SCH ×2 (08:47→21:29)
[2023-03-13] MEDS: OXYBUTYNIN CHLORIDE XL 5 MG TABCR PO SCH ×2 (08:47→21:30)
[2023-03-13] MEDS: CHOLECALCIFEROL 25 MCG (1000 UNITS) TAB PO SCH (08:47)
[2023-03-13] MEDS: LOSARTAN POTASSIUM 25 MG TAB PO SCH (08:48)
[2023-03-13] MEDS: amLODIPine BESYLATE 5 MG TAB PO SCH (08:48)
[2023-03-13] MEDS: ASPIRIN 81 MG ECTAB PO SCH ×2 (08:48→21:24)
[2023-03-13] MEDS: MULTIVITAMIN TAB PO SCH (08:48)
[2023-03-13] MEDS: FAMOTIDINE 20 MG in SYRINGE 3 ML IV SCH ×2 (09:00→21:35)
[2023-03-13 09:28] LABS: Appearance Urine Clear (Clear); Bacteria Urine Automated Negative (Negative); Bilirubin Urine Negative (Negative); Blood Urine Negative (Negative); Cast Urine Automated 0 /lpf (0-5); Color Urine Yellow; Glucose Urine UA Negative (Negative); Ketones Urine Negative (Negative); Leukocyte Esterase Urine Trace (Negative); Nitrite Urine Negative (Negative); Protein Urine Negative (Negative); RBC Urine Automated 0-4 /hpf (0-4); Specific Gravity Urine 1.013 (1.000-1.030); Urobilinogen Urine Negative (Negative)
[2023-03-13] MEDS ORDERED: POTASSIUM PHOS 3 MMOL/1 ML INFUSION IV STA (09:58)
[2023-03-13] MEDS ORDERED: POTASSIUM PHOSPHATE 15 MMOL in SODIUM CHLORIDE 0.9% 250 ML IV ONE (10:00)
[2023-03-13] MEDS ORDERED: IRON SUCROSE 200 MG in 0.9 % SODIUM CHLORIDE 100 ML IV ONE (10:30)
--- NOTE | 2023-03-13 13:42 | Orthopedic Progress Note ---
Date of Service March 13, 2023 Assessment & Plan (1) Closed fracture of proximal end of right femur: Overall, she is doing quite well today with good pain control to the right leg. She should continue working with physical therapy to continue working on ambulation and range of motion exercises. She can continue to be weightbearing as tolerated. She is on aspirin for DVT prophylaxis. Medical management per primary. Her hemoglobin was at 7.6 this morning and did have a transfusion of iron ordered by primary service. Continue to watch H&H. Case management currently on board and attempting to get placement for rehabilitation upon discharge. She will follow-up with Dr. Kim in 2 weeks for postoperative care. Will continue to follow. Subjective . Patient was seen and evaluated this morning resting comfortably in no apparent distress. She has worked with physical therapy this morning but was only really able to stand at bedside. Her hemoglobin was low (7.6) this morning in which she does state that she did have a transfusion of iron today. She denies any other concerns today. Review of Systems All systems reviewed & are unremarkable except as noted in HPI & below. Physical Exam . Physical examination of the right hip, dressings are clean, dry, intact. Her leg is out in full extension. She has active plantarflexion dorsiflexion to the right ankle. +2 DP and PT pulses. Less than 2-second capillary refill. Normal sensation. Neurovascular intact. Results & Data Results & Data Laboratory Results . Abnormal lab results 03/13/23 03/13/23 Range/Units 07:03 09:00 RBC 2.55 L (4.20-5.40) M/uL Hgb 7.6 L (12.0-16.0) g/dl Hct 24.0 L (37.0-47.0) % MCHC 31.7 L (32.0-36.0) g/dL Plt Count 117 L (130-400) K/uL Chloride 109 H (98-107) mmol/L Creatinine 0.53 L (0.6-1.2) mg/dl Calcium 8.0 L (8.6-10.3) mg/dl Phosphorus 2.3 L (2.5-4.9) mg/dl Iron 14 L (35-150) mcg/dl TIBC 190 L (250-450) mcg/dl Transferrin % Sat 7 L (15-50) % Ur Leukocyte Esterase Trace H (Negative) U Epithel Cells (Auto) 5-10 H (0-5) /lpf Diagnostic Findings . PG Care Time/CCT Total # of Minutes Spent Total Time Spent with Patient: Total time spent is greater than 50% in coordination of care (as documented) at patient's floor/unit and/or counseling patient: Coding Level of Care Code 85825 Post Operative Follow-Up Diagnoses Closed fracture of proximal end of right femur, initial encounter S72.001A Encounter type: initial encounter (1) Closed fracture of proximal end of right femur Encounter type: initial encounter Qualified Code(s): S72.001A - Fracture of unspecified part of neck of right femur, initial encounter for closed fracture
--- NOTE | 2023-03-13 16:24 | Hospitalist Progress Note ---
Date of Service March 13, 2023 Assessment & Plan (1) Closed right femoral fracture: Plan: Pt is a 68yoF with PMHx significant for hypertension, ascending aorta dilatation, vitamin D deficiency, microscopic colitis, urinary incontinence, osteoporosis, history of generalized convulsive epilepsy, cerebral palsy, learning disorder, history of stroke and ambulatory dysfunction presenting from her shelter after a fall and was found to have a right hip fracture. R femoral fracture Fall Ambulatory Dysfunction S/p fall prior to arrival Likely mechanical, UA pending to rule out as a possible cause, no other signs of infection Hip/pelvis xray and femur xray noting acute displaced angulated fracture within the proximal shaft of the right femur. Orthopedics consulted, appreciate recs -Pt is s/p right Long Trochanteric Nail on 03/11 -recommending post-op PT, weightbearing as tolerated, aspirin for DVT prophylaxis, follow up with Dr. Kim in 2 weeks for postop care Pain control Continue aspirin 81mg BID for DVT prophylaxis PT/OT- recommending acute rehab before return to the shelter/[facility] Acute Blood Loss anemia Acute on Chronic Anemia Hgb decreased at 11. 9 on admission Further decrease post-op to 8.5 on 03/12 Significant decrease likely due to acute blood loss anemia Anemia workup for chronic cause (Fe panel, B12, folate) Continue to monitor with AM labs Possible bradycardia Prolonged qtc As per caregiver, pulse was in 30s yesterday EKG showing bigeminy on admission, HR of 75, qtc of 553 Repeat EKG with first degree AV Block, frequent PVCs, qtc of 458 Echo noting EF 55-60%, mild LVH, mild tricuspid regurg and mildly elevated pulm artery pressure Pt currently asymptomatic Avoid QT prolonging drugs Cardiology previously consulted, appreciate recs Hyperglycemia Glucose level of 149 on admission AM [id number] pending Hyponatremia Sodium mildly decreased on admission at 135 Currently wnl Continue to monitor Vitamin D deficiency Vit D level of 13.7 Supplemented with D2 50,000U q7d x 6-8 weeks then daily PCP followup after discharge Hypertension On amlodipine and losartan Currently controlled, continue Closely monitor in setting of acute blood loss anemia History of epilepsy On Keppra and Lamictal, continue History of cerebral palsy Learning difficulty Ambulatory dysfunction Ambulates with walker at home and uses scooter when outside Diet: Regular CODE STATUS: Full code DVT prophylaxis: Per ortho, aspirin 81mg BID Dispo: PT recommending acute rehab before return to the shelter/[facility] (2) Prolonged QT interval: (3) Ventricular bigeminy: (4) Fall from standing: (5) Seizure disorder: (6) Frequent falls: (7) Cerebral palsy: Admission and Anticipated Discharge Date Admission Date: March 11, 2023 Subjective Stated that her legs felt sore. But otherwise denied acute concerns. Review of Systems Review of Systems: All systems reviewed & are unremarkable except as noted in Subjective Physical Exam Physical Exam: General: Alert, oriented. No acute distress, resting comfortably Psych: Appropriate mood and affect Neuro: Difficulty with movements in the bed HEENT: NC/AT CV: RRR Resp: Breath sounds clear bilaterally, no increased effort of breathing. Abdomen: Soft, nontender, nondistended. Extremities: + edema in lower extremities bilaterally. Results & Data Results & Data Vital Signs (Past 12 Hours) Vital Signs Temp Pulse Pulse Resp BP Pulse Ox O2 Del Method 03/13/23 14:11 73 03/13/23 11:41 36.5 C 77 18 132/80 94 Room Air 03/13/23 10:33 79 16 122/80 95 Room Air 03/13/23 07:25 36.9 C 65 17 106/68 94 Room Air 03/13/23 06:07 75 (1) Closed right femoral fracture Encounter type: initial encounter Femur location: unspecified portion of femur
[2023-03-13] MEDS: SENNA 8.6 MG TAB PO SCH (21:31)
[2023-03-13] MEDS: traZODone HCL 50 MG TAB PO SCH (21:32)
[2023-03-14] MEDS: ACETAMINOPHEN 325 MG TAB PO PRN ×2 (02:37→21:06)
[2023-03-14 07:20] LABS: Hematocrit (blood only) 23.7 % (37.0-47.0); Hemoglobin 7.7 g/dl (12.0-16.0); Mean Corpuscular Hemoglobin 30.3 pg (25.0-34.0); Mean Corpuscular Hgb Conc 32.5 g/dL (32.0-36.0); Mean Corpuscular Volume 93.3 fL (80.0-100.0); Nucleated RBC # (auto) 0.02 K/uL (0.00-0.12); Nucleated RBC % (auto) 0.2 %; Platelet Count 132 K/uL (130-400); RDW Coefficient of Variation 13.3 % (11.5-14.5); RDW Standard Deviation 45.1 fL (36.4-46.3); Red Blood Count 2.54 M/uL (4.20-5.40); White Blood Count 8.31 K/ul (4.8-10.8)
[2023-03-14 08:01] LABS: BUN Creatinine Ratio 16.4 (10-20); Calcium 8.2 mg/dl (8.6-10.3); Creatinine Clr Calc Pharmacy 85.7 ml/min; Est GFR (African American) 110.9 ml/min; Est GFR (Non-African American) 95.7 ml/min; Magnesium 2.2 mg/dl (1.7-2.4); Phosphorus 3.6 mg/dl (2.5-4.9); Potassium 3.8 mmol/L (3.5-5.1)
[2023-03-14] MEDS: LOSARTAN POTASSIUM 25 MG TAB PO SCH (09:38)
[2023-03-14] MEDS: amLODIPine BESYLATE 5 MG TAB PO SCH (09:38)
[2023-03-14] MEDS: ASPIRIN 81 MG ECTAB PO SCH ×2 (09:38→20:53)
[2023-03-14] MEDS: PANTOprazole 40 MG TAB PO SCH (09:39)
[2023-03-14] MEDS: SACCHAROMYCES BOULARDII 250 MG CAP PO SCH (09:39)
[2023-03-14] MEDS: DIVALPROEX EXTENDED RELEASE 500 MG TAB PO SCH ×2 (09:39→20:56)
[2023-03-14] MEDS: OXYBUTYNIN CHLORIDE XL 5 MG TABCR PO SCH ×2 (09:39→20:55)
[2023-03-14] MEDS: MULTIVITAMIN TAB PO SCH (09:39)
[2023-03-14] MEDS: CHOLECALCIFEROL 25 MCG (1000 UNITS) TAB PO SCH (09:39)
[2023-03-14] MEDS: levETIRAcetam 500 MG TAB PO SCH ×2 (09:39→20:55)
[2023-03-14] MEDS: lamoTRIgine 100 MG TAB PO SCH ×2 (09:39→20:54)
[2023-03-14] MEDS: FAMOTIDINE 20 MG in SYRINGE 3 ML IV SCH ×2 (09:54→21:07)
--- NOTE | 2023-03-14 13:34 | Hospitalist Progress Note ---
Date of Service March 14, 2023 Assessment & Plan (1) Closed right femoral fracture: Plan: Pt is a 68yoF with PMHx significant for hypertension, ascending aorta dilatation, vitamin D deficiency, microscopic colitis, urinary incontinence, osteoporosis, history of generalized convulsive epilepsy, cerebral palsy, learning disorder, history of stroke and ambulatory dysfunction presenting from her intermediate after a fall and was found to have a right hip fracture. R femoral fracture Fall Ambulatory Dysfunction S/p fall prior to arrival Likely mechanical, UA pending to rule out as a possible cause, no other signs of infection Hip/pelvis xray and femur xray noting acute displaced angulated fracture within the proximal shaft of the right femur. Orthopedics consulted, appreciate recs -Pt is s/p right Long Trochanteric Nail on 03/11 -recommending post-op PT, weightbearing as tolerated, aspirin for DVT prophylaxis, follow up with Dr. Kim in 2 weeks for postop care Pain control Continue aspirin 81mg BID for DVT prophylaxis PT/OT- recommending acute rehab before return to the intermediate/[facility] Acute Blood Loss anemia Acute on Chronic Anemia Hgb decreased at 11. 9 on admission Further decrease post-op to 8.5 on 03/12 to 7.7 on 03/14 Significant decrease likely due to acute blood loss anemia Anemia workup for chronic cause (Fe panel, B12, folate) -iron level 14, supplemented with IV Venofer, currently 29. Consider further iron transfusions -folate and B12 levels normal Continue to monitor with AM labs Possible bradycardia Prolonged qtc As per caregiver, pulse was in 30s yesterday EKG showing bigeminy on admission, HR of 75, qtc of 553 Repeat EKG with first degree AV Block, frequent PVCs, qtc of 458 Echo noting EF 55-60%, mild LVH, mild tricuspid regurg and mildly elevated pulm artery pressure Pt currently asymptomatic Avoid QT prolonging drugs Cardiology previously consulted, appreciate recs Hyperglycemia Glucose level of 149 on admission AM [id number] pending Hyponatremia Sodium mildly decreased on admission at 135 Currently wnl Continue to monitor Vitamin D deficiency Vit D level of 13.7 Supplemented with D2 50,000U q7d x 6-8 weeks then daily PCP followup after discharge Hypertension On amlodipine and losartan Currently controlled, continue Closely monitor in setting of acute blood loss anemia History of epilepsy On Keppra and Lamictal, continue History of cerebral palsy Learning difficulty Ambulatory dysfunction Ambulates with walker at home and uses scooter when outside Diet: Regular CODE STATUS: Full code DVT prophylaxis: Per ortho, aspirin 81mg BID Dispo: PT recommending acute rehab before return to the intermediate/[facility] (2) Prolonged QT interval: (3) Ventricular bigeminy: (4) Fall from standing: (5) Seizure disorder: (6) Frequent falls: (7) Cerebral palsy: Admission and Anticipated Discharge Date Admission Date: March 11, 2023 Subjective Pt seen, laying in bed. Denied acute concerns. Review of Systems Review of Systems: All systems reviewed & are unremarkable except as noted in Subjective Physical Exam Physical Exam: General: Alert, oriented. No acute distress, resting comfortably Psych: Appropriate mood and affect Neuro: Difficulty with movements in the bed HEENT: NC/AT CV: RRR Resp: Breath sounds clear bilaterally, no increased effort of breathing. Abdomen: Soft, nontender, nondistended. Extremities: + edema in lower extremities bilaterally. Results & Data Results & Data Vital Signs (Past 12 Hours) Vital Signs Temp Pulse Resp BP Pulse Ox O2 Del Method 03/14/23 12:26 36.7 C 52 L 18 87/53 L 98 Room Air 03/14/23 12:00 96/70 L 03/14/23 09:30 115/79 03/14/23 08:38 37.0 C 73 17 91/59 L 93 Room Air 03/14/23 03:13 36.8 C 78 18 118/67 94 Room Air (1) Closed right femoral fracture Encounter type: initial encounter Femur location: unspecified portion of femur
[2023-03-14] MEDS: SENNA 8.6 MG TAB PO SCH (20:53)
[2023-03-14] MEDS: traZODone HCL 50 MG TAB PO SCH (21:07)
[2023-03-15] MEDS: ACETAMINOPHEN 325 MG TAB PO PRN ×2 (05:55→21:19)
[2023-03-15 07:07] LABS: Hematocrit (blood only) 25.3 % (37.0-47.0); Hemoglobin 8.1 g/dl (12.0-16.0); Mean Corpuscular Hemoglobin 30.1 pg (25.0-34.0); Mean Corpuscular Volume 94.1 fL (80.0-100.0); Mean Platelet Volume 10.5 fL (9.4-12.4); Platelet Count 181 K/uL (130-400); RDW Coefficient of Variation 13.3 % (11.5-14.5); RDW Standard Deviation 45.3 fL (36.4-46.3); Red Blood Count 2.69 M/uL (4.20-5.40); White Blood Count 7.43 K/ul (4.8-10.8)
[2023-03-15 07:31] LABS: BUN Creatinine Ratio 16.1 (10-20); Calcium 8.4 mg/dl (8.6-10.3); Creatinine Clr Calc Pharmacy 76.9 ml/min; Est GFR (African American) 106.6 ml/min; Magnesium 2.2 mg/dl (1.7-2.4); Phosphorus 3.9 mg/dl (2.5-4.9); Potassium 3.7 mmol/L (3.5-5.1)
[2023-03-15] MEDS ORDERED: IRON SUCROSE 200 MG in 0.9 % SODIUM CHLORIDE 100 ML IV ONE (07:37)
--- NOTE | 2023-03-15 08:12 | Surgery Progress Note ---
Date of Service March 15, 2023 Assessment & Plan (1) Closed right femoral fracture: Plan: 68-year-old female now 4 days out from a IM nailing of right subtrochanteric femur fracture. Orthopedically she is doing well. Pain is controlled. Seems to be improving daily. Plan: 1. DVT prophylaxis including thigh-high teds, SCDs, baby aspirin twice a day for 6 weeks and. 2. Medical management as per the medicine service. 3. PT/OT. Weight-bear as tolerated. 4. Disposition she is orthopedically okay for discharge anytime medically stable. I need to see her back 2 to 3 weeks out from her surgery date. She can fully weight-bear as tolerated. No hip precautions needed. Any orthopedic questions can be directed at [phone]. Admission and Anticipated Discharge Date Admission Date: March 11, 2023 Subjective 68-year-old female postop day 4 from IM nailing of a right subtrochanteric femur fracture. She is doing well. Feels like she is getting better every day. Just describes soreness in her hip. Pain controlled. Physical Exam Physical Exam: Physical examination is a pleasant middle-age female. Lying in bed looks comfortable. Examination of the right leg reveals the dressing to be in place. Just a little bit of bloody drainage. Thigh is soft and supple. She is neurologically stable. Limited movement of the right foot which has been chronic. Results & Data Vital Signs (Past 12 Hours) Vital Signs Temp Pulse Pulse Resp BP BP Pulse Ox 03/15/23 08:04 36.8 C 64 16 120/72 94 03/15/23 06:20 66 03/15/23 04:19 37.2 C 68 18 119/75 93 03/14/23 22:00 69 03/14/23 22:00 36.3 C L 71 18 109/66 94 O2 Del Method 03/15/23 08:04 Room Air 03/15/23 06:20 03/15/23 04:19 Room Air 03/14/23 22:00 03/14/23 22:00 Room Air Laboratory Results Hemoglobin 8.1. Hematocrit 25.3. PG Care Time/CCT Total # of Minutes Spent Total Time Spent with Patient: Total time spent is greater than 50% in coordination of care (as documented) at patient's floor/unit and/or counseling patient: Coding Level of Care Code 30429 Post Operative Follow-Up Diagnoses Closed right femoral fracture S72.91XA Encounter type: initial encounter Femur location: unspecified portion of femur (1) Closed right femoral fracture Encounter type: initial encounter Femur location: unspecified portion of femur
[2023-03-15] MEDS: FAMOTIDINE 20 MG in SYRINGE 3 ML IV SCH ×2 (09:35→21:34)
[2023-03-15] MEDS: ASPIRIN 81 MG ECTAB PO SCH ×2 (09:38→21:19)
[2023-03-15] MEDS: lamoTRIgine 100 MG TAB PO SCH ×2 (09:38→21:20)
[2023-03-15] MEDS: levETIRAcetam 500 MG TAB PO SCH ×2 (09:38→21:20)
[2023-03-15] MEDS: amLODIPine BESYLATE 5 MG TAB PO SCH (09:38)
[2023-03-15] MEDS: DIVALPROEX EXTENDED RELEASE 500 MG TAB PO SCH ×2 (09:38→21:19)
[2023-03-15] MEDS: CHOLECALCIFEROL 25 MCG (1000 UNITS) TAB PO SCH (09:38)
[2023-03-15] MEDS: LOSARTAN POTASSIUM 25 MG TAB PO SCH (09:39)
[2023-03-15] MEDS: OXYBUTYNIN CHLORIDE XL 5 MG TABCR PO SCH ×2 (09:39→21:20)
[2023-03-15] MEDS: MULTIVITAMIN TAB PO SCH (09:39)
[2023-03-15] MEDS: PANTOprazole 40 MG TAB PO SCH (09:39)
[2023-03-15] MEDS: SACCHAROMYCES BOULARDII 250 MG CAP PO SCH (09:39)
--- NOTE | 2023-03-15 10:02 | Hospitalist Progress Note ---
Date of Service March 15, 2023 Assessment & Plan (1) Closed right femoral fracture: Plan: Pt is a 68yoF with PMHx significant for hypertension, ascending aorta dilatation, vitamin D deficiency, microscopic colitis, urinary incontinence, osteoporosis, history of generalized convulsive epilepsy, cerebral palsy, learning disorder, history of stroke and ambulatory dysfunction presenting from her care home after a fall and was found to have a right hip fracture. R femoral fracture Fall Ambulatory Dysfunction S/p fall prior to arrival Likely mechanical, UA pending to rule out as a possible cause, no other signs of infection Hip/pelvis xray and femur xray noting acute displaced angulated fracture within the proximal shaft of the right femur. Orthopedics consulted, appreciate recs -Pt is s/p right Long Trochanteric Nail on 03/11 -recommending post-op PT, weightbearing as tolerated, aspirin for DVT prophylaxis, follow up with Dr. Kim in 2 weeks for postop care Pain control Continue aspirin 81mg BID for DVT prophylaxis PT/OT- recommending acute rehab before return to the care home/[facility] Acute Blood Loss anemia Acute on Chronic Anemia Hgb decreased at 11. 9 on admission Further decrease post-op to 8.5 on 03/12 to 7.7 on 03/14 Significant decrease likely due to acute blood loss anemia Anemia workup for chronic cause (Fe panel, B12, folate) -iron level 14, supplemented with IV Venofer, currently 29. Consider further iron transfusions -folate and B12 levels normal Continue to monitor with AM labs 03/15- Hgb up to 8.1 today. IV Venofer ordered, monitor with AM level, monitor hgb Possible bradycardia Prolonged qtc As per caregiver, pulse was in 30s yesterday EKG showing bigeminy on admission, HR of 75, qtc of 553 Repeat EKG with first degree AV Block, frequent PVCs, qtc of 458 Echo noting EF 55-60%, mild LVH, mild tricuspid regurg and mildly elevated pulm artery pressure Pt currently asymptomatic Avoid QT prolonging drugs Cardiology previously consulted, appreciate recs Hyperglycemia Glucose level of 149 on admission AM [id number] pending Hyponatremia Sodium mildly decreased on admission at 135 Currently wnl Continue to monitor Vitamin D deficiency Vit D level of 13.7 Supplemented with D2 50,000U q7d x 6-8 weeks then daily PCP followup after discharge Hypertension On amlodipine and losartan Currently controlled, continue Closely monitor in setting of acute blood loss anemia History of epilepsy On Keppra and Lamictal, continue History of cerebral palsy Learning difficulty Ambulatory dysfunction Ambulates with walker at home and uses scooter when outside Diet: Regular CODE STATUS: Full code DVT prophylaxis: Per ortho, aspirin 81mg BID Dispo: PT recommending acute rehab before return to the care home/[facility]- pt to go to [facility] once medically stable (2) Prolonged QT interval: (3) Ventricular bigeminy: (4) Fall from standing: (5) Seizure disorder: (6) Frequent falls: (7) Cerebral palsy: Admission and Anticipated Discharge Date Admission Date: March 11, 2023 Subjective Pt states that pain is controlled. Denies chest pain, SOB, dizziness or palpitations. Otherwise no acute concerns. Review of Systems Review of Systems: All systems reviewed & are unremarkable except as noted in Subjective Physical Exam Physical Exam: General: Alert, oriented. No acute distress, resting comfortably Psych: Appropriate mood and affect Neuro: Difficulty with movements in the bed HEENT: NC/AT CV: RRR Resp: Breath sounds clear bilaterally, no increased effort of breathing. Abdomen: Soft, nontender, nondistended. Extremities: + edema in lower extremities bilaterally. Results & Data Results & Data Vital Signs (Past 12 Hours) Vital Signs Temp Pulse Pulse Resp BP Pulse Ox O2 Del Method 03/15/23 08:04 36.8 C 64 16 120/72 94 Room Air 03/15/23 06:20 66 03/15/23 04:19 37.2 C 68 18 119/75 93 Room Air (1) Closed right femoral fracture Encounter type: initial encounter Femur location: unspecified portion of femur
[2023-03-15] MEDS: traZODone HCL 50 MG TAB PO SCH (21:19)
[2023-03-15] MEDS: SENNA 8.6 MG TAB PO SCH (21:20)
[2023-03-16] MEDS: ACETAMINOPHEN 325 MG TAB PO PRN (05:40)
[2023-03-16 05:59] LABS: Hematocrit (blood only) 25.8 % (37.0-47.0); Hemoglobin 8.2 g/dl (12.0-16.0); Mean Corpuscular Hemoglobin 29.9 pg (25.0-34.0); Mean Corpuscular Hgb Conc 31.8 g/dL (32.0-36.0); Mean Corpuscular Volume 94.2 fL (80.0-100.0); Nucleated RBC # (auto) 0.02 K/uL (0.00-0.12); Nucleated RBC % (auto) 0.3 %; Platelet Count 216 K/uL (130-400); RDW Coefficient of Variation 13.4 % (11.5-14.5); RDW Standard Deviation 44.8 fL (36.4-46.3); Red Blood Count 2.74 M/uL (4.20-5.40); White Blood Count 6.93 K/ul (4.8-10.8)
[2023-03-16 06:07] LABS: BUN Creatinine Ratio 15.9 (10-20); Calcium 8.3 mg/dl (8.6-10.3); Creatinine Clr Calc Pharmacy 76.8 ml/min; Est GFR (African American) 106.1 ml/min; Est GFR (Non-African American) 91.5 ml/min; Magnesium 2.2 mg/dl (1.7-2.4); Phosphorus 3.8 mg/dl (2.5-4.9); Potassium 4.1 mmol/L (3.5-5.1)
[2023-03-16] MEDS: CHOLECALCIFEROL 25 MCG (1000 UNITS) TAB PO SCH (08:35)
[2023-03-16] MEDS: LOSARTAN POTASSIUM 25 MG TAB PO SCH (08:35)
[2023-03-16] MEDS: MULTIVITAMIN TAB PO SCH (08:35)
[2023-03-16] MEDS: PANTOprazole 40 MG TAB PO SCH (08:35)
[2023-03-16] MEDS: ASPIRIN 81 MG ECTAB PO SCH (08:35)
[2023-03-16] MEDS: OXYBUTYNIN CHLORIDE XL 5 MG TABCR PO SCH (08:35)
[2023-03-16] MEDS: amLODIPine BESYLATE 5 MG TAB PO SCH (08:35)
[2023-03-16] MEDS: SACCHAROMYCES BOULARDII 250 MG CAP PO SCH (08:35)
[2023-03-16] MEDS: levETIRAcetam 500 MG TAB PO SCH (08:35)
[2023-03-16] MEDS: DIVALPROEX EXTENDED RELEASE 500 MG TAB PO SCH (08:35)
[2023-03-16] MEDS: lamoTRIgine 100 MG TAB PO SCH (08:35)
[2023-03-16] MEDS: FAMOTIDINE 20 MG in SYRINGE 3 ML IV SCH (08:40)
--- NOTE | 2023-03-16 11:49 | Discharge Summary ---
Discharge Summary Date of Service March 16, 2023 Notes For Next Care Provider Please continue to monitor hemoglobin levels after discharge and ensure stability Please continue to monitor iron levels after discharge and consider daily or alternate day oral iron supplementation Pt's Vit D levels were low despite daily supplementation. Started on Vit D 50,000U on 03/12/2023, continue weekly for 7 more weeks with further monitoring of levels. Resume daily dosing afterwards. From Orthopedic Surgery: 1. DVT prophylaxis including thigh-high teds, SCDs, baby aspirin twice a day for 6 weeks 2. PT/OT. Weight-bear as tolerated. 3. I need to see her back 2 to 3 weeks out from her surgery date (03/11/2023). She can fully weight-bear as tolerated. No hip precautions needed. Any orthopedic questions can be directed at [phone] Medication Changes From Visit Aspirin 81mg dose increased to BID for DVT prophylaxis post-op x 6 weeks per Orthopedics Vitamin D2 50,000U q7days for 7 more weeks (last dose on 03/12/23) Vitamin D3 1000U daily HELD while on dose above Admission HPI Per Admitting Provider 68-year-old female with past med history significant for hypertension, ascending aorta dilatation, vitamin D deficiency, microscopic colitis, urinary incontinence, osteoporosis, history of generalized convulsive epilepsy, cerebral palsy, learning disorder, history of stroke, ambulatory dysfunction ambulates with a walker at home and when she is outside uses the scooter [facility] was brought in because of fall and found to have right hip fracture. Patient was trying to put glass in the sink when the walker wheels rolled away and and fell onto her right hip. Did not strike her head. No loss of consciousness. Denies any chest pain. States lately she is get short of breath on exertion. Denies any headache. No runny nose. No sore throat. No cough. No fever. Appetite is okay. No difficulty swallowing. Currently no abdominal pain. Currently normal bowel and bladder movements. Caregiver in the room. As per caregiver she is falling frequently. She was in the ER on First Week of February with a Fall and and Hit Her Head but Imaging Studies Were Okay. She Also Had Compression Fracture Right Hip. Caregiver States Yesterday When She Checked Her Pulse Rate Was in 30s and Blood Pressure Was 100s and 90s but by the Evening It Recovered. Past medical history. As mentioned above Past surgical history. Colonoscopy. EGD. Brain cavity shunt. Ligation of oviducts. Bilateral cataract Social history. No smoking. No alcohol use. No drug use. [facility]. Family history. Father alcohol abuse, stroke, cancer. Mother had breast cancer. Brother had cancer. Sister had [place]. Admission Exam Per Admitting Provider General- Not in distress Head- atraumatic Eyes- PERRL. ENT- oropharynx clear Neck- supple, no JVD. Lungs- clear to auscultation no wheezing or crackles. Heart- regular rate and rhythm; no murmur, no gallop. Abdomen- normal bowel sounds, soft, nontender, no distension. Extremities- right lower extremity in bucks traction. Neuro- alert, oriented x 3; PERRL, no facial palsy; no dysarthria; obeys simple commands Skin- warm & dry Principal Dx & Hospital Course #1 = Principal Diagnosis (1) Closed right femoral fracture: (2) Prolonged QT interval: (3) Ventricular bigeminy: (4) Fall from standing: (5) Seizure disorder: (6) Frequent falls: (7) Cerebral palsy: Plan Pt is a 68yoF with PMHx significant for hypertension, ascending aorta d ilatation, vitamin D deficiency, microscopic colitis, urinary incontinence, osteoporosis, history of generalized convulsive epilepsy, cerebral palsy, learning disorder, history of stroke and ambulatory dysfunction [facility] a [facility] and was found to have a right hip fracture. R femoral fracture Fall Ambulatory Dysfunction S/p fall prior to arrival Likely mechanical UA without signs of infection as a possible cause Hip/pelvis xray and femur xray noting acute displaced angulated fracture within the proximal shaft of the right femur. Orthopedics consulted, appreciate recs -Pt is s/p right Long Trochanteric Nail on 03/11 -recommending post-op PT -full weightbearing as tolerated -No hip precautions needed -DVT prophylaxis in the form of thigh-high teds, SCDs, baby aspirin twice a day for 6 weeks -follow up with Dr. Kim 2 to 3 weeks out from pt's surgery date (03/11/2023) -Any orthopedic questions can be directed at [phone] Pain control- pt was receiving tylenol 650mg q6h, did not use the morphine 3mg q3h prn that was ordered. Continue aspirin 81mg BID for DVT prophylaxis x6 weeks as recommended by ortho, can resume daily dosing afterwards PT/OT- recommending acute rehab before return [facility] the [facility]. Pt discharged to [facility] for acute rehab. Acute Blood Loss anemia Acute on Chronic Anemia Iron Deficiency Anemia Hgb decreased at 11. 9 on admission. Hgb was 13 on Mar 10, 2023. Further decrease post-op to 8.5 on 03/12 to 7.6 on 03/13 Significant decrease likely due to acute blood loss anemia Anemia workup for further causes (Fe panel, B12, folate) -iron level was noted to be 14 -supplemented with IV Venofer and was 42 on discharge -folate and B12 levels were normal Hemoglobin was 8.2 on discharge. PCP follow up- please continue to monitor iron levels after discharge and consider daily or alternate day oral iron supplementation Continue to monitor hemoglobin levels after discharge. Possible bradycardia Prolonged qtc As per caregiver, pulse was in the 30s the day before admission EKG showing bigeminy on admission, HR of 75, qtc of 553 Repeat EKG with first degree AV Block, frequent PVCs, qtc of 458 Echo noting EF 55-60%, mild LVH, mild tricuspid regurg and mildly elevated pulm artery pressure Pt was asymptomatic QT prolonging drugs were avoided Cardiology was consulted for pre-op clearance. -No changes were needed -Per Cardiology, documented on 03/12 "No evidence of significant bradycardia arrhythmias or pauses on telemetry. Ventricular ectopy actually improved in hospital". Hyperglycemia Glucose level of 149 noted Hgba1c normal at 5.5 Hyponatremia Sodium mildly decreased on admission at 135 Improved and was normal on discharge Vitamin D deficiency Vit D level of 13.7 during hospitalization Pt on daily supplementation of D3 1000U daily Supplemented with D2 50,000U on 03/12/2023, continue weekly for 7 more weeks with further monitoring of levels Resume daily dosing afterwards PCP followup after discharge Hypertension On amlodipine and losartan Currently controlled, continue Continue to monitor BP History of epilepsy On Keppra and Lamictal, continue History of cerebral palsy Learning difficulty Ambulatory dysfunction Ambulates with walker at home and uses scooter when outside Discharge Exam General: Alert, oriented. No acute distress, resting comfortably Psych: Appropriate mood and affect Neuro: Difficulty with movements in the bed HEENT: NC/AT CV: RRR Resp: Breath sounds clear bilaterally, no increased effort of breathing. Abdomen: Soft, nontender, nondistended. Extremities: + edema in lower extremities bilaterally. Updated Medication List Medication Instructions Recorded Confirmed Type divalproex 500 mg tablet,extended 500 mg PO BID 01/26/18 03/10/23 History release 24 hr lamotrigine 100 mg tablet 100 mg PO BID 01/26/18 03/10/23 History levetiracetam 500 mg tablet 1,500 mg PO BID 01/26/18 03/10/23 History Saccharomyces boulardii 250 mg 250 mg PO QAM 09/03/20 03/10/23 History capsule (Florastor) oxybutynin chloride 5 mg See Rx Instructions .Route .COMPLEX 09/03/20 03/10/23 History tablet,extended release 24 hr multivitamin (One Daily 1 tab PO DAILY 09/11/21 03/10/23 History Multivitamin tablet) losartan 25 mg tablet 25 mg PO QAM 07/17/22 03/10/23 History omeprazole 20 mg capsule,delayed 20 mg PO DAILY 07/17/22 03/10/23 History release amlodipine 5 mg tablet 5 mg PO QAM 07/20/22 03/10/23 History sennosides 8.6 mg tablet (Senokot) 8.6 mg PO HS 01/19/23 03/10/23 History trazodone 50 mg tablet 50 mg PO HS 01/19/23 03/10/23 History famotidine 20 mg tablet 20 mg PO DAILY PRN Heartburn 03/10/23 03/10/23 History omeprazole 20 mg capsule,delayed 20 mg PO .TAPER DIRECTED 03/10/23 03/10/23 History release acetaminophen 325 mg tablet 650 mg (2 x 325 mg) PO Q6H PRN 03/16/23 Rx pain #240 tabs aspirin 81 mg tablet,delayed 81 mg PO BID #60 tabs 03/16/23 Rx release ergocalciferol (vitamin D2) 1,250 50,000 unit PO Q7D@0900 #7 caps 03/16/23 Rx mcg (50,000 unit) capsule Hospital Stay Data Consultations 03/11/23 00:10 ED Decision to Admit Stat 03/11/23 00:12 Consult Orthopedic Surgery Stat 03/11/23 08:00 Consult Cardiology Routine Procedures Performed Operation Date: 03/11/23 11:05 Actual Procedures p Right Long Troch Nail(Right) - Corey Kim MD Diagnostic Imagining Performed 03/11/23 15:00 FL femur RT 2V Routine Femur X-Ray 03/10/23 22:20 XR femur RT 2V routine CLINICAL HISTORY: right hip pain s/p fall COMPARISON: Right femur radiographs February 22, 2023. FINDINGS: Note is made of an acute displaced angulated fracture within the proximal shaft of the right femur. Fracture is at site of stress fracture shown on radiographs of February 22, 2023. No distal right femoral fracture is noted. There is moderate right hip osteoarthritis. IMPRESSION: Acute displaced angulated fracture within the proximal shaft of the right femur. ACT 112: Negative or not required by law. Electronically signed by: Troy Pa M.D. 03/11/2023 6:46 AM Hip/Pelvis X-Ray 03/10/23 22:20 XR hip RT 2V w pelvis CLINICAL HISTORY: right hip pain s/p fall COMPARISON: Pelvis and right femur radiographs February 22, 2023. FINDINGS: Sacroiliac joints and symphysis pubis are intact. No proximal left femoral fracture is present. There are no pelvic fractures. Note is made of an acute angulated displaced fracture within the proximal shaft of the right femur. IMPRESSION: Acute displaced angulated fracture within the proximal shaft of the right femur. ACT 112: Negative or not required by law. Electronically signed by: Troy Pa M.D. 03/11/2023 6:45 AM Chest X-Ray 03/11/23 00:50 XR chest 1V portable CLINICAL HISTORY: Preoperative evaluation. COMPARISON STUDY: Chest radiograph February 22, 2023. FINDINGS: Patient is rotated. No pneumothorax or pleural effusion is present. No evidence for pulmonary edema. Mild cardiomegaly is unchanged. There is no consolidation to suggest pneumonia. There has been no significant change in appearance of the chest. IMPRESSION: No acute cardiopulmonary findings. ACT 112: Negative or not required by law. Electronically signed by: Troy Pa M.D. 03/11/2023 6:35 AM Femur X-Ray 03/11/23 15:00 FL femur RT 2V CLINICAL HISTORY: LONG TROCHNAIL RIGHT AFTER 1500acute fracture of the proximal right femur COMPARISON STUDY: 03/10/2023 FLUOROSCOPY TIME: 124.3 seconds FLUOROSCOPY IMAGES: 6 EXPOSURE DOSE: 28.31 mGy FINDINGS: Status post placement of an intratrochanteric male with medullary arun fixating the acute right proximal femoral fracture deformity. There is improved near anatomic alignment. Expected postoperative soft tissue swelling with deep tissue air. IMPRESSION: Fluoroscopic assistance as above. ACT 112: Negative or not required by law. Electronically signed by: Braulio Osborne M.D. 03/11/2023 6:26 PM Discharge Instructions Given to Patient (Per Discharging Provider) Cecilai, You were admitted with a fracture of your right femur and you had orthopedic surgery done. You are being discharged to acute rehab at [facility]. We made some changes to your medications. Please continue taking the tylenol as you have been doing here, every 6 hours. Your orthopedic surgeon changed your aspirin dose to 81mg twice a day to help with preventing a blood clot after your surgery. Please take it twice a day for 6 weeks as advised. You can go back to taking it once a day after that like you had been doing before. And finally, your Vitamin D levels were noted to be low in spite of your daily home supplement. We gave you a higher dose on 03/12/23 and you will need to take that high dose of Vitamin D once a week for the next 7 weeks before you can go back to your daily dose. Please stop taking the daily dose until you finish the 7 week course of the higher dose. Please follow up with your primary care provider about this. Again, please keep close follow up with your primary care provider after discharge. Please do not hesitate to come back to the emergency room if your symptoms worsen or return. It was a pleasure taking care of you while you were here. Total Time Total Time Spent Total Time Spent (In Minutes): > 30 minutes
--- NOTE | 2023-03-21 13:29 | Coding Query ---
To promote full compliance with coding requirements relating to patient care, physician participation is requested in all cases of cert occupational therapy asst uncertainty. Please assist us with the question(s) below: Coding Question(s): It was noted throughout the record that the patient has/is suspected to have osteoporosis. According to coding guidelines "a code for osteoporotic fracture, and not a traumatic fracture, should be used for any patient with known osteoporosis who suffers a fracture, even if the patient had a minor fall or trauma, if that fall or trauma would not usually break a normal, healthy bone." Please indicate below the type of fracture: Physician's Response(s): ( x ) Osteoporotic fracture of right subtrochanteric femur ( ) Traumatic fracture of right subtrochanteric femur ( ) Other, please specify MTDD
== END 2023-03-16 14:09 | DRG 481 ==
LOC: ED 21:40 → EDINP 03-11 02:10 → SUATTDRO 03-11 02:10 → EDINP 03-11 15:28 → 2N 03-11 20:30

== ENCOUNTER 2023-08-03 22:04 | Inpatient (IN) ==
--- NOTE | 2023-08-03 22:36 | Emergency Department Note ---
Impression & Plan Sepsis, UTI (urinary tract infection), Pneumonia, Infantile cerebral palsy ED Provider Note NAME: MISAEL MONROE AGE: 68 SEX: F : 1955 ARRIVES VIA: Ambulance INFORMANT: Patient ED PROVIDER(S): Guru Raymundo MD CHIEF COMPLAINT: Headache, weakness, concern for sepsis, referred. PLAN: Disposition: Admit MEDICAL DECISION MAKING: The patient is a pleasant 68-year-old woman with a past medical history of cerebral palsy, seizure disorder, obstructive hydrocephalus, CKD who presents to the emergency department via EMS and then accompanied by staff from her senior living for evaluation of generalized weakness and headache ongoing since earlier today after the patient was seen in this emergency department last night by this provider for shortness of breath and weakness where she was diagnosed with a urinary tract infection started on cefdinir and then was seen again this morning after the patient had near syncopal episode but did not hit her head. Patient had x-rays performed which showed no fracture or dislocation the patient was discharged to follow-up with her primary care doctor as originally had been planned. However, due to her worsening symptoms of headache and weakness staff bring her back for evaluation as they are concerned for "sepsis". On evaluation patient is fatigued appearing but no distress, Febrile to 38.0 heart rate in the 70s and blood pressure 80s-90s/40s-60s O2 saturation is 91% on room air and greater.. She appears clinically dry. Her neurologic exam is at baseline without acute new deficits. EKG without overt acute ischemia. CXR negative for acute cardiopulmonary process per my personal preliminary review/interpretation. WBC 11.5 K with neutrophil predominance though no left shift, nonspecific but increased from yesterday and so concerning for infection. There is mild lymphopenia. H/H similar to prior range values. Platelets within normal limits. Chemistry with mild metabolic acidosis with bicarbonate of 20 with no significant anion gap elevation. Lactic acid 1.1, within normal limits. LFTs with AST of 63, mildly elevated. LFTs otherwise normal. High-sensitivity troponin 10.0, within normal limits. Procalcitonin is elevated to consistent with suspicion for bacterial infection and likely UTI. Given the patient's mild lymphopenia and elevated AST tickborne illness testing was performed out of caution. CT of the head was negative for acute abnormalities. CT of the abdomen pelvis was negative for acute intra-abdominal process. Note is made of bibasilar thickening which may opacities, which reflect atelectasis though given the clinical context of fever and patient reporting some increased cough and congestion left basilar groundglass opacities suspicious for pneumonia per my preliminary independent interpretation. Patient treated with IV to hydration with 30cc/kg IV fluid hydration with normal saline. She was additionally given empiric treatment with Invanz given history of urine culture which grew E. coli resistant to ampicillin on, cefazolin and fluoroquinolones. Doxycycline also administered for atypical coverage. The patient and senior living staff member agree with plan for admission for further management. [facility] will [facility] the patient for admission. Triage Nursing notes reviewed and agree them. Prior/external medical records reviewed Vital Signs: reviewed Differential diagnosis: Infection, dehydration, metabolic abnormality, hypo/hyperglycemia, electrolyte disturbance, anemia, hypoxia, cardiac sources, intracerebral event, toxicologic, neurologic, as well as other pathologies. ER treatment provided: See below. Diagnostics interpreted by me: ECG: Normal sinus rhythm, 79 bpm, no ectopy, no overt ST elevation or depression, QTc 493 QRS 94. Cardiac Monitoring: An order for continuous cardiac monitoring was placed and demonstrated Normal sinus rhythm, 79 bpm, no ectopy. Laboratory studies: See below Imaging studies: See below Consultation(s): Case was discussed with [facility]. [facility] who will evaluate the patient for admission. HPI: The patient is a pleasant 68-year-old woman with a past medical history of cerebral palsy, seizure disorder, obstructive hydrocephalus, CKD who presents to the emergency department via EMS and then accompanied by staff from her senior living for evaluation of generalized weakness and headache ongoing since earlier today after the patient was seen in this emergency department last night by this provider for shortness of breath and weakness where she was diagnosed with a urinary tract infection started on cefdinir and then was seen again this morning after the patient had near syncopal episode but did not hit her head. Patient had x-rays performed which showed no fracture or dislocation the patient was discharged to follow-up with her primary care doctor as originally had been planned. However, due to her worsening symptoms of headache and weakness staff bring her back for evaluation as they are concerned for "sepsis". ROS: See above HPI for pertinent positives & negatives. A total of 10 systems reviewed and were otherwise negative. VITALS:See Below PHYSICAL EXAMINATION: GENERAL: Awake, alert, fatigued-appearing, in no distress HENT: Normocephalic, atraumatic. Oropharynx with dry mucous membranes and otherwise unremarkable. EYES: Normal conjunctiva. Sclera non-icteric. NECK: Supple. No nuchal rigidity. FROM. No JVD. RESPIRATORY: Clear to auscultation. CARDIAC: Regular rate, normal rhythm. Extremities warm and well perfused. Pulses equal. ABDOMEN: Soft, non-distended. No tenderness to palpation. No rebound or guarding. No masses. MUSCULOSKELETAL: Chest examination reveals no tenderness. The back is symmetrical on inspection without obvious abnormality. There is no CVA tenderness to palpation. No joint edema. LOWER EXTREMITIES: Calves are equal size bilaterally and non-tender. No edema. No discoloration. NEURO: At baseline per patient CP. No new focal sensory or motor deficits noted. SKIN: No rash or jaundice noted. ED COURSE: Critical Care: I have personally spent greater than 35 minutes of critical care time in the direct management of this patient. This includes bedside care, interpretation of diagnostic studies, and testing, discussion with consultants, patient, and family members, and other required patient management activities. This 35 minutes is in excess of all separately billable procedures. Guru Raymundo MD Past Med/Surg History Problem List (Updated 08/04/23 @ 05:10 by Guru Raymundo MD) Pneumonia (Acute) UTI (urinary tract infection) (Acute) Sepsis (Acute) UTI (urinary tract infection) (Acute) Dehydration (Acute) Prolonged QT interval PVC (premature ventricular contraction) Ventricular bigeminy Closed right femoral fracture Closed fracture of proximal end of right femur (Acute) Fall from standing (Acute) Seizure disorder Frequent falls (Acute) Lab test negative for COVID-19 virus (Acute) Acute electrocardiogram changes (Acute) Cerebral palsy Hemiparesis of right dominant side Multiple fractures of ribs of right side (Acute) History of colon polyps Diarrhea (Acute) Lymphocytic colitis Anemia Acute kidney injury superimposed on CKD DVT prophylaxis Ambulatory dysfunction Urinary urgency Chest pain (Acute) History of CVA (cerebrovascular accident) Chronic kidney disease (CKD), stage III (moderate) Osteoporosis (Chronic) Obstructive hydrocephalus (Chronic) has shunt Infantile cerebral palsy (Chronic) 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) Anxiety (Chronic) Hypertension (Chronic) Medical History Hx of chest pain Major depressive disorder Idiopathic mild intellectual disability History of colon polyps Incontinence Surgical History History of esophagogastroduodenoscopy (EGD) last 03/24/19 @ [facility] History of colonoscopy last 03/24/19 @ [facility] H/O tubal ligation History of brain shunt Family History Father Cancer Mother Cancer Social History Smoking Status: Never smoker Tobacco Type: Cigarettes Hx Alcohol Use: No Hx Substance Use: No Preferred Language: Kyrgyz Communication Ability: Effective Communication Ability Comment: [employer] [facility] stated pt is of sound mind to sign own consents [employer]icultural [employer] Required: Yes Beliefs That Will Affect Care: None marital status: Single Current Living Situation: [facility] Current Living Situation Comment: [facility] house Feels Safe at Home: Yes Assistive Devices: Walker Allergies Allergies Allergy/AdvReac Type Severity Reaction Status Date / Time adhesive Allergy Unknown HAPPENED Verified 08/03/23 08:27 A CHILD-"INSTRUCTED NOT TO USE ADHESIVES". Home Meds Home Medications Medication Instructions Recorded Confirmed divalproex 500 mg tablet,extended 500 mg PO BID 01/26/18 08/03/23 release 24 hr lamotrigine 100 mg tablet 100 mg PO BID 01/26/18 08/03/23 levetiracetam 500 mg tablet 1,500 mg PO BID 01/26/18 08/03/23 Saccharomyces boulardii 250 mg 250 mg PO QAM 09/03/20 08/03/23 capsule (Florastor) oxybutynin chloride 5 mg See Rx Instructions .Route .COMPLEX 09/03/20 08/03/23 tablet,extended release 24 hr multivitamin (One Daily 1 tab PO DAILY 09/11/21 08/03/23 Multivitamin tablet) amlodipine 5 mg tablet 5 mg PO QAM 07/20/22 08/03/23 trazodone 50 mg tablet 50 mg PO HS 01/19/23 08/03/23 acetaminophen 500 mg tablet 1,000 mg PO BID 08/03/23 08/03/23 aspirin 81 mg tablet,delayed 81 mg PO DAILY 08/03/23 08/03/23 release docusate sodium 100 mg capsule 100 mg PO DAILY 08/03/23 08/03/23 ferrous sulfate 325 mg (65 mg 325 mg PO BID 08/03/23 08/03/23 iron) tablet polyethylene glycol 3350 17 17 g PO DAILY PRN Constipation 08/03/23 08/03/23 gram/dose oral powder Results & Data (ED) Vital Signs Vital Signs - 24 hr 08/03/23 22:09 08/03/23 22:13 08/03/23 22:15 Temperature 38.0 C H Temperature Source Oral Pulse Rate 88 84 88 Pulse Rate [Apical] Pulse Rate from SpO2 Sensor 88 Pulse Rhythm Regular Pulse Rhythm [Apical] Pulse Strength Normal Pulse Strength [Apical] Respiratory Rate 18 22 Respiratory Effort / Characteristics Non-Labored Spontaneous Respiratory Depth Normal Respiratory Pattern Regular Blood Pressure 86/62 L Blood Pressure [Right Arm] Blood Pressure Mean 70 Blood Pressure Mean [Right Arm] Blood Pressure Position Lying Blood Pressure Position [Right Arm] Pulse Oximetry 92 92 Oxygen Delivery Method Nasal Cannula Oxygen Flow Rate 2 Sepsis Recent Fever Within 48 Hours Yes Sepsis New/Unexplained Change in Mental Status No Sepsis Action Taken by Nursing No Action Required 08/03/23 22:30 08/03/23 23:03 08/03/23 23:06 Temperature Temperature Source Pulse Rate 84 69 Pulse Rate [Apical] 70 Pulse Rate from SpO2 Sensor 84 69 Pulse Rhythm Pulse Rhythm [Apical] Regular Pulse Strength Pulse Strength [Apical] Normal Respiratory Rate 21 19 21 Respiratory Effort / Characteristics Non-Labored Spontaneous Respiratory Depth Normal Respiratory Pattern Regular Blood Pressure Blood Pressure [Right Arm] 91/47 L Blood Pressure Mean Blood Pressure Mean [Right Arm] 61 Blood Pressure Position Blood Pressure Position [Right Arm] Lying Pulse Oximetry 92 91 91 Oxygen Delivery Method Room Air Oxygen Flow Rate Sepsis Recent Fever Within 48 Hours Sepsis New/Unexplained Change in Mental Status Sepsis Action Taken by Nursing 08/03/23 23:51 08/04/23 00:12 08/04/23 00:54 Temperature Temperature Source Pulse Rate 68 Pulse Rate [Apical] Pulse Rate from SpO2 Sensor 66 66 68 Pulse Rhythm Pulse Rhythm [Apical] Pulse Strength Pulse Strength [Apical] Respiratory Rate 21 Respiratory Effort / Characteristics Respiratory Depth Respiratory Pattern Blood Pressure 94/58 L 100/68 Blood Pressure [Right Arm] Blood Pressure Mean 70 78 Blood Pressure Mean [Right Arm] Blood Pressure Position Blood Pressure Position [Right Arm] Pulse Oximetry 95 90 92 Oxygen Delivery Method Oxygen Flow Rate Sepsis Recent Fever Within 48 Hours Sepsis New/Unexplained Change in Mental Status Sepsis Action Taken by Nursing 08/04/23 01:00 08/04/23 01:32 08/04/23 02:20 Temperature 37.2 C Temperature Source Oral Pulse Rate 66 Pulse Rate [Apical] 67 Pulse Rate from SpO2 Sensor Pulse Rhythm Pulse Rhythm [Apical] Pulse Strength Pulse Strength [Apical] Respiratory Rate 16 Respiratory Effort / Characteristics Respiratory Depth Normal Respiratory Pattern Blood Pressure 81/49 L Blood Pressure [Right Arm] 90/55 L Blood Pressure Mean 55 Blood Pressure Mean [Right Arm] 66 Blood Pressure Position Blood Pressure Position [Right Arm] Pulse Oximetry 92 Oxygen Delivery Method Room Air Oxygen Flow Rate Sepsis Recent Fever Within 48 Hours Sepsis New/Unexplained Change in Mental Status Sepsis Action Taken by Nursing Laboratory Data Attestation: I reviewed the patient's lab results. 08/04/23 03:53 08/04/23 03:53 Lab Results 08/03/23 08/03/23 08/03/23 Range/Units 22:15 22:47 22:53 WBC 11.56 H (4.8-10.8) K/ul RBC 3.98 L (4.20-5.40) M/uL Hgb 11.9 L (12.0-16.0) g/dl POC Hgb 11.6 L (12.0-16.0) g/dl Hct 35.4 L (37.0-47.0) % POC Hct 34 L (37-47) % MCV 88.9 (80.0-100.0) fL MCH 29.9 (25.0-34.0) pg MCHC 33.6 (32.0-36.0) g/dL RDW Std Deviation 46.0 (36.4-46.3) fL RDW Coeff of Ofelia 14.1 (11.5-14.5) % Plt Count 177 (130-400) K/uL MPV 10.6 (9.4-12.4) fL Immature Gran % (Auto) 0.3 % Neut % (Auto) 86.8 % Lymph % (Auto) 5.4 % Hanson % (Auto) 5.3 % Eos % (Auto) 2.0 % Baso % (Auto) 0.2 % Neut # (Auto) 10.04 H (1.40-6.50) K/uL Lymph # (Auto) 0.62 L (1.20-3.40) K/uL Hanson # (Auto) 0.61 H (0.11-0.59) K/uL Eos # (Auto) 0.23 (0.00-0.50) K/uL Baso # (Auto) 0.02 (0.00-0.20) K/uL Immature Gran # (Auto) 0.04 (0.01-0.20) K/uL POC Sodium 134 L (135-144) mmol/L Sodium 134 L (136-145) mmol/L POC Potassium 3.5 (3.3-5.0) mmol/L Potassium 3.6 (3.5-5.1) mmol/L POC Chloride 103 (101-112) mmol/L Chloride 102 (98-107) mmol/L Carbon Dioxide 20 L (21-32) mmol/L POC Total CO2 21 L (24-31) mmol/L Anion Gap 12 H (3-11) POC Anion Gap 14.0 L (16-25) mmol/L POC BUN 21 H (7-18) mg/dl BUN 24 H (6-23) mg/dl Creatinine 0.92 (0.6-1.2) mg/dl POC Creatinine 0.9 (0.6-1.3) mg/dl Est Cr Clr Drug Dosing 54.0 ml/min Est GFR ( Amer) 73.6 ml/min Est GFR (Non-Af Amer) 63.5 ml/min BUN/Creatinine Ratio 26.1 H (10-20) Glucose 130 H (70-99(Fasting)) mg/dl POC Glucose (other) 126 H (70-99) mg/dl Lactate 1.1 (0.4-2.0) mmol/L Calcium 9.2 (8.6-10.3) mg/dl POC Ioniz Calcium Santana 1.11 L (1.12-1.32) mmol/l Phosphorus 3.4 (2.5-4.9) mg/dl Magnesium 1.7 (1.7-2.4) mg/dl Total Bilirubin 0.4 (0.2-1.0) mg/dl Direct Bilirubin 0.2 (0-0.2) mg/dl AST 63 H (13-39) U/L ALT 43 (7-52) U/L Alkaline Phosphatase 103 (34-104) U/L Troponin I High Sens 10.0 (0-14) pg/ml Total Protein 6.9 (6.0-8.3) gm/dl Albumin 4.1 (3.4-5.0) gm/dl Procalcitonin 2.10 H (0-0.5) ng/ml Anaplasma Smear See Comment Babesia Smear See Comment Lyme Disease Screen Negative (Negative) Administered Medications Acetaminophen (Acetaminophen 325 Mg Tab) 650 mg PO QID PRN PRN Reason: pain/fever Stop: 09/03/23 02:59 Last Admin: 08/04/23 03:51 Dose: 650 mg Documented By: GUZMAN Potassium Chloride 20 meq/ (Lactated Ringer's) 1,010 mls @ 100 mls/hr IV .Q10H6M ONE Stop: 08/04/23 12:35 Last Admin: 08/04/23 03:51 Dose: 100 mls/hr Documented By: GUZMAN Discontinued Medications Acetaminophen (Acetaminophen 325 Mg Tab) 650 mg PO NOW STA Stop: 08/04/23 00:57 Last Admin: 08/04/23 01:32 Dose: Not Given Documented By: Sodium Chloride (Nss) 1,000 mls @ 999 mls/hr IV .Q1H1M ONE Stop: 08/03/23 23:34 Last Infusion: 08/04/23 01:33 Dose: Infused Documented By: Admin: 08/03/23 22:49 Dose: 999 mls/hr Documented By: ANTONIETA Ertapenem (Invanz) 10 mls @ 2 mls/min IV NOW STA Stop: 08/03/23 22:56 Last Admin: 08/04/23 00:41 Dose: 2 mls/min Documented By: Sodium Chloride (Nss) 1,000 mls @ 999 mls/hr IV .Q1H1M ONE Stop: 08/04/23 00:57 Last Infusion: 08/04/23 03:39 Dose: Infused Documented By: Admin: 08/04/23 01:28 Dose: 999 mls/hr Documented By: Doxycycline Hyclate 100 mg/ (Dextrose) 100 mls @ 50 mls/hr IV NOW STA Stop: 08/04/23 02:39 Last Infusion: 08/04/23 03:39 Dose: Infused Documented By: Admin: 08/04/23 01:28 Dose: 50 mls/hr Documented By: FAMILIA Cefepime HCl (Maxipime) 20 mls @ 5 mls/min IV NOW STA; Protocol Stop: 08/04/23 03:08 Last Admin: 08/04/23 03:51 Dose: 5 mls/min Documented By: GUZMAN Ioversol (Optiray 320 100ml) 100 ml IV ONCE ONE Stop: 08/03/23 23:48 Last Admin: 08/03/23 23:47 Dose: 90 ml Documented By: LEROY Imaging Data Radiologist's Impression: Abdomen/Pelvis CT 08/03/23 22:34 Exam(s): CT ABDOMEN + PELVIS With Contrast IV Amt: 90 ml optiray 320 EXAM: CT Abdomen and Pelvis With Intravenous Contrast CLINICAL HISTORY: Reason for exam: fever, uti. TECHNIQUE: Axial computed tomography images of the abdomen and pelvis with intravenous contrast. CTDI is 21.83 mGy and DLP is 1054.28 mGy-cm. Automated exposure control was utilized for the study. A dose lowering technique was utilized adhering to the principles of ALARA. CONTRAST: Patient received 90 ml optiray 320 of IV contrast COMPARISON: 01/26/18 FINDINGS: Lung bases: Subsegmental atelectasis at the lung bases. ABDOMEN: Liver: Unremarkable. No mass. Gallbladder and bile ducts: Unremarkable. No calcified stones. No ductal dilation. Pancreas: Unremarkable. No mass. No ductal dilation. Spleen: Unremarkable. No splenomegaly. Adrenals: Unremarkable. No mass. Kidneys and ureters: Symmetric renal enhancement. No hydronephrosis. Subcentimeter cortical hypodensities left kidney upper pole, statistically cysts but too small to characterize. Stomach and bowel: Unremarkable. No mucosal thickening. No bowel obstruction. PELVIS: Appendix: Normal appendix. Bladder: Unremarkable. No mass. Reproductive: Unremarkable as visualized. ABDOMEN and PELVIS: Intraperitoneal space: Unremarkable. No free air or significant free fluid. Bones/joints: No acute fracture or dislocation. Mild chronic compression fractures at T11, T10, and T9. Prior ORIF right femur. The spine. Soft tissues: Unremarkable. Vasculature: Atherosclerosis. No aortic aneurysm. Lymph nodes: Unremarkable. No enlarged lymph nodes. IMPRESSION: No acute findings in the abdomen or pelvis. Electronically signed by: Gaby Edwards M.D. 08/04/23 00:[address] 08/03/23 22:34 Exam(s): CT HEAD Without Contrast EXAM: CT Head Without Intravenous Contrast CLINICAL HISTORY: Reason for exam: headache, syncope. TECHNIQUE: Axial computed tomography images of the head/brain without intravenous contrast. CTDI is 37.95 mGy and DLP is 546.36 mGy-cm. Automated exposure control was utilized for the study. A dose lowering technique was utilized adhering to the principles of ALARA. COMPARISON: 02/22/23 FINDINGS: Brain: Stable chronic left MCA territory infarct. Mullen-white matter differentiation otherwise maintained. Generalized parenchymal volume loss and patchy chronic small vessel ischemic changes. No acute intracranial hemorrhage. Ventricles: Stable ventricular enlargement due to volume loss, with superimposed ex vacuo enlargement of the left lateral ventricle. Bones/joints: Unremarkable. No acute fracture. Soft tissues: Unremarkable. Vasculature: Intracranial atherosclerosis. Sinuses: Unremarkable as visualized. Mastoid air cells: Unremarkable as visualized. No mastoid effusion. IMPRESSION: No acute intracranial process. Electronically signed by: Gaby Edwards M.D. 08/04/23 00:08 AM Discharge Plan Visit Data Chief Complaint: Headache Stated Complaint: Weakness, Headache ED Provider: Guru Raymundo Discharge Problem: Sepsis, UTI (urinary tract infection), Pneumonia, Infantile cerebral palsy Patient Disposition: Admitted As Inpatient Discharge Instructions Interventions: ED Discharge Assessment Last Done: 08/04/23 03:47 Discharge Problem: Sepsis Qualifiers: Sepsis type: sepsis due to unspecified organism Sepsis acute organ dysfunction status: without acute organ dysfunction Qualified Code(s): A41.9 - Sepsis, unspecified organism UTI (urinary tract infection) Qualifiers: Urinary tract infection type: acute cystitis Hematuria presence: without hematuria Qualified Code(s): N30.00 - Acute cystitis without hematuria Pneumonia Qualifiers: Pneumonia type: due to unspecified organism Laterality: left Lung location: l ower lobe of lung Qualified Code(s): J18.9 - Pneumonia, unspecified organism
[2023-08-03 22:46] LABS: Basophils # (auto) 0.02 K/uL (0.00-0.20); Basophils % (auto) 0.2 %; Eosinophils # (auto) 0.23 K/uL (0.00-0.50); Hematocrit (blood only) 35.4 % (37.0-47.0); Hemoglobin 11.9 g/dl (12.0-16.0); Immature Granulocytes # (auto) 0.04 K/uL (0.01-0.20); Immature Granulocytes % (auto) 0.3 %; Lymphocytes # (auto) 0.62 K/uL (1.20-3.40); Lymphocytes % (auto) 5.4 %; Mean Corpuscular Hemoglobin 29.9 pg (25.0-34.0); Mean Corpuscular Hgb Conc 33.6 g/dL (32.0-36.0); Mean Corpuscular Volume 88.9 fL (80.0-100.0); Mean Platelet Volume 10.6 fL (9.4-12.4); Monocytes # (auto) 0.61 K/uL (0.11-0.59); Monocytes % (auto) 5.3 %; Neutrophils # (auto) 10.04 K/uL (1.40-6.50); Neutrophils % (auto) 86.8 %; Platelet Count 177 K/uL (130-400); RDW Coefficient of Variation 14.1 % (11.5-14.5); Red Blood Count 3.98 M/uL (4.20-5.40); White Blood Count 11.56 K/ul (4.8-10.8)
[2023-08-03] MEDS: SODIUM CHLORIDE 0.9% 1,000 ML IV ONE (22:49)
[2023-08-03 23:06] LABS: iSTAT Creatinine 0.9 mg/dl (0.6-1.3); iSTAT Hemoglobin 11.6 g/dl (12.0-16.0); iSTAT Ionized Calcium 1.11 mmol/l (1.12-1.32); iSTAT Potassium 3.5 mmol/L (3.3-5.0)
[2023-08-03 23:06] LABS: Albumin Level 4.1 gm/dl (3.4-5.0); BUN Creatinine Ratio 26.1 (10-20); Bilirubin Direct 0.2 mg/dl (0-0.2); Bilirubin,Total 0.4 mg/dl (0.2-1.0); Calcium 9.2 mg/dl (8.6-10.3); Est GFR (African American) 73.6 ml/min; Est GFR (Non-African American) 63.5 ml/min; Magnesium 1.7 mg/dl (1.7-2.4); Phosphorus 3.4 mg/dl (2.5-4.9); Potassium 3.6 mmol/L (3.5-5.1); Total Protein 6.9 gm/dl (6.0-8.3)
[2023-08-03] MEDS: OPTIRAY 320 100ml IV ONE (23:47)
--- NOTE | 2023-08-04 00:07 | CT Scan Report ---
Exam(s): CT ABDOMEN + PELVIS With Contrast IV Amt: 90 ml optiray 320 EXAM: CT Abdomen and Pelvis With Intravenous Contrast CLINICAL HISTORY: Reason for exam: fever, uti. TECHNIQUE: Axial computed tomography images of the abdomen and pelvis with intravenous contrast. CTDI is 21.83 mGy and DLP is 1054.28 mGy-cm. Automated exposure control was utilized for the study. A dose lowering technique was utilized adhering to the principles of ALARA. CONTRAST: Patient received 90 ml optiray 320 of IV contrast COMPARISON: 01/26/18 FINDINGS: Lung bases: Subsegmental atelectasis at the lung bases. ABDOMEN: Liver: Unremarkable. No mass. Gallbladder and bile ducts: Unremarkable. No calcified stones. No ductal dilation. Pancreas: Unremarkable. No mass. No ductal dilation. Spleen: Unremarkable. No splenomegaly. Adrenals: Unremarkable. No mass. Kidneys and ureters: Symmetric renal enhancement. No hydronephrosis. Subcentimeter cortical hypodensities left kidney upper pole, statistically cysts but too small to characterize. Stomach and bowel: Unremarkable. No mucosal thickening. No bowel obstruction. PELVIS: Appendix: Normal appendix. Bladder: Unremarkable. No mass. Reproductive: Unremarkable as visualized. ABDOMEN and PELVIS: Intraperitoneal space: Unremarkable. No free air or significant free fluid. Bones/joints: No acute fracture or dislocation. Mild chronic compression fractures at T11, T10, and T9. Prior ORIF right femur. The spine. Soft tissues: Unremarkable. Vasculature: Atherosclerosis. No aortic aneurysm. Lymph nodes: Unremarkable. No enlarged lymph nodes. IMPRESSION: No acute findings in the abdomen or pelvis. Electronically signed by: Gaby Edwards M.D. 08/04/23 00:07 AM
--- NOTE | 2023-08-04 00:09 | CT Scan Report ---
Exam(s): CT HEAD Without Contrast EXAM: CT Head Without Intravenous Contrast CLINICAL HISTORY: Reason for exam: headache, syncope. TECHNIQUE: Axial computed tomography images of the head/brain without intravenous contrast. CTDI is 37.95 mGy and DLP is 546.36 mGy-cm. Automated exposure control was utilized for the study. A dose lowering technique was utilized adhering to the principles of ALARA. COMPARISON: 02/22/23 FINDINGS: Brain: Stable chronic left MCA territory infarct. Mullen-white matter differentiation otherwise maintained. Generalized parenchymal volume loss and patchy chronic small vessel ischemic changes. No acute intracranial hemorrhage. Ventricles: Stable ventricular enlargement due to volume loss, with superimposed ex vacuo enlargement of the left lateral ventricle. Bones/joints: Unremarkable. No acute fracture. Soft tissues: Unremarkable. Vasculature: Intracranial atherosclerosis. Sinuses: Unremarkable as visualized. Mastoid air cells: Unremarkable as visualized. No mastoid effusion. IMPRESSION: No acute intracranial process. Electronically signed by: Gaby Edwards M.D. 08/04/23 00:08 AM
[2023-08-04] MEDS: ERTAPENEM SODIUM 10 ML IV STA (00:41)
[2023-08-04] MEDS: DOXYCYCLINE HYCLATE 100 MG in DEXTROSE 5% MINI-B 100 ML IV STA (01:28)
[2023-08-04] MEDS: SODIUM CHLORIDE 0.9% 1,000 ML IV ONE (01:28)
[2023-08-04] MEDS: ACETAMINOPHEN 325 MG TAB PO STA (01:32)
--- NOTE | 2023-08-04 02:56 | History & Physical Report ---
Date of Service August 04, 2023 Assessment & Plan (1) Sepsis: Plan: Multifactorial: Complicated UTI, recurrent UTIs previously on methenamine suppression Rx, failed outpatient treatment Atypical pneumonia Hypotension secondary to illness hx CVA, PVD seizure disorder, stable obstructive hydrocephalus status post shunt placement, chronic anemia, hemoglobin at baseline cerebral palsy as per records/intellectual impairment Hyperglycemia rule out DM PCU given hypotension IVF Appropriate to hold home BP meds for now CS, doxycycline for atypical pneumonia, cefepime for complicated UTI, failed outpatient treatment Hyperglycemia low DM PT OT eval once BP stable DVT prophylaxis. Lovenox subcu Full code Text document was generated using Taking Point recognition software. It may contain grammatical or spelling errors. Kindly contact undersigned for clarification of any documentation item in question. History of Present Illness Chief Complaint: Headache, dry cough, weakness Primary Care Provider: Naresh Fu MD History obtained from patient, caregiver, and records. Medical history significant for hypertension, CVA, PVD, seizure disorder, obstructive hydrocephalus status post shunt placement, recurrent UTIs previously on methenamine suppression Rx, chronic anemia (baseline hemoglobin of 11), mood disorder, cerebral palsy as per records, intellectual impairment. Recent confinement February 2023 for traumatic right femoral fracture status post surgery. Patient with UTI symptoms last week as per caregiver. Outpatient Bactrim course prescribed by PCP's office. Patient instructed to hold methenamine while on Bactrim. No growth on outpatient urine CS. Patient consulted ER 2 days ago for weakness and shortness of breath attributed to dehydration and UTI. Patient discharged home after IVF with cefdinir Rx. Patient returned to ER yesterday after a fall at home. Patient subsequently sent home. Increasing weakness at home and dysuria symptoms. Poor appetite. No abdominal pain. Dry cough symptoms. Denies aspiration, chest pain, SOB. Achy headache symptoms. No confusion as per caregiver. Patient brought back to ER for evaluation. Lowest SBP of 80s documented at the ER. Medical History as above Surgical History : Cataract surgeries, BTL, [employer] shunt Family History : Alcoholism, breast cancer, heart disease, stroke Personal/Social history : Non-smoker, no EtOH intake, disabled Allergies Allergy/AdvReac Type Severity Reaction Status Date / Time adhesive Allergy Unknown HAPPENED Verified 08/03/23 08:27 A CHILD-"INSTRUCTED NOT TO USE ADHESIVES". Home Medications Medication Instructions Recorded Confirmed Type divalproex 500 mg tablet,extended 500 mg PO BID 01/26/18 08/03/23 History release 24 hr lamotrigine 100 mg tablet 100 mg PO BID 01/26/18 08/03/23 History levetiracetam 500 mg tablet 1,500 mg PO BID 01/26/18 08/03/23 History Saccharomyces boulardii 250 mg 250 mg PO QAM 09/03/20 08/03/23 History capsule (Florastor) oxybutynin chloride 5 mg See Rx Instructions .Route .COMPLEX 09/03/20 08/03/23 History tablet,extended release 24 hr multivitamin (One Daily 1 tab PO DAILY 09/11/21 08/03/23 History Multivitamin tablet) amlodipine 5 mg tablet 5 mg PO QAM 07/20/22 08/03/23 History trazodone 50 mg tablet 50 mg PO HS 01/19/23 08/03/23 History acetaminophen 500 mg tablet 1,000 mg PO BID 08/03/23 08/03/23 History aspirin 81 mg tablet,delayed 81 mg PO DAILY 08/03/23 08/03/23 History release docusate sodium 100 mg capsule 100 mg PO DAILY 08/03/23 08/03/23 History ferrous sulfate 325 mg (65 mg 325 mg PO BID 08/03/23 08/03/23 History iron) tablet polyethylene glycol 3350 17 17 g PO DAILY PRN Constipation 08/03/23 08/03/23 History gram/dose oral powder Past Med/Surg History Problem List (Updated 08/04/23 @ 05:10 by Guru Raymundo MD) Pneumonia (Acute) UTI (urinary tract infection) (Acute) Sepsis (Acute) UTI (urinary tract infection) (Acute) Dehydration (Acute) Prolonged QT interval PVC (premature ventricular contraction) Ventricular bigeminy Closed right femoral fracture Closed fracture of proximal end of right femur (Acute) Fall from standing (Acute) Seizure disorder Frequent falls (Acute) Lab test negative for COVID-19 virus (Acute) Acute electrocardiogram changes (Acute) Cerebral palsy Hemiparesis of right dominant side Multiple fractures of ribs of right side (Acute) History of colon polyps Diarrhea (Acute) Lymphocytic colitis Anemia Acute kidney injury superimposed on CKD DVT prophylaxis Ambulatory dysfunction Urinary urgency Chest pain (Acute) History of CVA (cerebrovascular accident) Chronic kidney disease (CKD), stage III (moderate) Osteoporosis (Chronic) Obstructive hydrocephalus (Chronic) has shunt Infantile cerebral palsy (Chronic) 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) Anxiety (Chronic) Hypertension (Chronic) Medical History Hx of chest pain Major depressive disorder Idiopathic mild intellectual disability History of colon polyps Incontinence Surgical History History of esophagogastroduodenoscopy (EGD) last 03/24/19 @ [facility] History of colonoscopy last 03/24/19 @ [facility] H/O tubal ligation History of brain shunt Family History Father Cancer Mother Cancer Social History Smoking Status: Never smoker Tobacco Type: Cigarettes Hx Alcohol Use: No Hx Substance Use: No Preferred Language: Slovak Communication Ability: Effective Communication Ability Comment: [facility] stated pt is of sound mind to sign own consents 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 Beliefs That Will Affect Care: None marital status: Single Current Living Situation: [facility] Current Living Situation Comment: The [facility] house Feels Safe at Home: Yes Assistive Devices: Walker Review of Systems Review of Systems: As per HPI, all other systems reviewed and negative Physical Exam Physical Exam: GENERAL: Ill-appearing, wane, no respiratory distress, covered in multiple blankets SKIN: Normal color, warm HEENT: Bespectacled, [place] palpebral conjunctivae, no ptosis, dry buccal mucosa NECK : Supple, no tenderness CHEST : CTA, no tenderness HEART : RRR, no obvious murmurs ABDOMEN: Some distention, nontender EXTREMITIES : No LE swelling/tenderness, no other conspicuous deformities noted NEUROLOGIC : Coherent, no facial asymmetry, slightly hard of hearing, no other gross focality Results & Data Results & Data Vital Signs (Past 12 Hours) Vital Signs Temp Pulse Pulse Resp BP BP Pulse Ox 08/04/23 02:20 66 08/04/23 01:32 37.2 C 67 16 90/55 L 92 08/04/23 01:00 81/49 L 08/04/23 00:54 68 21 100/68 92 08/04/23 00:12 94/58 L 90 08/03/23 23:51 95 08/03/23 23:06 69 21 91 08/03/23 23:03 70 19 91/47 L 91 08/03/23 22:30 84 21 92 08/03/23 22:15 88 22 92 08/03/23 22:13 84 08/03/23 22:09 38.0 C H 88 18 86/62 L 92 O2 Del Method O2 Flow Rate 08/04/23 02:20 08/04/23 01:32 Room Air 08/04/23 01:00 08/04/23 00:54 08/04/23 00:12 08/03/23 23:51 08/03/23 23:06 08/03/23 23:03 Room Air 08/03/23 22:30 08/03/23 22:15 08/03/23 22:13 08/03/23 22:09 Nasal Cannula 2 Laboratory Results Laboratory Results WBC 11.56 K/ul (4.8-10.8) H 08/03/23 22:15 RBC 3.98 M/uL (4.20-5.40) L 08/03/23 22:15 Hgb 11.9 g/dl (12.0-16.0) L 08/03/23 22:15 POC Hgb 11.6 g/dl (12.0-16.0) L 08/03/23 22:53 Hct 35.4 % (37.0-47.0) L 08/03/23 22:15 POC Hct 34 % (37-47) L 08/03/23 22:53 MCV 88.9 fL (80.0-100.0) 08/03/23 22:15 MCH 29.9 pg (25.0-34.0) 08/03/23 22:15 MCHC 33.6 g/dL (32.0-36.0) 08/03/23 22:15 RDW Std Deviation 46.0 fL (36.4-46.3) 08/03/23 22:15 RDW Coeff of [place] 14.1 % (11.5-14.5) 08/03/23 22:15 Plt Count 177 K/uL (130-400) 08/03/23 22:15 MPV 10.6 fL (9.4-12.4) 08/03/23 22:15 Immature Gran % (Auto) 0.3 % 08/03/23 22:15 Neut % (Auto) 86.8 % 08/03/23 22:15 Lymph % (Auto) 5.4 % 08/03/23 22:15 [place] % (Auto) 5.3 % 08/03/23 22:15 Eos % (Auto) 2.0 % 08/03/23 22:15 Baso % (Auto) 0.2 % 08/03/23 22:15 Neut # (Auto) 10.04 K/uL (1.40-6.50) H 08/03/23 22:15 Lymph # (Auto) 0.62 K/uL (1.20-3.40) L 08/03/23 22:15 [place] # (Auto) 0.61 K/uL (0.11-0.59) H 08/03/23 22:15 Eos # (Auto) 0.23 K/uL (0.00-0.50) 08/03/23 22:15 Baso # (Auto) 0.02 K/uL (0.00-0.20) 08/03/23 22:15 Immature Gran # (Auto) 0.04 K/uL (0.01-0.20) 08/03/23 22:15 POC Sodium 134 mmol/L (135-144) L 08/03/23 22:53 Sodium 134 mmol/L (136-145) L 08/03/23 22:15 POC Potassium 3.5 mmol/L (3.3-5.0) 08/03/23 22:53 Potassium 3.6 mmol/L (3.5-5.1) 08/03/23 22:15 POC Chloride 103 mmol/L (101-112) 08/03/23 22:53 Chloride 102 mmol/L (98-107) 08/03/23 22:15 Carbon Dioxide 20 mmol/L (21-32) L 08/03/23 22:15 POC Total CO2 21 mmol/L (24-31) L 08/03/23 22:53 Anion Gap 12 (3-11) H 08/03/23 22:15 POC Anion Gap 14.0 mmol/L (16-25) L 08/03/23 22:53 POC BUN 21 mg/dl (7-18) H 08/03/23 22:53 BUN 24 mg/dl (6-23) H 08/03/23 22:15 Creatinine 0.92 mg/dl (0.6-1.2) 08/03/23 22:15 POC Creatinine 0.9 mg/dl (0.6-1.3) 08/03/23 22:53 Est Cr Clr Drug Dosing 54.0 ml/min 08/03/23 22:15 Est GFR ( Amer) 73.6 ml/min 08/03/23 22:15 Est GFR (Non-Af Amer) 63.5 ml/min 08/03/23 22:15 BUN/Creatinine Ratio 26.1 (10-20) H 08/03/23 22:15 Glucose 130 mg/dl (70-99(Fasting)) H 08/03/23 22:15 POC Glucose (other) 126 mg/dl (70-99) H 08/03/23 22:53 Lactate 1.1 mmol/L (0.4-2.0) 08/03/23 22:47 Calcium 9.2 mg/dl (8.6-10.3) 08/03/23 22:15 POC Ioniz Calcium Sant[place] 1.11 mmol/l (1.12-1.32) L 08/03/23 22:53 Phosphorus 3.4 mg/dl (2.5-4.9) 08/03/23 22:15 Magnesium 1.7 mg/dl (1.7-2.4) 08/03/23 22:15 Total Bilirubin 0.4 mg/dl (0.2-1.0) 08/03/23 22:15 Direct Bilirubin 0.2 mg/dl (0-0.2) 08/03/23 22:15 AST 63 U/L (13-39) H 08/03/23 22:15 ALT 43 U/L (7-52) 08/03/23 22:15 Alkaline Phosphatase 103 U/L (34-104) 08/03/23 22:15 Troponin I High Sens 10.0 pg/ml (0-14) 08/03/23 22:15 Total Protein 6.9 gm/dl (6.0-8.3) 08/03/23 22:15 Albumin 4.1 gm/dl (3.4-5.0) 08/03/23 22:15 Procalcitonin 2.10 ng/ml (0-0.5) H 08/03/23 22:15 Anaplasma Smear See Comment 08/03/23 22:15 Babesia Smear See Comment 08/03/23 22:15 Lyme Disease Screen Negative (Negative) 08/03/23 22:15 Impressions Abdomen/Pelvis CT 08/03/23 22:34 Exam(s): CT ABDOMEN + PELVIS With Contrast IV Amt: 90 ml optiray 320 EXAM: CT Abdomen and Pelvis With Intravenous Contrast CLINICAL HISTORY: Reason for exam: fever, uti. TECHNIQUE: Axial computed tomography images of the abdomen and pelvis with intravenous contrast. CTDI is 21.83 mGy and DLP is 1054.28 mGy-cm. Automated exposure control was utilized for the study. A dose lowering technique was utilized adhering to the principles of ALARA. CONTRAST: Patient received 90 ml optiray 320 of IV contrast COMPARISON: 01/26/18 FINDINGS: Lung bases: Subsegmental atelectasis at the lung bases. ABDOMEN: Liver: Unremarkable. No mass. Gallbladder and bile ducts: Unremarkable. No calcified stones. No ductal dilation. Pancreas: Unremarkable. No mass. No ductal dilation. Spleen: Unremarkable. No splenomegaly. Adrenals: Unremarkable. No mass. Kidneys and ureters: Symmetric renal enhancement. No hydronephrosis. Subcentimeter cortical hypodensities left kidney upper pole, statistically cysts but too small to characterize. Stomach and bowel: Unremarkable. No mucosal thickening. No bowel obstruction. PELVIS: Appendix: Normal appendix. Bladder: Unremarkable. No mass. Reproductive: Unremarkable as visualized. ABDOMEN and PELVIS: Intraperitoneal space: Unremarkable. No free air or significant free fluid. Bones/joints: No acute fracture or dislocation. Mild chronic compression fractures at T11, T10, and T9. Prior ORIF right femur. The spine. Soft tissues: Unremarkable. Vasculature: Atherosclerosis. No aortic aneurysm. Lymph nodes: Unremarkable. No enlarged lymph nodes. IMPRESSION: No acute findings in the abdomen or pelvis. Electronically signed by: Gaby Edwards M.D. 08/04/23 00:[address] 08/03/23 22:34 Exam(s): CT HEAD Without Contrast EXAM: CT Head Without Intravenous Contrast CLINICAL HISTORY: Reason for exam: headache, syncope. TECHNIQUE: Axial computed tomography images of the head/brain without intravenous contrast. CTDI is 37.95 mGy and DLP is 546.36 mGy-cm. Automated exposure control was utilized for the study. A dose lowering technique was utilized adhering to the principles of ALARA. COMPARISON: 02/22/23 FINDINGS: Brain: Stable chronic left MCA territory infarct. Mullen-white matter differentiation otherwise maintained. Generalized parenchymal volume loss and patchy chronic small vessel ischemic changes. No acute intracranial hemorrhage. Ventricles: Stable ventricular enlargement due to volume loss, with superimposed ex vacuo enlargement of the left lateral ventricle. Bones/joints: Unremarkable. No acute fracture. Soft tissues: Unremarkable. Vasculature: Intracranial atherosclerosis. Sinuses: Unremarkable as visualized. Mastoid air cells: Unremarkable as visualized. No mastoid effusion. IMPRESSION: No acute intracranial process. Electronically signed by: Gaby Edwards M.D. 08/04/23 00:08 AM Diagnostic Findings Chest x-ray as per my interpretation atelectasis EKG as per my interpretation : Rate 80, NSR, normal axis, inferior infarct, nonspecific T wave abnormalities (1) Sepsis Sepsis acute organ dysfunction status: without acute organ dysfunction Sepsis type: sepsis due to unspecified organism Qualified Code(s): A41.9 - Sepsis, unspecified organism
[2023-08-04] MEDS ORDERED: PROMETHAZINE HCL 6.25 MG in SODIUM CHLORIDE 0.9% 50 ML IV PRN (03:00)
[2023-08-04] MEDS ORDERED: POLYETHYLENE (MIRALAX) 17 GM PACK PO PRN (03:47)
[2023-08-04] MEDS: POTASSIUM CHLORIDE 20 MEQ in LACTATED RINGER'S 1,000 ML IV ONE (03:51)
[2023-08-04] MEDS: CEFEPIME 20 ML IV STA (03:51)
[2023-08-04] MEDS: ACETAMINOPHEN 325 MG TAB PO PRN (03:51)
[2023-08-04 04:18] LABS: Basophils # (auto) 0.01 K/uL (0.00-0.20); Basophils % (auto) 0.1 %; Eosinophils # (auto) 0.43 K/uL (0.00-0.50); Eosinophils % (auto) 4.4 %; Hematocrit (blood only) 34.9 % (37.0-47.0); Hemoglobin 11.4 g/dl (12.0-16.0); Immature Granulocytes # (auto) 0.06 K/uL (0.01-0.20); Immature Granulocytes % (auto) 0.6 %; Lymphocytes # (auto) 0.85 K/uL (1.20-3.40); Lymphocytes % (auto) 8.7 %; Mean Corpuscular Hemoglobin 29.5 pg (25.0-34.0); Mean Corpuscular Hgb Conc 32.7 g/dL (32.0-36.0); Mean Corpuscular Volume 90.4 fL (80.0-100.0); Mean Platelet Volume 10.2 fL (9.4-12.4); Monocytes # (auto) 0.39 K/uL (0.11-0.59); Neutrophils # (auto) 8.03 K/uL (1.40-6.50); Neutrophils % (auto) 82.2 %; Platelet Count 163 K/uL (130-400); RDW Coefficient of Variation 14.3 % (11.5-14.5); RDW Standard Deviation 47.4 fL (36.4-46.3); Red Blood Count 3.86 M/uL (4.20-5.40); White Blood Count 9.77 K/ul (4.8-10.8)
[2023-08-04 04:32] LABS: BUN Creatinine Ratio 21.7 (10-20); Calcium 8.3 mg/dl (8.6-10.3); Creatinine Clr Calc Pharmacy 59.9 ml/min; Est GFR (African American) 83.4 ml/min; Est GFR (Non-African American) 71.9 ml/min; Potassium 3.6 mmol/L (3.5-5.1)
[2023-08-04 04:46] LABS: Thyroid Stimulating Hormone 1.473 uIu/ml (0.300-4.500)
--- NOTE | 2023-08-04 07:18 | XRay Report ---
XR chest 1V portable HISTORY: 68 years-old Female Sepsis acute sepsis COMPARISON: 08/02/2023 TECHNIQUE: AP view of the chest FINDINGS: Cardiac silhouette is enlarged. Atherosclerosis of the aorta. No pneumothorax or pleural effusion. Mi nimal left basilar atelectasis. Bones are grossly intact. IMPRESSION: Cardiomegaly without acute process. ACT 112: Negative or not required by law. The above report was generated using voice recognition software. It may contain grammatical, syntax o r spelling errors. Electronically signed by: Braulio Osborne M.D. 08/04/2023 7:16 AM
[2023-08-04 07:40] LABS: Estimated Average Glucose 108 mg/dl; Hemoglobin A1C 5.4 % (4.5-5.6)
[2023-08-04] MEDS: ACETAMINOPHEN 500 MG TAB PO SCH (09:04)
[2023-08-04] MEDS: ASPIRIN 81 MG ECTAB PO SCH (09:05)
[2023-08-04] MEDS: levETIRAcetam 500 MG TAB PO SCH (09:06)
[2023-08-04] MEDS: OXYBUTYNIN CHLORIDE XL 5 MG TABCR PO SCH ×2 (09:06→20:39)
[2023-08-04] MEDS: lamoTRIgine 100 MG TAB PO SCH (09:06)
[2023-08-04] MEDS: SACCHAROMYCES BOULARDII 250 MG CAP PO SCH (09:06)
[2023-08-04] MEDS: DOCUSATE SODIUM 100 MG CAP PO SCH (09:06)
[2023-08-04] MEDS: DIVALPROEX EXTENDED RELEASE 500 MG TAB PO SCH (09:06)
[2023-08-04] MEDS: FERROUS SULFATE 325 MG TAB PO SCH (09:06)
[2023-08-04] MEDS: MULTIVITAMIN TAB PO SCH (09:07)
[2023-08-04] MEDS: ENOXAPARIN INJ 30 MG/0.3 ML SYR SQ SCH (09:07)
--- NOTE | 2023-08-04 09:08 | Hospitalist Progress Note ---
Date of Service August 04, 2023 Assessment & Plan (1) Sepsis: Plan Pt is a 68yoF with PMHx significant for hypertension, CVA, PVD, seizure disorder, obstructive hydrocephalus status post shunt placement, recurrent UTIs previously on methenamine suppression Rx, chronic anemia (baseline hemoglobin of 11), mood disorder, cerebral palsy as per records, intellectual impairment presenting with SOB for two weeks as well as increasing weakness and dysuria. Sepsis Complicated UTI Possible Atypical pneumonia Pt presenting with noted fevers and leukocytosis, infectious source likely urinary Lactate wnl, procal elevated >2 UA suggestive of infection, urine Cx pending Blood Cx x 2 sets pending Chest XRAY and CT chest with acute infectious findings however, given symptoms and duration, possible atypical pneumonia Biofire negative Doxycycline for atypical pneumonia, cefepime for complicated UTI, failed outpatient treatment Continue to monitor Hypotension secondary to illness Holding home BP meds Continue to monitor Hx CVA, PVD Stable Seizure disorder stable Obstructive hydrocephalus status post shunt placement Stable Chronic anemia hemoglobin at baseline Cerebral palsy as per records/intellectual impairment Stable Hyperglycemia rule out DM, [id number] normal at 5.4 Hyponatremia Sodium levels low Continue to monitor Hypocalcemia Replete as needed Continue to monitor Cardiomegaly EKG NSR Echo from Feb 2023 noting EF 55-60%, mild LVH, mild pulm HTN Continue to monitor on telemetry Diet: HH DVT prophylaxis. Lovenox subcu Dispo: PT/OT for further dispo recs Admission and Anticipated Discharge Date Admission Date: August 04, 2023 Subjective Pt was seen while down in the ED, Denied acute concerns at the time of my exam. Review of Systems Review of Systems: All systems reviewed & are unremarkable except as noted in Subjective Physical Exam Physical Exam: General: Alert, oriented. No acute distress Skin: No noted rashes or bruises Psych: Appropriate mood and affect Neuro: No gross deficits HEENT: NC/AT CV: RRR Resp: Breath sounds clear bilaterally, no increased effort of breathing. Abdomen: Soft, nontender, nondistended. No guarding. No organomegaly appreciated. Extremities: edema in lower extremities bilaterally. Results & Data Results & Data Vital Signs (Past 12 Hours) Vital Signs Temp Pulse Pulse Resp BP BP Pulse Ox 08/04/23 07:27 82 08/04/23 07:09 82 18 101/60 91 08/04/23 06:03 82 21 100/61 90 08/04/23 06:00 84 19 100/61 90 08/04/23 05:03 86 28 H 93 08/04/23 04:57 112/70 08/04/23 04:45 83 26 H 92 08/04/23 04:30 86 16 132/92 93 08/04/23 04:00 86 21 92 08/04/23 04:00 08/04/23 03:53 37.6 C H 87 22 128/68 92 08/04/23 02:20 66 08/04/23 01:32 37.2 C 67 16 90/55 L 92 08/04/23 01:00 81/49 L 08/04/23 00:54 68 21 100/68 92 08/04/23 00:12 94/58 L 90 08/03/23 23:51 95 08/03/23 23:06 69 21 91 08/03/23 23:03 70 19 91/47 L 91 08/03/23 22:30 84 21 92 08/03/23 22:15 88 22 92 08/03/23 22:13 84 08/03/23 22:09 38.0 C H 88 18 86/62 L 92 Pulse Ox O2 Del Method O2 Del Method O2 Flow Rate 08/04/23 07:27 08/04/23 07:09 Room Air 08/04/23 06:03 08/04/23 06:00 Room Air 08/04/23 05:03 08/04/23 04:57 08/04/23 04:45 08/04/23 04:30 Room Air 08/04/23 04:00 08/04/23 04:00 93 Room Air 08/04/23 03:53 Room Air 08/04/23 02:20 08/04/23 01:32 Room Air 08/04/23 01:00 08/04/23 00:54 08/04/23 00:12 08/03/23 23:51 08/03/23 23:06 08/03/23 23:03 Room Air 08/03/23 22:30 08/03/23 22:15 08/03/23 22:13 08/03/23 22:09 Nasal Cannula 2 Diagnostic Findings Chest X-Ray 08/03/23 22:33 XR chest 1V portable HISTORY: 68 years-old Female Sepsis acute sepsis COMPARISON: 08/02/2023 TECHNIQUE: AP view of the chest FINDINGS: Cardiac silhouette is enlarged. Atherosclerosis of the aorta. No pneumothorax or pleural effusion. Minimal left basilar atelectasis. Bones are grossly intact. IMPRESSION: Cardiomegaly without acute process. ACT 112: Negative or not required by law. The above report was generated using voice recognition software. It may contain grammatical, syntax or spelling errors. Electronically signed by: Braulio Osborne M.D. 08/04/2023 7:16 AM Abdomen/Pelvis CT 08/03/23 22:34 Exam(s): CT ABDOMEN + PELVIS With Contrast IV Amt: 90 ml optiray 320 EXAM: CT Abdomen and Pelvis With Intravenous Contrast CLINICAL HISTORY: Reason for exam: fever, uti. TECHNIQUE: Axial computed tomography images of the abdomen and pelvis with intravenous contrast. CTDI is 21.83 mGy and DLP is 1054.28 mGy-cm. Automated exposure control was utilized for the study. A dose lowering technique was utilized adhering to the principles of ALARA. CONTRAST: Patient received 90 ml optiray 320 of IV contrast COMPARISON: 01/26/18 FINDINGS: Lung bases: Subsegmental atelectasis at the lung bases. ABDOMEN: Liver: Unremarkable. No mass. Gallbladder and bile ducts: Unremarkable. No calcified stones. No ductal dilation. Pancreas: Unremarkable. No mass. No ductal dilation. Spleen: Unremarkable. No splenomegaly. Adrenals: Unremarkable. No mass. Kidneys and ureters: Symmetric renal enhancement. No hydronephrosis. Subcentimeter cortical hypodensities left kidney upper pole, statistically cysts but too small to characterize. Stomach and bowel: Unremarkable. No mucosal thickening. No bowel obstruction. PELVIS: Appendix: Normal appendix. Bladder: Unremarkable. No mass. Reproductive: Unremarkable as visualized. ABDOMEN and PELVIS: Intraperitoneal space: Unremarkable. No free air or significant free fluid. Bones/joints: No acute fracture or dislocation. Mild chronic compression fractures at T11, T10, and T9. Prior ORIF right femur. The spine. Soft tissues: Unremarkable. Vasculature: Atherosclerosis. No aortic aneurysm. Lymph nodes: Unremarkable. No enlarged lymph nodes. IMPRESSION: No acute findings in the abdomen or pelvis. Electronically signed by: Gaby Edwards M.D. 08/04/23 00:[address] 08/03/23 22:34 Exam(s): CT HEAD Without Contrast EXAM: CT Head Without Intravenous Contrast CLINICAL HISTORY: Reason for exam: headache, syncope. TECHNIQUE: Axial computed tomography images of the head/brain without intravenous contrast. CTDI is 37.95 mGy and DLP is 546.36 mGy-cm. Automated exposure control was utilized for the study. A dose lowering technique was utilized adhering to the principles of ALARA. COMPARISON: 02/22/23 FINDINGS: Brain: Stable chronic left MCA territory infarct. Mullen-white matter differentiation otherwise maintained. Generalized parenchymal volume loss and patchy chronic small vessel ischemic changes. No acute intracranial hemorrhage. Ventricles: Stable ventricular enlargement due to volume loss, with superimposed ex vacuo enlargement of the left lateral ventricle. Bones/joints: Unremarkable. No acute fracture. Soft tissues: Unremarkable. Vasculature: Intracranial atherosclerosis. Sinuses: Unremarkable as visualized. Mastoid air cells: Unremarkable as visualized. No mastoid effusion. IMPRESSION: No acute intracranial process. Electronically signed by: Gaby Edwards M.D. 08/04/23 00:08 AM (1) Sepsis Sepsis acute organ dysfunction status: without acute organ dysfunction Sepsis type: sepsis due to unspecified organism Qualified Code(s): A41.9 - Sepsis, unspecified organism
[2023-08-04] MEDS: CALCIUM GLUCONATE 1,000 MG/60 ML BAG IV SCH (10:33)
--- NOTE | 2023-08-04 17:06 | Electrocardiogram Report ---
Test Reason : Blood Pressure : / mmHG Vent. Rate : 079 BPM Atrial Rate : 079 BPM P-R Int : 172 ms QRS Dur : 094 ms QT Int : 430 ms P-R-T Axes : 027 027 038 degrees QTc Int : 493 ms Normal sinus rhythm Inferior infarct (cited on or before 23-JUL-2022) Abnormal ECG When compared with ECG of 02-AUG-2023 22:04, Serial changes of Inferior infarct Present Confirmed by Karthik Sanchez ([id number]) on 08/04/2023 5:06:01 PM Referred By: REFERRED SELF Confirmed By:Karthik Sanchez
[2023-08-04] MEDS: CEFEPIME 2,000 MG in SYRINGE 0 ML IV SCH (17:16)
[2023-08-04] MEDS: traZODone HCL 50 MG TAB PO SCH (20:39)
[2023-08-04] MEDS: DOXYCYCLINE HYCLATE 100 MG CAP PO SCH (21:06)
[2023-08-05] MEDS: COUGH DROP (SUGAR FREE) LOZ 24 LOZ/1 BOX BUCCAL ONE (05:48)
[2023-08-05 06:31] LABS: Basophils # (auto) 0.02 K/uL (0.00-0.20); Basophils % (auto) 0.2 %; Eosinophils # (auto) 0.94 K/uL (0.00-0.50); Eosinophils % (auto) 11.2 %; Hemoglobin 11.3 g/dl (12.0-16.0); Immature Granulocytes # (auto) 0.04 K/uL (0.01-0.20); Immature Granulocytes % (auto) 0.5 %; Lymphocytes # (auto) 1.04 K/uL (1.20-3.40); Lymphocytes % (auto) 12.4 %; Mean Corpuscular Hemoglobin 29.7 pg (25.0-34.0); Mean Corpuscular Hgb Conc 33.2 g/dL (32.0-36.0); Mean Corpuscular Volume 89.2 fL (80.0-100.0); Mean Platelet Volume 10.6 fL (9.4-12.4); Monocytes # (auto) 0.46 K/uL (0.11-0.59); Monocytes % (auto) 5.5 %; Neutrophils # (auto) 5.89 K/uL (1.40-6.50); Neutrophils % (auto) 70.2 %; Platelet Count 152 K/uL (130-400); RDW Coefficient of Variation 14.1 % (11.5-14.5); Red Blood Count 3.81 M/uL (4.20-5.40); White Blood Count 8.39 K/ul (4.8-10.8)
[2023-08-05 06:43] LABS: Albumin Globulin Ratio 1.2 (0.9-2); Albumin Level 3.4 gm/dl (3.4-5.0); Bilirubin,Total 0.8 mg/dl (0.2-1.0); Calcium 8.9 mg/dl (8.6-10.3); Creatinine Clr Calc Pharmacy 88.8 ml/min; Est GFR (African American) 110.3 ml/min; Est GFR (Non-African American) 95.1 ml/min; Globulin 2.8 gm/dl (2.5-4.0); Potassium 3.5 mmol/L (3.5-5.1); Total Protein 6.2 gm/dl (6.0-8.3)
[2023-08-05 09:55] LABS: Appearance Urine Clear (Clear); Bacteria Urine Automated None Seen (None Seen); Bilirubin Urine Negative (Negative); Blood Urine Negative (Negative); Cast Urine Automated 0-2 /lpf (0-2); Color Urine Yellow; Epithelial Cell Urine Auto 0-2 /hpf (0-2); Glucose Urine UA Negative (Negative); Ketones Urine 2+ (Negative); Leukocyte Esterase Urine 1+ (Negative); Nitrite Urine Negative (Negative); Protein Urine Trace (Negative); RBC Urine Automated 0-2 /hpf (0-2); Specific Gravity Urine 1.021 (1.000-1.030); Urobilinogen Urine Negative (Negative); pH Urine 5.5 (4.5-7.5)
[2023-08-05] MEDS: CEFEPIME 2,000 MG in SYRINGE 0 ML IV SCH (13:35)
--- NOTE | 2023-08-05 15:54 | Hospitalist Progress Note ---
Date of Service August 05, 2023 Assessment & Plan (1) Sepsis: Plan Pt is a 68yoF with PMHx significant for hypertension, CVA, PVD, seizure disorder, obstructive hydrocephalus status post shunt placement, recurrent UTIs previously on methenamine suppression Rx, chronic anemia (baseline hemoglobin of 11), mood disorder, cerebral palsy as per records, intellectual impairment presenting with SOB for two weeks as well as increasing weakness and dysuria. Sepsis Complicated UTI Possible Atypical pneumonia Pt presenting with noted fevers and leukocytosis, infectious source likely urinary Lactate wnl, procal elevated >2 UA suggestive of infection, urine Cx NGTD Blood Cx x 2 sets NGTD Chest XRAY and CT chest without acute infectious findings however, given symptoms and duration, possible atypical pneumonia Biofire negative Doxycycline for atypical pneumonia, cefepime for complicated UTI, failed outpatient treatment Continue to monitor Hypotension secondary to illness Holding home BP meds Continue to monitor Hx CVA, PVD Stable Seizure disorder stable Obstructive hydrocephalus status post shunt placement Stable Chronic anemia hemoglobin at baseline Cerebral palsy as per records/intellectual impairment Stable Hyperglycemia rule out DM, hgba1c normal at 5.4 Hyponatremia Sodium levels low Continue to monitor Hypocalcemia Replete as needed Continue to monitor Cardiomegaly EKG NSR Echo from Feb 2023 noting EF 55-60%, mild LVH, mild pulm HTN Continue to monitor on telemetry Diet: HH DVT prophylaxis. Lovenox subcu Dispo: PT/OT for further dispo recs Admission and Anticipated Discharge Date Admission Date: August 04, 2023 Subjective Pt was seen laying in bed. Denied acute concerns. Review of Systems Review of Systems: All systems reviewed & are unremarkable except as noted in Subjective Physical Exam Physical Exam: General: Alert, oriented. No acute distress Skin: No noted rashes or bruises Psych: Appropriate mood and affect Neuro: No gross deficits HEENT: NC/AT CV: RRR Resp: Breath sounds clear bilaterally, no increased effort of breathing. Abdomen: Soft, nontender, nondistended. No guarding. No organomegaly appreciated. Extremities: edema in lower extremities bilaterally. Results & Data Results & Data Vital Signs (Past 12 Hours) Vital Signs Temp Pulse Pulse Resp BP Pulse Ox O2 Del Method 08/05/23 15:41 71 08/05/23 12:36 36.5 C 75 18 131/73 95 Room Air 08/05/23 12:31 75 08/05/23 08:26 37.3 C 73 18 110/72 93 Room Air (1) Sepsis Sepsis acute organ dysfunction status: without acute organ dysfunction Sepsis type: sepsis due to unspecified organism Qualified Code(s): A41.9 - Sepsis, unspecified organism
[2023-08-05] MEDS: CALCIUM CARBONATE 500 MG CHEWABLE TAB PO STA (20:29)
[2023-08-06 06:14] LABS: Basophils # (auto) 0.01 K/uL (0.00-0.20); Basophils % (auto) 0.1 %; Eosinophils # (auto) 0.99 K/uL (0.00-0.50); Eosinophils % (auto) 14.2 %; Hematocrit (blood only) 29.9 % (37.0-47.0); Immature Granulocytes # (auto) 0.04 K/uL (0.01-0.20); Immature Granulocytes % (auto) 0.6 %; Lymphocytes # (auto) 1.65 K/uL (1.20-3.40); Lymphocytes % (auto) 23.6 %; Mean Corpuscular Hemoglobin 29.6 pg (25.0-34.0); Mean Corpuscular Hgb Conc 33.4 g/dL (32.0-36.0); Mean Corpuscular Volume 88.5 fL (80.0-100.0); Mean Platelet Volume 10.6 fL (9.4-12.4); Monocytes # (auto) 0.43 K/uL (0.11-0.59); Monocytes % (auto) 6.2 %; Neutrophils # (auto) 3.86 K/uL (1.40-6.50); Neutrophils % (auto) 55.3 %; Platelet Count 170 K/uL (130-400); RDW Coefficient of Variation 13.9 % (11.5-14.5); RDW Standard Deviation 45.2 fL (36.4-46.3); Red Blood Count 3.38 M/uL (4.20-5.40); White Blood Count 6.98 K/ul (4.8-10.8)
[2023-08-06 06:25] LABS: Albumin Globulin Ratio 1.2 (0.9-2); Bilirubin,Total 0.8 mg/dl (0.2-1.0); Calcium 8.7 mg/dl (8.6-10.3); Creatinine Clr Calc Pharmacy 95.6 ml/min; Est GFR (Non-African American) 97.5 ml/min; Globulin 2.6 gm/dl (2.5-4.0); Potassium 3.2 mmol/L (3.5-5.1); Total Protein 5.6 gm/dl (6.0-8.3)
[2023-08-06] MEDS: POTASSIUM CHLORIDE CRTAB 20 MEQ TABCR PO STA (17:43)
--- NOTE | 2023-08-06 17:48 | Hospitalist Progress Note ---
Date of Service August 06, 2023 Assessment & Plan (1) Sepsis: Plan Pt is a 68yoF with PMHx significant for hypertension, CVA, PVD, seizure disorder, obstructive hydrocephalus status post shunt placement, recurrent UTIs previously on methenamine suppression Rx, chronic anemia (baseline hemoglobin of 11), mood disorder, cerebral palsy as per records, intellectual impairment presenting with SOB for two weeks as well as increasing weakness and dysuria. Sepsis Complicated UTI Possible Atypical pneumonia Pt presenting with noted fevers and leukocytosis, infectious source likely urinary Lactate wnl, procal elevated >2 UA suggestive of infection, urine Cx negat. Blood Cx x 2 sets NGTD Chest XRAY without acute infectious findings however, given symptoms and duration, possible atypical pneumonia CT abd.pelvis negative Biofire negative Doxycycline for atypical pneumonia, cefepime for complicated UTI, failed outpatient treatment Continue to monitor Hypotension secondary to illness Holding home BP meds Continue to monitor Elevated LFTs - LFTs trending up - CT abd.pelvis on admission negat. - no abd. pain on phys. exam - will obtain liver US Hx CVA, PVD Stable Seizure disorder stable Obstructive hydrocephalus status post shunt placement Stable Chronic anemia hemoglobin at baseline Cerebral palsy as per records/intellectual impairment Stable Hyperglycemia rule out DM, hgba1c normal at 5.4 Hyponatremia Sodium levels low Continue to monitor Hypocalcemia Replete as needed Continue to monitor Cardiomegaly EKG NSR Echo from Feb 2023 noting EF 55-60%, mild LVH, mild pulm HTN Continue to monitor on telemetry Diet: HH DVT prophylaxis. Lovenox subcu Dispo: PT/OT for further dispo recs Admission and Anticipated Discharge Date Admission Date: August 04, 2023 Subjective Pt seen in follow up, concern for UTI, atypical pna Currently laying in bed in NAD, denies any acute concerns poor historian d/t ID but denies any fever, chills, chest pain, abd. pain She is on RA but says she gets short of breath sometimes Review of Systems Review of Systems: All systems reviewed & are unremarkable except as noted in Subjective Physical Exam Physical Exam: General: slim F in NAD HEENT: NC/AT CV: RRR Resp: Breath sounds clear bilaterally, no increased effort of breathing. Abdomen: Soft, nontender, nondistended. No guarding. No organomegaly appreciated. Extremities: edema in lower extremities bilaterally. Neuro: Awake, alert, able to answer simple questions appropriately Skin: No noted rashes or bruises Results & Data Results & Data Vital Signs (Past 12 Hours) Vital Signs Temp Pulse Pulse Resp BP Pulse Ox O2 Del Method 08/06/23 16:30 68 08/06/23 16:10 36.6 C 62 18 134/82 95 Room Air 08/06/23 11:51 36.7 C 67 18 138/74 94 Room Air 08/06/23 07:57 36.7 C 55 L 18 127/81 98 Room Air 08/06/23 07:50 73 Laboratory Results 08/06/23 Range/Units 05:52 WBC 6.98 (4.8-10.8) K/ul RBC 3.38 L (4.20-5.40) M/uL Hgb 10.0 L (12.0-16.0) g/dl Hct 29.9 L (37.0-47.0) % MCV 88.5 (80.0-100.0) fL MCH 29.6 (25.0-34.0) pg MCHC 33.4 (32.0-36.0) g/dL RDW Std Deviation 45.2 (36.4-46.3) fL RDW Coeff of Ofelia 13.9 (11.5-14.5) % Plt Count 170 (130-400) K/uL MPV 10.6 (9.4-12.4) fL Immature Gran % (Auto) 0.6 % Neut % (Auto) 55.3 % Lymph % (Auto) 23.6 % [place] % (Auto) 6.2 % Eos % (Auto) 14.2 % Baso % (Auto) 0.1 % Neut # (Auto) 3.86 (1.40-6.50) K/uL Lymph # (Auto) 1.65 (1.20-3.40) K/uL [place] # (Auto) 0.43 (0.11-0.59) K/uL Eos # (Auto) 0.99 H (0.00-0.50) K/uL Baso # (Auto) 0.01 (0.00-0.20) K/uL Immature Gran # (Auto) 0.04 (0.01-0.20) K/uL Sodium 136 (136-145) mmol/L Potassium 3.2 L (3.5-5.1) mmol/L Chloride 104 (98-107) mmol/L Carbon Dioxide 23 (21-32) mmol/L Anion Gap 9 (3-11) BUN 13 (6-23) mg/dl Creatinine 0.52 L (0.6-1.2) mg/dl Est Cr Clr Drug Dosing 95.6 ml/min Est GFR ( Amer) 113.0 ml/min Est GFR (Non-Af Amer) 97.5 ml/min BUN/Creatinine Ratio 25.0 H (10-20) Glucose 101 H (70-99(Fasting)) mg/dl Calcium 8.7 (8.6-10.3) mg/dl Total Bilirubin 0.8 (0.2-1.0) mg/dl AST 216 H (13-39) U/L ALT 251 H (7-52) U/L Alkaline Phosphatase 283 H (34-104) U/L Total Protein 5.6 L (6.0-8.3) gm/dl Albumin 3.0 L (3.4-5.0) gm/dl Globulin 2.6 (2.5-4.0) gm/dl Albumin/Globulin Ratio 1.2 (0.9-2) Medications Administered Current Inpatient Medications Acetaminophen (Acetaminophen 325 Mg Tab) 650 mg PO QID PRN PRN Reason: pain/fever Stop: 09/03/23 02:59 Last Admin: 08/04/23 16:47 Dose: 650 mg Acetaminophen (Acetaminophen 500 Mg Tab) 1,000 mg PO BID [facility] Stop: 09/03/23 08:59 Last Admin: 08/06/23 08:11 Dose: 1,000 mg Aspirin (Aspirin 81 Mg Ectab) 81 mg PO DAILY [facility] Stop: 09/03/23 08:59 Last Admin: 08/06/23 08:07 Dose: 81 mg Divalproex Sodium (Divalproex Extended Release 500 Mg Tab) 500 mg PO BID [facility] Stop: 09/03/23 08:59 Last Admin: 08/06/23 08:06 Dose: 500 mg Docusate Sodium (Docusate Sodium 100 Mg Cap) 100 mg PO DAILY [facility] Stop: 09/03/23 08:59 Last Admin: 08/06/23 08:11 Dose: 100 mg Doxycycline Hyclate (Doxycycline Hyclate 100 Mg Cap) 100 mg PO BID [facility] Stop: 08/11/23 20:59 Last Admin: 08/06/23 08:06 Dose: 100 mg Enoxaparin Sodium (Enoxaparin Inj 30 Mg/0.3 Ml Syr) 30 mg SQ QAM [facility] Stop: 09/03/23 08:59 Last Admin: 08/06/23 08:08 Dose: 30 mg Ferrous Sulfate (Ferrous Sulfate 325 Mg Tab) 325 mg PO BID [facility] Stop: 09/03/23 08:59 Last Admin: 08/06/23 08:07 Dose: 325 mg Guaifenesin (Guaifenesin 600 Mg Tabcr) 600 mg PO Q12 [facility] Stop: 09/05/23 20:59 Promethazine HCl 6.25 mg/ (Sodium Chloride) 50.25 mls @ 201 mls/hr IV Q6H PRN PRN Reason: Nausea And Vomiting Stop: 09/03/23 02:59 Cefepime HCl 2,000 mg/ Syringe 20 mls @ 5 mls/min IV Q8H [facility]; Protocol Stop: 08/11/23 15:59 Last Admin: 08/06/23 13:35 Dose: 5 mls/min Lamotrigine (Lamotrigine 100 Mg Tab) 100 mg PO BID [facility]; Protocol Stop: 09/03/23 08:59 Last Admin: 08/06/23 08:06 Dose: 100 mg Levetiracetam (Levetiracetam 500 Mg Tab) 1,500 mg PO BID [facility] Stop: 09/03/23 08:59 Last Admin: 08/06/23 08:07 Dose: 1,500 mg Multivitamins (Multivitamin Tab) 1 tab PO DAILY [facility] Stop: 09/03/23 08:59 Last Admin: 08/06/23 08:07 Dose: 1 tab Oxybutynin Chloride (Oxybutynin Chloride Xl 5 Mg Tabcr) 10 mg PO HS [facility] Stop: 09/03/23 20:59 Last Admin: 08/05/23 20:30 Dose: 10 mg Oxybutynin Chloride (Oxybutynin Chloride Xl 5 Mg Tabcr) 5 mg PO QAM [facility] Stop: 09/03/23 08:59 Last Admin: 08/06/23 08:07 Dose: 5 mg Polyethylene Glycol (Polyethylene (Miralax) 17 Gm Pack) 17 gm PO DAILY PRN PRN Reason: Constipation Stop: 09/03/23 03:46 Saccharomyces Boulardii (Saccharomyces Boulardii 250 Mg Cap) 250 mg PO QAM [facility] Stop: 09/03/23 08:59 Last Admin: 08/06/23 08:07 Dose: 250 mg Trazodone HCl (Trazodone Hcl 50 Mg Tab) 50 mg PO HS [facility] Stop: 09/03/23 20:59 Last Admin: 08/05/23 21:11 Dose: 50 mg (1) Sepsis Sepsis acute organ dysfunction status: without acute organ dysfunction Sepsis type: sepsis due to unspecified organism Qualified Code(s): A41.9 - Sepsis, unspecified organism
[2023-08-06] MEDS: guaiFENesin 600 MG TABCR PO SCH (20:03)
[2023-08-07 06:36] LABS: Basophils # (auto) 0.03 K/uL (0.00-0.20); Basophils % (auto) 0.4 %; Eosinophils # (auto) 0.87 K/uL (0.00-0.50); Hemoglobin 10.1 g/dl (12.0-16.0); Immature Granulocytes # (auto) 0.11 K/uL (0.01-0.20); Immature Granulocytes % (auto) 1.5 %; Lymphocytes # (auto) 2.27 K/uL (1.20-3.40); Lymphocytes % (auto) 31.4 %; Mean Corpuscular Hemoglobin 29.4 pg (25.0-34.0); Mean Corpuscular Hgb Conc 33.7 g/dL (32.0-36.0); Mean Corpuscular Volume 87.5 fL (80.0-100.0); Mean Platelet Volume 10.3 fL (9.4-12.4); Monocytes # (auto) 0.56 K/uL (0.11-0.59); Monocytes % (auto) 7.8 %; Neutrophils # (auto) 3.38 K/uL (1.40-6.50); Neutrophils % (auto) 46.9 %; Platelet Count 214 K/uL (130-400); RDW Coefficient of Variation 13.9 % (11.5-14.5); RDW Standard Deviation 44.4 fL (36.4-46.3); Red Blood Count 3.43 M/uL (4.20-5.40); White Blood Count 7.22 K/ul (4.8-10.8)
[2023-08-07 06:52] LABS: Albumin Globulin Ratio 1.3 (0.9-2); Albumin Level 3.2 gm/dl (3.4-5.0); BUN Creatinine Ratio 26.1 (10-20); Bilirubin,Total 0.9 mg/dl (0.2-1.0); Calcium 8.7 mg/dl (8.6-10.3); Creatinine Clr Calc Pharmacy 108.1 ml/min; Est GFR (African American) 117.6 ml/min; Est GFR (Non-African American) 101.5 ml/min; Globulin 2.4 gm/dl (2.5-4.0); Magnesium 1.7 mg/dl (1.7-2.4); Potassium 3.8 mmol/L (3.5-5.1); Total Protein 5.6 gm/dl (6.0-8.3)
--- NOTE | 2023-08-07 07:03 | Ultrasound Report ---
ABDOMINAL ULTRASOUND, RIGHT UPPER QUADRANT HISTORY: Elevated LFTs elevated LFTs. COMPARISON: CT 08/03/2023 FINDINGS: Pancreas: The pancreas demonstrates a normal echotexture. Liver: Unremarkable. Gallbladder: No gallbladder wall thickening. No gallstones. CBD: 0.5 cm. Right kidney: No hydronephrosis. IMPRESSION: No significant abnormality identified within the right upper quadrant. ACT 112: Negative or not required by law. Electronically signed by: Braulio Osborne M.D. 08/07/2023 7:02 AM
[2023-08-07] MEDS: MAGNESIUM SULFATE / D5W 1 GM/100 ML BAG IV ONE (08:53)
--- NOTE | 2023-08-07 10:03 | Gastrointestinal Consultation ---
Date of Consultation August 07, 2023 Assessment & Plan (1) Elevated LFTs: 68 year old female with history of hypertension, CVA, PVD, seizure disorder, obstructive hydrocephalus s/p shunt placement, recurrent UTIs, chronic anemia (baseline hemoglobin of 11), mood disorder, cerebral palsy and others below ad mitted w/ sepsis. GI consulted for elevated LFTS. She has been on courses of Bactrim, Doxycycline, Cefdinir and Cefepime in the last 2 weeks. Biliary imaging including ABD Us and CT without any obvious pathology. DDX discusssed: related to sepsis, DILI, viral etc. Trend LFTs Check INR Full serology ordered Regarding the possibility of DILI, from [facility] Liver Toxicology Doxycycline: highly likely but rare cause of hepatic injury, generally arising within 1 to 2 weeks of starting therapy, pattern of injury ranges from hepatocellular to cholestatic and is probably most commonly mixed. Bactrim: rare instances of clinically apparent acute liver injury. Cephalosporins: The typical case of liver injury from cephalosporins is a self-limited cholestatic hepatitis, arises 1 to 3 weeks after starting therapy, sometimes occurring after a single parenteral dose. ETOH avoidance Less than 2G tylenol containing products Thank you for allowing us to participate in the care of this patient. Please c all with any acute changes, questions or concerns. Please see addendum below with additional recommendation from my supervising physician. I spent a total of 60 minutes on the date of service in review of patient's record, and previously obtained information in person and appropriate medical visit, discussion and education of plan, with patient and/or caregiver, placing orders for tests/referral/procedures as medically necessary and documentation of pertinent clinical information in patient's medical records for their visit today. Supervising Physician Co-Signing Physician Notes I examined the patient and reviewed patient's chart , laboratory data and imaging studies. I agree with with assessment and plan of care as suggested by advanced practice provider. Acute mild elevation of transaminases most likely related to recent therapy with multiple antibiotics. Bilirubin is normal. Continue to observe. History of Present Illness Reason for Consultation: elevated LFTs Requesting Physician: Ellis Attending Physician: Lucian Corral MD History of Present Illness 68 year old female with history of hypertension, CVA, PVD, seizure disorder, obstructive hydrocephalus s/p shunt placement, recurrent UTIs, chronic anemia (baseline hemoglobin of 11), mood disorder, cerebral palsy and others below admitted w/ sepsis. GI consulted for elevated LFTS. Pt was sleeping upon entering her room, woke to name. Notes feels well from a GI standpoint. Denies abd pain. No nausea, vomiting. Chronic GERD, unchanged. Bowels moving well. No black or bloody stools. Denies ETOH, tylenol excess to me Was on a course of Bactrim, Doxycycline, Cefdinir and Cefepime in the last 2 weeks PLT 214 INR not checked TB 0.8 AST 203 --> 216 --> 163 ALT 173 --> 251 --> 244 ALKP 196 --> 283 --> 433 ABD US 2023: No significant abnormality identified within the right upper quadrant. CTAP 2023: Liver: Unremarkable. No mass.Gallbladder and bile ducts: Unremarkable. No calcified stones. No dilation.Pancreas: Unremarkable. No mass. No ductal dilation. Allergies Allergy/AdvReac Type Severity Reaction Status Date / Time adhesive Allergy Unknown HAPPENED Verified 08/03/23 08:27 A CHILD-"INSTRUCTED NOT TO USE ADHESIVES". Home Medications Medication Instructions Recorded Confirmed Type divalproex 500 mg tablet,extended 500 mg PO BID 01/26/18 08/03/23 History release 24 hr lamotrigine 100 mg tablet 100 mg PO BID 01/26/18 08/03/23 History levetiracetam 500 mg tablet 1,500 mg PO BID 01/26/18 08/03/23 History Saccharomyces boulardii 250 mg 250 mg PO QAM 09/03/20 08/03/23 History capsule (Florastor) oxybutynin chloride 5 mg See Rx Instructions .Route .COMPLEX 09/03/20 08/03/23 History tablet,extended release 24 hr multivitamin (One Daily 1 tab PO DAILY 09/11/21 08/03/23 History Multivitamin tablet) amlodipine 5 mg tablet 5 mg PO QAM 07/20/22 08/03/23 History trazodone 50 mg tablet 50 mg PO HS 01/19/23 08/03/23 History acetaminophen 500 mg tablet 1,000 mg PO BID 08/03/23 08/03/23 History aspirin 81 mg tablet,delayed 81 mg PO DAILY 08/03/23 08/03/23 History release docusate sodium 100 mg capsule 100 mg PO DAILY 08/03/23 08/03/23 History ferrous sulfate 325 mg (65 mg 325 mg PO BID 08/03/23 08/03/23 History iron) tablet polyethylene glycol 3350 17 17 g PO DAILY PRN Constipation 08/03/23 08/03/23 History gram/dose oral powder Patient History Medical History Hx of chest pain Major depressive disorder Idiopathic mild intellectual disability History of colon polyps Incontinence Surgical History History of esophagogastroduodenoscopy (EGD) last 03/24/19 @ [facility] History of colonoscopy last 03/24/19 @ [facility] H/O tubal ligation History of brain shunt Family History Father Cancer Mother Cancer Social History Smoking Status: Never smoker Tobacco Type: Cigarettes Hx Alcohol Use: No Hx Substance Use: No Preferred Language: Maltese Communication Ability: Effective Communication Ability Comment: [facility] stated pt is of sound mind to sign own consents [employer] Required: Yes Beliefs That Will Affect Care: None marital status: Single Current Living Situation: [facility] Current Living Situation Comment: The [facility] house Feels Safe at Home: Yes Assistive Devices: Scooter/Electric Scooter and Walker Review of Systems Review of Systems: All other findings negative except as noted in HPI. Physical Exam Constitutional: WD/WN, vitals as above Respiratory: normal respiratory effort Cardiovascular: Rate/Rhythm: regular rate and regular rhythm Gastrointestinal (Abdomen): normal bowel sounds, soft, nontender, no hepatosplenomegaly Skin: no rashes, warm and dry Results & Data Vital Signs (Past 12 Hours) Vital Signs Temp Pulse Pulse Resp BP Pulse Ox Pulse Ox 08/07/23 08:26 36.2 C L 64 18 150/75 H 95 08/07/23 07:29 64 08/07/23 04:00 96 08/07/23 03:02 37.0 C 70 18 122/74 96 08/06/23 22:45 36.7 C 62 18 122/74 95 08/06/23 22:00 68 O2 Del Method O2 Del Method 08/07/23 08:26 Room Air 08/07/23 07:29 08/07/23 04:00 Room Air 08/07/23 03:02 Room Air 08/06/23 22:45 Room Air 08/06/23 22:00 Laboratory Results 08/07/23 Range/Units 06:02 WBC 7.22 (4.8-10.8) K/ul RBC 3.43 L (4.20-5.40) M/uL Hgb 10.1 L (12.0-16.0) g/dl Hct 30.0 L (37.0-47.0) % MCV 87.5 (80.0-100.0) fL MCH 29.4 (25.0-34.0) pg MCHC 33.7 (32.0-36.0) g/dL RDW Std Deviation 44.4 (36.4-46.3) fL RDW Coeff of Ofelia 13.9 (11.5-14.5) % Plt Count 214 (130-400) K/uL MPV 10.3 (9.4-12.4) fL Immature Gran % (Auto) 1.5 % Neut % (Auto) 46.9 % Lymph % (Auto) 31.4 % [place] % (Auto) 7.8 % Eos % (Auto) 12.0 % Baso % (Auto) 0.4 % Neut # (Auto) 3.38 (1.40-6.50) K/uL Lymph # (Auto) 2.27 (1.20-3.40) K/uL [place] # (Auto) 0.56 (0.11-0.59) K/uL Eos # (Auto) 0.87 H (0.00-0.50) K/uL Baso # (Auto) 0.03 (0.00-0.20) K/uL Immature Gran # (Auto) 0.11 (0.01-0.20) K/uL Sodium 137 (136-145) mmol/L Potassium 3.8 (3.5-5.1) mmol/L Chloride 103 (98-107) mmol/L Carbon Dioxide 26 (21-32) mmol/L Anion Gap 8 (3-11) BUN 12 (6-23) mg/dl Creatinine 0.46 L (0.6-1.2) mg/dl Est Cr Clr Drug Dosing 108.1 ml/min Est GFR ( Amer) 117.6 ml/min Est GFR (Non-Af Amer) 101.5 ml/min BUN/Creatinine Ratio 26.1 H (10-20) Glucose 93 (70-99(Fasting)) mg/dl Calcium 8.7 (8.6-10.3) mg/dl Phosphorus 3.0 (2.5-4.9) mg/dl Magnesium 1.7 (1.7-2.4) mg/dl Total Bilirubin 0.9 (0.2-1.0) mg/dl AST 163 H (13-39) U/L ALT 244 H (7-52) U/L Alkaline Phosphatase 433 H (34-104) U/L Total Protein 5.6 L (6.0-8.3) gm/dl Albumin 3.2 L (3.4-5.0) gm/dl Globulin 2.4 L (2.5-4.0) gm/dl Albumin/Globulin Ratio 1.3 (0.9-2) PG Care Time/CCT Total # of Minutes Spent Total Time Spent with Patient: Total time spent is greater than 50% in coordination of care (as documented) at patient's floor/unit and/or counseling patient: Coding Level of Care Code 79023 INT INP/OBS CARE 2/55MIN Diagnoses Elevated LFTs R79.89
[2023-08-07 11:11] LABS: Albumin Level 3.3 gm/dl (3.4-5.0); Bilirubin Direct 0.4 mg/dl (0-0.2); Bilirubin,Total 0.9 mg/dl (0.2-1.0); Total Protein 5.6 gm/dl (6.0-8.3)
[2023-08-07 11:23] LABS: Prothrombin Time 10.9 Seconds (9.0-12.0)
[2023-08-07 11:30] LABS: Ferritin 1162.3 ng/ml (8-388)
[2023-08-07 11:47] LABS: HepB Surface Ag with confirm Negative (Negative)
[2023-08-07 11:52] LABS: HepC Ab Rflx HepCQuant RNA Negative (Negative)
--- NOTE | 2023-08-07 13:56 | Hospitalist Progress Note ---
Date of Service August 07, 2023 Assessment & Plan (1) Sepsis: Plan Pt is a 68yoF with PMHx significant for hypertension, CVA, PVD, seizure disorder, obstructive hydrocephalus status post shunt placement, recurrent UTIs previously on methenamine suppression Rx, chronic anemia (baseline hemoglobin of 11), mood disorder, cerebral palsy as per records, intellectual impairment presenting with SOB for two weeks as well as increasing weakness and dysuria. Sepsis Complicated UTI Possible Atypical pneumonia Pt presenting with noted fevers and leukocytosis, infectious source likely urinary Lactate wnl, procal elevated >2 UA suggestive of infection, urine Cx negat. Blood Cx x 2 sets NGTD Chest XRAY without acute infectious findings however, given symptoms and duration, possible atypical pneumonia CT abd.pelvis negative Biofire negative Doxycycline for atypical pneumonia, cefepime for complicated UTI, failed outpatient treatment Continue to monitor Hypotension secondary to illness Holding home BP meds Continue to monitor Elevated LFTs - LFTs trending up - CT abd.pelvis on admission negat. - no abd. pain on phys. exam - liver US negative - GI consulted Hx CVA, PVD Stable Seizure disorder stable Obstructive hydrocephalus status post shunt placement Stable Chronic anemia hemoglobin at baseline Cerebral palsy as per records/intellectual impairment Stable Hyperglycemia rule out DM, hgba1c normal at 5.4 Hyponatremia Sodium levels low Continue to monitor Hypocalcemia Replete as needed Continue to monitor Cardiomegaly EKG NSR Echo from Feb 2023 noting EF 55-60%, mild LVH, mild pulm HTN Continue to monitor on telemetry Diet: HH DVT prophylaxis. Lovenox subcu Dispo: PT/OT for further dispo recs Admission and Anticipated Discharge Date Admission Date: August 04, 2023 Subjective Pt seen in follow up, concern for UTI, atypical pna Currently laying in bed in NAD, denies any acute concerns poor historian d/t ID but denies any fever, chills, chest pain, abd. pain She is on RA but says she gets short of breath with exertion. She was able to ambulate in hallway. LFTs elevated - imaging obtained and unremarkable - GI consulted Review of Systems Review of Systems: All systems reviewed & are unremarkable except as noted in Subjective Physical Exam Physical Exam: General: slim F in NAD HEENT: NC/AT CV: RRR Resp: Breath sounds clear bilaterally, no increased effort of breathing. Abdomen: Soft, nontender, nondistended. No guarding. No organomegaly appreciated. Extremities: edema in lower extremities bilaterally. Neuro: Awake, alert, able to answer simple questions appropriately Skin: No noted rashes or bruises Results & Data Results & Data Vital Signs (Past 12 Hours) Vital Signs Temp Pulse Pulse Resp BP Pulse Ox Pulse Ox 08/07/23 11:45 36.7 C 66 18 143/88 H 95 08/07/23 09:55 08/07/23 08:26 36.2 C L 64 18 150/75 H 95 08/07/23 07:29 64 08/07/23 04:00 96 08/07/23 03:02 37.0 C 70 18 122/74 96 O2 Del Method O2 Del Method 08/07/23 11:45 Room Air 08/07/23 09:55 Room Air 08/07/23 08:26 Room Air 08/07/23 07:29 08/07/23 04:00 Room Air 08/07/23 03:02 Room Air Laboratory Results 08/07/23 08/07/23 Range/Units 10:28 06:02 WBC 7.22 (4.8-10.8) K/ul RBC 3.43 L (4.20-5.40) M/uL Hgb 10.1 L (12.0-16.0) g/dl Hct 30.0 L (37.0-47.0) % MCV 87.5 (80.0-100.0) fL MCH 29.4 (25.0-34.0) pg MCHC 33.7 (32.0-36.0) g/dL RDW Std Deviation 44.4 (36.4-46.3) fL RDW Coeff of Ofelia 13.9 (11.5-14.5) % Plt Count 214 (130-400) K/uL MPV 10.3 (9.4-12.4) fL Immature Gran % (Auto) 1.5 % Neut % (Auto) 46.9 % Lymph % (Auto) 31.4 % Ponce % (Auto) 7.8 % Eos % (Auto) 12.0 % Baso % (Auto) 0.4 % Neut # (Auto) 3.38 (1.40-6.50) K/uL Lymph # (Auto) 2.27 (1.20-3.40) K/uL Ponce # (Auto) 0.56 (0.11-0.59) K/uL Eos # (Auto) 0.87 H (0.00-0.50) K/uL Baso # (Auto) 0.03 (0.00-0.20) K/uL Immature Gran # (Auto) 0.11 (0.01-0.20) K/uL PT 10.9 (9.0-12.0) Seconds INR 1.0 (0.9-1.1) Sodium 137 (136-145) mmol/L Potassium 3.8 (3.5-5.1) mmol/L Chloride 103 (98-107) mmol/L Carbon Dioxide 26 (21-32) mmol/L Anion Gap 8 (3-11) BUN 12 (6-23) mg/dl Creatinine 0.46 L (0.6-1.2) mg/dl Est Cr Clr Drug Dosing 108.1 ml/min Est GFR ( Amer) 117.6 ml/min Est GFR (Non-Af Amer) 101.5 ml/min BUN/Creatinine Ratio 26.1 H (10-20) Glucose 93 (70-99(Fasting)) mg/dl Calcium 8.7 (8.6-10.3) mg/dl Phosphorus 3.0 (2.5-4.9) mg/dl Magnesium 1.7 (1.7-2.4) mg/dl Iron 60 (35-150) mcg/dl Ferritin 1162.3 H (8-388) ng/ml Total Bilirubin 0.9 0.9 (0.2-1.0) mg/dl Direct Bilirubin 0.4 H (0-0.2) mg/dl AST 148 H 163 H (13-39) U/L ALT 233 H 244 H (7-52) U/L Alkaline Phosphatase 436 H 433 H (34-104) U/L Total Protein 5.6 L 5.6 L (6.0-8.3) gm/dl Albumin 3.3 L 3.2 L (3.4-5.0) gm/dl Globulin 2.4 L (2.5-4.0) gm/dl Albumin/Globulin Ratio 1.3 (0.9-2) JONATHON Screen Pending Anti-Mitochondrial Ab Pending Anti-Smooth Muscle Ab Pending Tiss Transglutamin IgA Pending CMV IgM Ab Pending CMV IgG Ab/TORCH Pending EBV Capsid Ag IgG Ab Pending EBV Capsid Ag IgM Ab Pending Hepatitis A IgM Ab Pending Hep Bs Antigen Negative (Negative) Hep B Core IgM Ab Pending Hepatitis C Antibody Negative (Negative) Medications Administered Current Inpatient Medications Acetaminophen (Acetaminophen 325 Mg Tab) 650 mg PO QID PRN PRN Reason: pain/fever Stop: 09/03/23 02:59 Last Admin: 08/04/23 16:47 Dose: 650 mg Acetaminophen (Acetaminophen 500 Mg Tab) 1,000 mg PO BID [facility] Stop: 09/03/23 08:59 Last Admin: 08/07/23 08:53 Dose: 1,000 mg Aspirin (Aspirin 81 Mg Ectab) 81 mg PO DAILY [facility] Stop: 09/03/23 08:59 Last Admin: 08/07/23 08:51 Dose: 81 mg Divalproex Sodium (Divalproex Extended Release 500 Mg Tab) 500 mg PO BID [facility] Stop: 09/03/23 08:59 Last Admin: 08/07/23 08:52 Dose: 500 mg Docusate Sodium (Docusate Sodium 100 Mg Cap) 100 mg PO DAILY [facility] Stop: 09/03/23 08:59 Last Admin: 08/07/23 08:55 Dose: 100 mg Doxycycline Hyclate (Doxycycline Hyclate 100 Mg Cap) 100 mg PO BID [facility] Stop: 08/11/23 20:59 Last Admin: 08/07/23 08:53 Dose: 100 mg Enoxaparin Sodium (Enoxaparin Inj 30 Mg/0.3 Ml Syr) 30 mg SQ QAM [facility] Stop: 09/03/23 08:59 Last Admin: 08/07/23 08:54 Dose: 30 mg Ferrous Sulfate (Ferrous Sulfate 325 Mg Tab) 325 mg PO BID [facility] Stop: 09/03/23 08:59 Last Admin: 08/07/23 08:52 Dose: 325 mg Guaifenesin (Guaifenesin 600 Mg Tabcr) 600 mg PO Q12 [facility] Stop: 09/05/23 20:59 Last Admin: 08/07/23 08:52 Dose: 600 mg Promethazine HCl 6.25 mg/ (Sodium Chloride) 50.25 mls @ 201 mls/hr IV Q6H PRN PRN Reason: Nausea And Vomiting Stop: 09/03/23 02:59 Cefepime HCl 2,000 mg/ Syringe 20 mls @ 5 mls/min IV Q8H [facility]; Protocol Stop: 08/11/23 15:59 Last Admin: 08/07/23 13:48 Dose: 5 mls/min Lamotrigine (Lamotrigine 100 Mg Tab) 100 mg PO BID [facility]; Protocol Stop: 09/03/23 08:59 Last Admin: 08/07/23 08:52 Dose: 100 mg Levetiracetam (Levetiracetam 500 Mg Tab) 1,500 mg PO BID [facility] Stop: 09/03/23 08:59 Last Admin: 08/07/23 08:53 Dose: 1,500 mg Multivitamins (Multivitamin Tab) 1 tab PO DAILY [facility] Stop: 09/03/23 08:59 Last Admin: 08/07/23 08:51 Dose: 1 tab Oxybutynin Chloride (Oxybutynin Chloride Xl 5 Mg Tabcr) 10 mg PO HS [facility] Stop: 09/03/23 20:59 Last Admin: 08/06/23 20:03 Dose: 10 mg Oxybutynin Chloride (Oxybutynin Chloride Xl 5 Mg Tabcr) 5 mg PO QAM [facility] Stop: 09/03/23 08:59 Last Admin: 08/07/23 08:52 Dose: 5 mg Polyethylene Glycol (Polyethylene (Miralax) 17 Gm Pack) 17 gm PO DAILY PRN PRN Reason: Constipation Stop: 09/03/23 03:46 Saccharomyces Boulardii (Saccharomyces Boulardii 250 Mg Cap) 250 mg PO QAM [facility] Stop: 09/03/23 08:59 Last Admin: 08/07/23 08:52 Dose: 250 mg Trazodone HCl (Trazodone Hcl 50 Mg Tab) 50 mg PO HS [facility] Stop: 09/03/23 20:59 Last Admin: 08/06/23 20:03 Dose: 50 mg (1) Sepsis Sepsis acute organ dysfunction status: without acute organ dysfunction Sepsis type: sepsis due to unspecified organism Qualified Code(s): A41.9 - Sepsis, unspecified organism
[2023-08-08 06:34] LABS: Hemoglobin 9.9 g/dl (12.0-16.0); Mean Corpuscular Hemoglobin 29.7 pg (25.0-34.0); Mean Corpuscular Hgb Conc 34.1 g/dL (32.0-36.0); Mean Corpuscular Volume 87.1 fL (80.0-100.0); Mean Platelet Volume 10.2 fL (9.4-12.4); Platelet Count 259 K/uL (130-400); RDW Coefficient of Variation 14.4 % (11.5-14.5); RDW Standard Deviation 46.2 fL (36.4-46.3); Red Blood Count 3.33 M/uL (4.20-5.40); White Blood Count 7.35 K/ul (4.8-10.8)
[2023-08-08 06:45] LABS: Albumin Globulin Ratio 1.4 (0.9-2); Albumin Level 3.3 gm/dl (3.4-5.0); BUN Creatinine Ratio 22.4 (10-20); Bilirubin,Total 0.7 mg/dl (0.2-1.0); Calcium 8.7 mg/dl (8.6-10.3); Creatinine Clr Calc Pharmacy 89.6 ml/min; Est GFR (African American) 115.2 ml/min; Est GFR (Non-African American) 99.4 ml/min; Globulin 2.4 gm/dl (2.5-4.0); Phosphorus 3.2 mg/dl (2.5-4.9); Potassium 3.8 mmol/L (3.5-5.1); Total Protein 5.7 gm/dl (6.0-8.3)
[2023-08-08 06:52] LABS: Prothrombin Time 10.9 Seconds (9.0-12.0)
--- NOTE | 2023-08-08 09:10 | Gastroenterology Progress Note ---
Date of Service August 08, 2023 Assessment & Plan (1) Elevated LFTs: Plan: 68 year old female with history of hypertension, CVA, PVD, seizure disorder, obstructive hydrocephalus s/p shunt placement, recurrent UTIs, chronic anemia (baseline hemoglobin of 11), mood disorder, cerebral palsy and others below admitted w/ sepsis. GI consulted for elevated LFTS. She has been on courses of Bactrim, Doxycycline, Cefdinir and Cefepime in the last 2 weeks. Biliary imaging including ABD Us and CT without any obvious pathology. DDX discussed: related to sepsis, DILI, viral etc. Trend LFTs Check INR Follow liver serology ordered Regarding the possibility of DILI, from [facility] Liver Toxicology Doxycycline: highly likely but rare cause of hepatic injury, generally arising within 1 to 2 weeks of starting therapy, pattern of injury ranges from hepatocellular to cholestatic and is probably most commonly mixed. Bactrim: rare instances of clinically apparent acute liver injury. Cephalosporins: The typical case of liver injury from cephalosporins is a self-limited cholestatic hepatitis, arises 1 to 3 weeks after starting therapy, sometimes occurring after a single parenteral dose. ETOH avoidance Less than 2G tylenol containing products Thank you for allowing us to participate in the care of this patient. Please call with any acute changes, questions or concerns. Please see addendum below with additional recommendation from my supervising physician. I spent a total of 50 minutes on the date of service in review of patient's record, and previously obtained information in person and appropriate medical visit, discussion and education of plan, with patient and/or caregiver, placing orders for tests/referral/procedures as medically necessary and documentation of pertinent clinical information in patient's medical records for their visit today. Admission and Anticipated Discharge Date Admission Date: August 04, 2023 Supervising Physician Co-Signing Physician Notes I examined the patient and reviewed patient's chart , laboratory data and imaging studies. I agree with with assessment and plan of care as suggested by advanced practice provider. Hepatic injury pattern consistent with DILI. Slight increase in alkaline phosphatase but overall stable. Antibiotics switched to Augmentin. Monitor LFTs. Subjective Feeling well from GI standpoint No abd pain, nausea, vomiting. No fever, chills, CP, SOB. Review of Systems Review of Systems: All other findings negative except as noted in HPI. Physical Exam Constitutional: WD/WN, vitals as above Respiratory: normal respiratory effort, lungs clear to auscultation Cardiovascular: Rate/Rhythm: regular rate and regular rhythm Gastrointestinal (Abdomen): normal bowel sounds, soft, nontender, no hepatosplenomegaly Skin: no rashes, warm and dry Results & Data Results & Data Vital Signs (Past 12 Hours) Vital Signs Temp Pulse Pulse Resp BP BP Pulse Ox 08/08/23 08:37 36.6 C 66 19 128/79 95 08/08/23 04:00 08/08/23 02:55 36.7 C 70 18 120/77 95 08/07/23 22:53 36.9 C 63 18 118/70 92 08/07/23 21:57 61 Pulse Ox O2 Del Method O2 Del Method 08/08/23 08:37 Room Air 08/08/23 04:00 95 Room Air 08/08/23 02:55 Room Air 08/07/23 22:53 Room Air 08/07/23 21:57 Laboratory Results 08/08/23 08/07/23 Range/Units 05:27 10:28 WBC 7.35 (4.8-10.8) K/ul RBC 3.33 L (4.20-5.40) M/uL Hgb 9.9 L (12.0-16.0) g/dl Hct 29.0 L (37.0-47.0) % MCV 87.1 (80.0-100.0) fL MCH 29.7 (25.0-34.0) pg MCHC 34.1 (32.0-36.0) g/dL RDW Std Deviation 46.2 (36.4-46.3) fL RDW Coeff of Ofelia 14.4 (11.5-14.5) % Plt Count 259 (130-400) K/uL MPV 10.2 (9.4-12.4) fL PT 10.9 10.9 (9.0-12.0) Seconds INR 1.0 1.0 (0.9-1.1) Sodium 137 (136-145) mmol/L Potassium 3.8 (3.5-5.1) mmol/L Chloride 103 (98-107) mmol/L Carbon Dioxide 27 (21-32) mmol/L Anion Gap 7 (3-11) BUN 11 (6-23) mg/dl Creatinine 0.49 L (0.6-1.2) mg/dl Est Cr Clr Drug Dosing 89.6 ml/min Est GFR ( Amer) 115.2 ml/min Est GFR (Non-Af Amer) 99.4 ml/min BUN/Creatinine Ratio 22.4 H (10-20) Glucose 94 (70-99(Fasting)) mg/dl Calcium 8.7 (8.6-10.3) mg/dl Phosphorus 3.2 (2.5-4.9) mg/dl Magnesium 2.0 (1.7-2.4) mg/dl Iron 60 (35-150) mcg/dl Ferritin 1162.3 H (8-388) ng/ml Total Bilirubin 0.7 0.9 (0.2-1.0) mg/dl Direct Bilirubin 0.4 H (0-0.2) mg/dl AST 178 H 148 H (13-39) U/L ALT 251 H 233 H (7-52) U/L Alkaline Phosphatase 551 H 436 H (34-104) U/L Total Protein 5.7 L 5.6 L (6.0-8.3) gm/dl Albumin 3.3 L 3.3 L (3.4-5.0) gm/dl Globulin 2.4 L (2.5-4.0) gm/dl Albumin/Globulin Ratio 1.4 (0.9-2) JONATHON Screen Pending Anti-Mitochondrial Ab Pending Anti-Smooth Muscle Ab Pending Tiss Transglutamin IgA Pending CMV IgM Ab Pending CMV IgG Ab/TORCH Pending EBV Capsid Ag IgG Ab Pending EBV Capsid Ag IgM Ab Pending Hepatitis A IgM Ab Pending Hep Bs Antigen Negative (Negative) Hep B Core IgM Ab Pending Hepatitis C Antibody Negative (Negative) PG Care Time/CCT Total # of Minutes Spent Total Time Spent with Patient: Total time spent is greater than 50% in coordination of care (as documented) at patient's floor/unit and/or counseling patient: Coding Level of Care Code 02125 SUB INP/OBS CARE 3/50MIN Diagnoses Elevated LFTs R79.89
--- NOTE | 2023-08-08 10:16 | Hospitalist Progress Note ---
Date of Service August 08, 2023 Assessment & Plan (1) Sepsis: Plan Pt is a 68yoF with PMHx significant for hypertension, CVA, PVD, seizure disorder, obstructive hydrocephalus status post shunt placement, recurrent UTIs previously on methenamine suppression Rx, chronic anemia (baseline hemoglobin of 11), mood disorder, cerebral palsy as per records, intellectual impairment presenting with SOB for two weeks as well as increasing weakness and dysuria. Sepsis Complicated UTI Possible Atypical pneumonia Pt presenting with noted fevers and leukocytosis, infectious source likely urinary Lactate wnl, procal elevated >2 UA suggestive of infection, urine Cx negat. Blood Cx x 2 sets NGTD Chest XRAY without acute infectious findings however, given symptoms and duration, possible atypical pneumonia CT abd.pelvis negative Biofire negative Doxycycline for atypical pneumonia, cefepime for complicated UTI, failed outpatient treatment -> doxy course finished. and switched to Augmentin (as possible DILI, as below) Continue to monitor Hypotension secondary to illness Holding home BP meds Continue to monitor Elevated LFTs - LFTs trending up - CT abd.pelvis on admission negat. - no abd. pain on phys. exam - liver US negative - GI consulted - serology pending. likely DILI - recommend to switch abx Hx CVA, PVD Stable Seizure disorder stable Obstructive hydrocephalus status post shunt placement Stable Chronic anemia hemoglobin at baseline Cerebral palsy as per records/intellectual impairment Stable Hyperglycemia rule out DM, hgba1c normal at 5.4 Hyponatremia Sodium levels low Continue to monitor Hypocalcemia Replete as needed Continue to monitor Cardiomegaly EKG NSR Echo from Feb 2023 noting EF 55-60%, mild LVH, mild pulm HTN Continue to monitor on telemetry Diet: HH DVT prophylaxis. Lovenox subcu Dispo: PT/OT for further dispo recs Admission and Anticipated Discharge Date Admission Date: August 04, 2023 Subjective Pt seen in follow up, concern for UTI, atypical pna Currently laying in bed in NAD, denies any acute concerns poor historian d/t ID but denies any fever, chills, chest pain, abd. pain She is on RA but says she gets short of breath with exertion. She was able to ambulate in hallway. LFTs elevated - imaging obtained and unremarkable - GI consulted - likely DILI - recommend to switch abx , monitor LFTs Review of Systems Review of Systems: All systems reviewed & are unremarkable except as noted in Subjective Physical Exam Physical Exam: General: slim F in NAD HEENT: NC/AT CV: RRR Resp: Breath sounds clear bilaterally, no increased effort of breathing. Abdomen: Soft, nontender, nondistended. No guarding. No organomegaly appreciated. Extremities: edema in lower extremities bilaterally. Neuro: Awake, alert, able to answer simple questions appropriately Skin: No noted rashes or bruises Results & Data Results & Data Vital Signs (Past 12 Hours) Vital Signs Temp Pulse Resp BP BP Pulse Ox Pulse Ox 08/08/23 08:37 36.6 C 66 19 128/79 95 08/08/23 04:00 95 08/08/23 02:55 36.7 C 70 18 120/77 95 08/07/23 22:53 36.9 C 63 18 118/70 92 O2 Del Method O2 Del Method 08/08/23 08:37 Room Air 08/08/23 04:00 Room Air 08/08/23 02:55 Room Air 08/07/23 22:53 Room Air Laboratory Results 08/08/23 08/07/23 Range/Units 05:27 10:28 WBC 7.35 (4.8-10.8) K/ul RBC 3.33 L (4.20-5.40) M/uL Hgb 9.9 L (12.0-16.0) g/dl Hct 29.0 L (37.0-47.0) % MCV 87.1 (80.0-100.0) fL MCH 29.7 (25.0-34.0) pg MCHC 34.1 (32.0-36.0) g/dL RDW Std Deviation 46.2 (36.4-46.3) fL RDW Coeff of Ofelia 14.4 (11.5-14.5) % Plt Count 259 (130-400) K/uL MPV 10.2 (9.4-12.4) fL PT 10.9 10.9 (9.0-12.0) Seconds INR 1.0 1.0 (0.9-1.1) Sodium 137 (136-145) mmol/L Potassium 3.8 (3.5-5.1) mmol/L Chloride 103 (98-107) mmol/L Carbon Dioxide 27 (21-32) mmol/L Anion Gap 7 (3-11) BUN 11 (6-23) mg/dl Creatinine 0.49 L (0.6-1.2) mg/dl Est Cr Clr Drug Dosing 89.6 ml/min Est GFR ( Amer) 115.2 ml/min Est GFR (Non-Af Amer) 99.4 ml/min BUN/Creatinine Ratio 22.4 H (10-20) Glucose 94 (70-99(Fasting)) mg/dl Calcium 8.7 (8.6-10.3) mg/dl Phosphorus 3.2 (2.5-4.9) mg/dl Magnesium 2.0 (1.7-2.4) mg/dl Iron 60 (35-150) mcg/dl Ferritin 1162.3 H (8-388) ng/ml Total Bilirubin 0.7 0.9 (0.2-1.0) mg/dl Direct Bilirubin 0.4 H (0-0.2) mg/dl AST 178 H 148 H (13-39) U/L ALT 251 H 233 H (7-52) U/L Alkaline Phosphatase 551 H 436 H (34-104) U/L Total Protein 5.7 L 5.6 L (6.0-8.3) gm/dl Albumin 3.3 L 3.3 L (3.4-5.0) gm/dl Globulin 2.4 L (2.5-4.0) gm/dl Albumin/Globulin Ratio 1.4 (0.9-2) JONATHNO Screen Pending Anti-Mitochondrial Ab Pending Anti-Smooth Muscle Ab Pending Tiss Transglutamin IgA Pending CMV IgM Ab Pending CMV IgG Ab/TORCH Pending EBV Capsid Ag IgG Ab Pending EBV Capsid Ag IgM Ab Pending Hepatitis A IgM Ab Pending Hep Bs Antigen Negative (Negative) Hep B Core IgM Ab Pending Hepatitis C Antibody Negative (Negative) Medications Administered Current Inpatient Medications Acetaminophen (Acetaminophen 325 Mg Tab) 650 mg PO QID PRN PRN Reason: pain/fever Stop: 09/03/23 02:59 Last Admin: 08/04/23 16:47 Dose: 650 mg Acetaminophen (Acetaminophen 500 Mg Tab) 1,000 mg PO BID [facility] Stop: 09/03/23 08:59 Last Admin: 08/08/23 08:58 Dose: 1,000 mg Amoxicillin/Clavulanate Potassium (Amoxicillin/Clavulanate 875 Mg Tab) 1 tab PO BIDM [facility]; Protocol Stop: 08/18/23 16:59 Aspirin (Aspirin 81 Mg Ectab) 81 mg PO DAILY [facility] Stop: 09/03/23 08:59 Last Admin: 08/08/23 08:54 Dose: 81 mg Divalproex Sodium (Divalproex Extended Release 500 Mg Tab) 500 mg PO BID [facility] Stop: 09/03/23 08:59 Last Admin: 08/08/23 08:53 Dose: 500 mg Docusate Sodium (Docusate Sodium 100 Mg Cap) 100 mg PO DAILY [facility] Stop: 09/03/23 08:59 Last Admin: 08/08/23 08:58 Dose: 100 mg Enoxaparin Sodium (Enoxaparin Inj 30 Mg/0.3 Ml Syr) 30 mg SQ QAM [facility] Stop: 09/03/23 08:59 Last Admin: 08/08/23 08:56 Dose: 30 mg Ferrous Sulfate (Ferrous Sulfate 325 Mg Tab) 325 mg PO BID [facility] Stop: 09/03/23 08:59 Last Admin: 08/08/23 08:54 Dose: 325 mg Guaifenesin (Guaifenesin 600 Mg Tabcr) 600 mg PO Q12 [facility] Stop: 09/05/23 20:59 Last Admin: 08/08/23 08:53 Dose: 600 mg Promethazine HCl 6.25 mg/ (Sodium Chloride) 50.25 mls @ 201 mls/hr IV Q6H PRN PRN Reason: Nausea And Vomiting Stop: 09/03/23 02:59 Lamotrigine (Lamotrigine 100 Mg Tab) 100 mg PO BID [facility]; Protocol Stop: 09/03/23 08:59 Last Admin: 08/08/23 08:53 Dose: 100 mg Levetiracetam (Levetiracetam 500 Mg Tab) 1,500 mg PO BID [facility] Stop: 09/03/23 08:59 Last Admin: 08/08/23 08:53 Dose: 1,500 mg Multivitamins (Multivitamin Tab) 1 tab PO DAILY [facility] Stop: 09/03/23 08:59 Last Admin: 08/08/23 08:53 Dose: 1 tab Oxybutynin Chloride (Oxybutynin Chloride Xl 5 Mg Tabcr) 10 mg PO HS [facility] Stop: 09/03/23 20:59 Last Admin: 08/07/23 20:14 Dose: 10 mg Oxybutynin Chloride (Oxybutynin Chloride Xl 5 Mg Tabcr) 5 mg PO QAM [facility] Stop: 09/03/23 08:59 Last Admin: 08/08/23 08:54 Dose: 5 mg Polyethylene Glycol (Polyethylene (Miralax) 17 Gm Pack) 17 gm PO DAILY PRN PRN Reason: Constipation Stop: 09/03/23 03:46 Saccharomyces Boulardii (Saccharomyces Boulardii 250 Mg Cap) [facility] [place]: 09/03/23 08:59 Last Admin: 08/08/23 08:54 Dose: 250 mg Trazodone HCl (Trazodone Hcl 50 Mg Tab) 50 mg PO HS [facility] Stop: 09/03/23 20:59 Last Admin: 08/07/23 20:14 Dose: 50 mg (1) Sepsis Sepsis acute organ dysfunction status: without acute organ dysfunction Sepsis type: sepsis due to unspecified organism Qualified Code(s): A41.9 - Sepsis, unspecified organism
[2023-08-08 15:32] LABS: Anti Mitochondrial Antibody NEGATIVE (NEGATIVE); Anti Nuclear Antibody Screen NEGATIVE (NEGATIVE); CMV IgG Antibody >10.00 U/mL; Hepatitis A Antibody IgM NON-REACTIVE (NON-REACTIVE); Hepatitis B Core Antibody IgM NON-REACTIVE (NON-REACTIVE); Smooth Muscle Antibody NEGATIVE (NEGATIVE); Transglutaminase, Tissue IgA <1.0 U/mL
[2023-08-08 16:09] LABS: Ehrlichia chaff DNA Bld Negative (Negative)
[2023-08-08] MEDS: AMOXICILLIN/CLAVULANATE 875 MG TAB PO SCH (17:27)
[2023-08-09 05:20] LABS: Hematocrit (blood only) 30.1 % (37.0-47.0); Hemoglobin 10.1 g/dl (12.0-16.0); Mean Corpuscular Hemoglobin 29.9 pg (25.0-34.0); Mean Corpuscular Hgb Conc 33.6 g/dL (32.0-36.0); Mean Corpuscular Volume 89.1 fL (80.0-100.0); Nucleated RBC # (auto) 0.02 K/uL (0.00-0.12); Nucleated RBC % (auto) 0.2 %; Platelet Count 300 K/uL (130-400); RDW Coefficient of Variation 14.6 % (11.5-14.5); RDW Standard Deviation 47.4 fL (36.4-46.3); Red Blood Count 3.38 M/uL (4.20-5.40); White Blood Count 8.04 K/ul (4.8-10.8)
[2023-08-09 05:34] LABS: Albumin Globulin Ratio 1.5 (0.9-2); Albumin Level 3.4 gm/dl (3.4-5.0); BUN Creatinine Ratio 26.5 (10-20); Bilirubin,Total 0.6 mg/dl (0.2-1.0); Calcium 8.6 mg/dl (8.6-10.3); Creatinine Clr Calc Pharmacy 89.6 ml/min; Est GFR (African American) 115.2 ml/min; Est GFR (Non-African American) 99.4 ml/min; Globulin 2.3 gm/dl (2.5-4.0); Phosphorus 3.1 mg/dl (2.5-4.9); Potassium 3.8 mmol/L (3.5-5.1); Total Protein 5.7 gm/dl (6.0-8.3)
--- NOTE | 2023-08-09 18:19 | Hospitalist Progress Note ---
Date of Service August 09, 2023 Assessment & Plan (1) Sepsis: Plan Pt is a 68yoF with PMHx significant for hypertension, CVA, PVD, seizure disorder, obstructive hydrocephalus status post shunt placement, recurrent UTIs previously on methenamine suppression Rx, chronic anemia (baseline hemoglobin of 11), mood disorder, cerebral palsy as per records, intellectual impairment presenting with SOB for two weeks as well as increasing weakness and dysuria. Sepsis Complicated UTI Possible Atypical pneumonia Pt presenting with noted fevers and leukocytosis, infectious source likely urinary Lactate wnl, procal elevated >2 UA suggestive of infection, urine Cx negat. Blood Cx x 2 sets NGTD Chest XRAY without acute infectious findings however, given symptoms and duration, possible atypical pneumonia CT abd.pelvis negative Biofire negative Doxycycline for atypical pneumonia, cefepime for complicated UTI, failed outpatient treatment -> doxy course finished. and switched to Augmentin (as possible DILI, as below) Continue to monitor Hypotension secondary to illness Holding home BP meds Continue to monitor Elevated LFTs - LFTs trending up - CT abd.pelvis on admission negat. - no abd. pain on phys. exam - liver US negative - GI consulted - serology pending. likely DILI - recommend to switch abx -> doxy course finished. and switched to Augmentin (as possible DILI) - EBV/ CMV ab positive on serology ordered by GI Hx CVA, PVD Stable Seizure disorder stable Obstructive hydrocephalus status post shunt placement Stable Chronic anemia hemoglobin at baseline Cerebral palsy as per records/intellectual impairment Stable Hyperglycemia rule out DM, hgba1c normal at 5.4 Hyponatremia Sodium levels low Continue to monitor Hypocalcemia Replete as needed Continue to monitor Cardiomegaly EKG NSR Echo from Feb 2023 noting EF 55-60%, mild LVH, mild pulm HTN Continue to monitor on telemetry Diet: HH DVT prophylaxis. Lovenox subcu Dispo: PT/OT for further dispo recs Admission and Anticipated Discharge Date Admission Date: August 04, 2023 Subjective Pt seen in follow up, concern for UTI, atypical pna Currently laying in bed in NAD, denies any acute concerns poor historian d/t ID but denies any fever, chills, chest pain, abd. pain She is on RA but says she gets short of breath with exertion. She was able to ambulate in hallway. LFTs elevated - imaging obtained and unremarkable - GI consulted - likely DILI - recommend to switch abx , monitor LFTs EBV/CMV ab positive from serology ordered by GI Review of Systems Review of Systems: All systems reviewed & are unremarkable except as noted in Subjective Physical Exam Physical Exam: General: slim F in NAD HEENT: NC/AT CV: RRR Resp: Breath sounds clear bilaterally, no increased effort of breathing. Abdomen: Soft, nontender, nondistended. No guarding. No organomegaly appreciated. Extremities: edema in lower extremities bilaterally. Neuro: Awake, alert, able to answer simple questions appropriately Skin: No noted rashes or bruises Results & Data Results & Data Vital Signs (Past 12 Hours) Vital Signs Temp Pulse Pulse Resp BP Pulse Ox O2 Del Method 08/09/23 14:42 36.5 C 67 17 125/80 95 Room Air 08/09/23 11:41 36.4 C L 66 17 136/79 95 Room Air 08/09/23 09:00 57 L 08/09/23 07:06 36.3 C L 56 L 18 139/88 94 Room Air Laboratory Results 08/09/23 Range/Units 04:54 WBC 8.04 (4.8-10.8) K/ul RBC 3.38 L (4.20-5.40) M/uL Hgb 10.1 L (12.0-16.0) g/dl Hct 30.1 L (37.0-47.0) % MCV 89.1 (80.0-100.0) fL MCH 29.9 (25.0-34.0) pg MCHC 33.6 (32.0-36.0) g/dL RDW Std Deviation 47.4 H (36.4-46.3) fL RDW Coeff of Ofelia 14.6 H (11.5-14.5) % Plt Count 300 (130-400) K/uL MPV 10.0 (9.4-12.4) fL Absolute Nucleated RBC 0.02 (0.00-0.12) K/uL Nucleated RBC % (auto) 0.2 % Sodium 137 (136-145) mmol/L Potassium 3.8 (3.5-5.1) mmol/L Chloride 104 (98-107) mmol/L Carbon Dioxide 27 (21-32) mmol/L Anion Gap 6 (3-11) BUN 13 (6-23) mg/dl Creatinine 0.49 L (0.6-1.2) mg/dl Est Cr Clr Drug Dosing 89.6 ml/min Est GFR ( Amer) 115.2 ml/min Est GFR (Non-Af Amer) 99.4 ml/min BUN/Creatinine Ratio 26.5 H (10-20) Glucose 96 (70-99(Fasting)) mg/dl Calcium 8.6 (8.6-10.3) mg/dl Phosphorus 3.1 (2.5-4.9) mg/dl Magnesium 2.0 (1.7-2.4) mg/dl Total Bilirubin 0.6 (0.2-1.0) mg/dl AST 158 H (13-39) U/L ALT 231 H (7-52) U/L Alkaline Phosphatase 597 H (34-104) U/L Total Protein 5.7 L (6.0-8.3) gm/dl Albumin 3.4 (3.4-5.0) gm/dl Globulin 2.3 L (2.5-4.0) gm/dl Albumin/Globulin Ratio 1.5 (0.9-2) Medications Administered Current Inpatient Medications Acetaminophen (Acetaminophen 325 Mg Tab) 650 mg PO QID PRN PRN Reason: pain/fever Stop: 09/03/23 02:59 Last Admin: 08/04/23 16:47 Dose: 650 mg Amoxicillin/Clavulanate Potassium (Amoxicillin/Clavulanate 875 Mg Tab) 1 tab PO BIDM [facility]; Protocol Stop: 08/18/23 16:59 Last Admin: 08/09/23 17:51 Dose: 1 tab Aspirin (Aspirin 81 Mg Ectab) 81 mg PO DAILY [facility] Stop: 09/03/23 08:59 Last Admin: 08/09/23 09:23 Dose: 81 mg Divalproex Sodium (Divalproex Extended Release 500 Mg Tab) 500 mg PO BID [facility] Stop: 09/03/23 08:59 Last Admin: 08/09/23 09:23 Dose: 500 mg Docusate Sodium (Docusate Sodium 100 Mg Cap) 100 mg PO DAILY [facility] Stop: 09/03/23 08:59 Last Admin: 08/09/23 17:51 Dose: 100 mg Enoxaparin Sodium (Enoxaparin Inj 30 Mg/0.3 Ml Syr) 30 mg SQ QAM [facility] Stop: 09/03/23 08:59 Last Admin: 08/09/23 09:23 Dose: 30 mg Ferrous Sulfate (Ferrous Sulfate 325 Mg Tab) 325 mg PO BID [facility] Stop: 09/03/23 08:59 Last Admin: 08/09/23 09:23 Dose: 325 mg Guaifenesin (Guaifenesin 600 Mg Tabcr) 600 mg PO Q12 [facility] Stop: 09/05/23 20:59 Last Admin: 08/09/23 09:23 Dose: 600 mg Promethazine HCl 6.25 mg/ (Sodium Chloride) 50.25 mls @ 201 mls/hr IV Q6H PRN PRN Reason: Nausea And Vomiting Stop: 09/03/23 02:59 Lamotrigine (Lamotrigine 100 Mg Tab) 100 mg PO BID [facility]; Protocol Stop: 09/03/23 08:59 Last Admin: 08/09/23 09:23 Dose: 100 mg Levetiracetam (Levetiracetam 500 Mg Tab) 1,500 mg PO BID [facility] Stop: 09/03/23 08:59 Last Admin: 08/09/23 09:23 Dose: 1,500 mg Multivitamins (Multivitamin Tab) 1 tab PO DAILY [facility] Stop: 09/03/23 08:59 Last Admin: 08/09/23 09:23 Dose: 1 tab Oxybutynin Chloride (Oxybutynin Chloride Xl 5 Mg Tabcr) 10 mg PO [facility] Stop: 09/03/23 20:59 Last Admin: 08/08/23 20:25 Dose: 10 mg Oxybutynin Chloride (Oxybutynin Chloride Xl 5 Mg Tabcr) 5 mg PO QAM [facility] Stop: 09/03/23 08:59 Last Admin: 08/09/23 09:23 Dose: 5 mg Polyethylene Glycol (Polyethylene (Miralax) 17 Gm Pack) 17 gm PO DAILY PRN PRN Reason: Constipation Stop: 09/03/23 03:46 Saccharomyces Boulardii (Saccharomyces Boulardii 250 Mg Cap) 250 mg PO QAM [facility] Stop: 09/03/23 08:59 Last Admin: 08/09/23 09:23 Dose: 250 mg Trazodone HCl (Trazodone Hcl 50 Mg Tab) 50 mg PO HS [facility] Stop: 09/03/23 20:59 Last Admin: 08/08/23 20:26 Dose: 50 mg (1) Sepsis Sepsis acute organ dysfunction status: without acute organ dysfunction Sepsis type: sepsis due to unspecified organism Qualified Code(s): A41.9 - Sepsis, unspecified organism
[2023-08-10 06:34] LABS: Hematocrit (blood only) 30.7 % (37.0-47.0); Mean Corpuscular Hemoglobin 29.6 pg (25.0-34.0); Mean Corpuscular Hgb Conc 32.6 g/dL (32.0-36.0); Mean Corpuscular Volume 90.8 fL (80.0-100.0); Mean Platelet Volume 9.6 fL (9.4-12.4); Nucleated RBC # (auto) 0.03 K/uL (0.00-0.12); Nucleated RBC % (auto) 0.3 %; Platelet Count 351 K/uL (130-400); RDW Coefficient of Variation 15.2 % (11.5-14.5); RDW Standard Deviation 49.1 fL (36.4-46.3); Red Blood Count 3.38 M/uL (4.20-5.40); White Blood Count 9.34 K/ul (4.8-10.8)
[2023-08-10 06:43] LABS: Albumin Globulin Ratio 1.5 (0.9-2); Albumin Level 3.4 gm/dl (3.4-5.0); Bilirubin,Total 0.5 mg/dl (0.2-1.0); Calcium 8.9 mg/dl (8.6-10.3); Creatinine Clr Calc Pharmacy 99.4 ml/min; Est GFR (African American) 114.5 ml/min; Est GFR (Non-African American) 98.8 ml/min; Globulin 2.3 gm/dl (2.5-4.0); Phosphorus 3.3 mg/dl (2.5-4.9); Potassium 4.1 mmol/L (3.5-5.1); Total Protein 5.7 gm/dl (6.0-8.3)
--- NOTE | 2023-08-10 16:49 | Hospitalist Progress Note ---
Date of Service August 10, 2023 Assessment & Plan (1) Sepsis: Plan Pt is a 68yoF with PMHx significant for hypertension, CVA, PVD, seizure disorder, obstructive hydrocephalus status post shunt placement, recurrent UTIs previously on methenamine suppression Rx, chronic anemia (baseline hemoglobin of 11), mood disorder, cerebral palsy as per records, intellectual impairment presenting with SOB for two weeks as well as increasing weakness and dysuria. Sepsis Complicated UTI Possible Atypical pneumonia Pt presenting with noted fevers and leukocytosis, infectious source likely urinary Lactate wnl, procal elevated >2 UA suggestive of infection, urine Cx negat. Blood Cx x 2 sets NGTD Chest XRAY without acute infectious findings however, given symptoms and duration, possible atypical pneumonia CT abd.pelvis negative Biofire negative Doxycycline for atypical pneumonia, cefepime for complicated UTI, failed outpatient treatment -> doxy course finished. and switched to Augmentin (as possible DILI, as below) Continue to monitor Hypotension secondary to illness Holding home BP meds Continue to monitor Elevated LFTs - LFTs trending up - CT abd.pelvis on admission negat. - no abd. pain on phys. exam - liver US negative - GI consulted - serology pending. likely DILI - recommend to switch abx -> doxy course finished. and switched to Augmentin (as possible DILI) - EBV/ CMV ab positive on serology ordered by GI- contacted ID today -> told by ID that ab not helpful test - needs PCR (PCR ordered but ref. lab) - pt to be fully reviewed by ID tomorrow Hx CVA, PVD Stable Seizure disorder stable Obstructive hydrocephalus status post shunt placement Stable Chronic anemia hemoglobin at baseline Cerebral palsy as per records/intellectual impairment Stable Hyperglycemia rule out DM, hgba1c normal at 5.4 Hyponatremia Sodium levels low Continue to monitor Hypocalcemia Replete as needed Continue to monitor Cardiomegaly EKG NSR Echo from Feb 2023 noting EF 55-60%, mild LVH, mild pulm HTN Continue to monitor on telemetry Diet: HH DVT prophylaxis. Lovenox subcu Dispo: PT/OT for further dispo recs Admission and Anticipated Discharge Date Admission Date: August 04, 2023 Subjective Pt seen in follow up, concern for UTI, atypical pna Currently laying in bed in NAD, denies any acute concerns poor historian d/t ID but denies any fever, chills, chest pain, abd. pain LFTs elevated - imaging obtained and unremarkable - GI consulted - likely DILI per GI - recommend to switch abx , monitor LFTs EBV/CMV ab positive from serology ordered by GI -> contacted ID today -> told by ID that ab not helpful test - needs PCR (PCR ordered but ref. lab) - pt to be fully reviewed by ID tomorrow Review of Systems Review of Systems: All systems reviewed & are unremarkable except as noted in Subjective Physical Exam Physical Exam: General: slim F in NAD HEENT: NC/AT CV: RRR Resp: Breath sounds clear bilaterally, no increased effort of breathing. Abdomen: Soft, nontender, nondistended. No guarding. No organomegaly appreciated. Extremities: edema in lower extremities bilaterally. Neuro: Awake, alert, able to answer simple questions appropriately Skin: No noted rashes or bruises Results & Data Results & Data Vital Signs (Past 12 Hours) Vital Signs Temp Pulse Resp BP Pulse Ox O2 Del Method 08/10/23 15:55 36.4 C L 60 18 153/89 H 94 Room Air 08/10/23 11:36 36.6 C 60 18 138/82 91 Room Air 08/10/23 08:01 36.6 C 58 L 18 131/86 91 Room Air Medications Administered Current Inpatient Medications Acetaminophen (Acetaminophen 325 Mg Tab) 650 mg PO QID PRN PRN Reason: pain/fever Stop: 09/03/23 02:59 Last Admin: 08/04/23 16:47 Dose: 650 mg Amoxicillin/Clavulanate Potassium (Amoxicillin/Clavulanate 875 Mg Tab) 1 tab PO BIDM [facility]; Protocol Stop: 08/18/23 16:59 Last Admin: 08/10/23 16:18 Dose: 1 tab Aspirin (Aspirin 81 Mg Ectab) 81 mg PO DAILY [facility] Stop: 09/03/23 08:59 Last Admin: 08/10/23 09:25 Dose: 81 mg Divalproex Sodium (Divalproex Extended Release 500 Mg Tab) 500 mg PO BID [facility] Stop: 09/03/23 08:59 Last Admin: 08/10/23 09:24 Dose: 500 mg Docusate Sodium (Docusate Sodium 100 Mg Cap) 100 mg PO DAILY [facility] Stop: 09/03/23 08:59 Last Admin: 08/10/23 12:08 Dose: 100 mg Enoxaparin Sodium (Enoxaparin Inj 30 Mg/0.3 Ml Syr) 30 mg SQ QAM [facility] Stop: 09/03/23 08:59 Last Admin: 08/10/23 09:25 Dose: 30 mg Ferrous Sulfate (Ferrous Sulfate 325 Mg Tab) 325 mg PO BID [facility] Stop: 09/03/23 08:59 Last Admin: 08/10/23 09:23 Dose: 325 mg Guaifenesin (Guaifenesin 600 Mg Tabcr) 600 mg PO Q12 [facility] Stop: 09/05/23 20:59 Last Admin: 08/10/23 09:24 Dose: 600 mg Promethazine HCl 6.25 mg/ (Sodium Chloride) 50.25 mls @ 201 mls/hr IV Q6H PRN PRN Reason: Nausea And Vomiting Stop: 09/03/23 02:59 Lamotrigine (Lamotrigine 100 Mg Tab) 100 mg PO BID [facility]; Protocol Stop: 09/03/23 08:59 Last Admin: 08/10/23 09:24 Dose: 100 mg Levetiracetam (Levetiracetam 500 Mg Tab) 1,500 mg PO BID [facility] Stop: 09/03/23 08:59 Last Admin: 08/10/23 09:24 Dose: 1,500 mg Multivitamins (Multivitamin Tab) 1 tab PO DAILY [facility] Stop: 09/03/23 08:59 Last Admin: 08/10/23 09:25 Dose: 1 tab Oxybutynin Chloride (Oxybutynin Chloride Xl 5 Mg Tabcr) 10 mg PO HS [facility] Stop: 09/03/23 20:59 Last Admin: 08/09/23 20:18 Dose: 10 mg Oxybutynin Chloride (Oxybutynin Chloride Xl 5 Mg Tabcr) 5 mg PO QAM [facility] Stop: 09/03/23 08:59 Last Admin: 08/10/23 09:23 Dose: 5 mg Polyethylene Glycol (Polyethylene (Miralax) 17 Gm Pack) 17 gm PO DAILY PRN PRN Reason: Constipation Stop: 09/03/23 03:46 Saccharomyces Boulardii (Saccharomyces Boulardii 250 Mg Cap) 250 mg PO QAM [facility] Stop: 09/03/23 08:59 Last Admin: 08/10/23 09:25 Dose: 250 mg Trazodone HCl (Trazodone Hcl 50 Mg Tab) 50 mg PO HS [facility] Stop: 09/03/23 20:59 Last Admin: 08/09/23 20:18 Dose: 50 mg (1) Sepsis Sepsis acute organ dysfunction status: without acute organ dysfunction Sepsis type: sepsis due to unspecified organism Qualified Code(s): A41.9 - Sepsis, unspecified organism
--- NOTE | 2023-08-11 08:53 | Hospitalist Progress Note ---
Date of Service August 11, 2023 Assessment & Plan (1) Sepsis: Plan Pt is a 68yoF with PMHx significant for hypertension, CVA, PVD, seizure disorder, obstructive hydrocephalus status post shunt placement, recurrent UTIs previously on methenamine suppression Rx, chronic anemia (baseline hemoglobin of 11), mood disorder, cerebral palsy as per records, intellectual impairment presenting with SOB for two weeks as well as increasing weakness and dysuria. Sepsis Complicated UTI Possible Atypical pneumonia Pt presenting with noted fevers and leukocytosis, infectious source likely urinary Lactate wnl, procal elevated >2 UA suggestive of infection, urine Cx negat. Blood Cx x 2 sets NGTD Chest XRAY without acute infectious findings however, given symptoms and duration, possible atypical pneumonia CT abd.pelvis negative Biofire negative Doxycycline for atypical pneumonia, cefepime for complicated UTI, failed outpatient treatment -> doxy course finished. and switched to Augmentin (as possible DILI, as below), now abx stopped (course finished) ID consulted - Upon admission she was hypotensive and had a fever. Further evaluation revealed elevated LFTs and eosinophilia. This has subsequently improved after abx stopped ?TMP-SMX or beta-lactam effect. Viral studies did show an EBV IgM that was positive, but with a positive IgG may not be new. No evidence of LAD, splenomegaly or lymphocytosis to indicate primary infection otherwise. Even if true positive,no further work-up or intervention recommended. The CMV IgM is not high enough to suggest acute infection (particularly with a positive IgG). The dysuria did not show any evidence of actual UTI and the diagnosis of possible pneumonia seems unfounded at this time. Plan Recommend no further ID work-up or antibiotics at this time. TMP-SMX should only be given if needed in the future and LFTs should be monitored closely if so. Hypotension secondary to illness Holding home BP meds Continue to monitor Elevated LFTs - LFTs trending up - CT abd.pelvis on admission negat. - no abd. pain on phys. exam - liver US negative - GI consulted - serology pending. likely DILI - recommend to switch abx -> doxy course finished. and switched to Augmentin (as possible DILI) - EBV/ CMV ab positive on serology ordered by GI- contacted ID yesterday -> told by ID that ab not helpful test - needs PCR (PCR ordered but ref. lab) - pt to be fully reviewed by ID today (as above) - recheck LFTs in 1-2 weeks as outpt Hx CVA, PVD Stable Seizure disorder stable Obstructive hydrocephalus status post shunt placement Stable Chronic anemia hemoglobin at baseline Cerebral palsy as per records/intellectual impairment Stable Hyperglycemia rule out DM, hgba1c normal at 5.4 Hyponatremia Sodium levels low Continue to monitor Hypocalcemia Replete as needed Continue to monitor Cardiomegaly EKG NSR Echo from Feb 2023 noting EF 55-60%, mild LVH, mild pulm HTN Continue to monitor on telemetry Admission and Anticipated Discharge Date Admission Date: August 04, 2023 Subjective Pt seen in follow up, concern for UTI, atypical pna Currently laying in bed in NAD, denies any acute concerns poor historian d/t ID but denies any fever, chills, chest pain, abd. pain LFTs elevated - imaging obtained and unremarkable - GI consulted - likely DILI per GI - recommend to switch abx , monitor LFTs EBV/CMV ab positive from serology ordered by GI -> contacted ID yesterday -> told by ID that ab not helpful test - needs PCR (PCR ordered but ref. lab) - pt to be fully reviewed by ID today Discussed with ID today, see below Review of Systems Review of Systems: All systems reviewed & are unremarkable except as noted in Subjective Physical Exam Physical Exam: General: slim F in NAD HEENT: NC/AT CV: RRR Resp: Breath sounds clear bilaterally, no increased effort of breathing. Abdomen: Soft, nontender, nondistended. No guarding. No organomegaly appreciated. Extremities: edema in lower extremities bilaterally. Neuro: Awake, alert, able to answer simple questions appropriately Skin: No noted rashes or bruises Results & Data Results & Data Vital Signs (Past 12 Hours) Vital Signs Temp Pulse Pulse Resp BP Pulse Ox Pulse Ox 08/11/23 07:49 36.3 C L 58 L 18 123/77 93 08/11/23 07:23 57 L 08/11/23 04:00 95 08/11/23 02:47 36.6 C 64 18 99/60 L 93 08/10/23 22:51 36.2 C L 61 18 135/77 95 O2 Del Method O2 Del Method 08/11/23 07:49 Room Air 08/11/23 07:23 08/11/23 04:00 Room Air 08/11/23 02:47 Room Air 08/10/23 22:51 Room Air Laboratory Results 08/11/23 Range/Units 08:49 WBC 9.74 (4.8-10.8) K/ul RBC 3.46 L (4.20-5.40) M/uL Hgb 10.2 L (12.0-16.0) g/dl Hct 31.9 L (37.0-47.0) % MCV 92.2 (80.0-100.0) fL MCH 29.5 (25.0-34.0) pg MCHC 32.0 (32.0-36.0) g/dL RDW Std Deviation 51.7 H (36.4-46.3) fL RDW Coeff of Ofelia 15.6 H (11.5-14.5) % Plt Count 388 (130-400) K/uL MPV 9.6 (9.4-12.4) fL Absolute Nucleated RBC 0.02 (0.00-0.12) K/uL Nucleated RBC % (auto) 0.2 % Sodium 137 (136-145) mmol/L Potassium 3.8 (3.5-5.1) mmol/L Chloride 101 (98-107) mmol/L Carbon Dioxide 28 (21-32) mmol/L Anion Gap 8 (3-11) BUN 12 (6-23) mg/dl Creatinine 0.58 L (0.6-1.2) mg/dl Est Cr Clr Drug Dosing 85.3 ml/min Est GFR ( Amer) 109.0 ml/min Est GFR (Non-Af Amer) 94.0 ml/min BUN/Creatinine Ratio 20.7 H (10-20) Glucose 99 (70-99(Fasting)) mg/dl Calcium 9.2 (8.6-10.3) mg/dl Phosphorus 3.2 (2.5-4.9) mg/dl Magnesium 1.9 (1.7-2.4) mg/dl Total Bilirubin 0.4 (0.2-1.0) mg/dl AST 56 H (13-39) U/L ALT 140 H (7-52) U/L Alkaline Phosphatase 535 H (34-104) U/L Total Protein 6.2 (6.0-8.3) gm/dl Albumin 3.7 (3.4-5.0) gm/dl Globulin 2.5 (2.5-4.0) gm/dl Albumin/Globulin Ratio 1.5 (0.9-2) Medications Administered Current Inpatient Medications Acetaminophen (Acetaminophen 325 Mg Tab) 650 mg PO QID PRN PRN Reason: pain/fever Stop: 09/03/23 02:59 Last Admin: 08/04/23 16:47 Dose: 650 mg Aspirin (Aspirin 81 Mg Ectab) 81 mg PO DAILY [facility] Stop: 09/03/23 08:59 Last Admin: 08/11/23 08:07 Dose: 81 mg Divalproex Sodium (Divalproex Extended Release 500 Mg Tab) 500 mg PO BID [facility] Stop: 09/03/23 08:59 Last Admin: 08/11/23 08:09 Dose: 500 mg Docusate Sodium (Docusate Sodium 100 Mg Cap) 100 mg PO DAILY [facility] Stop: 09/03/23 08:59 Last Admin: 08/11/23 08:32 Dose: 100 mg Enoxaparin Sodium (Enoxaparin Inj 30 Mg/0.3 Ml Syr) 30 mg SQ QAM [facility] Stop: 09/03/23 08:59 Last Admin: 08/11/23 08:06 Dose: 30 mg Ferrous Sulfate (Ferrous Sulfate 325 Mg Tab) 325 mg PO BID [facility] Stop: 09/03/23 08:59 Last Admin: 08/11/23 08:07 Dose: 325 mg Guaifenesin (Guaifenesin 600 Mg Tabcr) 600 mg PO Q12 [facility] Stop: 09/05/23 20:59 Last Admin: 08/11/23 08:08 Dose: 600 mg Promethazine HCl 6.25 mg/ (Sodium Chloride) 50.25 mls @ 201 mls/hr IV Q6H PRN PRN Reason: Nausea And Vomiting Stop: 09/03/23 02:59 Lamotrigine (Lamotrigine 100 Mg Tab) 100 mg PO BID [facility]; Protocol Stop: 09/03/23 08:59 Last Admin: 08/11/23 08:08 Dose: 100 mg Levetiracetam (Levetiracetam 500 Mg Tab) 1,500 mg PO BID [facility] Stop: 09/03/23 08:59 Last Admin: 08/11/23 08:09 Dose: 1,500 mg Multivitamins (Multivitamin Tab) 1 tab PO DAILY [facility] Stop: 09/03/23 08:59 Last Admin: 08/11/23 08:08 Dose: 1 tab Oxybutynin Chloride (Oxybutynin Chloride Xl 5 Mg Tabcr) 10 mg PO HS [facility] Stop: 09/03/23 20:59 Last Admin: 08/10/23 20:09 Dose: 10 mg Oxybutynin Chloride (Oxybutynin Chloride Xl 5 Mg Tabcr) 5 mg PO QAM [facility] Stop: 09/03/23 08:59 Last Admin: 08/11/23 08:08 Dose: 5 mg Polyethylene Glycol (Polyethylene (Miralax) 17 Gm Pack) 17 gm PO DAILY PRN PRN Reason: Constipation Stop: 09/03/23 03:46 Saccharomyces Boulardii (Saccharomyces Boulardii 250 Mg Cap) 250 mg PO QAM [facility] Stop: 09/03/23 08:59 Last Admin: 08/11/23 08:07 Dose: 250 mg Trazodone HCl (Trazodone Hcl 50 Mg Tab) 50 mg PO HS [facility] Stop: 09/03/23 20:59 Last Admin: 08/10/23 20:09 Dose: 50 mg (1) Sepsis Sepsis acute organ dysfunction status: without acute organ dysfunction Sepsis type: sepsis due to unspecified organism Qualified Code(s): A41.9 - Sepsis, unspecified organism
[2023-08-11 09:15] LABS: Hematocrit (blood only) 31.9 % (37.0-47.0); Hemoglobin 10.2 g/dl (12.0-16.0); Mean Corpuscular Hemoglobin 29.5 pg (25.0-34.0); Mean Corpuscular Volume 92.2 fL (80.0-100.0); Mean Platelet Volume 9.6 fL (9.4-12.4); Nucleated RBC # (auto) 0.02 K/uL (0.00-0.12); Nucleated RBC % (auto) 0.2 %; Platelet Count 388 K/uL (130-400); RDW Coefficient of Variation 15.6 % (11.5-14.5); RDW Standard Deviation 51.7 fL (36.4-46.3); Red Blood Count 3.46 M/uL (4.20-5.40); White Blood Count 9.74 K/ul (4.8-10.8)
[2023-08-11 09:36] LABS: Albumin Globulin Ratio 1.5 (0.9-2); Albumin Level 3.7 gm/dl (3.4-5.0); BUN Creatinine Ratio 20.7 (10-20); Bilirubin,Total 0.4 mg/dl (0.2-1.0); Calcium 9.2 mg/dl (8.6-10.3); Creatinine Clr Calc Pharmacy 85.3 ml/min; Globulin 2.5 gm/dl (2.5-4.0); Magnesium 1.9 mg/dl (1.7-2.4); Phosphorus 3.2 mg/dl (2.5-4.9); Potassium 3.8 mmol/L (3.5-5.1); Total Protein 6.2 gm/dl (6.0-8.3)
--- NOTE | 2023-08-11 11:05 | Infectious Disease Consult ---
Date of Service August 11, 2023 Telehealth Information I performed this visit using a real-time telehealth connection between my location and the patients location ([facility]). After connecting through interactive tele-video, patient was identified by name and date of and/or wristband check.Patient (or authorized healthcare accounting representative) was informed that this was a telemedicine visit and it was being conducted confidentially over secure lines. My office door was closed and no one else was present in the room with me.Patient (or authorized healthcare accounting representative) provided consent to proceed with the visit, expressed an understanding of privacy and security of the telemedicine visit, and gave permission to have a hospital accounting representative in the room in order to assist with the visit and to conduct portions of the visit, as needed. I informed the patient (or authorized healthcare accounting representative) that I reviewed their record and presented the opportunity for them to ask any questions regarding the visit today. The patient agreed to participate. Assessment & Plan (1) Elevated LFTs: Plan: Upon admission she was hypotensive and had a fever. Further evaluation revealed elevated LFTs and eosinophilia. This has subsequently improved after abx stopped ?TMP-SMX or beta-lactam effect. Viral studies did show an EBV IgM that was positive, but with a positive IgG may not be new. No evidence of LAD, splenomegaly or lymphocytosis to indicate primary infection otherwise. Even if true positive,no further work-up or intervention recommended. The CMV IgM is not high enough to suggest acute infection (particularly with a positive IgG). The dysuria did not show any evidence of actual UTI and the diagnosis of possible pneumonia seems unfounded at this time. Plan Recommend no further ID work-up or antibiotics at this time. TMP-SMX should only be given if needed in the future and LFT's should be monitored closely if so. History of Present Illness History of Present Illness Ms. Greer is a 68yo female with a h/o seizure d/o and hydrocephalus, S/P PAINTER BOTTOM shunt. She was admitted to [facility] on 08/04/23 after presenting with fever, hypotension and recent fall. Prior to admission she had been diagnosed with a UTI based on dysuria symptoms and a UA showing mild pyuria. She was given TMP- SMX and cefdinir. She was diagnosed with further UTI and ?atypical pneumonia on admission. She was given cefepime and doxycycline and noted to have markedly elevated hepatic chemistries. Imaging of the liver was unremarkable and it was thought to be possibly drug related. Eventually she was put on Augmentin and then abx stopped altogether. Her LFT's have been slowly improving and viral studies showed a possible EBV IgM. Today she feels better. She feels back to baseline. She denies any VINCENT, cough, SOB, abdominal pain, N/V, diarrhea, rash, or dysuria at this time. Care-scheduler conveyor at bedside helps provide some of the history. Allergies Allergy/AdvReac Type Severity Reaction Status Date / Time adhesive Allergy Unknown HAPPENED Verified 08/03/23 08:27 A CHILD-"INSTRUCTED NOT TO USE ADHESIVES". Home Medications Medication Instructions Recorded Confirmed Type divalproex 500 mg tablet,extended 500 mg PO BID 01/26/18 08/03/23 History release 24 hr lamotrigine 100 mg tablet 100 mg PO BID 01/26/18 08/03/23 History levetiracetam 500 mg tablet 1,500 mg PO BID 01/26/18 08/03/23 History Saccharomyces boulardii 250 mg 250 mg PO QAM 09/03/20 08/03/23 History capsule (Florastor) oxybutynin chloride 5 mg See Rx Instructions .Route .COMPLEX 09/03/20 08/03/23 History tablet,extended release 24 hr multivitamin (One Daily 1 tab PO DAILY 09/11/21 08/03/23 History Multivitamin tablet) amlodipine 5 mg tablet 5 mg PO QAM 07/20/22 08/03/23 History trazodone 50 mg tablet 50 mg PO HS 01/19/23 08/03/23 History acetaminophen 500 mg tablet 1,000 mg PO BID 08/03/23 08/03/23 History aspirin 81 mg tablet,delayed 81 mg PO DAILY 08/03/23 08/03/23 History release docusate sodium 100 mg capsule 100 mg PO DAILY 08/03/23 08/03/23 History ferrous sulfate 325 mg (65 mg 325 mg PO BID 08/03/23 08/03/23 History iron) tablet polyethylene glycol 3350 17 17 g PO DAILY PRN Constipation 08/03/23 08/03/23 History gram/dose oral powder Patient History Medical History Hx of chest pain Major depressive disorder Idiopathic mild intellectual disability History of colon polyps Incontinence Surgical History History of esophagogastroduodenoscopy (EGD) last 03/24/19 @ [facility] History of colonoscopy last 03/24/19 @ [facility] H/O tubal ligation History of brain shunt Family History Father Cancer Mother Cancer Social History Smoking Status: Never smoker Tobacco Type: Cigarettes Hx Alcohol Use: No Hx Substance Use: No Preferred Language: Slovak Communication Ability: Effective Communication Ability Comment: [facility] stated pt is of sound mind to sign own consents 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 Appettie good. Derm- No rash MSK-+LLE swelling, need for walker with ambulation and assistance - No dysuria Neuro- Seizure d/o "spells" Physical Exam Gen- NAD, cooperative with exam HEENT- OP clear, neck with normal ROM Lungs- Normal breathing on RA Skin- No rash LE- LLE edema>RLE Neuro- Alert and oriented Results & Data Vital Signs (Past 12 Hours) Vital Signs Temp Pulse Pulse Resp BP Pulse Ox Pulse Ox 08/11/23 10:16 08/11/23 07:49 36.3 C L 58 L 18 123/77 93 08/11/23 07:23 57 L 08/11/23 04:00 95 08/11/23 02:47 36.6 C 64 18 99/60 L 93 08/10/23 22:51 36.2 C L 61 18 135/77 95 O2 Del Method O2 Del Method 08/11/23 10:16 Room Air 08/11/23 07:49 Room Air 08/11/23 07:23 08/11/23 04:00 Room Air 08/11/23 02:47 Room Air 08/10/23 22:51 Room Air Laboratory Results WBC 9.77 -> 9.74 with eosinophilia 809-900 range Hgb 10.2 Platelets 388 Creatinine 0.5 BUN 12 AST 88 ALT 178 Alk Phos 550 Procal 2.1 on admission UA on 08/04 with 6-10 WBC, 0-2 RBC Diagnostic Findings Hepatitis A, B, C negative CMV IgG +, CMV IgM equivocal EBV IgG +, EBV IgM + Blood and urine cultures on admission negative CXR 08/02 reviewed: cardiomegaly and clear lungs CT abdomen/pelvis 08/02 reviewed: negative Liver US 08/06 reviewed: normal
--- NOTE | 2023-08-11 12:56 | Discharge Summary ---
Date of Service August 11, 2023 Admission HPI Per Admitting Provider History obtained from patient, caregiver, and records. Medical history significant for hypertension, CVA, PVD, seizure disorder, obstructive hydrocephalus status post shunt placement, recurrent UTIs previously on methenamine suppression Rx, chronic anemia (baseline hemoglobin of 11), mood disorder, cerebral palsy as per records, intellectual impairment. Recent confinement February 2023 for traumatic right femoral fracture status post surgery. Patient with UTI symptoms last week as per caregiver. Outpatient Bactrim course prescribed by PCP's office. Patient instructed to hold methenamine while on Bactrim. No growth on outpatient urine CS. Patient consulted ER 2 days ago for weakness and shortness of breath attributed to dehydration and UTI. Patient discharged home after IVF with cefdinir Rx. Patient returned to ER yesterday after a fall at home. Patient subsequently sent home. Increasing weakness at home and dysuria symptoms. Poor appetite. No abdominal pain. Dry cough symptoms. Denies aspiration, chest pain, SOB. Achy headache symptoms. No confusion as per caregiver. Patient brought back to ER for evaluation. Lowest SBP of 80s documented at the ER. Medical History as above Surgical History : Cataract surgeries, BTL, TURRET LATHE TENDER shunt Family History : Alcoholism, breast cancer, heart disease, stroke Personal/Social history : Non-smoker, no EtOH intake, disabled Admission Exam Per Admitting Provider GENERAL: Ill-appearing, wane, no respiratory distress, covered in multiple bl ankets SKIN: Normal color, warm HEENT: Bespectacled, [place] palpebral conjunctivae, no ptosis, dry buccal mucosa NECK : Supple, no tenderness CHEST : CTA, no tenderness HEART : RRR, no obvious murmurs ABDOMEN: Some distention, nontender EXTREMITIES : No LE swelling/tenderness, no other conspicuous deformities noted NEUROLOGIC : Coherent, no facial asymmetry, slightly hard of hearing, no other gross focality Principal Diagnosis Sepsis UTI, poss. atypical pna elevated LFTs Discharge Exam General: slim F in NAD HEENT: NC/AT CV: RRR Resp: Breath sounds clear bilaterally, no increased effort of breathing. Abdomen: Soft, nontender, nondistended. No guarding. No organomegaly appreciated. Extremities: moves extremities Neuro: Awake, alert, able to answer simple questions appropriately Skin: No noted rashes or bruises Discharge Data Allergies Allergy/AdvReac Type Severity Reaction Status Date / Time adhesive Allergy Unknown HAPPENED Verified 08/03/23 08:27 A CHILD-"INSTRUCTED NOT TO USE ADHESIVES". Consultations 08/04/23 00:45 ED Decision to Admit Stat 08/07/23 08:22 Consult Gastroenterology Routine 08/10/23 15:55 Consult Infectious Diseases Routine Ordered Studies 08/03/23 22:34 CT abd pelvis IV con only Stat FINDINGS: Lung bases: Subsegmental atelectasis at the lung bases. ABDOMEN: Liver: Unremarkable. No mass. Gallbladder and bile ducts: Unremarkable. No calcified stones. No ductal dilation. Pancreas: Unremarkable. No mass. No ductal dilation. Spleen: Unremarkable. No splenomegaly. Adrenals: Unremarkable. No mass. Kidneys and ureters: Symmetric renal enhancement. No hydronephrosis. Subcentimeter cortical hypodensities left kidney upper pole, statistically cysts but too small to characterize. Stomach and bowel: Unremarkable. No mucosal thickening. No bowel obstruction. PELVIS: Appendix: Normal appendix. Bladder: Unremarkable. No mass. Reproductive: Unremarkable as visualized. ABDOMEN and PELVIS: Intraperitoneal space: Unremarkable. No free air or significant free fluid. Bones/joints: No acute fracture or dislocation. Mild chronic compression fractures at T11, T10, and T9. Prior ORIF right femur. The spine. Soft tissues: Unremarkable. Vasculature: Atherosclerosis. No aortic aneurysm. Lymph nodes: Unremarkable. No enlarged lymph nodes. IMPRESSION: No acute findings in the abdomen or pelvis. CT head/brain wo con Stat FINDINGS: Brain: Stable chronic left MCA territory infarct. Mullen-white matter differentiation otherwise maintained. Generalized parenchymal volume loss and patchy chronic small vessel ischemic changes. No acute intracranial hemorrhage. Ventricles: Stable ventricular enlargement due to volume loss, with superimposed ex vacuo enlargement of the left lateral ventricle. Bones/joints: Unremarkable. No acute fracture. Soft tissues: Unremarkable. Vasculature: Intracranial atherosclerosis. Sinuses: Unremarkable as visualized. Mastoid air cells: Unremarkable as visualized. No mastoid effusion. IMPRESSION: No acute intracranial process. 08/07/23 US liver Routine FINDINGS: Pancreas: The pancreas demonstrates a normal echotexture. Liver: Unremarkable. Gallbladder: No gallbladder wall thickening. No gallstones. CBD: 0.5 cm. Right kidney: No hydronephrosis. IMPRESSION: No significant abnormality identified within the right upper quadrant. Hospital Course (1) Sepsis: Plan Pt is a 68yoF with PMHx significant for hypertension, CVA, PVD, seizure disorder, obstructive hydrocephalus status post shunt placement, recurrent UTIs previously on methenamine suppression Rx, chronic anemia (baseline hemoglobin of 11), mood disorder, cerebral palsy as per records, intellectual impairment presenting with SOB for two weeks as well as increasing weakness and dysuria. Sepsis Complicated UTI Possible Atypical pneumonia Pt presenting with noted fevers and leukocytosis, infectious source likely urinary Lactate wnl, procal elevated >2 UA suggestive of infection, urine Cx negat. Blood Cx x 2 sets NGTD Chest XRAY without acute infectious findings however, given symptoms and duration, possible atypical pneumonia CT abd.pelvis negative Biofire negative Doxycycline for atypical pneumonia, cefepime for complicated UTI, failed outpatient treatment -> doxy course finished. and switched to Augmentin (as possible DILI, as below), now abx stopped (course finished) ID consulted - Upon admission she was hypotensive and had a fever. Further evaluation revealed elevated LFTs and eosinophilia. This has subsequently improved after abx stopped ?TMP-SMX or beta-lactam effect. Viral studies did show an EBV IgM that was positive, but with a positive IgG may not be new. No evidence of LAD, splenomegaly or lymphocytosis to indicate primary infection otherwise. Even if true positive,no further work-up or intervention recommended. The CMV IgM is not high enough to suggest acute infection (particularly with a positive IgG). The dysuria did not show any evidence of actual UTI and the diagnosis of possible pneumonia seems unfounded at this time. Plan Recommend no further ID work-up or antibiotics at this time. TMP-SMX should only be given if needed in the future and LFTs should be monitored closely if so. Hypotension secondary to illness Holding home BP meds Continue to monitor Follow up w/ PCP - monitor BP as outpt Elevated LFTs - LFTs trending up - CT abd.pelvis on admission negat. - no abd. pain on phys. exam - liver US negative - GI consulted - serology pending. likely DILI - recommend to switch abx -> doxy course finished. and switched to Augmentin (as possible DILI) - EBV/ CMV ab positive on serology ordered by GI- contacted ID yesterday -> told by ID that ab not helpful test - needs PCR (PCR ordered but ref. lab) - pt to be fully reviewed by ID today (as above) - recheck LFTs in 1-2 weeks as outpt Hx CVA, PVD Stable Seizure disorder stable Obstructive hydrocephalus status post shunt placement Stable Chronic anemia hemoglobin at baseline Cerebral palsy as per records/intellectual impairment Stable Hyperglycemia rule out DM, hgba1c normal at 5.4 Hyponatremia Sodium levels low Continue to monitor Hypocalcemia Replete as needed Continue to monitor Cardiomegaly EKG NSR Echo from Feb 2023 noting EF 55-60%, mild LVH, mild pulm HTN Continue to monitor on telemetry Total Time Total Time Spent Total Time Spent (In Minutes): 40 Discharge Plan Discharge Items Patient Disposition: Home - Self-Care Reason For Visit: HYPOTENSION, COMP UTI Discharge Diagnosis: Sepsis UTI, poss. atypical pna elevated LFTs Activity: Per Instructions section Non-emergency contact: Primary Care Provider Call non-emergency contact if: you have any medication questions and your symptoms worsen Follow-up/Referrals: Naresh Fu MD [Primary Care Provider] - (Date & Time 08/18/2023 12:20 PM Provider Naresh Fu MD [facility] ) Diet: Heart Healthy Addtl Attending Provider Instructions: Follow up with your primary care physician within 1 week. You will need bloodwork - LFTs - to check on your abnormal liver test. Do not take amlodipine and discuss with your primary care doctor if/ when you should resume this medication. Recommend to take guaifenesin for next several days. Pending Studies at Discharge: Yes Studies:: EBV, CMV DNA (PCR) results Stand-Alone Forms: My [facility] [employer], Smoking Cessation Medications and DC Order Prescriptions: New guaifenesin [Mucinex] 600 mg Tablet Extended Release 12hr 600 mg PO Q12 Qty: 10 0RF Continued levetiracetam 500 mg tablet 1,500 mg PO BID divalproex 500 mg tablet extended release 24 hr 500 mg PO BID lamotrigine 100 mg tablet 100 mg PO BID oxybutynin chloride 5 mg tablet extended release 24hr See Rx Instructions .ROUTE .COMPLEX Rx Instructions: 5 mg orally; TAKES 5 MG QAM, THEN 10 MG QHS. Saccharomyces boulardii [Florastor] 250 mg Capsule 250 mg PO QAM multivitamin [One Daily Multivitamin] Tablet 1 tab PO DAILY trazodone 50 mg tablet 50 mg PO HS acetaminophen 500 mg tablet 1,000 mg PO BID MDD 3g/24hr ferrous sulfate 325 mg (65 mg iron) tablet 325 mg PO BID docusate sodium 100 mg capsule 100 mg PO DAILY polyethylene glycol 3350 17 gram/dose powder 17 g PO DAILY PRN (Reason: Constipation) aspirin 81 mg tablet,delayed release (DR/EC) 81 mg PO DAILY Held amlodipine 5 mg tablet 5 mg PO QAM Hold Instructions: Resume on 08/18/23. discuss with your primary care provider if/when you should resume this medication Discharge Orders: Discharge Order (Routine); Ordered 08/11/23 Ordered By: Lucian Corral Admission Data Admit Date/Time: 08/04/23 02:59 Attending Provider: Lucian Corral Admit Provider: Yunior Fajardo Primary Care Provider: Naresh Fu Other Providers: Yunior Fajardo; Suresh Pace; Cain Baptiste; Rosie Torres; Barbara Negron; Mindy Herring; Karin Klein; Sharon Gerber; Wilfrid Antonio; Mina Pittman; Leo Lara; Tami Davis S; Donita Dow; Yisel Cooper; Roberta Cordova; Marcella Mckenzie; Preeti Fagan; Aroldo Alcantara; Lionel Santos; Chloe Buckner; Ankur Blackwell Jr; Wolfgang Velazquez; Anthony Munoz; Chandler Jamil; Arnie Mohan; Miah Bojorquez; Cheo Kim I.; Santos Somers II; Adia Mulligan; Naresh Bell; Macario Childs; Kim Ramirez
[2023-08-12 18:12] LABS: Babesia microti DNA Not Detected (Not Detected); Q Fever IgG, Phase I NEGATIVE; Q Fever Phase I IgM Antibody NEGATIVE; Q Fever Phase II IgG Antibody NEGATIVE; Q Fever Phase II IgM Antibody NEGATIVE; R. typhi IgG Ab NOT DETECTED; R. typhi IgM Ab NOT DETECTED; RMSF IgG Ab NOT DETECTED; RMSF IgM Ab NOT DETECTED
== END 2023-08-11 14:34 | disposition home or self-care (01) | DRG 871 ==
LOC: ED 22:04 → EDINP 08-04 02:59 → SUATTDRO 08-04 02:59 → 4W 08-04 03:47

== ENCOUNTER 2024-02-07 08:35 | Inpatient (IN) ==
--- OUTSIDE RECORDS SUMMARY | 2024-02-07 08:40 | External Medical Summary | Summary of Care ---
Author Name Unknown Organization [facility] Address [address] [place] [address] Phone [phone] Care Team Providers Care Sap [employer] Business Analyst Name Role Phone Naresh Fu MD Primary Care Provider [phone] Reason for Visit * Reason Comments Acute Patient is here chaka use she had a assisted fall at home and was seen by EMS. Patient refused transport to ER but was seen last night at [facility] ER for vaginal bleeding and UTI. Patient needs clearance for the fall that she is ok and from the ER visit last night that the regimen she was placed on is appropriate for her. Encounter Details Date Type Department Care Team (Late st Contact Info) Description 02/05/2024 8:40 AM EST Office [facility] [address] [phone] Luh Calderon MD [address] [id number] Fall, initial encounter*; Recurrent UTI; Ambulatory dysfunction; Cerebral palsy, unspecified type (HCC); HTN, goal below 130/80; Urinary incontinence, unspecified type; GENERALIZED CONVULSIVE EPILEPSY; WITHOUT MENTION OF INTRACTABLE EPILEPSY; History of stroke Allergies Active Allergy Reactions Criticality Noted Date Comments Adhesive Tape Rash 03/16/2004 documented as of this encounter (statuses as of 02/05/2024) Medications Diapers & Supplies MISCIndications: Mixed incontinence Use when out of the home for bladder leakage 60 Each 5 05/22/19 17 Active Loperamide HCl 2 MG Oral Capsule (Imodium) Take 1 Capsule by mouth 4 times a day as needed for Diarrhea. Administer after each loose stool until symptoms controlled; do not exceed 8 mg per 24 hours. Active MEDICAL INSTRUCTIONSIndi cations:Need for COVID-19 vaccine Okay for pt to receive Covid vaccine 1 Each 1 11/28/19 23 Active Additional Information Patient not taking.Reported on 02/05/2024 Famotidine 20 MG Oral Tablet (Pepcid)Indicati ons:Gastroesopha geal reflux disease, unspecified whether esophagitis present Take 1 Tablet by mouth daily as needed for Heartburn. 30 Tablet 11 01/25/20 23 Active traZODone HCl 50 MG Oral Tablet (Desyrel)Indicat ions:Other insomnia TAKE 1 TABLET BY MOUTH AT BEDTIME 93 Tablet 3 02/26/19 24 Active Aspirin Low Dose 81 MG Oral Tablet Delayed ReleaseIndicatio ns:History of stroke Take 1 Tablet by mouth in the morning. 30 Tablet 11 04/25/19 24 Active lamoTRIgine 100 MG Oral Tablet (LaMICtal)Indica tions:Convulsion s, unspecified convulsion type (HCC),Generalize d convulsive epilepsy without intractable epilepsy (HCC) TAKE 1 TABLET BY MOUTH TWICE DAILY 62 Tablet 11 05/21/19 24 Active Losartan Potassium 25 MG Oral Tablet (Cozaar)Indicati ons:HTN, goal below 130/80 Take 1 Tablet by mouth in the morning. 93 Tablet 3 06/20/19 24 Active Fatimah-amy 8.6 MG Oral Tablet Take 1 Tablet by mouth at bedtime. 05/30/19 24 Active Refresh Optive Advanced PF 0.5-1-0.5 % Ophthalmic Solution INSTILL 1 DROP INTO BOTH EYES 4 TIMES DAILY. 07/04/19 24 Active OcuSoft Lid Scrub External Pad wipe over eyelid margin of both eyes at bedtime 06/27/19 24 Active Estradiol 0.1 MG/GM Vaginal Cream (Estrace) Apply pea sized amount (0.5 gm) vaginally every other night. 42.5 g 3 10/15/19 24 Active D-Mannose 500 MG Oral Capsule Take 2 Capsules by mouth in the morning and 2 Capsules before bedtime. 120 Capsule 10/15/19 24 Active Omeprazole 20 MG Oral Capsule Delayed Release (PriLOSEC)Indica tions:Gastroesop hageal reflux disease, unspecified whether esophagitis present TAKE 1 CAPSULE BY MOUTH BEFORE EVENING MEAL (NOT A CYCLE MED) 30 Capsule 10/28/19 24 Active Florastor 250 MG Oral Capsule (Saccharomyces boulardii) TAKE 1 CAPSULE BY MOUTH ONCE DAILY 31 Capsule 11/05/19 24 Active Docusate Sodium 100 MG Oral Capsule (Colace)Indicati ons:Constipation , unspecified constipation type TAKE 1 CAPSULE BY MOUTH ONCE DAILY 31 Capsule 11/05/19 24 Active levETIRAcetam 500 MG Oral Tablet (Keppra)Indicati ons:Convulsions, unspecified convulsion type (HCC),Generalize d nonconvulsive epilepsy without intractable epilepsy (HCC),Generalize d convulsive epilepsy without intractable epilepsy (HCC) TAKE 3 TABLETS BY MOUTH 2 TIMES A DAY 186 Tablet 11/05/19 24 Active oxyBUTYnin Chloride ER 5 MG Oral Tablet Extended Release 24 Hour (Ditropan XL) TAKE 1 TABLET BY MOUTH IN THE MORNING AND 2 TABLETS AT BEDTIME FOR BLADDER 93 Tablet 11/05/19 24 Active Polyethylene Glycol 3350 17 GM/SCOOP Oral Powder (Miralax)Indicat ions:Constipatio n, unspecified constipation type 17 gm as needed if no BM in 2 days (6 shifts) AM of 3rd day.May repeat dose every 4 hrs x 2 if needed 255 g 11/06/19 24 Active One Daily Essential Oral Tablet Take 1 Tablet by mouth in the morning. 31 Tablet 11/13/19 24 Active Mirabegron ER 50 MG Oral Tablet Extended Release 24 Hour (Myrbetriq) Take 1 Tablet by mouth in the morning. 30 Tablet 12/18/19 24 Active Divalproex Sodium ER 500 MG Oral Tablet Extended Release 24 Hour (Depakote ER) TAKE 1 TABLET BY MOUTH TWICE DAILY 62 Tablet 01/05/20 24 Active Erythromycin 5 MG/GM Ophthalmic Ointment Instill into the left eye at bedtime. 12/26/19 24 Active Ferrous Sulfate 325 (65 Fe) MG Oral Tablet (Feosol)Indicati ons:Iron deficiency anemia, unspecified iron deficiency anemia type Take 1 Tablet by mouth once a day on Friday, Friday, and Friday only. 36 Tablet 3 01/19/20 24 Active Vitamin D3 25 MCG (1000 UT) Oral Capsule TAKE 1 CAPSULE BY MOUTH ONCE DAILY 90 Capsule 1 01/20/20 24 Active amLODIPine Besylate 5 MG Oral Tablet (Norvasc) Take 1 Tablet by mouth in the morning. 90 Tablet 3 02/03/20 24 Active Nitrofurantoin Monohyd Macro 100 MG Oral Capsule (Macrobid)Indica tions:Other urinary incontinence Take 1 Capsule by mouth in the morning and 1 Capsule before bedtime. Do all this for 7 days. With food until gone. 14 Capsule 01/30/20 24 2023 Discontinued documented as of this encounter (statuses as of 02/05/2024) Active Problems Problem Noted Date Diagnosed Date Constipation 08/25/2023 Ascending aorta dilatation 02/26/2023 Ambulatory dysfunction 11/30/2019 Gait disturbance 07/07/2019 Microscopic colitis 07/07/2019 Senile osteoporosis 12/22/2018 History of stroke 05/13/2018 HTN, goal below 130/80 08/01/2017 Vitamin D deficiency 03/25/2013 Insomnia 03/18/2012 Urinary incontinence 06/08/2009 Overview (11/18/2016): ICD-10 update of inactive term BRUIT, ABDOMINAL 04/14/2003 Learning disorder 10/29/2001 GENERALIZED CONVULSIVE EPILE PSY; WITHOUT MENTION OF INTRACTABLE EPILEPSY Cerebral palsy documented as of this encounter (statuses as of 02/05/2024) Resolved Problems Problem Noted Date Diagnosed Date Resolved Date Osteoporosis 12/13/2021 03/28/2023 Severe protein-calorie malnutrition 09/01/2020 01/02/2023 Stroke, small vessel 09/20/2019 023 Obstructive hydrocephalus 10/22/2018 Kidney disease, chronic, sta ge III (GFR 30-59 ml/min) 04/27/2018 01/02/2023 Overview: Per CKD protocol #1 Bronchitis, complicated 05/03/201510/18 Viral URI with cough 05/03/201510/31/ 017 Acute costochondritis 05/03/20152016 Elevated blood pressure, situational 05/03/2015 08/01/2017 METATARSALGIA, RIGHT 5TH 06/11/201006/2016 Bunion 06/11/2010 11/21/2016 Special screening for malign ant neoplasms, colon 06/11/2010 05/03/2015 Lump or mass in breast 04/09/200605/02 ADVANCE DIRECTIVE INFORMATION 03/19/2005 05/03/2015 Overview (03/19/2005): No, Advance Directive brochure given to patient. 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 Urge incontinence 01/26/2002 05/03/2015 Rosacea 11/21/2016 documented as of this encounter (statuses as of 02/05/2024) Immunizations Name Administration Dates Next Due COVID-19 mRNA, LNP-s, No Pre serve, 2-Dose Series (Moderna) 04/14/2020,03/10/2020 COVID-19, MRNA-LNP, PF, 3 MC G/0.3 mL, 6M-4YRS, IM (First Wind) 12/18/2023(Deferred: Done Elsewhere) COVID-19, MRNA-LNP, PF, 50 M CG/0.5 mL, 12 YRS AND ABOVE, IM (MODERNA-Spikevax) 12/10/2023,02/26/2023 COVID-19, mRNA, LNP-s, PF, B ooster, 100mcg/0.5mg (Moderna) 12/15/2020 Covid-19, Mrna, Lnp-s, Pf, B ivalent, 50 Mcg, IM, 12 yrs and above (Moderna) 11/23/2021 Hepatitis B, 20+ yrs 09/11/2021,04/17/2021,03/14 PPD 07/10/2015, 4,06/26/2011,05/19,05/10/2009,04/15/2007,03/19/19 06 Pneumococcal Conjugate Vacc, 13 Valent (Prevnar) 09/02/2019 Pneumococcal Polysaccharide PPV23 (Pneumovax) 09/01/2020,03/18/2013 Season Influenza, Quad, PF, Adjuvanted, 65+ Yrs, IM (FLUAD) 11/27/2021,11/30/2019 Seasonal Influenza Vac., MDV , IM, 0.5 mL (Fluzone) 11/08/2013,11/12/2012,11/25/2011,12/18,11/15/2009,12/08/2008,12/28/19 08,12/24/2006,03/19/2005 Seasonal Influenza, High Dos e, Trivalent, PF, IM (Fluzone HD) 10/27/2023 Seasonal Influenza, PF, 6 M & above, IM , (FluLaval or Fluzone) 10/22/2018,11/04/2017,11/28/2016 Seasonal Influenza, Quadriva lent Hd (Fluzone Hd) 11/06/2022 Seasonal Influenza, Quadriva lent, No Preserve, IM 11/04/2020,12/12/2015,11/14/2014 TD, Preservative Free 01/05/2020 TDAP, Age 7 and older, IM (Adacel) 05/16/2010 05/16/2020 Varicella Zoster Vaccine (Adult) 09/21/2020,02/18 Zoster Vaccine Recombinant (Shingrix) 02/06/2021 ,10/11/2020 documented as of this encounter Social History Tobacco Use Types Packs/Day Years Used Date Smoking Tobacco: Never Passive Smoke Exposure: Current Smokeless Tobacco: Never Alcohol Use Standard Drinks/Week Comments No 0 (1 standard drink = 0.6 oz pur e alcohol) PHQ-2 Answer Date Recorded PHQ Adult Total Score 0 03/27/2023 Hunger Vital Sign Answer Date Recorded Within the past 12 months, y ou worried that your food would run out before you got the money to buy more. Never true 03/27/19 24 Within the past 12 months, t he food you bought just didn't last and you didn't have money to get more. Never true 03/27/2023 Childcare Answer Date Recorded Do you feel overwhelmed with taking care of a child, family member or friend? No 03/27/2023 Does your family need help f inding childcare? (Household - for ages 0-17 years) Not on file 03/27/2023 Clothing Answer Date Recorded Have you been unable to get clothing when it was really needed? No 03/27/2023 Is your family able to get c lothes or diapers when needed? (Household - for ages 0-17 years) Not on file 03/27/2023 Personal Safety Answer Date Recorded Do you feel unsafe or have concerns for your saf ety? No 03/27/2023 Do you have concerns for you r family's safety? (Household - for ages 0-17 years) Not on file 03/27/2023 Utilities Answer Date Recorded Do you have trouble paying y our heating, water, or electric bill? No 03/27/2023 Is your family able to pay t he heat, water, or electric bill? (Household - for ages 0-17 years) Not on file 03/27/2023 Does your family have access to good internet? (Household - for ages 0-17 years) Not on file 03/27/2023 Employment Status Answer Date Recorded Are you unemployed or without regular income? No 03/27/2023 Does the household have a re lar source of income? (Household - for ages 0-17 years) Not on file 03/27/2023 Social Connections Answer Date Recorded How often do you feel lonely or isolated from th ose around you? Never 03/27/2023 Financial Resource Strain Answer Date R ecorded Do you have any trouble payi ng for your medications, or do you think you might in the future? No 03/27/2023 Does your family have troubl e paying for medicine? (Household - for ages 0-17 years) Not on file 03/27/2023 Transportation Needs Answer Date Record ed READ ONLY Do you have troubl e getting a ride to medical visits or work? Never True 03/27/2023 Does your family have a hard time getting a ride to doctors visits? (Household - for ages 0-17 years) Not on file 03/27/2023 Has lack of transportation k ept you from medical appointments, meetings, work, or from getting things needed for daily living? Check all that apply. (Adult - for ages 18 years and over) Not on file 03/27/2023 Do you (or your family) have trouble finding or paying for a ride (transportation)? (Household - for ages 0-17 years) Not on file 03/27/2023 Housing Stability Answer Date Recorded Do you currently live in a s helter or have no steady place to sleep at night? No 03/27/2023 READ ONLY Do you think you a re at risk of becoming homeless? No 03/27/2023 Does your family worry about paying for your home or becoming homeless? (Household - for ages 0-17 years) Not on file 0 03/27/2023 Are you homeless or worried that you might be in the future? (Adult - for ages 18 years and over) Not on file Are you (or your family) shanae eless or worried that you might be in the future? (Household - for ages 0-17 years) Not on file Food Insecurity Answer Date Recorded Do you need food for this week? No 03/27/2023 Are you able to get enough f ood for your family? (Household - for ages 0-17 years) Not on file 03/27/2023 Does your family need food t his week? (Household - for ages 0-17 years) Not on file 03/27/2023 Do you always have enough fo od for your family? (Household - for ages 0-17 years) Not on file 03/27/2023 Comments No Sex and Gender Information Value Date Recorded Sex Assigned at Female 07/31/2022 3:07 PM EDT Legal Sex Female 5:33 AM EST Gender Identity Female 07/31/2022 3:07 PM EDT Sexual Orientation Straight 03/30/2020 10 :20 AM EST Occupation Industry Job Start Date Job End Date Not on file Not on file Not on file Not on file documented as of this encounter Last Filed Vital Signs Vital Sign Reading Time Taken Comments Blood Pressure 105/70 02/05/2024 8:47 AM EST Pulse 78 02/05/2024 8:47 AM EST Temperature 36.6 C (97.8 F) 02/05/2024 8:47 AM ES T Respiratory Rate 16 02/05/2024 8:47 AM EST Oxygen Saturation 94% 02/05/2024 8:47 AM EST Inhaled Oxygen Concentration - - Weight - - Height - - Body Mass Index - - documented in this encounter Progress Notes * Luh Calderon MD - 02/05/2024 9:04 AM EST Subjective Cecilia Greer is a 69 year old female. Chief Complaint Patient presents with Acute Patient is here because she had a assisted fall at home and was seen by EMS. Patient refused transport to ER but was seen last night at [facility] ER for vaginal bleeding and UTI. Patient needs clearance for the fall that she is ok and from the ER visit last night that the regimen she was placed on is appropriate for her. HPI: Here for ER f/u last night No significant fall or injury Known CP, left sided weakness, gait difficulty , has slipped off from her scooter at [facility] Came with staff Known urinary incontinence and recurrent UTIs Has been taking macrobid but not helping her sx Got bactrim, will change Will repeat urine test after finishing bactrim Fu with urogyn too Known osteoporosis, taking Vt D shannan PMH: Patient Active Problem List Diagnosis GENERALIZED CONVULSIVE EPILEPSY; WITHOUT MENTION OF INTRACTABLE EPILEPSY Cerebral palsy (HCC) Learning disorder BRUIT, ABDOMINAL Urinary incontinence Insomnia Vitamin D deficiency HTN, goal below 130/80 History of stroke Senile osteoporosis Gait disturbance Microscopic colitis Ambulatory dysfunction Ascending aorta dilatation (HCC) Constipation Current Outpatient Medications Medication Sig Dispense Refill Diapers & Supplies MISC Use when out of the home for bladder leakage 60 Each 5 Loperamide HCl 2 MG Oral Capsule (Imodium) Take 1 Capsule by mouth 4 times a day as needed for Diarrhea. Administer after each loose stool until symptoms controlled; do not exceed 8 mg per 24 hours. Famotidine 20 MG Oral Tablet (Pepcid) Take 1 Tablet by mouth daily as needed for Heartburn. 30 Tablet 11 traZODone HCl 50 MG Oral Tablet (Desyrel) TAKE 1 TABLET BY MOUTH AT BEDTIME 93 Tablet 3 Aspirin Low Dose 81 MG Oral Tablet Delayed Release Take 1 Tablet by mouth in the morning. 30 [id number] lamoTRIgine 100 MG Oral Tablet (LaMICtal) TAKE 1 TABLET BY MOUTH TWICE DAILY 62 Tablet 11 Losartan Potassium 25 MG Oral Tablet (Cozaar) Take 1 Tablet by mouth in the morning. 93 Tablet 3 Fatimah-amy 8.6 MG Oral Tablet Take 1 Tablet by mouth at bedtime. Estradiol 0.1 MG/GM Vaginal Cream (Estrace) Apply pea sized amount (0.5 gm) vaginally every other night. 42.5 g 3 D-Mannose 500 MG Oral Capsule Take 2 Capsules by mouth in the morning and 2 Capsules before bedtime. 120 Capsule 11 Omeprazole 20 MG Oral Capsule Delayed Release (PriLOSEC) TAKE 1 CAPSULE BY MOUTH BEFORE EVENING MEAL (NOT A CYCLE MED) 30 Capsule 5 Florastor 250 MG Oral Capsule (Saccharomyces boulardii) TAKE 1 CAPSULE BY MOUTH ONCE DAILY 31 Capsule 5 Docusate Sodium 100 MG Oral Capsule (Colace) TAKE 1 CAPSULE BY MOUTH ONCE DAILY 31 Capsule 5 levETIRAcetam 500 MG Oral Tablet (Keppra) TAKE 3 TABLETS BY MOUTH 2 TIMES A DAY 186 Tablet 5 oxyBUTYnin Chloride ER 5 MG Oral Tablet Extended Release 24 Hour (Ditropan XL) TAKE 1 TABLET BY MOUTH IN THE MORNING AND 2 TABLETS AT BEDTIME FOR BLADDER 93 Tablet 5 Polyethylene Glycol 3350 17 GM/SCOOP Oral Powder (Miralax) 17 gm as needed if no BM in 2 days (6 shifts) AM of 3rd day.May repeat dose every 4 hrs x 2 if needed 255 g 5 One Daily Essential Oral Tablet Take 1 Tablet by mouth in the morning. 31 Tablet 5 Mirabegron ER 50 MG Oral Tablet Extended Release 24 Hour (Myrbetriq) Take 1 Tablet by mouth in the morning. 30 Tablet 11 Divalproex Sodium ER 500 MG Oral Tablet Extended Release 24 Hour (Depakote ER) TAKE 1 TABLET BY MOUTH TWICE DAILY 62 Tablet 5 Erythromycin 5 MG/GM Ophthalmic Ointment Instill into the left eye at bedtime. Ferrous Sulfate 325 (65 Fe) MG Oral Tablet (Feosol) Take 1 Tablet by mouth once a day on Friday, Friday, and Friday only. 36 Tablet 3 Vitamin D3 25 MCG (1000 UT) Oral Capsule TAKE 1 CAPSULE BY MOUTH ONCE DAILY 90 Capsule 1 amLODIPine Besylate 5 MG Oral Tablet (Norvasc) Take 1 Tablet by mouth in the morning. 90 Tablet 3 MEDICAL INSTRUCTIONS Okay for pt to receive Covid vaccine (Patient not taking: Reported on 02/05/2024) 1 Each 1 Refresh Optive Advanced PF 0.5-1-0.5 % Ophthalmic Solution INSTILL 1 DROP INTO BOTH EYES 4 TIMES DAILY. (Patient not taking: Reported on 11/19/2023) OcuSoft Lid Scrub External Pad wipe over eyelid margin of both eyes at bedtime (Patient not taking:Reported on 11/19/2023) No current facility-administered medications for this visit. Past Medical History: Diagnosis Date Cataract Generalized convulsive epilepsy without intractable epilepsy (HCC) Intellectual disability MILD Irritable bladder SNYDROME Major depression Obstructive hydrocephalus (HCC) has shunt Osteoporosis Other specified infantile cerebral palsy Rosacea Unspecified urinary incontinence Past Surgical History: Procedure Laterality Date COLONOSCOPY, DIAGNOSTIC (RECTUM) 05/01/2018 serrated adenomatous polyps, fair prep, repeat 2 yrs/COLONOSCOPY FLEXIBLE PROXIMAL DIAGNOSTIC performed by Preeti Fagan MD at ENDOSCOPY [facility] COLONOSCOPY, DIAGNOSTIC (RECTUM) 03/24/2019 inflammation on bx, fair prep, repeat 1 yr / [facility] COLONOSCOPY, DIAGNOSTIC (RECTUM) 04/05/2021 normal, repeat 5 yrs / [facility] CREATE BRAIN CAVITY SHUNT EGD, FLEXIBLE, DIAGNOSTIC 03/24/2019 normal bx / [facility] INFORMATION Left 08/17/2014 REMOVAL OF CYST OS/REINHEIMER LIGATE/CUT OVIDUCT(S) Tubal Ligation POST VOID RESIDUAL BLADDER US (PHYSICIAN ONLY) 03/16/2002 PVR 12ml REMOVE CATARACT, INSERT LENS PROSTH Right 05/30/2020 RIGHT EXTRACAPSULAR CATARACT REMOVAL WITH INTRAOCULAR LENS performed by Hoang Kyle MD at OR [facility] REMOVE CATARACT, INSERT LENS PROSTH Left 06/13/2020 LEFT EXTRACAPSULAR CATARACT REMOVAL WITH INTRAOCULAR LENS performed by Hoang Kyle MD at OR [facility] Review of patient's allergies indicates: Allergen Reactions Adhesive Tape Rash Family History Problem Relation Name Age of Onset Breast Cancer Mother Cancer Father Stroke Father Alcohol and Other Disorders Associated Father ETOH abuse Cancer Brother Heart Disorder Sister nani OCHOA in her 50's Diabetes No significant family history Eye Problems No significant family history Denies family AMD, RD, glaucoma, blindness Thyroid Disorder No significant family history Family Status Relation Status Mo (Not Specified) Fa (Not Specified) Bro (Not Specified) Sis Alive No history (Not Specified) Social History Socioeconomic History Marital status: Single Spouse name: Not on file Number of children: 0 Years of education: Not on file Highest education level: Not on file Occupational History Comment: Disability Tobacco Use Smoking status: Never Passive exposure: Current Smokeless tobacco: Never Vaping Use Vaping status: Never Used Substance and Sexual Activity Alcohol use: No Drug use: No Sexual activity: Never control/protection: Surgical Other Topics Concern Not on file Social History Narrative Not on file Social Needs Financial Resource Strain: Low Risk (03/27/2023) Financial Resource Strain Do you have any trouble paying for your medications, or do you think you might in the future? (Adult - for ages 18 years and over): No Does your family have trouble paying for medicine? (Household - for ages 0-17 years): Not on file Food Insecurity: No Food Insecurity (03/27/2023) Food Insecurity Do you need food for this week? (Adult - for ages 18 years and over): No Are you able to get enough food for your family? (Household - for ages 0-17 years): Not on file Does your family need food this week? (Household - for ages 0-17 years): Not on file Do you always have enough food for your family? (Household - for ages 0-17 years): Not on file Transportation Needs: No Transportation Needs (03/27/2023) Transportation Needs Do you have trouble getting a ride to medical visits or work? (Adult - for ages 18 years and over):Never True Does your family have a hard time getting a ride to doctors visits? (Household - for ages 0-17 years): Not on file Has lack of transportation kept you from medical appointments, meetings, work, or from getting things needed for daily living? Check all that apply. (Adult - for ages 18 years and over): Not on file Do you (or your family) have trouble finding or paying for a ride (transportation)? (Household - for ages 0-17 years): Not on file Social Connections: Socially Integrated (03/27/2023) Social Connections How often do you feel lonely or isolated from those around you? (Adult - for ages 18 years and over): Never Housing Stability: Low Risk (03/27/2023) Housing Stability Do you currently live in a care home or have no steady place to sleep at night? (Adult - for ages 18 years and over): No Do you think you are at risk of becoming homeless? (Adult - for ages 18 years and over): No Does your family worry about paying for your home or becoming homeless? (Household - for ages 0-17 years): Not on file Are you homeless or worried that you might be in the future? (Adult - for ages 18 years and over): Not on file Are you (or your family) homeless or worried that you might be in the future? (Household - for ages0-17 years): Not on file Review of Systems Constitutional: Positive for fatigue. Negative for activity change, appetite change, chills, diaphoresis, fever and unexpected weight change. Respiratory: Negative. Cardiovascular: Negative. Gastrointestinal: Negative for abdominal distention and abdominal pain. Endocrine: Negative. Genitourinary: Positive for frequency and urgency. Negative for decreased urine volume, flank pain and hematuria. Musculoskeletal: Positive for arthralgias, back pain and gait problem. Neurological: Negative for dizziness, tremors, seizures, speech difficulty and light-headedness. Psychiatric/Behavioral: Positive for sleep disturbance. Negative for agitation and behavioral problems. The patient is nervous/anxious. Objective BP 105/70 | Pulse 78 | Temp 97.8 F (36.6 C) (Temporal Artery) | Resp 16 | LMP 03/14/2005 | [id number] Physical Exam Constitutional: General: She is not in acute distress. Appearance: Normal appearance. She is not ill-appearing, toxic-appearing or diaphoretic. HENT: Head: Normocephalic and atraumatic. Nose: Nose normal. Eyes: Extraocular Movements: Extraocular movements intact. Cardiovascular: Rate and Rhythm: Normal rate and regular rhythm. Pulmonary: Effort: Pulmonary effort is normal. No respiratory distress. Breath sounds: Normal breath sounds. Musculoskeletal: General: Tenderness (general, arthritis) present. Right lower leg: No edema. Left lower leg: No edema. Neurological: Mental Status: She is alert and oriented to person, place, and time. Motor: Weakness present. Gait: Gait abnormal. Psychiatric: Behavior: Behavior normal. Comments: Anxiety ASSESSMENT/PLAN: Fall, initial encounter (Primary) Recurrent UTI - MEDICAL INSTRUCTIONS - CULTURE, URINE, QUANTITATIVE; Future; Expected date: 02/12/2024 - URINALYSIS, REFLEX TO MICROSCOPIC; Future; Expected date: 02/12/2024 Ambulatory dysfunction Cerebral palsy, unspecified type (HCC) HTN, goal below 130/80 Urinary incontinence, unspecified type GENERALIZED CONVULSIVE EPILEPSY; WITHOUT MENTION OF INTRACTABLE EPILEPSY History of stroke Fall precaution Drink enouhg water Bactrim F/u U cx Juyeon Yumiko, MD documented in this encounter Nursing Notes * Trisha Rosas LPN - 02/05/2024 8:49 AM EST The patient has been properly identified by confirmation of name and date of . Chief Complaint Patient presents with Acute Patient is here because she had a assisted fall at home and was seen by EMS. Patient refused transport to ER but was seen last night at [facility] ER for vaginal bleeding and UTI. Patient needs clearance for the fall that she is ok and from the ER visit last night that the regimen she was placed on is appropriate for her. documented in this encounter Plan of Treatment Upcoming Encounters Date Type Department Care Team (Late st Contact Info) Description 02/06/2024 12:00 PM EST Cardiac Studies Cardiac Studies, [place] [address] [phone] 02/17/2024 3:15 PM EST Office Visit Urogynecology [facility] [address] [place] [address] Sebastián Calderon MD [address] [place] [address] Nurse Romario Kang [address] [place] [id number] 02/25/2024 9:00 AM EST Office Visit Orthopaedics [facility] [address] [place] [address] Juan No PA-C [address] [place] [address] 06/02/2024 9:30 AM EDT Imaging Radiology [facility] [address] [place] [phone] 06/02/2024 10:30 AM EDT Office Visit Rheumatology [facility] [address] [facility] [place] [address] Hussain Agudelo CRNP [address] [facility] [place] [address] 07/13/2024 10:00 AM EDT Laboratory Laboratory, [place] [address] [facility] [place] [phone] [place], Laboratory [address] [facility] [place] [address] 07/19/2024 11:00 AM EDT Office Visit [facility] [place] [address] [facility] [address] [place] [phone] Kody Wright MD [address] [facility] [place] [address] 11/02/2024 11:00 AM EDT Office Visit Neurology [facility] [address] [facility] [place] [address] Mckenzie Guerra PA-C [address] [place] [id number] Scheduled Orders Name Type Priority Associated Diagnoses Orde r Schedule CULTURE, URINE, QUANTITATIVE Lab Routine Recurrent UTI Expected: 02/12/2024 (Approximate), Expires: 02/04/2025 URINALYSIS, REFLEX TO MICROSCOPIC Lab Routine Recurrent UTI Expected: 02/12/2024 (Approximate), Expires: 02/04/2025 Scheduled Procedures Name Priority Associated Diagnoses Date/Ti me COLONOSCOPY FLEXIBLE PROXIMAL DIAGNOSTIC Recall History of colon polyps Health Maintenance Due Date Last Done Comments Cologuard 1999 Fecal Occult Blood Test 1999 Sigmoidoscopy 1999 *BISPHONATE OR OTHER ACCEPTABLE MEDICATION NEEDED FOR OSTEOPOROSIS (REFER TO SMARTSET #1146) 05/15/2023 Adult Wellness Visit 01/11/2024 01/10/2023, 10/27/19 21 Depression Screening 03/27/2024 03/27/2023 Mammogram 04/07/2024 04/07/2023, 03/20, 04/02/2022, Additional history exists DXA Scan 05/27/2024 05/27/2022, 05/18, 05/24/2020, Additional history exists GFR 10/28/2024 10/29/2023, 10/2023, 03/24/2023, Additional history exists Albumin/Creatinine Ratio 03/11/2025 03/11/2022, 01/17 Colonoscopy 04/05/2026 04/05/2021, 03/20, 03/24/2019, Additional history exists Colorectal Cancer Screening 04/05/2026 Lipid Panel 12/07/2027 12/06/2022, 12/19, 02/01/2021, Additional history exists DTap/Tdap Vaccines (3 - Td or Tdap) 01/04/2030 01/05/2020, 05/16/2010, 06/24/2000 Zoster Vaccines Completed 02/06/2021, 07/2020, 10/11/2020, Additional history exists RETIRED - COLONOSCOPY-ANNUAL AGES 18-100 Discontinued 04/05/2021, 04/05/2021, 03/24/2019, Additional history exists RETIRED - COLONOSCOPY-EVERY 5 YRS AGES 18-100 Discontinued 04/05/2021, 04/05/2021, 03/24/2019, Additional history exists Hepatitis B Vaccine Completed 09/11/2021, 04/17/2021, 03/14/2021 Pneumococcal Vaccine: 65+ Years Completed 03/16/2023, 09/01/2020, 09/02/2019, Additional history exists Influenza Vaccine (FLU shot) Completed 10/27/2023, 11/06/2022, 11/27/2021, Additional history exists COVID-19 Vaccine Completed 12/10/2023, 11/2023, 11/23/2021, Additional history exists VITAMIN D LEVEL ONCE IN A LIFETIME-USE SMARTSET# 45962 Completed 01/19/2024, 05/12/2023, 03/15/2022, Additional history exists HPV (Gardasil) Vaccine Aged Out No lo nger eligible based on patient's age to complete this topic MENINGOCOCCAL (MENACTRA/MENVEO) Aged Out No longer eligible based on patient's age to complete this topic documented as of this encounter Medical Devices Implanted Type Area Bolt Maker Device Identifier Shelf Expiration Date Model / Serial / Lot Lens Intraoc 16.0 - [id number] - [id number] Implanted:Qty: 1 on 05/30/2020 by Hoang Kyle MD at OR [facility] Right: Eye [employer] 12/17/2024 [id number] / [id number] / Lens Intraoc 16.5 - [id number] - [id number] Implanted:Qty: 1 on 06/13/2020 by Hoang Kyle MD at OR [facility] Left: Eye [employer] 06/16/2024 [id number] / [id number] / [id number] documented as of this encounter Visit Diagnoses Diagnosis Fall, initial encounter- Primary Recurrent UTI Urinary tract infection, site not specified Ambulatory dysfunction Cerebral palsy, unspecified type (HCC) HTN, goal below 130/80 Unspecified essential hypertension Urinary incontinence, unspecified type GENERALIZED CONVULSIVE EPILEPSY; 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
--- NOTE | 2024-02-07 09:03 | Emergency Department Note ---
Impression & Plan Weakness, Acute UTI (urinary tract infection), Frequent falls ED Provider Note NAME: MISAEL MONROE AGE: 69 SEX: F : 1955 ARRIVES VIA: Ambulance INFORMANT: Patient, EMS ED PROVIDER(S): Karthik Robert DO CHIEF COMPLAINT: Fall HPI: The patient is a 69-year-old female who presented to the emergency department after a fall. She was sitting on the toilet when she went to stand up she felt her legs become weak. The patient states that 911 was called to help her stand. She was seen here recently for urinary tract infection. The patient states she has generalized pain as well as bodyaches. She denies having struck her head. She denies having any chest pain or difficulty breathing. She denies having any vomiting. She denies having any neck pain. ROS: See above HPI for pertinent positives & negatives. A total of 10 systems reviewed and were otherwise negative. PAST MEDICAL HISTORY: See Below PAST SURGICAL HISTORY: See Below FAMILY HISTORY: See Below SOCIAL HISTORY: See Below HOME MEDICATIONS: See Below ALLERGIES: See Below VITALS: See Below PHYSICAL EXAMINATION: GENERAL: Patient is awake alert in no acute distress patient is resting comfortably and showing no signs of anxiety EYES: The conjunctivae are clear. The pupils are round and reactive. EARS, NOSE, MOUTH AND THROAT: The nose is without any evidence of any deformity NECK: The neck is nontender and supple. RESPIRATORY: Normal respiratory effort is noted there is no evidence of wheezing rhonchi or rales CARDIOVASCULAR: Regular rate and rhythm noted there no murmurs rubs or gallops normal S1 normal S2. GASTROINTESTINAL: The abdomen is soft. Abdomen is nontender. BACK: No midline tenderness or or step-off noted range of motion in flexion extension as well as rotation no signs of muscle spasm noted MUSCULOSKELETAL/EXTREMITIES: There is no evidence of gross deformity full range of motion is noted in the hips and shoulders. SKIN: Skin is warm and dry. There is no significant pedal edema. NEUROLOGIC: Patient is awake alert and oriented x3. Speech is clear. MEDICAL DECISION MAKING: The patient is a 69-year-old female who presented to the emergency department for an evaluation of generalized weakness. The patient was trying to stand while being on the toilet. She was unable to stand and fell to the ground. The patient was weaker than usual but it was more of a generalized weakness and there was no focal neurologic deficit. I discussed the patient's laboratory and radiographic studies with her. She was treated with IV fluids and IV antibiotics for ongoing urine infection. Given her degree of weakness she required help getting to the toilet I discussed her condition with the on-call [facility] hospitalist. They have agreed to evaluate the patient in the emergency department. Triage Nursing notes reviewed. Prior medical records reviewed Vital Signs: reviewed and remarkable for no significant abnormalities Differential diagnosis: Infection, dehydration, metabolic abnormality, hypo/hyperglycemia, electrolyte disturbance, anemia, hypoxia, cardiac sources, intracerebral event, toxicologic, neurologic, as well as other pathologies. ER treatment provided: See below Diagnostics interpreted by me: ECG: EKG was obtained in the emergency department. My interpretation is normal sinus rhythm at 76 bpm. There is been no ectopy. Nonspecific T wave inversions were noted. This was compared to a tracing from February 05, 2024. On the previous tracing there were PVCs noted, this is since resolved. Cardiac Monitoring: An order was placed for continuous cardiac monitoring. The monitor shows a rate of 72 bpm with sinus rhythm. Laboratory studies: As stated above and show below. Imaging studies: See below. Radiographic imaging was reviewed by myself Consultation(s): I discussed this case with Dr. Garcia who [facility]. Past Med/Surg History Problem List (Updated 02/07/24 @ 12:38 by Karthik Robert DO) Acute UTI (urinary tract infection) (Acute) Weakness (Acute) Hemorrhagic cystitis (Acute) Elevated LFTs Pneumonia (Acute) UTI (urinary tract infection) (Acute) Sepsis (Acute) Prolonged QT interval PVC (premature ventricular contraction) Ventricular bigeminy Closed right femoral fracture Closed fracture of proximal end of right femur (Acute) Fall from standing (Acute) Seizure disorder Frequent falls (Acute) Lab test negative for COVID-19 virus (Acute) Acute electrocardiogram changes (Acute) Cerebral palsy Hemiparesis of right dominant side Multiple fractures of ribs of right side (Acute) History of colon polyps Diarrhea (Acute) Lymphocytic colitis Anemia Acute kidney injury superimposed on CKD DVT prophylaxis Ambulatory dysfunction Urinary urgency Chest pain (Acute) History of CVA (cerebrovascular accident) Chronic kidney disease (CKD), stage III (moderate) Osteoporosis (Chronic) Obstructive hydrocephalus (Chronic) has shunt Infantile cerebral palsy (Chronic) 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) Anxiety (Chronic) Hypertension (Chronic) Medical History Hx of chest pain Major depressive disorder Idiopathic mild intellectual disability History of colon polyps Incontinence Surgical History History of esophagogastroduodenoscopy (EGD) last 03/24/19 @ [facility] History of colonoscopy last 03/24/19 @ [facility] H/O tubal ligation History of brain shunt Family History Father Cancer Mother Cancer Social History Smoking Status: Never smoker Tobacco Type: Cigarettes Hx Alcohol Use: No Hx Substance Use: No Preferred Language: Spanish Communication Ability: Effective Communication Ability Comment: [facility] stated pt is of sound mind to sign own consents Manager Practice Required: Yes Beliefs That Will Affect Care: None marital status: Single Current Living Situation: [facility] Rehab Current Living Situation Comment: The [facility] house Feels Safe at Home: Yes Assistive Devices: Scooter/Electric Scooter and Walker Allergies Allergies Allergy/AdvReac Type Severity Reaction Status Date / Time adhesive Allergy Unknown HAPPENED Verified 09/21/23 10:31 A CHILD-"INSTRUCTED NOT TO USE ADHESIVES". Home Meds Home Medications Medication Instructions Recorded Confirmed divalproex 500 mg tablet,extended 500 mg PO BID 01/26/18 02/07/24 release 24 hr lamotrigine 100 mg tablet 100 mg PO BID 01/26/18 02/07/24 levetiracetam 500 mg tablet 1,500 mg PO BID 01/26/18 02/07/24 Saccharomyces boulardii 250 mg 250 mg PO QAM 09/03/20 02/07/24 capsule (Florastor) oxybutynin chloride 5 mg 5 mg PO UD 09/03/20 02/07/24 tablet,extended release 24 hr multivitamin (One Daily 1 tab PO DAILY 09/11/21 02/07/24 Multivitamin tablet) amlodipine 5 mg tablet 5 mg PO DAILY 07/20/22 02/07/24 trazodone 50 mg tablet 50 mg PO HS 01/19/23 02/07/24 aspirin 81 mg tablet,delayed 81 mg PO DAILY 08/03/23 02/07/24 release docusate sodium 100 mg capsule 100 mg PO DAILY 08/03/23 02/07/24 ferrous sulfate 325 mg (65 mg 325 mg PO UD 08/03/23 02/07/24 iron) tablet polyethylene glycol 3350 17 17 g PO DAILY PRN Constipation 08/03/23 02/07/24 gram/dose oral powder ergocalciferol (vitamin D2) 1,250 1,250 mcg PO WK 08/11/23 02/07/24 mcg (50,000 unit) capsule (Vitamin D2) losartan 25 mg tablet 25 mg PO DAILY 08/11/23 02/07/24 omeprazole 20 mg capsule,delayed 20 mg PO QPM 08/11/23 02/07/24 release sennosides 8.6 mg tablet (senna) 8.6 mg PO HS 08/11/23 02/07/24 famotidine 20 mg tablet 20 mg PO UD 09/21/23 02/07/24 AZO D-Mannose 2 cap PO BID 02/07/24 02/07/24 erythromycin 5 mg/gram (0.5 %) eye 1 applic OPL HS 02/07/24 02/07/24 ointment mirabegron 50 mg tablet,extended 50 mg PO QAM 02/07/24 02/07/24 release 24 hr (Myrbetriq) Previous Rx's Medication Instructions Recorded sulfamethoxazole 800 1 tab PO BID 10 days #20 tabs 02/05/24 mg-trimethoprim 160 mg tablet (Bactrim DS) Results & Data (ED) Vital Signs Vital Signs - 24 hr 02/07/24 08:41 02/07/24 08:55 02/07/24 09:14 Temperature 37.0 C Temperature Source Oral Pulse Rate 82 78 73 Pulse Rate [Apical] Pulse Rhythm [Apical] Pulse Strength [Apical] Respiratory Rate 20 Respiratory Effort / Characteristics Non-Labored Spontaneous Respiratory Depth Normal Respiratory Pattern Regular Blood Pressure 115/78 Blood Pressure [Left Arm] Blood Pressure Mean 90 Blood Pressure Mean [Left Arm] Blood Pressure Position Lying Blood Pressure Position [Left Arm] Pulse Oximetry 93 94 Oxygen Delivery Method Room Air Room Air Sepsis Recent Fever Within 48 Hours No Sepsis New/Unexplained Change in Mental Status No Sepsis Action Taken by Nursing No Action Required 02/07/24 10:30 02/07/24 11:30 Temperature Temperature Source Pulse Rate Pulse Rate [Apical] 67 72 Pulse Rhythm [Apical] Regular Pulse Strength [Apical] Normal Respiratory Rate 18 16 Respiratory Effort / Characteristics Non-Labored Spontaneous Non-Labored Spontaneous Respiratory Depth Normal Normal Respiratory Pattern Regular Blood Pressure Blood Pressure [Left Arm] 120/76 128/78 Blood Pressure Mean Blood Pressure Mean [Left Arm] 90 94 Blood Pressure Position Blood Pressure Position [Left Arm] Lying Pulse Oximetry Oxygen Delivery Method Room Air Sepsis Recent Fever Within 48 Hours Sepsis New/Unexplained Change in Mental Status Sepsis Action Taken by Long-Term Medications Current Medication List: was personally reviewed by me Laboratory Data Attestation: I reviewed the patient's lab results. 02/07/24 08:55 02/07/24 08:55 Lab Results 02/07/24 02/07/24 02/07/24 Range/Units 08:55 09:55 11:05 WBC 11.74 H (4.8-10.8) K/ul RBC 4.03 L (4.20-5.40) M/uL Hgb 12.1 (12.0-16.0) g/dl Hct 36.0 L (37.0-47.0) % MCV 89.3 (80.0-100.0) fL MCH 30.0 (25.0-34.0) pg MCHC 33.6 (32.0-36.0) g/dL RDW Std Deviation 44.4 (36.4-46.3) fL RDW Coeff of Ofelia 13.5 (11.5-14.5) % Plt Count 158 (130-400) K/uL MPV 11.1 (9.4-12.4) fL Immature Gran % (Auto) 0.3 % Neut % (Auto) 82.8 % Lymph % (Auto) 6.4 % Campbell % (Auto) 8.8 % Eos % (Auto) 1.4 % Baso % (Auto) 0.3 % Neut # (Auto) 9.73 H (1.40-6.50) K/uL Lymph # (Auto) 0.75 L (1.20-3.40) K/uL Campbell # (Auto) 1.03 H (0.11-0.59) K/uL Eos # (Auto) 0.16 (0.00-0.50) K/uL Baso # (Auto) 0.03 (0.00-0.20) K/uL Immature Gran # (Auto) 0.04 (0.01-0.20) K/uL Sodium 137 (136-145) mmol/L Potassium 3.8 (3.5-5.1) mmol/L Chloride 103 (98-107) mmol/L Carbon Dioxide 24 (21-32) mmol/L Anion Gap 10 (3-11) BUN 23 (6-23) mg/dl Creatinine 0.87 (0.6-1.2) mg/dl Est Cr Clr Drug Dosing 54.5 ml/min eGFR 71.63 BUN/Creatinine Ratio 26.4 H (10-20) Glucose 100 H (70-99(Fasting)) mg/dl Calcium 9.0 (8.6-10.3) mg/dl Total Bilirubin 0.9 (0.2-1.0) mg/dl AST 78 H (13-39) U/L ALT 88 H (7-52) U/L Alkaline Phosphatase 102 (34-104) U/L Troponin I High Sens 10.0 (0-14) pg/ml Total Protein 6.9 (6.0-8.3) gm/dl Albumin 3.9 (3.4-5.0) gm/dl Globulin 3.0 (2.5-4.0) gm/dl Albumin/Globulin Ratio 1.3 (0.9-2) Lipase 24 (11-82) U/L Urine Color Dark Yellow Urine Appearance Cloudy A (Clear) Urine pH 5.5 (4.5-7.5) Ur Specific Sanders 1.027 (1.000-1.030) Urine Protein 1+ H (Negative) Urine Glucose (UA) Negative (Negative) Urine Ketones 1+ H (Negative) Urine Blood Negative (Negative) Urine Nitrite Negative (Negative) Urine Bilirubin 1+ H (Negative) Urine Urobilinogen Negative (Negative) Ur Leukocyte Esterase 2+ H (Negative) Urine WBC (Auto) 21-50 H (0-5) /hpf Urine RBC (Auto) 3-5 H (0-2) /hpf U Hyaline Cast (Auto) 3-5 H (0-2) /lpf U Epithel Cells (Auto) 11-20 H (0-2) /hpf Urine Bacteria (Auto) None Seen (None Seen) Valproic Acid 60 (50-100) mcg/ml SARS-CoV-2 (PCR) NEGATIVE (Negative) Influenza Type A (PCR) Negative (Neg) Influenza Type B (PCR) Negative (Neg) RSV (RT-PCR) Negative (Neg) Administered Medications Discontinued Medications Sodium Chloride (Nss) 1,000 mls @ 999 mls/hr IV .Q1H1M ONE Stop: 02/07/24 10:48 Last Infusion: 02/07/24 10:55 Dose: Infused Documented By: Admin: 02/07/24 09:54 Dose: 999 mls/hr Documented By: GERRI Ceftriaxone Sodium (Rocephin) 2,000 mg in 50 mls @ 100 mls/hr IV NOW STA Stop: 02/07/24 12:00 Last Infusion: 02/07/24 12:10 Dose: Infused Documented By: Admin: 02/07/24 11:37 Dose: 100 mls/hr Documented By: LORENA Imaging Data Attestation: I personally reviewed and interpreted this imaging study as follows: My Impression: The pelvis was obtained in the emergency department. My interpretation is no fracture, final report below. 1 view chest x-ray was obtained in the emergency department. My interpretation is no free air or definite infiltrate, final report below. Radiologist's Impression: Pelvis X-Ray 02/07/24 08:46 EXAM: Radiographs of the Pelvis 1 View INDICATION: Fall. TECHNIQUE: Frontal view of the pelvis. COMPARISON: 10/22/2023 FINDINGS: Limitations: None. Bones/joints: Degenerative changes noted in the lower lumbar spine. No acute fracture. Old internally fixed femoral fracture noted with the visualized portion of femoral nail and proximal locking hardware well-seated. Soft tissues: No abnormality noted. IMPRESSION: No acute abnormality. ACT 112: Negative or not required by law. Electronically signed by Latrice Branch 02-07-2024 09:15 AM Chest X-Ray 02/07/24 08:47 EXAM: Radiograph of the Chest 1 View INDICATION: Fall. TECHNIQUE: Frontal view of the chest. COMPARISON: 02/05/2024 FINDINGS: Lungs and pleural spaces: Shallow inspiration with mild basilar scarring. No consolidation or pulmonary edema. No pleural effusion or pneumothorax. Heart: Shape and configuration within normal limits allowing for technique. Mediastinum: Normal contour. Bones/joints: Degenerative changes noted throughout the spine and both shoulders. No lytic or blastic lesions noted. Soft tissues: No abnormality noted. No radiopaque foreign body noted. Vasculature: Stable tortuous aorta. Upper abdomen: No abnormality noted. IMPRESSION: Stable chronic changes. No acute disease. ACT 112: Negative or not required by law. Electronically signed by Latrice Branch 02-07-2024 09:13 AM Discharge Plan Visit Data Chief Complaint: Fall Stated Complaint: FALL ED Provider: Karthik Robert Discharge Problem: Weakness, Acute UTI (urinary tract infection), Frequent falls Patient Disposition: Being Evaluated by Hospitalist Forms Stand Alone Forms: [facility] Prescriptions Prescriptions: No Action famotidine 20 mg tablet 20 mg PO UD Rx Instructions: 20 mg po daily. levetiracetam 500 mg tablet 1,500 mg PO BID divalproex 500 mg tablet extended release 24 hr 500 mg PO BID lamotrigine 100 mg tablet 100 mg PO BID oxybutynin chloride 5 mg tablet extended release 24hr 5 mg PO UD Rx Instructions: 5 mg orally; TAKES 5 MG QAM, THEN 10 MG QHS. Saccharomyces boulardii [Florastor] 250 mg Capsule 250 mg PO QAM multivitamin [One Daily Multivitamin] Tablet 1 tab PO DAILY amlodipine 5 mg tablet 5 mg PO DAILY Hold Instructions: Resume on 08/18/23. discuss with your primary care provider if/when you should resume this medication trazodone 50 mg tablet 50 mg PO HS ferrous sulfate 325 mg (65 mg iron) tablet 325 mg PO UD Rx Instructions: fri,fri,friday docusate sodium 100 mg capsule 100 mg PO DAILY polyethylene glycol 3350 17 gram/dose powder 17 g PO DAILY PRN (Reason: Constipation) aspirin 81 mg tablet,delayed release (DR/EC) 81 mg PO DAILY sennosides [senna] 8.6 mg Tablet 8.6 mg PO HS losartan 25 mg Tablet 25 mg PO DAILY Hold Instructions: Resume on 08/18/23. discuss w/ your PCP if/when to resume this med omeprazole 20 mg Capsule,Delayed Release(Dr/Ec) 20 mg PO QPM Rx Instructions: before evening meal ergocalciferol (vitamin D2) [Vitamin D2] 1,250 mcg (50,000 unit) Capsule 1,250 mcg PO WK Rx Instructions: on wednesdays sulfamethoxazole-trimethoprim [Bactrim DS] 800-160 mg tablet 1 tab PO BID 10 Days Qty: 20 0RF AZO D-Mannose 2 cap PO BID erythromycin 5 mg/gram (0.5 %) ointment 1 applic OPL HS mirabegron [Myrbetriq] 50 mg tablet extended release 24 hr 50 mg PO QAM Referrals Referrals: Naresh Fu MD [Primary Care Provider] -
--- NOTE | 2024-02-07 09:13 | XRay Report ---
EXAM: Radiograph of the Chest 1 View INDICATION: Fall. TECHNIQUE: Frontal view of the chest. COMPARISON: 02/05/2024 FINDINGS: Lungs and pleural spaces: Shallow inspiration with mild basilar scarring. No consolidation or pulmonary edema. No pleural effusion or pneumothorax. Heart: Shape and configuration within normal limits allowing for technique. Mediastinum: Normal contour. Bones/joints: Degenerative changes noted throughout the spine and both shoulders. No lytic or blastic lesions noted. Soft tissues: No abnormality noted. No radiopaque foreign body noted. Vasculature: Stable tortuous aorta. Upper abdomen: No abnormality noted. IMPRESSION: Stable chronic changes. No acute disease. ACT 112: Negative or not required by law. Electronically signed by Latrice Branch 02-07-2024 09:13 AM
--- NOTE | 2024-02-07 09:15 | XRay Report ---
EXAM: Radiographs of the Pelvis 1 View INDICATION: Fall. TECHNIQUE: Frontal view of the pelvis. COMPARISON: 10/22/2023 FINDINGS: Limitations: None. Bones/joints: Degenerative changes noted in the lower lumbar spine. No acute fracture. Old internally fixed femoral fracture noted with the visualized portion of femoral nail and proximal locking hardware well-seated. Soft tissues: No abnormality noted. IMPRESSION: No acute abnormality. ACT 112: Negative or not required by law. Electronically signed by Latrice Branch 02-07-2024 09:15 AM
[2024-02-07 09:19] LABS: Basophils # (auto) 0.03 K/uL (0.00-0.20); Basophils % (auto) 0.3 %; Eosinophils # (auto) 0.16 K/uL (0.00-0.50); Eosinophils % (auto) 1.4 %; Hemoglobin 12.1 g/dl (12.0-16.0); Immature Granulocytes # (auto) 0.04 K/uL (0.01-0.20); Immature Granulocytes % (auto) 0.3 %; Lymphocytes # (auto) 0.75 K/uL (1.20-3.40); Lymphocytes % (auto) 6.4 %; Mean Corpuscular Hgb Conc 33.6 g/dL (32.0-36.0); Mean Corpuscular Volume 89.3 fL (80.0-100.0); Mean Platelet Volume 11.1 fL (9.4-12.4); Monocytes # (auto) 1.03 K/uL (0.11-0.59); Monocytes % (auto) 8.8 %; Neutrophils # (auto) 9.73 K/uL (1.40-6.50); Neutrophils % (auto) 82.8 %; Platelet Count 158 K/uL (130-400); RDW Coefficient of Variation 13.5 % (11.5-14.5); RDW Standard Deviation 44.4 fL (36.4-46.3); Red Blood Count 4.03 M/uL (4.20-5.40); White Blood Count 11.74 K/ul (4.8-10.8)
[2024-02-07 09:34] LABS: Albumin Globulin Ratio 1.3 (0.9-2); Albumin Level 3.9 gm/dl (3.4-5.0); BUN Creatinine Ratio 26.4 (10-20); Bilirubin,Total 0.9 mg/dl (0.2-1.0); Creatinine Clr Calc Pharmacy 54.5 ml/min; Potassium 3.8 mmol/L (3.5-5.1); Total Protein 6.9 gm/dl (6.0-8.3)
[2024-02-07] MEDS: SODIUM CHLORIDE 0.9% 1,000 ML IV ONE (09:54)
[2024-02-07 10:42] LABS: Influenza A virus by PCR Negative (Neg); Influenza B virus by PCR Negative (Neg); RSV by PCR Negative (Neg); SARS CoV2 RNA(COVID-19) Ceph NEGATIVE (Negative)
[2024-02-07 11:20] LABS: Appearance Urine Cloudy (Clear); Bacteria Urine Automated None Seen (None Seen); Bilirubin Urine 1+ (Negative); Blood Urine Negative (Negative); Color Urine Dark Yellow; Glucose Urine UA Negative (Negative); Ketones Urine 1+ (Negative); Leukocyte Esterase Urine 2+ (Negative); Nitrite Urine Negative (Negative); Protein Urine 1+ (Negative); Specific Gravity Urine 1.027 (1.000-1.030); Urobilinogen Urine Negative (Negative); WBC Urine Automated 21-50 /hpf (0-5); pH Urine 5.5 (4.5-7.5)
[2024-02-07] MEDS: cefTRIAXone SODIUM 2,000 MG/50 ML BAG IV STA (11:37)
--- NOTE | 2024-02-07 13:26 | History & Physical Report ---
Date of Service February 07, 2024 Assessment & Plan (1) Fall: (2) Ambulatory dysfunction: (3) Weakness: (4) Acute UTI (urinary tract infection): Plan: Fall likely related to increased weakness in setting of UTI UA suggestive of UTI CXR and Pelvic XR did not show any acute abnormalities Stop Bactrim Continue IV ceftriaxone Follow up urine culture Fall precautions PT/OT eval Continue home Vit D 50,000U weekly on Wednesdays (5) Seizure disorder: (6) Cerebral palsy: (7) Hemiparesis of right dominant side: Plan: Give home antiseizure meds missed this AM Continue home meds including keppra, depakote, lamictal Fall precautions (8) Hypertension: Plan: Continue home amlodipine and losartan (9) DVT prophylaxis: Plan: Hep sq Code status: Full Code per wildlife conservationist/RN at bedside I spent a total of 75 minutes coordinating, documenting and providing care for this patient excluding time spent in performance of separately billed services History of Present Illness Chief Complaint: Fall Primary Care Provider: Naresh Fu MD 69-year-old woman with history of CVA, PVD, seizure disorder, cerebral palsy, hypertension, obstructive hydrocephalus s/p shunt placement, recurrent UTI, vitamin D deficiency who presents from [facility] this morning. Patient has been having worsening urinary symptoms over the past week. According to caregiver at bedside, patient has been following urogynecology for urinary incontinence for sometime. This has gotten worse recently associated with dysuria. They had started nitrofurantoin at the [facility] about a week ago and patient had hematuria necessitating ER presentation on 02/05/2024 where antibiotic was changed to Bactrim. Hematuria has stopped Patient continues to report persistent symptoms besides hematuria. Today, patient went to the bathroom and afterwards could not get up from the bathroom due to weakness in the legs and fell on her buttock. Denies any head trauma., Loss of consciousness or dizziness. Reports some soreness around neck since yesterday but no trauma Reports increasing weakness in the past few days Denied fevers, chills, nausea, vomiting, abd or flank pain Denied any other complaints Has chronic right sided weakness from her cerebral palsy Ambulates in the home with a rolling walker Allergies Allergy/AdvReac Type Severity Reaction Status Date / Time adhesive Allergy Unknown HAPPENED Verified 09/21/23 10:31 A CHILD-"INSTRUCTED NOT TO USE ADHESIVES". Home Medications Medication Instructions Recorded Confirmed Type divalproex 500 mg tablet,extended 500 mg PO BID 01/26/18 02/07/24 History release 24 hr lamotrigine 100 mg tablet 100 mg PO BID 01/26/18 02/07/24 History levetiracetam 500 mg tablet 1,500 mg PO BID 01/26/18 02/07/24 History Saccharomyces boulardii 250 mg 250 mg PO QAM 09/03/20 02/07/24 History capsule (Florastor) oxybutynin chloride 5 mg 5 mg PO UD 09/03/20 02/07/24 History tablet,extended release 24 hr multivitamin (One Daily 1 tab PO DAILY 09/11/21 02/07/24 History Multivitamin tablet) amlodipine 5 mg tablet 5 mg PO DAILY 07/20/22 02/07/24 History trazodone 50 mg tablet 50 mg PO HS 01/19/23 02/07/24 History aspirin 81 mg tablet,delayed 81 mg PO DAILY 08/03/23 02/07/24 History release docusate sodium 100 mg capsule 100 mg PO DAILY 08/03/23 02/07/24 History ferrous sulfate 325 mg (65 mg 325 mg PO UD 08/03/23 02/07/24 History iron) tablet polyethylene glycol 3350 17 17 g PO DAILY PRN Constipation 08/03/23 02/07/24 History gram/dose oral powder ergocalciferol (vitamin D2) 1,250 1,250 mcg PO WK 08/11/23 02/07/24 History mcg (50,000 unit) capsule (Vitamin D2) losartan 25 mg tablet 25 mg PO DAILY 08/11/23 02/07/24 History omeprazole 20 mg capsule,delayed 20 mg PO QPM 08/11/23 02/07/24 History release sennosides 8.6 mg tablet (senna) 8.6 mg PO HS 08/11/23 02/07/24 History famotidine 20 mg tablet 20 mg PO UD 09/21/23 02/07/24 History sulfamethoxazole 800 1 tab PO BID 10 days #20 tabs 02/05/24 02/07/24 Rx mg-trimethoprim 160 mg tablet (Bactrim DS) AZO D-[place] 2 cap PO BID 02/07/24 02/07/24 History erythromycin 5 mg/gram (0.5 %) eye 1 applic OPL HS 02/07/24 02/07/24 History ointment mirabegron 50 mg tablet,extended 50 mg PO QAM 02/07/24 02/07/24 History release 24 hr (Myrbetriq) Past Med/Surg History Problem List (Updated 02/07/24 @ 12:38 by Karthik Robert DO) Acute UTI (urinary tract infection) (Acute) Weakness (Acute) Hemorrhagic cystitis (Acute) Elevated LFTs Pneumonia (Acute) UTI (urinary tract infection) (Acute) Sepsis (Acute) Prolonged QT interval PVC (premature ventricular contraction) Ventricular bigeminy Closed right femoral fracture Closed fracture of proximal end of right femur (Acute) Fall from standing (Acute) Seizure disorder Frequent falls (Acute) Lab test negative for COVID-19 virus (Acute) Acute electrocardiogram changes (Acute) Cerebral palsy Hemiparesis of right dominant side Multiple fractures of ribs of right side (Acute) History of colon polyps Diarrhea (Acute) Lymphocytic colitis Anemia Acute kidney injury superimposed on CKD DVT prophylaxis Ambulatory dysfunction Urinary urgency Chest pain (Acute) History of CVA (cerebrovascular accident) Chronic kidney disease (CKD), stage III (moderate) Osteoporosis (Chronic) Obstructive hydrocephalus (Chronic) has shunt Infantile cerebral palsy (Chronic) 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) Anxiety (Chronic) Hypertension (Chronic) Medical History Hx of chest pain Major depressive disorder Idiopathic mild intellectual disability History of colon polyps Incontinence Surgical History History of esophagogastroduodenoscopy (EGD) last 03/24/19 @ [facility] History of colonoscopy last 03/24/19 @ [facility] H/O tubal ligation History of brain shunt Family History Father Cancer Mother Cancer Social History Smoking Status: Never smoker Tobacco Type: Cigarettes Hx Alcohol Use: No Hx Substance Use: No Preferred Language: Divehi Communication Ability: Effective Communication Ability Comment: [facility] stated pt is of sound mind to sign own consents Information Systems Analyst Required: Yes Beliefs That Will Affect Care: None marital status: Single Current Living Situation: [facility] Current Living Situation Comment: [facility] Feels Safe at Home: Yes Assistive Devices: Scooter/Electric Scooter and Walker Review of Systems Review of Systems: All systems reviewed & are unremarkable except as noted in HPI & below Physical Exam Constitutional: + well hydrated; no acute distress Eyes: PERRL, conjunctivae normal, anicteric sclerae ENMT: external ear and nose normal, oropharynx normal Neck: No bruise or tenderness. Normal ROM Respiratory: normal respiratory effort, lungs clear to auscultation Cardiovascular: Rate/Rhythm: regular rate and regular rhythm S1 S2 Gastrointestinal (Abdomen): normal bowel sounds, soft, nontender, no hepatosplenomegaly Musculoskeletal: Contracture of right hand No pedal edema Neurologic: PERRL, EOMI, accommodation nl, no face palsy, no dysarthria Right sided paresis (chronic) Psychiatric: Alert and oriented to person, place, month Euthymic affect Genitourinary: No CVA tenderness Results & Data Results & Data Vital Signs (Past 12 Hours) Vital Signs Temp Pulse Pulse Resp BP BP Pulse Ox 02/07/24 11:30 72 16 128/78 02/07/24 10:30 67 18 120/76 02/07/24 09:14 73 02/07/24 08:55 78 94 02/07/24 08:41 37.0 C 82 20 115/78 93 O2 Del Method 02/07/24 11:30 02/07/24 10:30 Room Air 02/07/24 09:14 02/07/24 08:55 Room Air 02/07/24 08:41 Room Air Laboratory Results Abnormal lab results 02/07/24 02/07/24 Range/Units 08:55 11:05 WBC 11.74 H (4.8-10.8) K/ul RBC 4.03 L (4.20-5.40) M/uL Hct 36.0 L (37.0-47.0) % Neut # (Auto) 9.73 H (1.40-6.50) K/uL Lymph # (Auto) 0.75 L (1.20-3.40) K/uL [place] # (Auto) 1.03 H (0.11-0.59) K/uL BUN/Creatinine Ratio 26.4 H (10-20) Glucose 100 H (70-99(Fasting)) mg/dl AST 78 H (13-39) U/L ALT 88 H (7-52) U/L Urine Appearance Cloudy A (Clear) Urine Protein 1+ H (Negative) Urine Ketones 1+ H (Negative) Urine Bilirubin 1+ H (Negative) Ur Leukocyte Esterase 2+ H (Negative) Urine WBC (Auto) 21-50 H (0-5) /hpf Urine RBC (Auto) 3-5 H (0-2) /hpf U Hyaline Cast (Auto) 3-5 H (0-2) /lpf U Epithel Cells (Auto) 11-20 H (0-2) /hpf Diagnostic Findings Radiograph of the Chest 1 View INDICATION: Fall. TECHNIQUE: Frontal view of the chest. COMPARISON: 02/05/2024 FINDINGS: Lungs and pleural spaces: Shallow inspiration with mild basilar scarring. No consolidation or pulmonary edema. No pleural effusion or pneumothorax. Heart: Shape and configuration within normal limits allowing for technique. Mediastinum: Normal contour. Bones/joints: Degenerative changes noted throughout the spine and both shoulders. No lytic or blastic lesions noted. Soft tissues: No abnormality noted. No radiopaque foreign body noted. Vasculature: Stable tortuous aorta. Upper abdomen: No abnormality noted. IMPRESSION: Stable chronic changes. No acute disease. Radiographs of the Pelvis 1 View INDICATION: Fall. TECHNIQUE: Frontal view of the pelvis. COMPARISON: 10/22/2023 FINDINGS: Limitations: None. Bones/joints: Degenerative changes noted in the lower lumbar spine. No acute fracture. Old internally fixed femoral fracture noted with the visualized portion of femoral nail and proximal locking hardware well-seated. Soft tissues: No abnormality noted. IMPRESSION: No acute abnormality. Code Status & VTE Plan Code Status Full
[2024-02-07] MEDS: DIVALPROEX EXTENDED RELEASE 500 MG TAB PO ONE (13:40)
[2024-02-07] MEDS: levETIRAcetam 500 MG TAB PO ONE (13:41)
[2024-02-07] MEDS ORDERED: POLYETHYLENE (MIRALAX) 17 GM PACK PO PRN (16:57)
[2024-02-07] MEDS ORDERED: FAMOTIDINE 20 MG TAB PO PRN (16:57)
[2024-02-07] MEDS: PANTOprazole 40 MG TAB PO SCH (20:02)
[2024-02-07] MEDS: ERYTHROMYCIN OP OINT 5 MG/GM 3.5 GM TUBE OPL SCH (20:02)
[2024-02-07] MEDS: DIVALPROEX EXTENDED RELEASE 500 MG TAB PO SCH (20:02)
[2024-02-07] MEDS: traZODone HCL 50 MG TAB PO SCH (20:04)
[2024-02-07] MEDS: OXYBUTYNIN CHLORIDE XL 5 MG TABCR PO SCH (20:04)
[2024-02-07] MEDS: levETIRAcetam 500 MG TAB PO SCH (20:05)
[2024-02-07] MEDS: lamoTRIgine 100 MG TAB PO SCH (20:05)
[2024-02-07] MEDS: SENNA 8.6 MG TAB PO SCH (20:07)
[2024-02-07] MEDS ORDERED: AZO D MANNOSE PO SCH (21:00)
[2024-02-07] MEDS: ACETAMINOPHEN 325 MG TAB PO STA (21:10)
--- NOTE | 2024-02-08 08:13 | Hospitalist Progress Note ---
Date of Service February 08, 2024 Assessment & Plan (1) Ambulatory dysfunction: (2) Weakness: (3) Acute UTI (urinary tract infection): Plan: Fall: Ambulatory Dysfunction: Weakness: Fall likely in the setting of a UTI as outlined below CXR and pelvic XR negative No leukocytosis today WBC on admission 11.74--> 8.13 Vitamin D ordered as home med PT/OT consult placed UTI: worsening dysuria over the past week Recent diagnosis of UTI and started on Macrobid Symptoms not improving; Macrobid switched to Bactrim Leukocytosis improving 11.74--> 8.13 today Started on Rocephin; continue and adjust based on culture results Urine culture is pending from ED * Urine culture from 01/29/24: E.Coli and aerococcus; culture and sensitivity susceptible to Cefazolin, Cefepime, Ceftriaxone, Gent, Macrobid, and Bactrim (caused transaminitis in the past). * Resistant to Ampicillin, Cipro, Levoquin, and Unasyn * Urine Cx from 09/2023: E.Coli ID saw patient in July 2023; if no improvement could re-involve. Would discharge on Cefuroxime. Transaminitis: LFTs in 08/10: AST 216, SLT 251, Alk Phos 597; likely induced by medications and thought to have been Bactrim LFTs normalized in October 2023 LFTs elevated this admission AST 129, ALT 137, Alk Phos 273; thought to be from Bactrim Bactrim DC and patient on Rocephin Trend LFTs in AM H/O seizure disorder: Chronic Takes Lamictal, Depakote, and Keppra; continue Reportedly by patient last seizure was years ago HTN: Chronic Takes amlodipine and losartan; on hold OAB: Takes mirabegron; continue Disposition: PCP: Dr. Fu Code Status: Full Code VTE Prophyalxis: teds and scds Anticipate could be discharged tomorrow 02/08 back to [facility] once PT/OT evaluates I spent a total of 56 minutes coordinating, documenting, and providing care for this patient excluding time spent in the performance of separately billed services. All of the aforementioned completed while collaborating with the assigned attending physician for a full treatment plan. Please see their addendum for further details. (4) Seizure disorder: (5) Cerebral palsy: (6) Hemiparesis of right dominant side: Plan: Give home antiseizure meds missed this AM Continue home meds including keppra, depakote, lamictal Fall precautions (7) Hypertension: Plan: Continue home amlodipine and losartan (8) DVT prophylaxis: Plan: Hep sq Code status: Full Code per form setter/driver/RN at bedside I spent a total of 75 minutes coordinating, documenting and providing care for this patient excluding time spent in performance of separately billed services Admission and Anticipated Discharge Date Admission Date: February 07, 2024 Supervising Physician Co-Signing Physician Notes Pt seen and examined by me, care coordinated w/ E. MAYANK Vu, pls refer to her note above for further detail. Pt is currently seen sitting on the edge of the bed, seen walking with a walker w/ PT. Denies any fever, chills, chest pain, shortness of breath, denies dysuria. Overall feels well. She is awake, and able to answer questions appropriately. Lungs CTAB, heart sounds regular, abdomen s oft, nontender. urine Cultures from 01/28 reviewed. Bactrim stopped on admission. Cont. w/ iv ceftriaxone for now. Monitor LFTs. Possibly DC tmrw. MD Ellis Subjective Pt AAOx3 and able to answer all questions appropriately. She denies VINCENT, dizziness, fever, chills, SOB, chest pain, N/V/D. She reports that she was going to the bathroom at the [facility] and went to stand up by holding on to the bar and fell. She did not have any dizziness or lightheadedness or LOC during this encounter. She reports that she does have Osteoporosis and feels that she is weaker from that as well. See below for outlined plan of care. Review of Systems Review of Systems: Neuro: (-) Falls, trauma, slurred speech HEENT: (-) VINCENT, dizziness, dysphagia, visual or auditory changes CV: (-) CP, palpitations, swelling Resp: (-) SOB GI: (-) appetite changes, N/V/D, bowel changes : (-) urinary changes Skin: (-) rashes Psych: (-) anxiety, depression Physical Exam Physical Exam: Neuro: AAOx3, PERRLA, no aphagia, memory changes, CNII-XII grossly intact HEENT: head normocephalic, moist mucus membranes CV: S1/S2, (-) M/G/R, (-) edema, cap refill < 3 seconds Resp: Lungs CTA in all [place]. On RA GI: Abdomen S/NT/ND, Ax4 bowel sounds, (-) CVA tenderness Musculoskeletal: 5/5 B/L UE strength, 5/5 B/L LE strength. Skin: (-) rashes , (-) erythema. (+) ecchymosis on left upper [place] Psych: euthymic mood Results & Data Results & Data Vital Signs (Past 12 Hours) Vital Signs Temp Pulse Resp BP Pulse Ox O2 Del Method 02/08/24 07:06 36.8 C 67 18 109/70 96 Room Air 02/07/24 20:42 37.4 C 76 18 113/70 93 Room Air Laboratory Results Short CBC 02/07/24 Range/Units 08:55 WBC 11.74 H (4.8-10.8) K/ul Hgb 12.1 (12.0-16.0) g/dl Hct 36.0 L (37.0-47.0) % Plt Count 158 (130-400) K/uL BMP 02/07/24 08:55 Sodium 137 Potassium 3.8 Chloride 103 Carbon Dioxide 24 BUN 23 Creatinine 0.87 Glucose 100 H Calcium 9.0 Liver Function 02/07/24 Range/Units 08:55 Total Bilirubin 0.9 (0.2-1.0) mg/dl AST 78 H (13-39) U/L ALT 88 H (7-52) U/L Alkaline Phosphatase 102 (34-104) U/L Albumin 3.9 (3.4-5.0) gm/dl Urine 02/07/24 Range/Units 11:05 Urine Color Dark Yellow Urine Appearance Cloudy A (Clear) Urine pH 5.5 (4.5-7.5) Ur Specific [place] 1.027 (1.000-1.030) Urine Protein 1+ H (Negative) Urine Glucose (UA) Negative (Negative) Medications Administered Current Inpatient Medications Amlodipine Besylate (Amlodipine Besylate 5 Mg Tab) 5 mg PO DAILY ANASTASIIA Stop: 03/09/24 08:59 Last Admin: 02/08/24 08:57 Dose: 5 mg Aspirin (Aspirin 81 Mg Ectab) 81 mg PO DAILY ANASTASIIA Stop: 03/09/24 08:59 Last Admin: 02/08/24 08:57 Dose: 81 mg Divalproex Sodium (Divalproex Extended Release 500 Mg Tab) 500 mg PO BID [facility] Stop: 03/08/24 20:59 Last Admin: 02/08/24 08:58 Dose: 500 mg Docusate Sodium (Docusate Sodium 100 Mg Cap) 100 mg PO DAILY ANASTASIIA Stop: 03/09/24 08:59 Last Admin: 02/08/24 09:08 Dose: 100 mg Ergocalciferol (Ergocalciferol 1250 Mcg (50,000 Units) Cap) 1,250 mcg PO We@0900 [facility] Stop: 03/19/24 08:59 Erythromycin (Erythromycin Op Oint 5 Mg/Gm 3.5 Gm Tube) 1 appln OPL HS [facility] Stop: 02/17/24 20:59 Last Admin: 02/07/24 20:02 Dose: 1 appln Famotidine (Famotidine 20 Mg Tab) 20 mg PO DAILY PRN PRN Reason: heartburn Stop: 03/08/24 16:56 Ferrous Sulfate (Ferrous Sulfate 325 Mg Tab) 325 mg PO MoWeFr@0900 [facility] Stop: 03/10/24 08:59 Ceftriaxone Sodium (Rocephin) 1,000 mg in 50 mls @ 100 mls/hr IV Q24H [facility] Stop: 02/13/24 08:59 Last Infusion: 02/08/24 10:07 Dose: Infused Lamotrigine (Lamotrigine 100 Mg Tab) 100 mg PO BID [facility]; Protocol Stop: 03/08/24 20:59 Last Admin: 02/08/24 08:58 Dose: 100 mg Levetiracetam (Levetiracetam 500 Mg Tab) 1,500 mg PO BID [facility] Stop: 03/08/24 20:59 Last Admin: 02/08/24 08:59 Dose: 1,500 mg Losartan Potassium (Losartan Potassium 25 Mg Tab) 25 mg PO DAILY [facility] Stop: 03/09/24 08:59 Last Admin: 02/08/24 08:59 Dose: 25 mg Multivitamins (Multivitamin Tab) 1 tab PO DAILY [facility] Stop: 03/09/24 08:59 Last Admin: 02/08/24 08:59 Dose: 1 tab Oxybutynin Chloride (Oxybutynin Chloride Xl 5 Mg Tabcr) [facility] Stop: 03/09/24 08:59 Last Admin: 02/08/24 09:00 Dose: 5 mg Oxybutynin Chloride (Oxybutynin Chloride Xl 5 Mg Tabcr) 10 mg PO [facility] Stop: 03/08/24 20:59 Last Admin: 02/07/24 20:04 Dose: 10 mg Pantoprazole Sodium (Pantoprazole 40 Mg Tab) 40 mg PO QPM [facility] Stop: 03/08/24 20:59 Last Admin: 02/07/24 20:02 Dose: 40 mg Polyethylene Glycol (Polyethylene (Miralax) 17 Gm Pack) 17 gm PO DAILY PRN PRN Reason: Constipation Stop: 03/08/24 16:56 Saccharomyces Boulardii (Saccharomyces Boulardii 250 Mg Cap) [facility] [place] Stop: 03/09/24 08:59 Last Admin: 02/08/24 09:00 Dose: 250 mg Sennosides (Senna 8.6 Mg Tab) 8.6 mg PO [facility] Stop: 03/08/24 20:59 Last Admin: 02/07/24 20:07 Dose: 8.6 mg Trazodone HCl (Trazodone Hcl 50 Mg Tab) 50 mg PO [facility] Stop: 03/08/24 20:59 Last Admin: 02/07/24 20:04 Dose: 50 mg Vibegron (Vibegron 75 Mg Tab) 75 [facility] [place] Stop: 03/09/24 08:59 Last Admin: 02/08/24 09:00 Dose: 75 mg
[2024-02-08 08:29] LABS: Hematocrit (blood only) 35.9 % (37.0-47.0); Hemoglobin 11.8 g/dl (12.0-16.0); Mean Corpuscular Hemoglobin 29.4 pg (25.0-34.0); Mean Corpuscular Hgb Conc 32.9 g/dL (32.0-36.0); Mean Corpuscular Volume 89.3 fL (80.0-100.0); Mean Platelet Volume 10.7 fL (9.4-12.4); Platelet Count 148 K/uL (130-400); RDW Coefficient of Variation 13.3 % (11.5-14.5); RDW Standard Deviation 43.8 fL (36.4-46.3); Red Blood Count 4.02 M/uL (4.20-5.40); White Blood Count 8.13 K/ul (4.8-10.8)
[2024-02-08] MEDS: amLODIPine BESYLATE 5 MG TAB PO SCH (08:57)
[2024-02-08] MEDS: ASPIRIN 81 MG ECTAB PO SCH (08:57)
[2024-02-08] MEDS: cefTRIAXone SODIUM 1,000 MG/50 ML BAG IV SCH (08:58)
[2024-02-08] MEDS: LOSARTAN POTASSIUM 25 MG TAB PO SCH (08:59)
[2024-02-08] MEDS: MULTIVITAMIN TAB PO SCH (08:59)
[2024-02-08] MEDS: SACCHAROMYCES BOULARDII 250 MG CAP PO SCH (09:00)
[2024-02-08] MEDS: VIBEGRON 75 MG TAB PO SCH (09:00)
[2024-02-08] MEDS: OXYBUTYNIN CHLORIDE XL 5 MG TABCR PO SCH (09:00)
[2024-02-08] MEDS: DOCUSATE SODIUM 100 MG CAP PO SCH (09:08)
[2024-02-08 09:29] LABS: Albumin Level 3.8 gm/dl (3.4-5.0); Bilirubin,Total 1.2 mg/dl (0.2-1.0); Calcium 8.8 mg/dl (8.6-10.3); Potassium 3.6 mmol/L (3.5-5.1)
[2024-02-08 09:36] LABS: Albumin Globulin Ratio 1.5 (0.9-2); BUN Creatinine Ratio 25.5 (10-20); Creatinine Clr Calc Pharmacy 86.2 ml/min; Globulin 2.6 gm/dl (2.5-4.0); Total Protein 6.4 gm/dl (6.0-8.3)
--- NOTE | 2024-02-08 13:07 | Electrocardiogram Report ---
Test Reason : Blood Pressure : */* mmHG Vent. Rate : 76 BPM Atrial Rate : 76 BPM P-R Int : 182 ms QRS Dur : 84 ms QT Int : 396 ms P-R-T Axes : 55 1 32 degrees QTcB Int : 445 ms Poor data quality, interpretation may be adversely affected Normal sinus rhythm Abnormal ECG When compared with ECG of 05-Feb-2024 01:21, Premature ventricular complexes are no longer Present Nonspecific T wave abnormality now evident in Inferior leads Confirmed by Karthik Sanchez ([id number]) on 02/08/2024 1:07:09 PM Referred By: REFERRED SELF Confirmed By: Karthik Sanchez
[2024-02-09] MEDS: IBUPROFEN 200 MG TAB PO STA (02:12)
[2024-02-09 07:17] LABS: Hematocrit (blood only) 32.9 % (37.0-47.0); Hemoglobin 11.2 g/dl (12.0-16.0); Mean Corpuscular Hemoglobin 30.2 pg (25.0-34.0); Mean Corpuscular Volume 88.7 fL (80.0-100.0); Mean Platelet Volume 10.9 fL (9.4-12.4); Platelet Count 181 K/uL (130-400); RDW Coefficient of Variation 13.3 % (11.5-14.5); RDW Standard Deviation 43.8 fL (36.4-46.3); Red Blood Count 3.71 M/uL (4.20-5.40); White Blood Count 5.65 K/ul (4.8-10.8)
[2024-02-09 07:22] LABS: Albumin Globulin Ratio 1.2 (0.9-2); Albumin Level 3.3 gm/dl (3.4-5.0); BUN Creatinine Ratio 25.4 (10-20); Bilirubin,Total 0.8 mg/dl (0.2-1.0); Calcium 8.8 mg/dl (8.6-10.3); Creatinine Clr Calc Pharmacy 75.3 ml/min; Globulin 2.8 gm/dl (2.5-4.0); Magnesium 2.1 mg/dl (1.7-2.4); Phosphorus 3.8 mg/dl (2.5-4.9); Potassium 3.9 mmol/L (3.5-5.1); Total Protein 6.1 gm/dl (6.0-8.3)
[2024-02-09] MEDS: FERROUS SULFATE 325 MG TAB PO SCH (08:10)
--- NOTE | 2024-02-09 09:03 | Hospitalist Progress Note ---
Date of Service February 09, 2024 Assessment & Plan (1) Fall: (2) Ambulatory dysfunction: (3) Weakness: (4) Acute UTI (urinary tract infection): Plan Cecilia Greer (Debbie) is a 69-year-old female with past medical history significant for PVD, history of CVA, seizure disorder, cerebral palsy with chronic right-sided weakness, hypertension, obstructive hydrocephalus s/p shunt placement, recurrent UTI and vitamin D deficiency who presented to the ED via EMS on 02/07/2024 from her halfway secondary to a fall. Fall at Home Ambulatory Dysfunction, Generalized Weakness: Fall likely in the setting of acute UTI as outlined below. CXR and pelvic XR unremarkable on admission. PT/OT evaluated the patient - recommend return home to prior living conditions with 09/09 support as needed. Plan for patient to return back to her halfway tomorrow. Acute UTI Worsening dysuria over the past week prior to presentation. UA suggestive of UTI on admission. Recent diagnosis of UTI and started on Macrobid. Symptoms not improving; Macrobid switched to Bactrim. Urine culture from ED is unremarkable - no evidence of bacterial growth. Started on Rocephin at time of admission (currently on day #3); Leukocytosis has resolved. Previous urine culture results: * Urine culture from 01/29/2024: E.Coli and Aerococcus * C/S susceptible to cefazolin, cefepime, ceftriaxone, gent, Macrobid and Bactrim (Bactrim has caused transaminitis in the past). * Was resistant to ampicillin, cipro, Levaquin and Unasyn. * Urine culture from 09/2023: E. coli ID saw patient in July 2023; if no improvement could re-involve. Plan to discharge on cefuroxime based on her previous urine culture results. Transaminitis LFTs in 07/2023: AST 216, SLT 251, Alk Phos 597 --> likely induced by medications and was thought to have been due to Bactrim. LFTs normalized in October 2023. LFTs elevated this admission on 02/07 --> AST 129, ALT 137, Alk Phos 273; thought to be from Bactrim. Bactrim was subsequently discontinued on admission and she was started on IV Rocephin. LFTs remain elevated but stable, continue to trend. H/O Seizure Disorder: Chronic, reportedly patient's last seizure was "years ago." Takes Lamictal, Depakote and Keppra - continue. Seizure precautions. Other Chronic Medical Conditions: * HTN - Remains relatively hypotensive but asymptomatic. Continue to monitor BP closely off of home amlodipine and losartan. * OAB - Continue oxybutynin chloride, Myrbetriq. GERD - Continue omeprazole/famotidine. Can continue iron supplementation (Hgb stable), ASA. DVT Prophylaxis: SQ Heparin Code Status: FULL CODE PCP: Naresh Fu MD Disposition: Admitted in Med/Surg - Anticipate discharge back to her halfway tomorrow morning per discussion with CM. Patient seen in collaboration with Dr. Corral. Please see addendum. I spent a total of 50 minutes coordinating, documenting, and providing care for this patient excluding time spent in the performance of separately billed services. This included personally reviewing all current laboratories and imaging studies, medical reconciliation, outpatient chart review and discussion with specialists. This chart was completed in part utilizing Speech Voice Recognition Software. Grammatical errors, random word insertions, pronoun errors, and incomplete sentences are an occasional consequence of this system due to software limitations, ambient noise, and hardware issues. Any formal questions or concerns about the content, text, or information contained within the body of this dictation should be directly addressed to the provider for clarification. Admission and Anticipated Discharge Date Admission Date: February 08, 2024 Supervising Physician Co-Signing Physician Notes Pt seen and examined by me, care coordinated w/ SNOW, pls refer to her note above for further detail. Pt is currently laying in bed, in NAD. Yesterday seen walking with a walker w/ PT. Denies any fever, chills, chest pain, shortness of breath, denies dysuria. Overall feels well. She is awake, and able to answer questions appropriately. Lungs CTAB, heart sounds regular, abdomen soft, nontender. urine Cultures from 01/28 reviewed. Bactrim stopped on admission. Cont. w/ iv ceftriaxone for now. Monitor LFTs. BP lower today but pt without any new symptoms. May need to adjust her BP meds. Possibly DC tmrw. MD Ellis Subjective Patient seen and examined at bedside this morning. She was noted to be hypotensive with BP of 99/66 earlier this morning per nursing staff however patient remained asymptomatic. Repeat BP improved to the 120s/70s without any intervention. Her home losartan and amlodipine continue to be on hold. Patient offers no complaints this morning. She ate breakfast this morning without any issues. Denies any headache, lightheadedness/dizziness, SOB or chest pain. She is eager to return back to her halfway. Review of Systems Review of Systems: At least ten systems reviewed and negative, except as noted in the subjective section. Physical Exam Physical Exam: General: WD/WN, NAD, sitting up in bed, very pleasant, conversing appropriately. A+Ox3, euthymic affect. HEENT: Normocephalic, atraumatic. Conjunctivae normal. External ear and nose normal, oropharynx normal. Respiratory: Normal respiratory effort, lungs clear to auscultation, no wheeze/rales/rhonchi. No accessory muscle use. Cardiovascular: Regular rate, rhythm, normal peripheral pulses, no BLE edema. Vessels: No JVD. Abdomen/GI: Normal bowel sounds, soft, nondistended, nontender to palpation in all quadrants. Extremities/Musculoskeletal: No cyanosis or clubbing, extremities motor strength intact, moves all extremities. Neurologic: No overt focal deficits, CN's II-XI not formally tested but appear grossly intact bilaterally. Skin: No rashes, normal color, warm/dry. Results & Data Results & Data Vital Signs (Past 12 Hours) Vital Signs Temp Pulse Resp BP Pulse Ox O2 Del Method 02/09/24 07:15 36.8 C 77 16 99/66 L 93 Room Air Laboratory Results Short CBC 02/09/24 Range/Units 06:21 WBC 5.65 (4.8-10.8) K/ul Hgb 11.2 L (12.0-16.0) g/dl Hct 32.9 L (37.0-47.0) % Plt Count 181 (130-400) K/uL BMP 02/09/24 06:21 Sodium 136 Potassium 3.9 Chloride 103 Carbon Dioxide 25 BUN 16 Creatinine 0.63 Glucose 87 Calcium 8.8 Liver Function 02/09/24 Range/Units 06:21 Total Bilirubin 0.8 (0.2-1.0) mg/dl AST 114 H (13-39) U/L ALT 147 H (7-52) U/L Alkaline Phosphatase 334 H (34-104) U/L Albumin 3.3 L (3.4-5.0) gm/dl (1) Fall Encounter type: initial encounter Qualified Code(s): W19.XXXA - Unspecified fall, initial encounter
[2024-02-10] MEDS ORDERED: ACETAMINOPHEN 325 MG TAB PO PRN (07:44)
[2024-02-10] MEDS: ACETAMINOPHEN 325 MG TAB ONE (07:55)
--- NOTE | 2024-02-10 09:18 | Discharge Summary ---
Discharge Summary Date of Service February 10, 2024 Principal Dx & Hospital Course #1 = Principal Diagnosis (1) Fall: (2) Ambulatory dysfunction: (3) Weakness: (4) Acute UTI (urinary tract infection): Sapna Cecilia Greer (Debbie) is a 69-year-old female with past medical history significant for PVD, history of CVA, seizure disorder, cerebral palsy with chronic right-sided weakness, hypertension, obstructive hydrocephalus s/p shunt placement, recurrent UTI and vitamin D deficiency who presented to the ED via EMS on 02/07/2024 from her snf secondary to a fall. Fall at Home Ambulatory Dysfunction, Generalized Weakness: Fall likely in the setting of acute UTI as outlined below. CXR and pelvic XR unremarkable on admission. PT/OT evaluated the patient - recommend return home to prior living conditions with 09/09 support as needed. Plan for patient to return back to her [facility] snf today. Acute UTI Worsening dysuria over the past week prior to presentation. UA suggestive of UTI on admission. Recent diagnosis of UTI and started on Macrobid. Symptoms not improving; Macrobid switched to Bactrim. Urine culture from ED is unremarkable - no evidence of bacterial growth. Was started on Rocephin at time of admission; Leukocytosis has resolved. Previous urine culture results: * Urine culture from 01/29/2024: E.Coli and Aerococcus * C/S susceptible to cefazolin, cefepime, ceftriaxone, gent, Macrobid and Bactrim (Bactrim has caused transaminitis in the past). * Was resistant to ampicillin, cipro, Levaquin and Unasyn. * Urine culture from 09/2023: E. coli Plan to discharge on 2 more days of oral cefuroxime 250mg BID based on her previous urine culture results. Transaminitis LFTs in 07/2023: AST 216, SLT 251, Alk Phos 597 --> likely induced by medications and was thought to have been due to Bactrim. LFTs normalized in October 2023. LFTs elevated this admission on 02/07 --> AST 129, ALT 137, Alk Phos 273; thought to be from Bactrim. Bactrim was subsequently discontinued on admission and she was started on IV Rocephin. LFTs remain elevated at discharge (ALT 148, AST 93 and Alk Phos 524). Patient will need repeat LFTs completed at her PCP f/u appt with Dr. Fu. H/O Seizure Disorder: Chronic, reportedly patient's last seizure was "years ago." Takes Lamictal, Depakote and Keppra - continue. Other Chronic Medical Conditions: * HTN - Was relative hypotensive during admission. * Home losartan 25mg restarted prior to d/c; continuing to hold home amlodipine 5mg daily until otherwise directed by her PCP. * OAB - Continue oxybutynin chloride, Myrbetriq. GERD - Continue omeprazo le/famotidine. Can continue iron supplementation (Hgb remained stable), ASA. PCP: Naresh Fu MD - F/u appt on 02/17/2024 @ 10:20AM. Disposition: Patient is being discharged back to her [facility] snf in good condition with close PCP f/u as outlined above. Patient seen in collaboration with Dr. Corral. Please see addendum. I spent a total of 60 minutes coordinating, documenting, and providing care for this patient excluding time spent in the performance of separately billed services. This included personally reviewing all current laboratories and imaging studies, medical reconciliation, outpatient chart review and discussion with specialists. This chart was completed in part utilizing Speech Voice Recognition Software. Grammatical errors, random word insertions, pronoun errors, and incomplete sentences are an occasional consequence of this system due to software limitations, ambient noise, and hardware issues. Any formal questions or concerns about the content, text, or information contained within the body of this dictation should be directly addressed to the provider for clarification. Notes For Next Care Provider Patient will need repeat liver enzymes at her follow-up appointment. She was found to have mild transaminitis during this admission which we suspect is a result of her recently taking Bactrim. Her LFTs at time of discharge were the following: ALT 148, AST 93 and Alk Phos 524. She was found to be relatively hypotensive during her admission. Her home losartan 25mg daily was restarted. We have continued to hold her home amlodipine 5mg daily. Patient is also requesting referral to [facility] for further evaluation of her urinary incontinence/recurrent UTIs. Medication Changes From Visit 1.) Set to complete another 2 days of oral cefuroxime 250mg BID for treatment of an acute UTI. 2.) Home amlodipine 5mg on HOLD as she was relatively hypotensive during admission. CONTINUE home losartan 25mg daily. Admission HPI Per Admitting Provider 69-year-old woman with history of CVA, PVD, seizure disorder, cerebral palsy, hypertension, obstructive hydrocephalus s/p shunt placement, recurrent UTI, vitamin D deficiency who presents from snf for fall this morning. Patient has been having worsening urinary symptoms over the past week. According to caregiver at bedside, patient has been following urogynecology for urinary incontinence for sometime. This has gotten worse recently associated with dysuria. They had started nitrofurantoin at the snf about a week ago and patient had hematuria necessitating ER presentation on 02/05/2024 where antibiotic was changed to Bactrim. Hematuria has stopped Patient continues to report persistent symptoms besides hematuria. Today, patient went to the bathroom and afterwards could not get up from the bathroom due to weakness in the legs and fell on her buttock. Denies any head trauma., Loss of consciousness or dizziness. Reports some soreness around neck since yesterday but no trauma Reports increasing weakness in the past few days Denied fevers, chills, nausea, vomiting, abd or flank pain Denied any other complaints Has chronic right sided weakness from her cerebral palsy Ambulates in the home with a rolling walker Admission Exam Per Admitting Provider Constitutional: + well hydrated; no acute distress Eyes: PERRL, conjunctivae normal, anicteric sclerae ENMT: external ear and nose normal, oropharynx normal Neck: No bruise or tenderness. Normal ROM Respiratory: normal respiratory effort, lungs clear to auscultation Cardiovascular: Rate/Rhythm: regular rate and regular rhythm S1 S2 Gastrointestinal (Abdomen): normal bowel sounds, soft, nontender, no hepatosplenomegaly Musculoskeletal: Contracture of right hand No pedal edema Neurologic: PERRL, EOMI, accommodation nl, no face palsy, no dysarthria Right sided paresis (chronic) Psychiatric: Alert and oriented to person, place, month Euthymic affect Genitourinary: No CVA tenderness Discharge Exam General: WD/WN, NAD, sitting up in bed, very pleasant, conversing appropriately. A+Ox3, euthymic affect. HEENT: Normocephalic, atraumatic. Conjunctivae normal. External ear and nose normal, oropharynx normal. Respiratory: Normal respiratory effort, lungs clear to auscultation, no wheeze/rales/rhonchi. No accessory muscle use. Cardiovascular: Regular rate, rhythm, normal peripheral pulses, no BLE edema. Vessels: No JVD. Abdomen/GI: Normal bowel sounds, soft, nondistended, nontender to palpation in all quadrants. Extremities/Musculoskeletal: No cyanosis or clubbing, extremities motor strength intact, moves all extremities. Neurologic: No overt focal deficits, CN's II-XI not formally tested but appear grossly intact bilaterally. Skin: No rashes, normal color, warm/dry. Updated Medication List Medication Instructions Recorded Confirmed Type divalproex 500 mg tablet,extended 500 mg PO BID 01/26/18 02/07/24 History release 24 hr lamotrigine 100 mg tablet 100 mg PO BID 01/26/18 02/07/24 History levetiracetam 500 mg tablet 1,500 mg PO BID 01/26/18 02/07/24 History Saccharomyces boulardii 250 mg 250 mg PO QAM 09/03/20 02/07/24 History capsule (Florastor) oxybutynin chloride 5 mg 5 mg PO UD 09/03/20 02/07/24 History tablet,extended release 24 hr multivitamin (One Daily 1 tab PO DAILY 09/11/21 02/07/24 History Multivitamin tablet) amlodipine 5 mg tablet 5 mg PO DAILY 07/20/22 02/07/24 History trazodone 50 mg tablet 50 mg PO HS 01/19/23 02/07/24 History aspirin 81 mg tablet,delayed 81 mg PO DAILY 08/03/23 02/07/24 History release docusate sodium 100 mg capsule 100 mg PO DAILY 08/03/23 02/07/24 History ferrous sulfate 325 mg (65 mg 325 mg PO UD 08/03/23 02/07/24 History iron) tablet polyethylene glycol 3350 17 17 g PO DAILY PRN Constipation 08/03/23 02/07/24 History gram/dose oral powder ergocalciferol (vitamin D2) 1,250 1,250 mcg PO WK 08/11/23 02/07/24 History mcg (50,000 unit) capsule (Vitamin D2) losartan 25 mg tablet 25 mg PO DAILY 08/11/23 02/07/24 History omeprazole 20 mg capsule,delayed 20 mg PO QPM 08/11/23 02/07/24 History release sennosides 8.6 mg tablet (senna) 8.6 mg PO HS 08/11/23 02/07/24 History famotidine 20 mg tablet 20 mg PO UD 09/21/23 02/07/24 History AZO D-Mannose 2 cap PO BID 02/07/24 02/07/24 History erythromycin 5 mg/gram (0.5 %) eye 1 applic OPL HS 02/07/24 02/07/24 History ointment mirabegron 50 mg tablet,extended 50 mg PO QAM 02/07/24 02/07/24 History release 24 hr (Myrbetriq) cefuroxime axetil 250 mg tablet 250 mg PO BID 2 days #4 tabs 02/10/24 Rx Hospital Stay Data Consultations 02/07/24 12:31 ED Decision to Admit Stat Pending Results Patient Have Any Pending Studies at Discharge: No Discharge Instructions Given to Patient (Per Discharging Provider) Ilya Carmona were admitted to [facility] from 02/07/2024 to 02/10/2024 secondary to worsening urinary symptoms and were found to have an acute urinary tract infection (UTI), which is also known as an infection of your bladder. Over the past few months, you have had recurrent UTIs and have grown the following bacteria on prior urine cultures: E. coli and Aerococcus. Prior to being admitted this time, you were being managed as an outpatient on an oral antibiotic called Macrobid before being transitioned to a different antibiotic called Bactrim. Of note, a pelvic x-ray and chest x-ray were completed in the emergency department on 02/07/2024 which were unremarkable. During this admission, your urine culture was thankfully negative and did NOT grow any evidence of bacteria. You were treated with an IV antibiotic called Rocephin while you were admitted and are being discharged on a 2-day course of an oral antibiotic called cefuroxime. Please take this antibiotic as prescribed and in its entirety! We did discover that your liver enzymes (protein level in your blood) were elevated during this admission. We suspect that your liver enzymes were elevated due to one of the previous antibiotics you were taking. Your blood pressure was noted to be low during your admission therefore we HELD your home blood pressure medications for some time however we have since RESTARTED your losartan 25mg daily. Please continue to HOLD your amlodipine 5mg daily until you are seen by Dr. Fu at your follow-up appointment as outlined below! MEDICATION CHANGES: 1.) You will return to your snf on the following oral antibiotic: Cefuroxime 250mg by mouth twice daily for TWO days with your FIRST dose being TOMORROW MORNING (02/11/2024) and your LAST dose being on NIGHT, February 11. [facility] [place], [place]. 2.) It is recommended that you take a probiotic to protect your gut lining and intestinal salvatore while on the oral antibiotic mentioned above. 3.) CONTINUE taking your LOSARTAN 25mg DAILY. HOLD your AMLODIPINE 5mg DAILY until you are seen by Dr. Fu! RECOMMENDATIONS FOR FOLLOW-UP: 1.) PCP appointment with Dr. Fu --> 02/17/2024 @ 10:20AM, [facility]. * Your liver enzymes will need to be rechecked at this appointment - this is outlined in your paperwork for Dr. Fu. OTHER INSTRUCTIONS: Seek medical attention if you have: * temperature above 101F * chest pain or trouble breathing * abdominal pain, nausea, vomiting * diarrhea, dark stools or bloody stools * any unanswered questions or concerns Call 911 if symptoms are severe. Please take good care of yourself! It has been a pleasure taking care of you. If you have any questions regarding your recent hospitalization please contact [facility] and request [facility] Hospitalist @ [phone]. Total Time Total Time Spent Total Time Spent (In Minutes): 60 Supervising Physician Co-Signing Physician Notes Pt seen and examined by me, care coordinated w/ SNOW, pls refer to her note above for further detail. Pt is currently laying in bed, in NAD. Denies any fever, chills, chest pain, shortness of breath, denies dysuria. Overall feels well. She is awake, and able to answer questions appropriately. Lungs CTAB, heart sounds regular, abdomen soft, nontender. urine Cultures from 01/28 reviewed. Bactrim stopped on admission. Cont. w/ iv ceftriaxone while inpt, will discharge on po cefuroxime. Monitor LFTs. BP lower on lower side yesterday, resumed losartan, recommend to hold amlodipine and monitor BP as outpatient. Pt may also benefit from uro-hospital receptionist eval if not done so in the past. MD Ellis
[2024-02-10 09:30] LABS: Hematocrit (blood only) 36.1 % (37.0-47.0); Hemoglobin 12.2 g/dl (12.0-16.0); Mean Corpuscular Hgb Conc 33.8 g/dL (32.0-36.0); Mean Corpuscular Volume 88.7 fL (80.0-100.0); Mean Platelet Volume 10.7 fL (9.4-12.4); Platelet Count 240 K/uL (130-400); RDW Coefficient of Variation 13.6 % (11.5-14.5); RDW Standard Deviation 44.2 fL (36.4-46.3); Red Blood Count 4.07 M/uL (4.20-5.40); White Blood Count 5.72 K/ul (4.8-10.8)
[2024-02-10 09:32] VITALS: BP 102/69; RESP 18; TEMP 97.7; O2SAT 95
[2024-02-10 09:32] LABS: Albumin Globulin Ratio 1.3 (0.9-2); BUN Creatinine Ratio 28.1 (10-20); Bilirubin,Total 0.7 mg/dl (0.2-1.0); Calcium 9.4 mg/dl (8.6-10.3); Creatinine Clr Calc Pharmacy 74.1 ml/min; Phosphorus 3.9 mg/dl (2.5-4.9); Potassium 3.8 mmol/L (3.5-5.1)
[2024-02-10 10:11] VITALS: PULSE 62
[2024-02-18] MEDS ORDERED: ERGOCALCIFEROL 1250 MCG (50,000 UNITS) CAP PO SCH (09:00)
== END 2024-02-10 10:31 | disposition home or self-care (01) | DRG 690 ==
LOC: ED 08:35 → 3W 08:35 → SUATTDRO 13:13 → 3W 16:40